=== PATIENT | male | born 1950 | race Hispanic/Latino ===

== ENCOUNTER 2018-07-28 11:14 | Emergency (ER) | payer MEDICARE ==
[~2018-07-28] VITALS: Ht 182.9 cm; Wt 116.1 kg
[2018-07-28] MEDS ORDERED: LASIX20 MG PO (11:43)
[2018-07-28] MEDS ORDERED: GLIMEPIRIDE2 MG PO (11:43)
[2018-07-28] MEDS ORDERED: SOTALOL80 MG PO (11:43)
[2018-07-28] MEDS ORDERED: ATORVASTATIN CA20 MG PO (11:43)
[2018-07-28] MEDS ORDERED: eliquis PO (11:43)
[2018-07-28] MEDS ORDERED: SYMBICORT 16010.2 GM INH (11:43)
[2018-07-28] MEDS ORDERED: POTASSIUM20 MEQ/100 PO (11:43)
[2018-07-28] MEDS ORDERED: METFORMIN HCL500 MG PO (11:43)
[2018-07-28] MEDS ORDERED: PROAIR HFA INH8.5 GM INH (11:43)
--- NOTE | 2018-07-28 13:28 | Diagnostic Imaging Report ---
EXAMINATION: Head CT HISTORY: Dizziness and weakness for the last 3 days COMPARISON: None. TECHNIQUE: Multidetector axial images were obtained without contrast from the foramen magnum to the vertex . The images were reconstructed using brain and bone algorithms. Thin section brain images were reformatted into coronal and sagittal planes. Intravenous contrast: None. Image quality: Motion/streaking artifact limits the evaluation of the skull base and posterior cranial fossa and near the mid third of the head. Dose modulation, iterative reconstruction, and/or weight based adjustment of the mA/kV was utilized to reduce the radiation dose to as low as reasonably achievable. FINDINGS: Parenchyma: 1. No abnormal densities. 2. No mass or hemorrhage. No CT evidence of acute territorial vascular insult. Extra-axial spaces:No abnormal density. No extra-axial fluid collections Brain volume: Normal for age. Ventricles: No hydrocephalus or displacement. Arteries: No density suggestive of thrombus. Dural sinuses: No abnormal density. Extra-axial spaces: No abnormal density. Foramen magnum: No mass, Chiari malformation, or basilar invagination. Sella: No obvious mass. Paranasal/mastoid sinuses: Imaged portions unremarkable. Skull/Scalp: No lytic or blastic lesions. No fractures. IMPRESSION: Mildly suboptimal evaluation due to motion artifact, grossly no acute intracranial abnormalities, particularly no hemorrhage or CT evidence of acute territorial cortical vascular insults. Signed by: Dr. Marina Pavon M.D. on 07/28/2018 1:25 PM
--- NOTE | 2018-07-28 16:04 | Diagnostic Imaging Report ---
EXAMINATION: CT of the chest with contrast, PE protocol. TECHNIQUE: Spiral CT images of the chest were performed from the lung apices through the level of the adrenal glands after the IV administration of 82 cc of Isovue 370. Thin section reconstructions were obtained with special concentration on the pulmonary arteries. Coronal and sagittal reformatted images were also obtained COMPARISON: <none> CLINICAL HISTORY:Shortness of breath, low O2 saturation DISCUSSION: Lungs: No filling defects are identified in the main, right or left pulmonary arteries to their segmental levels, to suggest pulmonary embolism. Diffusely increased attenuation of the pulmonary parenchyma. Linear opacities in the lingula and anterior left lower lobe, as well as posterior left lower lobe atelectatic changes secondary to eventration of the left hemidiaphragm. Mild compressive atelectasis of the left lower lobe. No pulmonary masses. Calcified granulomas in the lateral right upper lobe (series 4, image 33) and left upper lobe (series 4, image 27). No pulmonary nodules. Airways: Airways are clear, without endobronchial lesions. Pleura: Trace to small left pleural effusion. Heart and mediastinum: Moderate cardiomegaly. Atherosclerotic calcification of the aortic valve, coronary arteries, mitral annulus and thoracic aortic arch. Aorta is nonaneurysmal. Main pulmonary artery is enlarged, measuring 4.1 cm. Lymph nodes: Enlarged prevascular lymph node which measures 1.3 cm in short axis (series 2, image 16). Enlarged right upper paratracheal lymph node, which measures 1.4 cm in short axis (series 2, image 27). Enlarged right lower paratracheal lymph node which measures 1.3 cm in short axis (series 2, image 38). Enlarged left lower paratracheal lymph node which measures 1.5 cm in short axis (series 2, image 42). Enlarged subcarinal lymph node which measures 1.7 cm in short axis (series 2, image 53). Enlarged left hilar node which measures 1.7 cm in short axis (series 2, image 54). Abdomen: The visualized portions of the liver, spleen, pancreas and bowel are unremarkable. 1.4 x 1.5 cm low density lesion in the right adrenal gland (series 2, image 113). 2.4 x 2.6 cm low-density lesion with punctate calcification in the left adrenal gland (series 2, image 117). 1.9 x 1.9 cm low density lesion in the right adrenal gland (series 2, image 112). All these lesions measure less than 10 HU. Bones and soft tissues: No aggressive lytic lesions. Degenerative disc changes in the thoracic spine. IMPRESSION: 1. No CT evidence of pulmonary embolism. 2. Diffusely increased attenuation of the pulmonary parenchyma. This may be secondary to scan performed in partial expiration, however, mild interstitial edema may also be considered, in the appropriate clinical setting. 3. Atelectatic changes seen in the left lower lobe, lingula secondary to eventration of the left hemidiaphragm. 4. Trace to small left pleural effusion with associated mild compressive atelectasis of the left lower lobe. 5. Moderate cardiomegaly. Enlarged main pulmonary artery, consistent with pulmonary hypertension. 6. Mediastinal and left hilar adenopathy, as described, of undetermined etiology. No pulmonary mass identified 7. Bilateral adrenal lesions consistent with benign, lipid rich adenomas. No further diagnostic imaging is indicated. Signed by: Dr. Brett Sepulveda M.D. on 07/28/2018 4:01 PM
--- NOTE | 2018-07-28 16:28 | Diagnostic Imaging Report ---
EXAMINATION: PA and lateral views of the chest. COMPARISON: None CLINICAL HISTORY: Dizziness and weakness for 3 days DISCUSSION: Lines/tubes: None. Lungs: Lungs are well-inflated. Atelectatic changes in the left lower lobe and likely lingula. Right lung is grossly clear. Pleura: There is no pleural effusion or pneumothorax. Elevation of the left hemidiaphragm, which may be due to eventration. Heart and mediastinum: Cardiomediastinal silhouette is unremarkable. Pulmonary vasculature is normal. Bones and soft tissues: No acute bony abnormalities. Degenerative changes in the thoracic spine IMPRESSION: Atelectatic changes in the left lower lobe and likely lingula secondary to elevation of the left hemidiaphragm. Signed by: Dr. Brett Sepulveda M.D. on 07/28/2018 1:03 PM
[2018-07-28] MEDS ORDERED: FUROSEMIDE INJ 10 MG/ML 4 ML VIAL IV ONE (17:15)
[2018-07-28 17:49] VITALS: BP 160/92
== END 2018-07-28 17:51 | disposition home or self-care (01) ==
LOC: FSED 11:14
DX: R42 Dizziness and giddiness (principal); J44.9 Chronic obstructive pulmonary disease, unspecified; I48.0 Paroxysmal atrial fibrillation; I50.9 Heart failure, unspecified; G47.30 Sleep apnea, unspecified; F17.210 Nicotine dependence, cigarettes, uncomplicated
CPT/HCPCS: 70450; 71046; 71275; 80053; 81003; 82553; 83880; 84484; 85025; 85379; 99284; J1940; 93005

== ENCOUNTER 2019-03-30 00:47 | Inpatient (IN) | payer MEDICARE ==
[~2019-03-30] VITALS: Ht 182.9 cm; Wt 118.4 kg
[~2019-03-30 00:47] MED LIST: ATORVASTATIN CA20 MG PO; GLIMEPIRIDE2 MG PO; LASIX20 MG PO; METFORMIN HCL500 MG PO; POTASSIUM20 MEQ/100 PO; PROAIR HFA INH8.5 GM INH; SOTALOL80 MG PO; SYMBICORT 16010.2 GM INH; eliquis PO
--- OUTSIDE RECORDS SUMMARY | 2019-03-30 00:50 | XMS REPORT | Clinical Summary ---
Author Author KADI LitehouseSt. Luke'S Nampa Medical CenterShowcase-TV [facility] Organization [facility] Address Unknown Phone Unavailable Care Team Providers Care Social Service Assistant Name Role Phone Pcp, No PCP Unavailable Allergies No Known Allergies Medications End Date Status Medication Sig Dispensed Refills Start Date Active alendronate (FOSAMAX) 70 Take 70 mg by 0 MG tablet mouth every 7 days Take in the morning with a full glass of water, on an empty stomach, and do not take anything else by mouth or lie down for the next 30 min. . Active calcium carbonate-vitamin Take by mouth 0 D3 1,000 mg(2,500 mg)-800 daily. unit Tab Active albuterol HFA (VENTOLIN Inhale 1 puff 0 HFA) 90 mcg/actuation by mouth via inhaler inhaler every 6 (six) hours as needed for Wheezing. Active tiotropium (SPIRIVA) 18 Inhale 18 mcg 0 mcg inhalation capsule by mouth via inhaler daily. Active ferrous sulfate 325 (65 Take 325 mg 0 FE) MG tablet by mouth daily with breakfast. Active ranitidine (ZANTAC) 150 Take 150 mg 0 MG capsule by mouth 2 (two) times daily. Active atorvastatin (LIPITOR) 20 Take 20 mg by 0 MG tablet mouth daily. Active apixaban (ELIQUIS) 2.5 mg Take 2 0 Tab tablet tablets (5 mg 9 total) by mouth 2 (two) times daily. Active furosemide (LASIX) 20 MG Take 2 0 tablet tablets (40 9 mg total) by mouth daily. Active potassium chloride Take 2 0 (KLOR-CON) 10 MEQ CR tablets (20 9 tablet mEq total) by mouth daily. 12/24/2019 Active budesonide (PULMICORT) Take 2 mLs 120 mL 0 0.5 mg/2 mL nebulizer (0.5 mg 9 solution total) by nebulization 2 (two) times daily. 12/24/2019 Active buPROPion (WELLBUTRIN) 75 Take 1 tablet 60 tablet 0 MG tablet (75 mg total) 9 by mouth 2 (two) times daily. 12/25/2019 Active digoxin (LANOXIN) 0.125 Take 1 tablet 0 MG tablet (125 mcg 9 total) by mouth daily Do not take if heart rate < 55. 12/25/2019 Active dilTIAZem (CARDIZEM CD) Take 1 30 capsule 0 180 MG 24 hr capsule capsule (180 9 mg total) by mouth daily Do not take if systolic BP < 110 or heart rate < 50. 12/24/2019 Active insulin NPH (HUMULIN N) Inject 15 4.5 mL 0 100 unit/mL injection Units 9 subcutaneousl y daily with breakfast Do not take if accuchecks < 150 ; Use as directed. 12/24/2019 Active insulin NPH (HUMULIN N) Inject 12 3.6 mL 0 100 unit/mL injection Units 9 subcutaneousl y daily with dinner Do not take if accuchecks < 200 ; Use as directed. 12/25/2019 Active lisinopril Take 1 tablet 30 tablet 0 (PRINIVIL,ZESTRIL) 2.5 MG (2.5 mg 9 tablet total) by mouth daily Do not take if systolic BP < 140. 12/24/2019 Active magnesium oxide (MAG-OX) Take 1 tablet 30 tablet 0 400 mg (241.3 mg (400 mg 9 magnesium) tablet total) by mouth daily. Active predniSONE (DELTASONE) 10 4 tabs daily 22 tablet 0 MG tablet for 3 days, 9 then 2 tabs daily for 3 days, then 1 tab daily for 3 days , then stop.. 12/24/2019 Active senna-docusate (SENOKOT Take 1 tablet 20 tablet 0 S) 8.6-50 mg per tablet by mouth 2 9 (two) times daily as needed for Constipation. Active miscellaneous medical Nebulizer 1 each 0 supply Misc machine with 9 accessories.. 12/24/2018 Discontinued potassium chloride Take 10 mEq 0 (KLOR-CON) 10 MEQ CR by mouth tablet daily. 12/24/2018 Discontinued metFORMIN (GLUCOPHAGE) Take 1,000 mg 0 1000 MG tablet by mouth 2 (two) times daily with breakfast and dinner. 12/24/2018 Discontinued sotalol AF (BETAPACE AF) Take 120 mg 0 120 MG tablet by mouth 2 (two) times daily. 12/24/2018 Discontinued furosemide (LASIX) 20 MG Take 20 mg by 0 tablet mouth daily. 12/24/2018 Discontinued apixaban (ELIQUIS) 2.5 mg Take 2.5 mg 0 Tab tablet by mouth 2 (two) times daily. 12/24/2018 Discontinued glimepiride (AMARYL) 4 MG Take 4 mg by 0 tablet mouth every morning before breakfast. 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 12/16/2018 without angina pectoris Tobacco use 12/16/2018 FLORINDA on CPAP 12/16/2018 Resolved Problems Problem Noted Date Resolved Date Hypoxemia 12/16/2018 12/16/2018 Encounters Care Team Description Date Type Specialty Brandan Davidson MD 12/16/2018 Anesthesia Gastroenterology Event Matias Verduzco MD Quadri, Syed Fiaz, MD Quadri, Syed M., MD Acute on chronic diastolic (congestive) heart failure (HCC) 12/16/2018 Hospital Cardiology - Encounter 12/24/2018 12/16/2018 Orders Only General Internal Medicine 12/16/2018 [facility] 12/10/2018 Hospital Pre-Admission Testing Encounter after 03/29/2018 Social History Date Tobacco Use Types Packs/Day Years Used Quit: 12/07/2018 Former Smoker 1 44 Smokeless Tobacco: Former User Alcohol Use Drinks/Week oz/Week Comments Yes 8 Cans of 4.8 beer Sex Assigned at Date Recorded Not on file Industry Job Start Date Occupation Not on file Not on file Not on file Travel End Travel History Travel Start No recent travel history available. Last Filed Vital Signs Time Taken Vital Sign Reading 12/24/2018 7:00 AM [employer]ING MACHINE [employer] Blood Pressure 129/67 12/24/2018 7:27 AM [employer]ACHINE [employer] Pulse 58 12/24/2018 7:00 AM [employer]ING MACHINE OPERATOR [employer] Temperature 35.8 C (96.5 F) 12/24/2018 7:27 AM [employer]ING MACHINE OPERATOR [employer] Respiratory Rate 18 12/24/2018 7:41 AM J[employer]ING MACHINE OPERATOR [employer] Oxygen Saturation 95% 12/19/2018 3:36 AM [employer]ING MACHINE OPERATOR [employer] Inhaled Oxygen 50% Concentration 12/24/2018 5:56 AM J[employer]ING MACHINE OPERATOR [employer] Weight 111.1 kg (244 lb 14.9 oz) 12/16/2018 7:00 AM [employer]ING MACHINE O[employer]ATOR [employer] Height 182.9 cm (6') 12/24/2018 5:56 AM J[employer]ING MACHINE OPERATOR [employer] METAL Body Mass Index 33.22 Plan of Treatment Not on file Procedures Comments Procedure Name Priority Date/Time Associated Diagnosis RHYTHM STRIP - SCAN 01/13/2019 12:15 PM J[employer]ING MACHINE OPERATOR FOR METAL POCT-GLUCOSE METER Routine 12/24/2018 11:49 AM J[employer] B[employer]ING MACHINE OPERATOR FOR METAL POCT-GLUCOSE METER Routine 12/24/2018 8:14 AM J[employer] B[employer]ING MACHINE OPERATOR FOR METAL MAGNESIUM Routine 12/24/2018 6:59 AM J[employer] B[employer]ING MACHINE OPERATOR FOR METAL POTASSIUM Routine 12/24/2018 6:59 AM J[employer] B[employer]ING MACHINE OPERATOR FOR METAL POCT-GLUCOSE METER Routine 12/23/2018 8:58 PM J[employer] BORING MACHINE OPERATOR FOR METAL POCT-GLUCOSE METER Routine 12/23/2018 5:52 PM J[employer] B[employer]ING MACHINE OPERATOR FOR METAL POCT-GLUCOSE METER Routine 12/23/2018 11:09 AM J[employer] B[employer]ING MACHINE OPERATOR FOR METAL POCT-GLUCOSE METER Routine 12/23/2018 8:14 AM J[employer] B[employer]ING MACHINE OPERATOR FOR METAL LACTIC ACID, VENOUS Routine 12/23/2018 5:56 AM J[employer] BORING MACHINE OPERATOR FOR METAL MAGNESIUM Routine 12/23/2018 5:56 AM JIG BORING MACHINE OPERATOR FOR METAL BASIC METABOLIC PANEL (7) Routine 12/23/2018 5:56 AM JIG BORING MACHINE OPERATOR FOR METAL POCT-GLUCOSE METER Routine 12/22/2018 9:37 PM JIG BORING MACHINE OPERATOR FOR METAL POCT-GLUCOSE METER Routine 12/22/2018 5:52 PM J[employer] B[employer]ING MACHINE OPERATOR FOR METAL POCT-GLUCOSE METER Routine 12/22/2018 12:11 PM JIG B[employer]ING MACHINE OPERATOR FOR METAL POCT-GLUCOSE METER Routine 12/22/2018 8:06 AM J[employer] B[employer]ING MACHINE OPERATOR FOR METAL CBC W/PLT COUNT & AUTO Routine 12/22/2018 DIFFERENTIAL 5:11 AM JIG BORING MACHINE OPERATOR FOR METAL B-TYPE NATRIURETIC FACTOR Routine 12/22/2018 (BNP) 5:11 AM JIG BORING MACHINE OPERATOR FOR METAL MAGNESIUM Routine 12/22/2018 5:11 AM JIG BORING MACHINE OPERATOR FOR METAL BASIC METABOLIC PANEL (7) Routine 12/22/2018 5:11 AM JIG BORING MACHINE OPERATOR FOR METAL CBC W/PLT COUNT & AUTO Routine 12/22/2018 DIFFERENTIAL 5:11 AM JIG BORING MACHINE OPERATOR FOR METAL POCT-GLUCOSE METER Routine 12/21/2018 9:26 PM JIG BORING MACHINE OPERATOR FOR METAL POCT-GLUCOSE METER Routine 12/21/2018 5:57 PM JIG BORING MACHINE OPERATOR FOR METAL XR CHEST 1 VIEW Routine 12/21/2018 PORTABLE/BEDSIDE 2:58 PM JIG B[employer]ING MACHINE OPERATOR FOR METAL POCT-GLUCOSE METER Routine 12/21/2018 12:38 PM JIG BORING MACHINE OPERATOR FOR METAL POCT-GLUCOSE METER Routine 12/21/2018 7:25 AM JIG BORING MACHINE OPERATOR FOR METAL CBC W/PLT COUNT & AUTO Routine 12/21/2018 DIFFERENTIAL 4:48 AM JIG BORING MACHINE OPERATOR FOR METAL B-TYPE NATRIURETIC FACTOR Routine 12/21/2018 (BNP) 4:48 AM JIG BORING MACHINE OPERATOR FOR METAL MAGNESIUM Routine 12/21/2018 4:48 AM JIG BORING MACHINE OPERATOR FOR METAL BASIC METABOLIC PANEL (7) Routine 12/21/2018 4:48 AM JIG BORING MACHINE OPERATOR FOR METAL CBC W/PLT COUNT & AUTO Routine 12/21/2018 DIFFERENTIAL 4:48 AM JIG BORING MACHINE OPERATOR FOR METAL POCT-GLUCOSE METER Routine 12/20/2018 10:01 PM JIG BORING MACHINE OPERATOR FOR METAL POCT-GLUCOSE METER Routine 12/20/2018 5:15 PM JIG BORING MACHINE OPERATOR FOR METAL POCT-GLUCOSE METER Routine 12/20/2018 11:38 AM JIG BORING MACHINE OPERATOR FOR METAL XR CHEST 1 VIEW STAT 12/20/2018 PORTABLE/BEDSIDE 8:58 AM JIG BORING MACHINE OPERATOR FOR METAL POCT-GLUCOSE METER Routine 12/20/2018 8:12 AM JIG BORING MACHINE OPERATOR FOR METAL CBC W/PLT COUNT & AUTO Routine 12/20/2018 DIFFERENTIAL 4:54 AM JIG BORING MACHINE OPERATOR FOR METAL B-TYPE NATRIURETIC FACTOR Routine 12/20/2018 (BNP) 4:54 AM JIG BORING MACHINE OPERATOR FOR METAL MAGNESIUM Routine 12/20/2018 4:54 AM JIG BORING MACHINE OPERATOR FOR METAL BASIC METABOLIC PANEL (7) Routine 12/20/2018 4:54 AM JIG BORING MACHINE OPERATOR FOR METAL CBC W/PLT COUNT & AUTO Routine 12/20/2018 DIFFERENTIAL 4:54 AM JIG BORING MACHINE OPERATOR FOR METAL POCT-GLUCOSE METER Routine 12/19/2018 9:14 PM JIG BORING MACHINE OPERATOR FOR METAL ECHOCARDIOGRAM REPORT - 12/19/2018 SCAN 5:50 PM JIG BORING MACHINE OPERATOR FOR METAL POCT-GLUCOSE METER Routine 12/19/2018 4:55 PM JIG BORING MACHINE OPERATOR FOR METAL POCT-GLUCOSE METER Routine 12/19/2018 11:44 AM JIG BORING MACHINE OPERATOR FOR METAL XR CHEST 1 VIEW STAT 12/19/2018 PORTABLE/BEDSIDE 9:11 AM JIG BORING MACHINE OPERATOR FOR METAL POCT-GLUCOSE METER Routine 12/19/2018 7:51 AM JIG BORING MACHINE OPERATOR FOR METAL CBC W/PLT COUNT & AUTO Routine 12/19/2018 DIFFERENTIAL 4:55 AM JIG BORING MACHINE OPERATOR FOR METAL MAGNESIUM Routine 12/19/2018 4:55 AM JIG BORING MACHINE OPERATOR FOR METAL B-TYPE NATRIURETIC FACTOR Routine 12/19/2018 (BNP) 4:55 AM JIG BORING MACHINE OPERATOR FOR METAL BASIC METABOLIC PANEL (7) Routine 12/19/2018 4:55 AM JIG BORING MACHINE OPERATOR FOR METAL CBC W/PLT COUNT & AUTO Routine 12/19/2018 DIFFERENTIAL 4:55 AM JIG BORING MACHINE OPERATOR FOR METAL HEMOGLOBIN A1C Routine 12/19/2018 4:55 AM JIG B[employer]ING MACHINE OPERATOR FOR METAL ECG 12-LEAD Routine 12/19/2018 12:03 AM JIG BORING MACHINE OPERATOR FOR METAL ECG 12-LEAD Routine 12/19/2018 12:03 AM JIG BORING MACHINE OPERATOR FOR METAL Procedure Note - Interface, External Ris In - 12/19/2018 12:26 AM JIG BORING MACHINE OPERATOR FOR METAL Ventricula r Rate 116 BPM Atrial Rate 110 BPM QRS Duration 108 ms Q-T Interval 342 ms QTC Calculatio n(Bazett) 475 ms R [place] -20 degrees T [place] 49 degrees Atrial fibrillati on with rapid ventricula r response Abnormal ECG When compared with ECG of 9 00:00, Previous ECG has undetermin ed rhythm, needs review ECG 12-LEAD Routine 12/19/2018 12:00 AM JIG BORING MACHINE OPERATOR FOR METAL Procedure Note - Interface, External Ris In - 12/19/2018 12:26 AM JIG BORING MACHINE OPERATOR FOR METAL Ventricula r Rate 0 BPM Atrial Rate 0 BPM QRS Duration 0 ms Q-T Interval 0 ms QTC Calculatio n(Bazett) 0 ms R [place] 0 degrees T [place] 0 degrees No QRS complexes found, no ECG analysis possible When compared with ECG of 9 23:59, Current undetermin ed rhythm precludes rhythm comparison , needs review POCT-GLUCOSE METER Routine 12/18/2018 10:25 PM JIG BORING MACHINE OPERATOR FOR METAL POCT-GLUCOSE METER Routine 12/18/2018 9:21 PM JIG BORING MACHINE OPERATOR FOR METAL ECG 12-LEAD Routine 12/18/2018 7:32 PM JIG BORING MACHINE OPERATOR FOR METAL ECG 12-LEAD Routine 12/18/2018 7:32 PM JIG BORING MACHINE OPERATOR FOR METAL Procedure Note - Interface, External Ris In - 12/18/2018 8:46 PM JIG BORING MACHINE OPERATOR FOR METAL Ventricula r Rate 153 BPM Atrial Rate 147 BPM QRS Duration 98 ms Q-T Interval 302 ms QTC Calculatio n(Bazett) 482 ms R [place] -36 degrees T [place] 116 degrees Atrial fibrillati on with rapid ventricula r response Left axis deviation ST & T wave abnormalit y, consider lateral ischemia Abnormal ECG When compared with ECG of 9 18:17, Atrial fibrillati on has replaced Sinus rhythm Vent. rate has increased BY 96 BPM QRS duration has decreased T wave inversion now evident in Lateral leads ECG 12-LEAD Routine 12/18/2018 6:17 PM JIG BORING MACHINE OPERATOR FOR METAL ECG 12-LEAD Routine 12/18/2018 6:17 PM JIG BORING MACHINE OPERATOR FOR METAL Procedure Note - Interface, External Ris In - 12/18/2018 6:24 PM JIG BORING MACHINE OPERATOR FOR METAL Ventricula r Rate 57 BPM Atrial Rate 57 BPM P-R Interval 132 ms QRS Duration 116 ms Q-T Interval 436 ms QTC Calculatio n(Bazett) 424 ms P [place] 54 degrees R [place] -10 degrees T [place] 56 degrees Sinus bradycardi a Possible Left atrial enlargemen t Borderline ECG When compared with ECG of 9 20:35, Sinus rhythm has replaced Atrial fibrillati on Vent. rate has decreased BY 85 BPM POCT-GLUCOSE METER Routine 12/18/2018 5:09 PM JIG BORING MACHINE OPERATOR FOR METAL POCT-GLUCOSE METER Routine 12/18/2018 2:34 PM JIG BORING MACHINE OPERATOR FOR METAL 2D ECHO W/ DOPPLER Routine 12/18/2018 (CW/PW/COLOR) 12:41 PM JIG BORING MACHINE OPERATOR FOR METAL CBC W/PLT COUNT & AUTO STAT 12/18/2018 DIFFERENTIAL 9:11 AM JIG BORING MACHINE OPERATOR FOR METAL B-TYPE NATRIURETIC FACTOR STAT 12/18/2018 (BNP) 9:11 AM JIG BORING MACHINE OPERATOR FOR METAL MAGNESIUM STAT 12/18/2018 9:11 AM JIG BORING MACHINE OPERATOR FOR METAL CBC W/PLT COUNT & AUTO STAT 12/18/2018 DIFFERENTIAL 9:11 AM JIG BORING MACHINE OPERATOR FOR METAL BASIC METABOLIC PANEL (7) STAT 12/18/2018 9:11 AM JIG BORING MACHINE OPERATOR FOR METAL POCT-GLUCOSE METER Routine 12/18/2018 8:09 AM JIG BORING MACHINE OPERATOR FOR METAL POCT-GLUCOSE METER Routine 12/17/2018 9:32 PM JIG BORING MACHINE OPERATOR FOR METAL POCT-GLUCOSE METER Routine 12/17/2018 5:57 PM JIG BORING MACHINE OPERATOR FOR METAL POCT-GLUCOSE METER Routine 12/17/2018 11:20 AM JIG BORING MACHINE OPERATOR FOR METAL POCT-GLUCOSE METER Routine 12/17/2018 9:07 AM JIG BORING MACHINE OPERATOR FOR METAL CBC W/PLT COUNT & AUTO Routine 12/17/2018 DIFFERENTIAL 4:48 AM JIG BORING MACHINE OPERATOR FOR METAL MAGNESIUM Routine 12/17/2018 4:48 AM JIG BORING MACHINE OPERATOR FOR METAL B-TYPE NATRIURETIC FACTOR Routine 12/17/2018 (BNP) 4:48 AM JIG BORING MACHINE OPERATOR FOR METAL COMPREHENSIVE METABOLIC Routine 12/17/2018 PANEL 4:48 AM JIG BORING MACHINE OPERATOR FOR METAL CBC W/PLT COUNT & AUTO Routine 12/17/2018 DIFFERENTIAL 4:48 AM JIG BORING MACHINE OPERATOR FOR METAL POCT-GLUCOSE METER Routine 12/16/2018 9:24 PM JIG BORING MACHINE OPERATOR FOR METAL ECG 12-LEAD Routine 12/16/2018 8:35 PM JIG B[employer]ING MACHINE OPERATOR FOR METAL Procedure Note - Interface, External Ris In - 12/16/2018 10:19 PM JIG BORING MACHINE OPERATOR FOR METAL Ventricula r Rate 142 BPM Atrial Rate 153 BPM QRS Duration 98 ms Q-T Interval 308 ms QTC Calculatio n(Bazett) 473 ms R [place] -38 degrees T [place] 111 degrees Atrial fibrillati on with rapid ventricula r response with premature ventricula r or aberrantly conducted complexes Left axis deviation Nonspecifi c ST and T wave abnormalit y Abnormal ECG When compared with ECG of 9 17:28, Atrial fibrillati on has replaced Sinus rhythm Vent. rate has increased BY 87 BPM Nonspecifi c T wave abnormalit y no longer evident in Inferior leads T wave inversion no longer evident in Lateral leads ECG 12-LEAD Routine 12/16/2018 8:35 PM JIG BORING MACHINE OPERATOR FOR METAL ECG 12-LEAD Routine 12/16/2018 5:28 PM JIG BORING MACHINE OPERATOR FOR METAL Procedure Note - Interface, External Ris In - 12/16/2018 5:38 PM JIG BORING MACHINE OPERATOR FOR METAL Ventricula r Rate 55 BPM Atrial Rate 55 BPM P-R Interval 132 ms QRS Duration 98 ms Q-T Interval 476 ms QTC Calculatio n(Bazett) 455 ms P [place] 48 degrees R [place] -25 degrees T [place] [address] & T wave abnormalit y, consider lateral ischemia Abnormal ECG No previous ECGs available ECG 12-LEAD Routine 12/16/2018 5:28 PM JIG BORING MACHINE OPERATOR FOR METAL POCT-GLUCOSE METER Routine 12/16/2018 5:24 PM JIG BORING MACHINE OPERATOR FOR METAL CT CHEST PE TEST DESIGN STAT 12/16/2018 4:19 PM J[employer] BORING MACHINE OPERATOR FOR METAL XR CHEST 1 VIEW Routine 12/16/2018 PORTABLE/BEDSIDE 2:54 PM JIG BORING MACHINE OPERATOR FOR METAL RESPIRATORY PANEL SLHS Routine 12/16/2018 12:53 PM JIG BORING MACHINE OPERATOR FOR METAL SPUTUM CULTURE + GRAM Routine 12/16/2018 STAIN 12:36 PM J[employer] BORING MACHINE OPERATOR FOR METAL POCT-GLUCOSE METER Routine 12/16/2018 12:34 PM JIG BORING MACHINE OPERATOR FOR METAL BASIC METABOLIC PANEL (7) Routine 12/16/2018 12:32 PM JIG BORING MACHINE OPERATOR FOR METAL CBC W/PLT COUNT & AUTO Routine 12/16/2018 DIFFERENTIAL 7:08 AM JIG BORING MACHINE OPERATOR FOR METAL POCT-GLUCOSE METER Routine 12/16/2018 7:08 AM JIG BORING MACHINE OPERATOR FOR METAL POTASSIUM STAT 12/16/2018 7:08 AM JIG BORING MACHINE OPERATOR FOR METAL CBC W/PLT COUNT & AUTO Routine 12/16/2018 DIFFERENTIAL 7:08 AM JIG BORING MACHINE OPERATOR FOR METAL APTT Routine 12/16/2018 7:08 AM JIG BORING MACHINE OPERATOR FOR METAL PROTHROMBIN TIME/INR Routine 12/16/2018 7:08 AM JIG BORING MACHINE OPERATOR FOR METAL after 03/29/2018 Results * RHYTHM STRIP - SCAN (01/13/2019 12:15 PM JIG BORING MACHINE OPERATOR FOR METAL) Narrative Performed At * POC-Glucose meter (12/24/2018 11:49 AM JIG BORING MACHINE OPERATOR FOR METAL) Only the most recent of 35 results within the time period is included. POC-Glucose Meter 240 (H)Comment: TESTED AT 70 - 110 mg/dL [facility] [id number] [facility] [id number] Specimen Blood Performing Organization Address City/State/Zipcode Phone Number [address] [address] [facility] * Potassium (12/24/2018 6:59 AM JIG BORING MACHINE OPERATOR FOR METAL) Only the most recent of 2 results within the time period is included. Potassium 4.7 3.5 - 5.1 meq/L [facility] Specimen Blood Performing Organization Address City/[facility] [place] [address] [facility] * Magnesium (12/24/2018 6:59 AM JIG BORING MACHINE OPERATOR FOR METAL) Only the most recent of 8 results within the time period is included. Magnesium 2.1 1.6 - 2.6 mg/dL [facility] Specimen Blood Performing Organization Address [facility] [place] [address] [phone] [place] [address] * Lactic acid, venous, whole blood (12/23/2018 5:56 AM JIG BORING MACHINE OPERATOR FOR METAL) Lactate, Venous 1.1Comment: Specimen slightly 0.5 - 2.2 mmol/L [facility] hemolyzed [facility] Specimen Blood Performing Organization Address [facility] [place] [address] [facility] * Basic Metabolic Panel (12/23/2018 5:56 AM JIG BORING MACHINE OPERATOR FOR METAL) Only the most recent of 7 results within the time period is included. Sodium 137 136 - 145 meq/L [facility] Potassium 3.7 3.5 - 5.1 meq/L [facility] Chloride 92 (L) 98 - 107 meq/L [facility] CO2 35 (H) 22 - 29 meq/L [facility] BUN 33 (H) 7 - 21 mg/dL [facility] Creatinine 0.86 0.57 - 1.25 mg/dL [facility] Glucose 186 (H) 70 - 105 mg/dL [facility] Calcium 9.4 8.4 - 10.2 mg/dL [facility] EGFR 89Comment: ESTIMATED GFR IS mL/min/1.73 sq m [facility] NOT ACCURATE CREATININE [facility] CLEARANCE IN PREDICTING GLOMERULAR FILTRATION RATE. ESTIMATED GFR IS NOT APPLICABLE FOR DIALYSIS PATIENTS. Specimen Blood Performing Organization Address City/State/Zipcode Phone Number [facility] [address] [place] [address] MED[facility]ENTER * CBC with platelet count + automated diff (12/22/2018 5:11 AM JIG BORING MACHINE OPERATOR FOR METAL) Only the most recent of 7 results within the time period is included. WBC 13.7 (H) 3.5 - 10.5 K/L [facility] RBC 5.17 4.63 - 6.08 M/L [facility] Hemoglobin 15.5 13.7 - 17.5 GM/DL [facility] Hematocrit 47.5 40.1 - 51.0 % [facility] MCV 91.9 79.0 - 92.2 fL [facility] MCH 30.0 25.7 - 32.2 pg [facility] MCHC 32.6 32.3 - 36.5 GM/DL [facility] RDW 14.6 (H) 11.6 - 14.4 % [facility] Platelets 208 150 - 450 K/CU MM [facility] MPV 9.5 9.4 - 12.4 fL [facility] nRBC 0 0 - 0 /100 WBC [facility] % Neutros 77 % [facility] % Lymphs 12 % [facility] % Monos 9 % [facility] % Eos 0 % [facility] % Baso 0 % [facility] # Neutros 10.48 (H) 1.78 - 5.38 K/L [facility] # Lymphs 1.65 1.32 - 3.57 K/L [facility] # Monos 1.22 (H) 0.30 - 0.82 K/L [facility] # Eos 0.05 0.04 - 0.54 K/L [facility] # Baso 0.04 0.01 - 0.08 K/L [facility] Immature 2 (H) 0 - 1 % [facility] Specimen Blood Performing Organization Address City/[facility]/Zipcode Phone Number [place] [phone] [place] [address] * B-type Natriuretic Factor (BNP) (12/22/2018 5:11 AM JIG BORING MACHINE OPERATOR FOR METAL) Only the most recent of 6 results within the time period is included. BNP 315 (H) 0 - 100 pg/mL [facility] Specimen Blood Performing Organization Address City/[facility]/[place] [phone] [place] [address] * XR chest 1 view portable / bedside (12/21/2018 2:58 PM JIG BORING MACHINE OPERATOR FOR METAL) Only the most recent of 4 results within the time period is included. Specimen Narrative Performed At FINAL REPORT [facility] Comparison: 12/20/2018 TECHNIQUE: Single view of the chest FINDINGS: Lung volumes are low. Mild vascular congestion suspected. Small left pleural effusion with adjacent airspace disease. Otherwise lungs are clear. No acute skeletal abnormality. Signed: Theodore Diamond MD Report Verified Date/Time:12/21/2018 15:17:31 Reading Location: [facility] Radiology Reading Room Procedure Note Interface, External Ris In - 12/21/2018 3:19 PM JIG BORING MACHINE OPERATOR FOR METAL FINAL REPORT Comparison: 12/20/2018 TECHNIQUE: Single view of the chest FINDINGS: Lung volumes are low. Mild vascular congestion suspected. Small left pleural effusion with adjacent airspace disease. Otherwise lungs are clear. No acute skeletal abnormality. Signed: Theodore Diamond MD Report Verified Date/Time: 12/21/2018 15:17:31 Reading Location: [facility] Radiology Reading Room Performing Organization Address City/State/Zipcode Phone Number [facility] * ECHOCARDIOGRAM REPORT - SCAN (12/19/2018 5:50 PM JIG BORING MACHINE OPERATOR FOR METAL) Narrative Performed At * Hemoglobin A1c (12/19/2018 4:55 AM JIG BORING MACHINE OPERATOR FOR METAL) Hemoglobin A1C 6.3 (H) 4.3 - 6.1 % [facility] Specimen Blood Performing Organization Address City/[facility] Phone Number [place] [phone] [place] [phone] [place] [address] * ECG 12 lead (12/19/2018 12:03 AM JIG BORING MACHINE OPERATOR FOR METAL) Only the most recent of 5 results within the time period is included. Specimen Narrative Performed At Ventricular Rate 116 BPM GE MUSE Atrial Rate 110 BPM QRS Duration 108 ms Q-T Interval 342 ms QTC Calculation(Bazett) 475 ms R [place] -20 degrees T [place] 49 degrees Atrial fibrillation with rapid ventricular response Abnormal ECG When compared with ECG of 19-DEC-2018 00:00, Previous ECG has undetermined rhythm, needs review Confirmed by MD TIPTON D. RICHARD ([id number]) on 12/19/2018 9:34:06 AM Procedure Note Interface, External Ris In - 12/19/2018 9:34 AM JIG BORING MACHINE OPERATOR FOR METAL Ventricular Rate 116 BPM Atrial Rate 110 BPM QRS Duration 108 ms Q-T Interval 342 ms QTC Calculation(Bazett) 475 ms R [place] -20 degrees T [place] 49 degrees Atrial fibrillation with rapid ventricular response Abnormal ECG When compared with ECG of 19-DEC-2018 00:00, Previous ECG has undetermined rhythm, needs review Confirmed by MD TIPTON D. RICHARD ([id number]) on 12/19/2018 9:34:06 AM Performing Organization Address City/[employer] Phone Number GE MUSE * 2D Echo W/Doppler(CW/PW/Color) (12/18/2018 12:41 PM JIG BORING MACHINE OPERATOR FOR METAL) Ejection Fraction [facility] ECHO HEARTLAB [facility] Specimen Narrative Performed At Transthoracic Echocardiography Report (TTE) [facility] ECHO HEARTLAB Demographics [facility] Patient Name Digna RAMÍREZ of Study 12/18/2018 [id number] Male Visit Number [id number] Room Number 2439 Number Date of Birth2Referring Physician Luba Salcedo Age68 year(s)Vegetable Cook Ian Ball [facility] AnalystIzoJose Cuadra MD Procedure Type of Study TTE procedure:2DECHO W DOPPLER(CW/PW/COLOR) (Routine) Indications:Respiratory failure or hypoxemia . Clinical History DMII, PAFIB, HLD, HTN, CAD, ARF HGB 13.4 HCT 43.9 % Contrast Medium: Definity. Height: 72 inches Weight: 116.12 kg (256 lbs) BSA: 2.37 m^2 BMI: 34.72 kg/m^2 HR: 50 bpm BP: 138/62 mmHg Summary 1. All of the LV segments contract normally . Estimated LVEF by qualitative assessment is normal (55-60% 2. Grade 2 diastolic dysfunction (moderately increased LA pressure). 3. Estimated peak systolic PA pressure is 50-55 mmHg . 4. RV chamber size is moderately enlarged . Global RV systolic function is mildly reduced . Previous Study No prior exam available for comparison. Signature Findings Technical Quality: Technically good exam. Left Ventricle The left ventricle is chamber size (by PSLAX dimension) is normal (male - LVIDd 4.2-5.8cm) . Mild concentric LV hypertrophy. All of the LV segments contract normally . Global LV systolic function normal . Estimated LVEF by qualitative assessment is normal (55-60%) . LV endocardium is adequately visualized with IV ultrasound enhancing agent. Grade 2 diastolic dysfunction (moderately increased LA pressure). Normal (cardiac index 2-3 L/min/m2) cardiac output state at rest is noted. Left AtriumLA size is severely enlarged (>48 ml/m2) . Right VentricleRV chamber size is moderately enlarged . Global RV systolic function is mildly reduced . Right Atrium RA cavity size is moderately enlarged . Aortic Valve Mild AoV cusp calcification. No evidence of aortic stenosis. Mitral Valve Moderate mitral annular calcification. Mild MV leaflet thickening. Mild mitral regurgitation. Tricuspid ValveMild-to moderate eccentric tricuspid regurgitation directed towards the septum. Estimated peak systolic PA pressure is 50-55 mmHg . Pulmonic Valve Mild pulmonary regurgitation. Normal PV structure and function by limited views and Doppler. AortaAortic root size (SInus of Valsalva diameter) is borderline dilated . Proximal ascending aorta size mildly dilated . 3.9 cm PericardiumNo significant pericardial effusion is visualized. IVC/SVC/PA/PV/PleuralPulmonary vein flow is consistent with increased LAP . The estimated RA pressure by IVC dynamics 5-10mmHg . Chambers/Structures Left Atrium LA Volume: 143.1 ml LA Area: 30.93 cm^2 LA Vol. Index: 60 ml/m^2 Left Ventricle LVIDd: 4.88 cm LV Septum Diastolic: 1.36 cm LV PW Diastolic: 1.24 cm LVOT Diameter: 2.33 cm Right Atrium RA Vol. (Sngl Plane): 89.28 ml Right Ventricle TAPSE: 1.54 cm Aorta Ao Root S of Matilde.: 3.53 cmAscending Aorta: 3.92 cm Doppler/Quantitative Measurements Mitral Valve MV Peak E-Wave: 1.21 m/sMV Peak A-Wave: 0.65 m/s E/A Ratio: 1.86 Peak Gradient: 5.83 mmHg Deceleration Time: 178.7 msec MV Gonzalo. Peak: Tissue Doppler E' Lateral Velocity: 0.1 m/sE/E': 12.19 Aortic Valve Peak Velocity: 1.99 m/sMean Velocity: 1.37 m/s Peak Gradient: 15.89 mmHgMean Gradient: 8.45 mmHg AV Area (continuity): 3.09 cm^2 AV VTI: 40.79 cm AV DVI: 0.73 LVOT Peak Velocity: 1.48 m/s Peak Gradient: 8.72 mmHg Mean Velocity: 0.89 m/s Mean Gradient: 3.87 mmHg LVOT Diameter: 2.33 cmLVOT VTI: 29.6 cm LVOT Area: 4.26 cm^2LVOT SV:126.15 ml LVOT CO: 6.31 l/min LVOT CI: 2.66 l/min/m^2 Tricuspid Valve TR Velocity: 3.28 m/s TR Gradient: 42.91 mmHg Procedure Note Interface, External Ris In - 12/19/2018 5:11 PM JIG BORING MACHINE OPERATOR FOR METAL Transthoracic Echocardiography Report (TTE) Demographics Patient Name NAUN RAMÍREZ Date of Study 12/18/2018 Gender Male Visit Number [id number] Race Unknown Room Number 2439 Number Date of 1950 Referring Physician Luba Salcedo Age 68 year(s) Vegetable Cook Ian Ball RDCS Beer Merchant Bryan Torre Interpreting Jerry Smallwood Physician Procedure Type of Study TTE procedure:2DECHO W DOPPLER(CW/PW/COLOR) (Routine) Indications:Respiratory failure or hypoxemia . Clinical History DMII, PAFIB, HLD, HTN, CAD, ARF HGB 13.4 HCT 43.9 % Contrast Medium: Definity. Height: 72 inches Weight: 116.12 kg (256 lbs) BSA: 2.37 m^2 BMI: 34.72 kg/m^2 HR: 50 bpm BP: 138/62 mmHg Summary 1. All of the LV segments contract normally . Estimated LVEF by qualitative assessment is normal (55-60% 2. Grade 2 diastolic dysfunction (moderately increased LA pressure). 3. Estimated peak systolic PA pressure is 50-55 mmHg . 4. RV chamber size is moderately enlarged . Global RV systolic function is mildly reduced . Previous Study No prior exam available for comparison. Signature Findings Technical Quality: Technically good exam. Left Ventricle The left ventricle is chamber size (by PSLAX dimension) is normal (male - LVIDd 4.2-5.8cm) . Mild concentric LV hypertrophy. All of the LV segments contract normally . Global LV systolic function normal . Estimated LVEF by qualitative assessment is normal (55-60%) . LV endocardium is adequately visualized with IV ultrasound enhancing agent. Grade 2 diastolic dysfunction (moderately increased LA pressure). Normal (cardiac index 2-3 L/min/m2) cardiac output state at rest is noted. Left Atrium LA size is severely enlarged (>48 ml/m2) . Right Ventricle RV chamber size is moderately enlarged . Global RV systolic function is mildly reduced . Right Atrium RA cavity size is moderately enlarged . Aortic Valve Mild AoV cusp calcification. No evidence of aortic stenosis. Mitral Valve Moderate mitral annular calcification. Mild MV leaflet thickening. Mild mitral regurgitation. Tricuspid Valve Mild-to moderate eccentric tricuspid regurgitation directed towards the septum. Estimated peak systolic PA pressure is 50-55 mmHg . Pulmonic Valve Mild pulmonary regurgitation. Normal PV structure and function by limited views and Doppler. Aorta Aortic root size (SInus of Valsalva diameter) is borderline dilated . Proximal ascending aorta size mildly dilated . 3.9 cm Pericardium No significant pericardial effusion is visualized. IVC/SVC/PA/PV/Pleural Pulmonary vein flow is consistent with increased LAP . The estimated RA pressure by IVC dynamics 5-10mmHg . Chambers/Structures Left Atrium LA Volume: 143.1 ml LA Area: 30.93 cm^2 LA Vol. Index: 60 ml/m^2 Left Ventricle LVIDd: 4.88 cm LV Septum Diastolic: 1.36 cm LV PW Diastolic: 1.24 cm LVOT Diameter: 2.33 cm Right Atrium RA Vol. (Sngl Plane): 89.28 ml Right Ventricle TAPSE: 1.54 cm Aorta Ao Root S of Matilde.: 3.53 cm Ascending Aorta: 3.92 cm Doppler/Quantitative Measurements Mitral Valve MV Peak E-Wave: 1.21 m/s MV Peak A-Wave: 0.65 m/s E/A Ratio: 1.86 Peak Gradient: 5.83 mmHg Deceleration Time: 178.7 msec MV Gonzalo. Peak: Tissue Doppler E' Lateral Velocity: 0.1 m/s E/E': 12.19 Aortic Valve Peak Velocity: 1.99 m/s Mean Velocity: 1.37 m/s Peak Gradient: 15.89 mmHg Mean Gradient: 8.45 mmHg AV Area (continuity): 3.09 cm^2 AV VTI: 40.79 cm AV DVI: 0.73 LVOT Peak Velocity: 1.48 m/s Peak Gradient: 8.72 mmHg Mean Velocity: 0.89 m/s Mean Gradient: 3.87 mmHg LVOT Diameter: 2.33 cm LVOT VTI: 29.6 cm LVOT Area: 4.26 cm^2 LVOT SV:126.15 ml LVOT CO: 6.31 l/min LVOT CI: 2.66 l/min/m^2 Tricuspid Valve TR Velocity: 3.28 m/s TR Gradient: 42.91 mmHg Performing Organization Address City/State/[facility] Phone Number [facility] * Comprehensive metabolic panel (12/17/2018 4:48 AM JIG BORING MACHINE OPERATOR FOR METAL) Protein, Total 7.3 6.0 - 8.3 gm/dL [facility] Albumin 3.7 3.5 - 5.0 g/dL [facility] Alkaline Phosphatase 73 40 - 150 U/L [facility] Total Bilirubin 0.6 0.2 - 1.2 mg/dL [facility] Sodium 138 136 - 145 meq/L [facility] Potassium 4.7 3.5 - 5.1 meq/L [facility] Chloride 103 98 - 107 meq/L [facility] CO2 26 22 - 29 meq/L [facility] BUN 32 (H) 7 - 21 mg/dL [facility] Creatinine 1.07 0.57 - 1.25 mg/dL [facility] Glucose 223 (H) 70 - 105 mg/dL [facility] Calcium 9.3 8.4 - 10.2 mg/dL [facility] AST 12 5 - 34 U/L [facility] ALT 11 6 - 55 U/L [facility] EGFR 69Comment: ESTIMATED GFR IS mL/min/1.73 sq m [facility] NOT ACCURATE CREATININE [facility] CLEARANCE IN PREDICTING GLOMERULAR FILTRATION RATE. ESTIMATED GFR IS NOT APPLICABLE FOR DIALYSIS PATIENTS. Specimen Blood Performing Organization Address City/State/Zipcode Phone Number [facility] [address] [place] [address] [facility] * CT chest for pulmonary embolus (12/16/2018 4:19 PM JIG BORING MACHINE OPERATOR FOR METAL) Specimen Narrative Performed At FINAL REPORT [facility] CT scan of the chest with pulmonary embolism protocol. Clinical History: Shortness of breath. Comparison Study: Chest x-ray dated December 16, 2018. Technique: Pre-intravenous contrast localization images were acquired followed by contiguous helical slices through the thorax post administration of intravenous contrast using a timed bolus fashion. This exam was performed according to our department dose optimization program which includes automated exposure control, adjustment of the mA and/or kV according to the patient's size and/or use of iterative reconstruction technique. Findings: There is no evidence of pulmonary embolism. The mediastinum demonstrates significant adenopathy including a 4.3 x 3.3 cm right paratracheal lymph node mass, 2.4 x 1.4 cm prevascular lymph node, 2.2 x 3.8 cm enlarged lymph node, 1.8 x 2.6 cm right hilar lymph node, 3.2 x 2.3 cm left hilar lymph node as well as other areas of adenopathy. The main pulmonary artery is dilated measuring 4.5 cm suggestive of pulmonary arterial hypertension. Trace pleural effusions are seen. The visualized portions of the upper abdomen demonstrate a 2.9 x 2.4 cm nodule emanating from the left adrenal gland inferiorly. There is a 1.4 cm right adrenal gland nodule. Both are indeterminant. The tracheobronchial tree is clear with no endobronchial lesions. The pulmonary parenchyma demonstrates extensive atelectasis or consolidation in the lung bases. Other groundglass and interstitial pulmonary markings are seen. A 3 mm nodule is seen in the posterior aspect of the right upper lobe on image 28. Bone windows demonstrate no evidence of fracture or malalignment. Degenerative changes are seen. Impression: 1. No evidence of pulmonary embolism. 2. Extensive mediastinal adenopathy. Neoplasm cannot be excluded. 3. Dilatation of the main pulmonary artery suggestive of pulmonary arterial hypertension. 4. Findings most suggestive of CHF. In the right clinical setting, a superimposed infection would be difficult to exclude. Clinical correlation and short term imaging follow-up could be made to exclude other etiologies. 5. Bilateral indeterminate adrenal nodules for which metastatic disease cannot be excluded. Signed: Anthony Rosado MD Report Verified Date/Time:12/16/2018 16:50:11 Reading Location: [facility] Diagnostic Imaging Reading Room - [place] [address] Procedure Note Interface, External Ris In - 12/16/2018 4:52 PM JIG BORING MACHINE OPERATOR FOR METAL FINAL REPORT CT scan of the chest with pulmonary embolism protocol. Clinical History: Shortness of breath. Comparison Study: Chest x-ray dated December 16, 2018. Technique: Pre-intravenous contrast localization images were acquired followed by contiguous helical slices through the thorax post administration of intravenous contrast using a timed bolus fashion. This exam was performed according to our department dose optimization program which includes automated exposure control, adjustment of the mA and/or kV according to the patient's size and/or use of iterative reconstruction technique. Findings: There is no evidence of pulmonary embolism. The mediastinum demonstrates significant adenopathy including a 4.3 x 3.3 cm right paratracheal lymph node mass, 2.4 x 1.4 cm prevascular lymph node, 2.2 x 3.8 cm enlarged lymph node, 1.8 x 2.6 cm right hilar lymph node, 3.2 x 2.3 cm left hilar lymph node as well as other areas of adenopathy. The main pulmonary artery is dilated measuring 4.5 cm suggestive of pulmonary arterial hypertension. Trace pleural effusions are seen. The visualized portions of the upper abdomen demonstrate a 2.9 x 2.4 cm nodule emanating from the left adrenal gland inferiorly. There is a 1.4 cm right adrenal gland nodule. Both are indeterminant. The tracheobronchial tree is clear with no endobronchial lesions. The pulmonary parenchyma demonstrates extensive atelectasis or consolidation in the lung bases. Other groundglass and interstitial pulmonary markings are seen. A 3 mm nodule is seen in the posterior aspect of the right upper lobe on image 28. Bone windows demonstrate no evidence of fracture or malalignment. Degenerative changes are seen. Impression: 1. No evidence of pulmonary embolism. 2. Extensive mediastinal adenopathy. Neoplasm cannot be excluded. 3. Dilatation of the main pulmonary artery suggestive of pulmonary arterial hypertension. 4. Findings most suggestive of CHF. In the right clinical setting, a superimposed infection would be difficult to exclude. Clinical correlation and short term imaging follow-up could be made to exclude other etiologies. 5. Bilateral indeterminate adrenal nodules for which metastatic disease cannot be excluded. Signed: Anthony Rosado MD Report Verified Date/Time: 12/16/2018 16:50:11 Reading Location: [facility] Diagnostic Imaging Reading Room - [place] [address] Performing Organization Address City/State/Zipcode Phone Number GE RIS * [facility] (12/16/2018 12:53 PM JIG BORING MACHINE OPERATOR FOR METAL) Human Metapneumovirus Not detected Not detected, [facility]ocal [facility] Rhinovirus Not detected Not detected, [facility] Influenza A Not detected Not detected, [facility] INFLUENZA A (NO SUBTYPE) Not detected, Equivocal [facility] Influenza A subtype H1 Not detected, Equivocal [facility] Influenza A Subtype H3 Not detected, Equivocal [facility] Influenza A Subtype Not detected, Equivocal [facility] H1-2009 [facility] Influenza B Not detected Not detected, Equivocal [facility] Respiratory Syncytial Not detected Not detected, Equivocal [facility] Virus [facility] Parainfluenza Virus 1 Not detected Not detected, Equivocal [facility] Parainfluenza Virus 2 Not detected Not detected, Equivocal [facility] Parainfluenza virus 3 Not detected Not detected, Equivocal [facility] Parainfluenza Virus 4 Not detected Not detected, Equivocal [facility] Adenovirus Not detected Not detected, Equivocal [facility] Coronavirus 229E Not detected Not detected, Equivocal [facility] Coronavirus HKU1 Not detected Not detected, Equivocal [facility] Coronavirus NL63 Not detected Not detected, Equivocal [facility] Coronavirus OC43 Not detected Not detected, Equivocal [facility] Bordetella Pertussis Not detected Not detected, Equivocal [facility] Chlamydophila Pneumoniae Not detected Not detected, Equivocal [facility] Mycoplasma Pneumoniae Not detected Not detected, Equivocal [facility] Specimen Nasopharyngeal Narrative Performed At Other viruses and bacteria not targeted by this PCR panel cannot be excluded; [facility] therefore clinical correlation and follow up of serology, culture results, and [facility] other molecular studies is required. The results are not intended to be used as the sole means for clinical diagnosis or patient management decisions. This sample was tested at the [facility] using the Clear Image TechnologyArray Respiratory Panel. It is FDA cleared and has been verified and approved by the [facility] for clinical use on nasal swab specimens. It is not FDA-cleared for use on bronchial wash/lavage samples. However, for this sample type, validation was performed and test characteristics were determined and approved, by [facility] for clinical use under the Clinical Laboratory Improvement Amendments (CLIA) of 1988 requirements. Therefore, FDA clearance is not required.This laboratory is CLIA-certified and [employer] (CAP)-accredited to perform high complexity testing. Performing Organization Address City/State/Zipcode Phone Number [facility] [address] [place] [address] [facility] * Sputum Culture + Gram Stain (12/16/2018 12:36 PM JIG BORING MACHINE OPERATOR FOR METAL) Result 4+ Normal respiratory lorena [facility] Gram Stain Result <1+ gram positive rods [facility] Gram Stain Result <1+ gram positive cocci in [facility] pairs [facility] Gram Stain Result 15-20 epithelial cells [facility] Gram Stain Result 3+ WBCs [facility] Specimen Sputum - Expectorated Performing Organization Address City/[facility]/Zipcode Phone Number [address] [address] [facility] * aPTT (12/16/2018 7:08 AM JIG BORING MACHINE OPERATOR FOR METAL) PTT 34.9 22.5 - 36.0 seconds [facility] Specimen Blood Performing Organization Address City/[facility]/Zipcode Phone Number [address] [address] [facility] * Prothrombin time/INR (12/16/2018 7:08 AM JIG BORING MACHINE OPERATOR FOR METAL) Protime 13.1 11.7 - 14.7 seconds [facility] INR 1.0 <=5.9 [facility] Specimen Blood Narrative Performed At RECOMMENDED COUMADIN/WARFARIN INR THERAPY RANGES [facility] STANDARD DOSE: 2.0 - 3.0 Includes: PROPHYLAXIS for venous thrombosis, [facility] systemic embolization; TREATMENT for venous thrombosis and/or pulmonary embolus. HIGH RISK: Target INR is 2.5-3.5 for patients with mechanical heart valves. Performing Organization Address City/[facility]/Zipcode Phone Number [address] [address] [facility] after 03/29/2018 Insurance Payer Benefit Subscriber ID Type Phone Address Plan / Group [facility] xxxxxxxxxxx MEDICARE ADV Advance Directives For more information, please contact: [facility] [address] [place] [address] Date Inactivated Comments Code Status Date Activated Full Code 12/16/2018 2:32 PM This code status was determined by: Patient
--- OUTSIDE RECORDS SUMMARY | 2019-03-30 00:51 | XMS REPORT ---
Author Author Jo Weaver [facility] eClinicalWorks Address Unknown Phone Unavailable Care Team Providers Care Structural Steel Equipment Erector Name Role Phone Jo Weaver Unavailable Encounters Encounter Location Date NV-repeat CXR (please have someone look at xray before pt leaves) [facility] April 04, 2015 MED REFILL [facility] March 31, 2015 refill [facility] May 18, 2014 possible boil [facility] Jul 06, 2014 Unknown [facility] Aug 28, 2014 Problems Problem Type Condition ICD-9 Code Onset Dates Condition Status Assessment Interstitial edema 782.3 Active Problem 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 Active Problem 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 Problem HTN (hypertension) 401.9 Active Problem COPD (Chronic airway obstruction, not elsewhere classified) 496 Active Problem Smoker 305.1 Active Problem Neuropathy 355.9 Active Problem Hyperlipemia 272.4 Active Problem GERD (Esophageal reflux) 530.81 Active Problem Hypogonadism male 257.2 Active Medications Medication Code System Code Instructions Start Date End Date Status Dosage Lisinopril [facility] 33015173646 5MG orally once a day Active 1 tablet Ketoconazole [facility] [address]-41 2 % Externally Once a day to soles of feet March 31, 2015 May 12, 2015 Active 1 application to affected area Nitroglycerin [facility] [address]-49 0.4 MG Sublingual as needed Active 1 tablet under the tongue and allow to dissolve as needed Levitra [facility] [address]-26 20 mg Orally Once a day March 31, 2015 April 30, 2015 Active 1 tablet as needed MetFORMIN HCl ER [facility] [address]-45 500 mg Orally Once a day Dec 12, 2014 Active 2 tablet Metoprolol Tartrate [facility] 53288824880 TAR 50MG Orally once a day Active take 2 tablets once daily Lasix [facility] [address]-38 20 mg Orally twice daily March 31, 2015 Active 1 tablet Klor-Con 10 [facility] [address]-42 10 MEQ Orally twice daily March 31, 2015 Active 1 tablet Testosterone Cypionate [facility] [address]-82 200 MG/ML Intramuscular every 2 weeks Dec 28, 2013 Active 1 ml Plavix [facility] 57176978200 75MG Orally once a day LAST REFILL, MUST SEE DOCTOR Active 1 tablet Social History Social History Element Qualifiers Date Reported Ethnicity . Status , Is persian your primary language? Yes March 31, 2015 children . 1 March 31, 2015 Tobacco Use: . Are you a: current smoker 1 / PPD March 31, 2015 Use of recreational / street drugs? . Answer: No March 31, 2015 Marital Status: . Lesvia Ramírez March 31, 2015 Do you drink alcohol? . Status: Yes, Type: Beer, How often? Daily, How much? 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
--- OUTSIDE RECORDS SUMMARY | 2019-03-30 00:51 | XMS REPORT ---
Author Author Johanna Weaver Organization [employer] Address Unknown Phone Unavailable Care Team Providers Care Assistant Corporate Secretary Name Role Phone Johanna Weaver CP Unavailable Allergies, Adverse Reactions, Alerts Substance Reaction Event Type N.K.D.A. Info Not Available Non Drug Allergy Encounters Encounter Location Date NV-repeat CXR (please have someone look at xray before pt leaves) [facility] April 04, 2015 MED REFILL [facility] March 31, 2015 results [facility] April 11, 2015 ECHO-JOHANNA [facility] April 11, 2015 refill [facility] May 18, 2014 possible boil [facility] Jul 06, 2014 Unknown [facility] Aug 28, 2014 Problems Problem Type Condition ICD-9 Code Onset Dates Condition Status Assessment Other follow-up examination V67.59 Active Problem 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 Active Problem 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 Problem HTN (hypertension) 401.9 Active Problem COPD (Chronic airway obstruction, not elsewhere classified) 496 Active Problem Smoker 305.1 Active Problem Neuropathy 355.9 Active Problem Hyperlipemia 272.4 Active Problem GERD (Esophageal reflux) 530.81 Active Problem Hypogonadism male 257.2 Active Assessment Obesity 278.00 Active Assessment BMI 33.0-33.9,adult V85.33 Active Assessment Smoker 305.1 Active Assessment COPD (Chronic airway obstruction, not elsewhere classified) 496 Active Assessment HTN (hypertension) 401.9 Active Assessment Hypogonadism male 257.2 Active Assessment 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 Assessment Hyperlipemia 272.4 Active Medications Medication Code System Code Instructions Start Date End Date Status Dosage [facility] [address]-68 2 % Externally Once a day to soles of feet March 31, 2015 May 12, 2015 Active 1 application to affected area Lasix [facility] [address]-24 20 mg Orally Once a day March 31, 2015 Active 1 tablet Metoprolol Tartrate [facility] 18837013174 TAR 50MG Orally once a day Active take 2 tablets once daily Lisinopril [facility] 47583543424 5MG orally once a day Active 1 tablet Syringe/Needle (Disp) [facility] 8881-086700 18G X 1" 3 ML once every 2 weeks to draw up testosterone depo April 11, 2015 Active as directed Levitra [facility] [address]-53 20 mg Orally Once a day March 31, 2015 April 30, 2015 Active 1 tablet as needed Depo-Testosterone [facility] [address]-26 200 MG/ML Intramuscular April 11, 2015 Active 1 ml Testosterone Cypionate [facility] [address]-28 200 MG/ML Intramuscular every 2 weeks Dec 28, 2013 Active 1 ml MetFORMIN HCl ER [facility] [address]-83 500 mg Orally Once a day Dec 12, 2014 Active 2 tablet Klor-Con 10 [facility] [address]-44 10 MEQ Orally once daily March 31, 2015 Active 1 tablet Crestor [facility] [address]-81 5 MG Orally Once a day April 11, 2015 Active 1 tablet Symbicort [facility] [address]-20 160-4.5 MCG/ACT Inhalation Twice a day April 11, 2015 Aug 09, 2015 Active 2 puffs Nitroglycerin [facility] [address]-23 0.4 MG Sublingual as needed Active 1 tablet under the tongue and allow to dissolve as needed Plavix [facility] 01403774037 75MG Orally once a day LAST REFILL, MUST SEE DOCTOR Active 1 tablet Syringe/Needle (Disp) [facility] 8080-590114 22G X 1-1/2" 3 ML intramuscularly to inject testosterone once every 2 weeks April 11, 2015 Active as directed Social History Social History Element Qualifiers Date Reported Flu Vaccine: . no April 11, 2015 Last Colonoscopy: . 20 years ago April 11, 2015 Ethnicity . Status , Is czech your primary language? Yes April 11, 2015 Last Bone Density: . never April 11, 2015 children . 1 April 11, 2015 Tobacco Use: . Are you a: current smoker 12 01/2 PPD April 11, 2015 Use of recreational / street drugs? . Answer: No April 11, 2015 Marital Status: . Lesvia Ramírez April 11, 2015 Do you drink alcohol? . Status: Yes, Type: Beer, How often? Daily, How much? 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 Family history Qualifier Description Comment Date Reported Maternal Grandmother Comment not available April 11, 2015 Paternal Grandmother Comment not available April 11, 2015 Siblings alive arthritis (brother) April 11, 2015 Maternal Grandfather Comment not available April 11, 2015 Children alive healthy April 11, 2015 Father Comment not available April 11, 2015 Paternal Grandfather Comment not available April 11, 2015 Mother diabetes April 11, 2015 Other: Comment not available April 11, 2015 Vital Signs Date/Time: April 11, 2015 Weight 248 lbs Height 72 in Cardiac Monitoring Heart Rate 68 /min Blood Pressure Diastolic 58 mm Hg Blood Pressure Systolic 110 mm Hg Summary Purpose eClinicalWorks Submission
--- OUTSIDE RECORDS SUMMARY | 2019-03-30 00:51 | XMS REPORT | Continuity of Care Document ---
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 Problem 11/11/2015 [facility] COPD Active Problem 11/11/2015 [facility] GERD Active Problem 01/17/2017 [facility] HTN Active Problem 11/11/2015 [facility] Hyperlipemia Active Problem 11/11/2015 [facility] Polyneuropathy in diabetes Active Problem 11/11/2015 [facility] Hypogonadism male Active Problem 11/11/2015 [facility] Neuropathy Active Problem 11/11/2015 [facility] Smoker Active Problem 01/17/2017 [facility] Mitral annular calcification Active Problem 06/20/2017 [facility] Tricuspid regurgitation Active Problem 06/20/2017 [facility] Left atrial enlargement Active Problem 06/20/2017 [facility] Low HDL Active Problem 06/20/2017 [facility] Type 2 diabetes mellitus with hyperglycemia Active Problem 06/20/2017 [facility] 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 Active Problem 06/20/2017 [facility] Type 2 diabetes mellitus with diabetic polyneuropathy Active Problem 06/20/2017 [facility] COPD Active Problem 06/20/2017 [facility] Pure hypercholesterolemia Active Problem 06/20/2017 [facility] Essential hypertension Active Problem 06/20/2017 [facility] 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 Diagnosis 06/20/2017 [facility] Tobacco use disorder Active Diagnosis 06/20/2017 [facility] Gastroesophageal reflux disease Active Problem 06/20/2017 [facility] Hypogonadism in male Active Problem 06/20/2017 [facility] Abscess of leg Active Diagnosis 07/19/2014 [facility] Interstitial edema Active Diagnosis 04/05/2015 [facility] Abnormal EKG Active Diagnosis 04/20/2015 [facility] HTN , benign Active Problem 11/11/2015 [facility] Tricuspid regurgitation Active Problem 11/11/2015 [facility] Mitral annular calcification Active Problem 11/11/2015 [facility] Left atrial enlargement Active Problem 11/11/2015 [facility] Other follow-up examination Active Diagnosis 04/13/2015 [facility] Obesity Active Diagnosis 04/13/2015 [facility] BMI 33.0-33.9,adult Active Diagnosis 04/13/2015 [facility] Dizziness Active Diagnosis 11/08/2016 [facility] Fluid level behind tympanic membrane, bilateral Active Diagnosis 11/08/2016 [facility] Headache Active Diagnosis 03/20/2016 [facility] Nocturia Active Diagnosis 03/20/2016 [facility] COPD with acute lower respiratory infection Active Diagnosis 11/28/2015 [facility] Localized swelling of lower leg Active Diagnosis 11/22/2015 [facility] Weight gain Active Diagnosis 11/22/2015 [facility] Medications Medication Details Route Status Patient Instructions Ordering Provider Order Date Source Albuterol Sulfate HFA 2 puffs as needed Inhalation Active 108 (90 Base) MCG/ACT Inhalation every 4-6 hrs PRN Toribio 06/18/2017 [facility] Stiolto Respimat 2 puffs Inhalation Active 2.5-2.5 MCG/ACT Inhalation Once a day [place] 06/18/2017 [facility] Chantix Starting Month Yobany as directed Orally Active 0.5 MG X 11 & 1 MG X 42 Orally as directed Toribio 06/18/2017 [facility] Chantix Continuing Month Yobany 1 tablet Orally Active 1 MG Orally Twice a day [place] 06/18/2017 [facility] Lantus 13 units Subcutaneous Active 100 UNIT/ML Subcutaneous once every night [place] 01/16/2017 [facility] BD Insulin Syringe Ultrafine as directed subcutaneously Active 31G X 16 subcutaneously use qd for Lantus Toribio 01/15/2017 [facility] Levemir as directed Subcutaneous No Longer Active 100 UNIT/ML Subcutaneous inject 10 units every morning [facility] 10/29/2016 [facility] Farxiga 1 tablet Orally Active 5 MG Orally Once a day (MUST SEE DOCTOR BEFORE NEXT REFILL) Kamron 10/22/2016 [facility] Farxiga 1 tablet Orally Active 5 MG Orally Once a day [place] 03/12/2016 [facility] Flomax 1 capsule 30 minutes after the same meal each day Orally Active 0.4 MG Orally Once a day [place] 03/12/2016 [facility] Levemir 13 units Subcutaneous Active 100 UNIT/ML Subcutaneous q am [facility] 01/23/2016 [facility] OneTouch Lancets as directed in vitro Active 0 in vitro use BID dx: E11.65 [place] 12/19/2015 [facility] OneTouch Verio as directed In Vitro Active 0 In Vitro use BID DX: E11.65 [place] 12/19/2015 [facility] MetFORMIN HCl ER 1 tablet Orally Active 1000 mg Orally two times a day [place] 11/21/2015 [facility] Lasix 1 tablet Orally Active 40 MG Orally Once a day [place] 11/20/2015 [facility] Symbicort 2 puffs Inhalation Active 160-4.5 MCG/ACT Inhalation Twice a day [place] 11/20/2015 [facility] Lasix 1 tablet Orally Active 20 mg Orally Once a day [place] 11/20/2015 [facility] Syringe/Needle (Disp) as directed intramuscularly Active 22G X 1-1/2 intramuscularly to inject testosterone once every 2 weeks [place] 04/11/2015 [facility] Syringe/Needle (Disp) as directed NA Active 18G X 1 once every 2 weeks to draw up testosterone depo Toribio 04/11/2015 [facility] Depo-Testosterone 1 ml Intramuscular Active 200 MG/ML Intramuscular once a month [place] 04/11/2015 [facility] Symbicort 2 puffs Inhalation Active 160-4.5 MCG/ACT Inhalation Twice a day [facility] 04/11/2015 [facility] Crestor 1 tablet Orally Active 5 MG Orally Once a day ebranious 04/11/2015 [facility] Crestor 1 tablet Orally Active 10 mg Orally Once a day Kee 04/11/2015 [facility] Ketoconazole 1 application to affected area Externally Active 2 % Externally Once a day to soles of feet ebranious 03/31/2015 [facility] Levitra 1 tablet as needed Orally Active 20 mg Orally Once a day ebranious 03/31/2015 [facility] Lasix 1 tablet Orally Active 20 mg Orally Once a day ebranious 03/31/2015 [facility] Klor-Con 10 1 tablet Orally Active 10 [facility]Q [facility] MetFORMIN HCl ER 2 tablet Orally No Longer Active 500 mg Orally Once a day [place] 12/12/2014 [facility] Mupirocin 1 application to affected area Externally Active 2 % Externally Three times a day Tete 07/06/2014 [facility] Bactrim DS 1 tablet Orally Active 800-160 MG Orally Twice a [facility] Testosterone Cypionate 1 ml Intramuscular Active 200 MG/ML Intramuscular every 2 weeks Toribio 12/28/2013 [facility] MetFORMIN HCl ER 2 tablets with meal Orally Active 500 mg Orally Once a day Tete [facility] Lisinopril 1 tablet orally Active 5 MG orally once a day LAST REFILL, MUST SEE DOCTOR Ramon [facility] Plavix 1 tablet Orally Active 75 MG Orally once a day LAST REFILL, MUST SEE DOCTOR Ramon [facility] Plavix TAKE 1 TABLET ONCE DAILY . LAST REFILL. MUST SEE DOCTOR. NA Active 75MG Toribio [facility] Diltiazem HCl CD 1 capsule Orally Active 360 MG Orally twice a day (bid) Toribio [facility] MetFORMIN HCl ER TAKE 2 TABLETS ONCE DAILY NA Active 500MG GP Toribio [facility] Lisinopril TAKE 1 TABLET ONCE DAILY NA Active 5MG Toribio [facility] Farxiga 1 tablet Orally Active 10 MG Orally Once a day (MUST SEE DOCTOR BEFORE NEXT REFILL) Toribio [facility] Eliquis 1 tablet Orally Active 2.5 MG Orally daily Toribio [facility] Metoprolol Tartrate TAKE 2 TABLETS ONCE DAILY NA Active TAR 50MG Toribio [facility] Klor-Con M10 1 tablet Orally Active 10 MEQ Orally daily Toribio [facility] Amiodarone HCl 1/2 half tablet Orally Active 200 MG Orally Once a day Toribio [facility] Sotalol HCl 1 tablet Orally Active 80 MG Orally twice a day (bid) Toribio [facility] Glimepiride 1 capsule Orally Active 4 MG Orally Once a day Toribio [facility] Atorvastatin Calcium 1 tablet Orally Active 20 MG Orally daily Toribio [facility] Janumet XR 2 tablet Orally Active 50-1000 MG Orally once a day Toribio [facility] Metoprolol Tartrate TAKE 2 TABLETS ONCE DAILY NA Active TAR 50MG Milligram Tete [facility] Nitroglycerin 1 tablet under the tongue and allow to dissolve as needed Sublingual Active 0.4 MG Sublingual as needed Kee [facility] Plavix TAKE 1 TABLET ONCE DAILY NA Active 75MG [place] [facility] Lisinopril TAKE 1 TABLET DAILY NA Active 5MG Milligram Kokotycharles [facility] Allergies, Adverse Reactions, Alerts Substance Category Reaction Severity Reaction type Status Date Reported Comments Source N.K.D.A. Adverse Reaction Info Not Available Adverse Reaction Active 06/18/2017 [facility] Immunizations Immunization Date Given Site Status Last Updated Comments Source Results Order Name Results Value Reference Range Date Interpretation Comments Source Vital Signs Vital Sign Value Date Comments Source Weight 251 06/18/2017 [facility] Height 72 06/18/2017 [facility] Heart Rate 70 06/18/2017 [facility] Diastolic (mm Hg) 60 06/18/2017 [facility] Systolic (mm Hg) 90 06/18/2017 [facility] Weight 254 11/06/2016 [facility] Height 72 11/06/2016 [facility] Heart Rate 88 11/06/2016 [facility] Diastolic (mm Hg) 68 11/06/2016 [facility] Systolic (mm Hg) 120 11/06/2016 [facility] Weight 258 03/12/2016 [facility] Height 72 03/12/2016 [facility] Heart Rate 84 03/12/2016 [facility] Diastolic (mm Hg) 68 03/12/2016 [facility] Systolic (mm Hg) 120 03/12/2016 [facility] Weight 245 12/07/2015 [facility] Height 72 12/07/2015 [facility] Heart Rate 83 12/07/2015 [facility] Diastolic (mm Hg) 60 12/07/2015 [facility] Systolic (mm Hg) 110 12/07/2015 [facility] Weight 271 11/21/2015 [facility] Height 72 11/21/2015 [facility] Heart Rate 106 11/21/2015 [facility] Diastolic (mm Hg) 76 11/21/2015 [facility] Systolic (mm Hg) 122 11/21/2015 [facility] Weight 271 11/20/2015 [facility] Height 72 11/20/2015 [facility] Heart Rate 67 11/20/2015 [facility] Diastolic (mm Hg) 84 11/20/2015 [facility] Systolic (mm Hg) 120 11/20/2015 [facility] Weight 248 04/11/2015 [facility] Height 72 04/11/2015 [facility] Heart Rate 68 04/11/2015 [facility] Diastolic (mm Hg) 58 04/11/2015 [facility] Systolic (mm Hg) 110 04/11/2015 [facility] Weight 244 07/06/2014 [facility] Height 72 07/06/2014 [facility] Heart Rate 66 07/06/2014 [facility] Diastolic (mm Hg) 74 07/06/2014 [facility] Systolic (mm Hg) 120 07/06/2014 [facility] Encounters Location Location Details Encounter Type Encounter Number Reason For Visit Attending Provider ADM Date DC Date Status Source [facility] refill [id number] 05/18/2014 05/18/2014 [facility] refill [id number] 05/18/2014 05/18/2014 [facility] refill [id number] 05/18/2014 05/18/2014 [facility] refill [id number] 05/18/2014 05/18/2014 [facility] refill [id number] 05/18/2014 05/18/2014 [facility] refill [id number] 05/18/2014 05/18/2014 [facility] refill [id number] 05/18/2014 05/18/2014 [facility] refill [id number] 05/18/2014 05/18/2014 [facility] refill [id number] 05/18/2014 05/18/2014 [facility] refill [id number] 05/18/2014 05/18/2014 [facility] refill [id number] 05/18/2014 05/18/2014 [facility] refill [id number] 05/18/2014 05/18/2014 [facility] refill [id number] 05/18/2014 05/18/2014 [facility] refill [id number] 05/18/2014 05/18/2014 [facility] refill [id number] 05/18/2014 05/18/2014 [facility] refill [id number] 05/18/2014 05/18/2014 [facility] refill [id number] 05/18/2014 05/18/2014 [facility] refill [id number] 05/18/2014 05/18/2014 [facility] possible boil [id number] 07/06/2014 07/06/2014 [facility] possible boil [id number] 07/06/2014 07/06/2014 [facility] possible boil [id number] 07/06/2014 07/06/2014 [facility] possible boil [id number] 07/06/2014 07/06/2014 [facility] possible boil [id number] 07/06/2014 07/06/2014 [facility] possible boil [id number] 07/06/2014 07/06/2014 [facility] possible boil [id number] 07/06/2014 07/06/2014 [facility] possible boil [id number] 07/06/2014 07/06/2014 [facility] possible boil [id number] 07/06/2014 07/06/2014 [facility] possible boil [id number] 07/06/2014 07/06/2014 [facility] possible boil [id number] 07/06/2014 07/06/2014 [facility] possible boil [id number] 07/06/2014 07/06/2014 [facility] possible boil [id number] 07/06/2014 07/06/2014 [facility] possible boil [id number] 07/06/2014 07/06/2014 [facility] possible boil [id number] 07/06/2014 07/06/2014 [facility] possible boil [id number] 07/06/2014 07/06/2014 [facility] possible boil [id number] 07/06/2014 07/06/2014 [facility] Unknown [id number] 08/28/2014 08/28/2014 [facility] Unknown [id number] 08/28/2014 08/28/2014 [facility] Unknown [id number] 08/28/2014 08/28/2014 [facility] Unknown [id number] 08/28/2014 08/28/2014 [facility] Unknown [id number] 08/28/2014 08/28/2014 [facility] Unknown [id number] 08/28/2014 08/28/2014 [facility] Unknown [id number] 08/28/2014 08/28/2014 [facility] Unknown [id number] 08/28/2014 08/28/2014 [facility] Unknown [id number] 08/28/2014 08/28/2014 [facility] Unknown [id number] 08/28/2014 08/28/2014 [facility] Unknown [id number] 08/28/2014 08/28/2014 [facility] Unknown [id number] 08/28/2014 08/28/2014 [facility] Unknown [id number] 08/28/2014 08/28/2014 [facility] Unknown [id number] 08/28/2014 08/28/2014 [facility] Unknown [id number] 08/28/2014 08/28/2014 [facility] Unknown [id number] 08/28/2014 08/28/2014 [facility] MED REFILL [id number] 03/31/2015 03/31/2015 [facility] MED REFILL [id number] 03/31/2015 03/31/2015 [facility] MED REFILL [id number] 03/31/2015 03/31/2015 [facility] MED REFILL [id number] 03/31/2015 03/31/2015 [facility] MED REFILL [id number] 03/31/2015 03/31/2015 [facility] MED REFILL [id number] 03/31/2015 03/31/2015 [facility] [facility] MED REFILL [id number] 03/31/2015 03/31/2015 [facility] MED REFILL [id number] 03/31/2015 03/31/2015 [facility] MED REFILL [id number] 03/31/2015 03/31/2015 [facility] MED REFILL [id number] 03/31/2015 03/31/2015 [facility] MED REFILL [id number] 03/31/2015 03/31/2015 [facility] MED REFILL [id number] 03/31/2015 03/31/2015 [facility] MED REFILL [id number] 03/31/2015 03/31/2015 [facility] MED REFILL [id number] 03/31/2015 03/31/2015 [facility] MED REFILL [id number] 03/31/2015 03/31/2015 [facility] [place]-repeat CXR (please have someone look at xray before pt leaves) [id number] 04/04/2015 04/04/2015 [facility] [place]-repeat CXR (please have someone look at xray before pt leaves) [id number] 04/04/2015 04/04/2015 [facility] [place]-repeat CXR (please have someone look at xray before pt leaves) [id number] 04/04/2015 04/04/2015 [facility] [place]-repeat CXR (please have someone look at xray before pt leaves) [id number] 04/04/2015 04/04/2015 [facility] [place]-repeat CXR (please have someone look at xray before pt leaves) [id number] 04/04/2015 04/04/2015 [facility] [place]-repeat CXR (please have someone look at xray before pt leaves) [id number] 04/04/2015 04/04/2015 [facility] [place]-repeat CXR (please have someone look at xray before pt leaves) [id number] 04/04/2015 04/04/2015 [facility] [place]-repeat CXR (please have someone look at xray before pt leaves) [id number] 04/04/2015 04/04/2015 [facility] [place]-repeat CXR (please have someone look at xray before pt leaves) [id number] 04/04/2015 04/04/2015 [facility] [place]-repeat CXR (please have someone look at xray before pt leaves) [id number] 04/04/2015 04/04/2015 [facility] [place]-repeat CXR (please have someone look at xray before pt leaves) [id number] 04/04/2015 04/04/2015 [facility] [place]-repeat CXR (please have someone look at xray before pt leaves) [id number] 04/04/2015 04/04/2015 [facility] [place]-repeat CXR (please have someone look at xray before pt leaves) [id number] 04/04/2015 04/04/2015 [facility] [place]-repeat CXR (please have someone look at xray before pt leaves) [id number] 04/04/2015 04/04/2015 [facility] [place]-repeat CXR (please have someone look at xray before pt leaves) [id number] 04/04/2015 04/04/2015 [facility] ANANT [id number] 04/11/2015 04/11/2015 [facility] ANANT [id number] 04/11/2015 04/11/2015 [facility] ANANT [id number] 04/11/2015 04/11/2015 [facility] ANANT [id number] 04/11/2015 04/11/2015 [facility] ANANT [id number] 04/11/2015 04/11/2015 [facility] results [id number] 04/11/2015 04/11/2015 [facility] results [id number] 04/11/2015 04/11/2015 [facility] results [id number] 04/11/2015 04/11/2015 [facility] results [id number] 04/11/2015 04/11/2015 [facility] results [id number] 04/11/2015 04/11/2015 [facility] PEREZ-JOHANNA [id number] 04/11/2015 04/11/2015 [facility] PEREZ-JOHANNA [id number] 04/11/2015 04/11/2015 [facility] PEREZ-JOHANNA [id number] 04/11/2015 04/11/2015 [facility] PEREZ-JOHANNA [id number] 04/11/2015 04/11/2015 [facility] ECHO-JOHANNA [id number] 04/11/2015 04/11/2015 [facility] PEREZ-JOHANNA [id number] 04/11/2015 04/11/2015 [facility] PEREZ-JOHANNA [id number] 04/11/2015 04/11/2015 [facility] ECHO-JOHANNA [id number] 04/11/2015 04/11/2015 [facility] ANANT [id number] 04/11/2015 04/11/2015 [facility] results [id number] 04/11/2015 04/11/2015 [facility] results [id number] 04/11/2015 04/11/2015 [facility] results [id number] 04/11/2015 04/11/2015 [facility] results [id number] 04/11/2015 04/11/2015 [facility] results [id number] 04/11/2015 04/11/2015 [facility] results [id number] 04/11/2015 04/11/2015 [facility] results [id number] 04/11/2015 04/11/2015 [facility] results [id number] 04/11/2015 04/11/2015 [facility] results [id number] 04/11/2015 04/11/2015 [facility] Cardiolyte Stress Test [id number] 04/19/2015 04/19/2015 [facility] Cardiolyte Stress Test [id number] 04/19/2015 04/19/2015 [facility] Cardiolyte Stress Test [id number] 04/19/2015 04/19/2015 [facility] Cardiolyte Stress Test [id number] 04/19/2015 04/19/2015 [facility] Cardiolyte Stress Test [id number] 04/19/2015 04/19/2015 [facility] Cardiolyte Stress Test [id number] 04/19/2015 04/19/2015 [facility] Cardiolyte Stress Test [id number] 04/19/2015 04/19/2015 [facility] Cardiolyte Stress Test [id number] 04/19/2015 04/19/2015 [facility] Cardiolyte Stress Test [id number] 04/19/2015 04/19/2015 [facility] Cardiolyte Stress Test [id number] 04/19/2015 04/19/2015 [facility] Cardiolyte Stress Test [id number] 04/19/2015 04/19/2015 [facility] Cardiolyte Stress Test [id number] 04/19/2015 04/19/2015 [facility] RESULTS [id number] 05/29/2015 05/29/2015 [facility] RESULTS [id number] 05/29/2015 05/29/2015 [facility] RESULTS [id number] 05/29/2015 05/29/2015 [facility] RESULTS [id number] 05/29/2015 05/29/2015 [facility] RESULTS [id number] 05/29/2015 05/29/2015 [facility] RESULTS [id number] 05/29/2015 05/29/2015 [facility] RESULTS [id number] 05/29/2015 05/29/2015 [facility] RESULTS [id number] 05/29/2015 05/29/2015 [facility] RESULTS [id number] 05/29/2015 05/29/2015 [facility] RESULTS [id number] 05/29/2015 05/29/2015 [facility] RESULTS [id number] 05/29/2015 05/29/2015 [facility] Unknown [id number] 11/10/2015 11/10/2015 [facility] Unknown [id number] 11/10/2015 11/10/2015 [facility] Unknown [id number] 11/10/2015 11/10/2015 [facility] Unknown [id number] 11/10/2015 11/10/2015 [facility] Unknown [id number] 11/10/2015 11/10/2015 [facility] Unknown [id number] 11/10/2015 11/10/2015 [facility] Unknown [id number] 11/10/2015 11/10/2015 [facility] Unknown [id number] 11/10/2015 11/10/2015 [facility] Unknown [id number] 11/10/2015 11/10/2015 [facility] Unknown [id number] 11/10/2015 11/10/2015 [facility] Unknown [id number] 11/10/2015 11/10/2015 [facility] BP check [id number] 11/20/2015 11/20/2015 [facility] BP check [id number] 11/20/2015 11/20/2015 [facility] BP check [id number] 11/20/2015 11/20/2015 [facility] BP check [id number] 11/20/2015 11/20/2015 [facility] BP check [id number] 11/20/2015 11/20/2015 [facility] BP check [id number] 11/20/2015 11/20/2015 [facility] BP check [id number] 11/20/2015 11/20/2015 [facility] BP check [id number] 11/20/2015 11/20/2015 [facility] BP check [id number] 11/20/2015 11/20/2015 [facility] BP check [id number] 11/20/2015 11/20/2015 [facility] lab results [id number] 11/21/2015 11/21/2015 [facility] lab results [id number] 11/21/2015 11/21/2015 [facility] lab results [id number] 11/21/2015 11/21/2015 [facility] lab results [id number] 11/21/2015 11/21/2015 [facility] lab results [id number] 11/21/2015 11/21/2015 [facility] lab results [id number] 11/21/2015 11/21/2015 [facility] lab results [id number] 11/21/2015 11/21/2015 [facility] lab results [id number] 11/21/2015 11/21/2015 [facility] lab results [id number] 11/21/2015 11/21/2015 [facility] blood sugar high [id number] 12/07/2015 12/07/2015 [facility] blood sugar high [id number] 12/07/2015 12/07/2015 [facility] blood sugar high [id number] 12/07/2015 12/07/2015 [facility] blood sugar high [id number] 12/07/2015 12/07/2015 [facility] blood sugar high [id number] 12/07/2015 12/07/2015 [facility] blood sugar high [id number] 12/07/2015 12/07/2015 [facility] blood sugar high [id number] 12/07/2015 12/07/2015 [facility] blood sugar high [id number] 12/07/2015 12/07/2015 [facility] Unknown [id number] 12/19/2015 12/19/2015 [facility] Unknown [id number] 12/19/2015 12/19/2015 [facility] Unknown [id number] 12/19/2015 12/19/2015 [facility] Unknown [id number] 12/19/2015 12/19/2015 [facility] Unknown [id number] 12/19/2015 12/19/2015 [facility] Unknown [id number] 12/19/2015 12/19/2015 [facility] Unknown [id number] 12/19/2015 12/19/2015 [facility] Unknown [id number] 01/23/2016 01/23/2016 [facility] Unknown [id number] 01/23/2016 01/23/2016 [facility] Unknown [id number] 01/23/2016 01/23/2016 [facility] Unknown [id number] 01/23/2016 01/23/2016 [facility] Unknown [id number] 01/23/2016 01/23/2016 [facility] Unknown [id number] 01/23/2016 01/23/2016 [facility] Meds [id number] 03/12/2016 03/12/2016 [facility] Meds [id number] 03/12/2016 03/12/2016 [facility] Meds [id number] 03/12/2016 03/12/2016 [facility] Meds [id number] 03/12/2016 03/12/2016 [facility] [facility] [id number] 03/12/2016 03/12/2016 [facility] Unknown [id number] 09/27/2016 09/27/2016 [facility] Unknown [id number] 09/27/2016 09/27/2016 [facility] Unknown [id number] 09/27/2016 09/27/2016 [facility] Unknown [id number] 09/27/2016 09/27/2016 [facility] DIZZINESS [id number] 11/06/2016 11/06/2016 [facility] DIZZINESS [id number] 11/06/2016 11/06/2016 [facility] DIZZINESS [id number] 11/06/2016 11/06/2016 [facility] Unknown [id number] 01/13/2017 01/13/2017 [facility] Unknown [id number] 01/13/2017 01/13/2017 [facility] Unknown [id number] 01/16/2017 01/16/2017 [facility] Procedures Procedure Code Date Perfomer Comments Source
--- OUTSIDE RECORDS SUMMARY | 2019-03-30 00:51 | XMS REPORT ---
Author Author Padilla Becerra Organization e[employer] Address Unknown Phone Unavailable Care Team Providers Care Waxing Machine Operator Name Role Phone Padilla Becerra CP Unavailable Allergies, Adverse Reactions, Alerts Substance Reaction Event Type N.K.D.A. Info Not Available Non Drug Allergy Encounters Encounter Location Date NV-repeat CXR (please have someone look at xray before pt leaves) [facility] April 04, 2015 MED REFILL [facility] March 31, 2015 results [facility] April 11, 2015 ECHO-JOHANNA [facility] April 11, 2015 refill [facility] May 18, 2014 possible boil [facility] Jul 06, 2014 Unknown [facility] Aug 28, 2014 Cardiolyte Stress Test [facility] April 19, 2015 Problems Problem Type Condition ICD-9 Code Onset Dates Condition Status Problem 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 Problem Hyperlipemia 272.4 Active Problem 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 Active Assessment HTN (hypertension), benign 401.1 Active Assessment Abnormal EKG 794.31 Active Problem Smoker 305.1 Active Problem HTN (hypertension) 401.9 Active Problem HTN (hypertension), benign 401.1 Active Problem Hypogonadism male 257.2 Active Problem Neuropathy 355.9 Active Problem COPD (Chronic airway obstruction, not elsewhere classified) 496 Active Problem GERD (Esophageal reflux) 530.81 Active Medications Medication Code System Code Instructions Start Date End Date Status Dosage [facility]3947[facility] 18G X 1 once every 2 weeks to draw up testosterone depo April 11, 2015 Active as directed [facility] [address]-58 160-4.5 MCG/ACT Inhalation Twice a day April 11, 2015 Aug 09, 2015 Active 2 puffs Klor-Con 10 [facility] [address]-73 10 MEQ Orally once daily March 31, 2015 Active 1 tablet Lisinopril [facility] 94449836766 5MG orally once a day Active 1 tablet Lasix [facility] [address]-92 20 mg Orally Once a day March 31, 2015 Active 1 tablet Depo-Testosterone [facility] [address]-17 200 MG/ML Intramuscular April 11, 2015 Active 1 ml Nitroglycerin [facility] [address]-93 0.4 MG Sublingual as needed Active 1 tablet under the tongue and allow to dissolve as needed Plavix [facility] 92242897850 75MG Orally once a day LAST REFILL, MUST SEE DOCTOR Active 1 tablet Metoprolol Tartrate [facility] 99384819016 TAR 50MG Orally once a day Active take 2 tablets once daily Ketoconazole [facility] [address]-97 2 % Externally Once a day to soles of feet March 31, 2015 May 12, 2015 Active 1 application to affected area MetFORMIN HCl ER [facility] [address]-37 500 mg Orally Once a day Dec 12, 2014 Active 2 tablet Levitra [facility] [address]-67 20 mg Orally Once a day March 31, 2015 April 30, 2015 Active 1 tablet as needed Syringe/Needle (Disp) [facility] 8080-344483 22G X 1-1/2 intramuscularly to inject testosterone once every 2 weeks April 11, 2015 Active as directed Testosterone Cypionate [facility] [address]-67 200 MG/ML Intramuscular every 2 weeks Dec 28, 2013 Active 1 ml Crestor [facility] [address]-56 5 MG Orally Once a day April 11, 2015 Active 1 tablet Social History Social History Element Qualifiers Date Reported Flu Vaccine: . no April 19, 2015 Last Colonoscopy: . 20 years ago April 19, 2015 Ethnicity . Status , Is sudanese your primary language? Yes April 19, 2015 Last Bone Density: . never April 19, 2015 children . 1 April 19, 2015 Tobacco Use: . Are you a: current smoker 1 1/2 PPD April 19, 2015 Use of recreational / street drugs? . Answer: No April 19, 2015 Marital Status: . Lesvia Ramírez April 19, 2015 Do you drink alcohol? . Status: Yes, Type: Beer, How often? Daily, How much? 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
--- OUTSIDE RECORDS SUMMARY | 2019-03-30 00:51 | XMS REPORT ---
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 Status , Is malian your primary language? Yes February 09, 2014 children . 1 February 09, 2014 Tobacco Use: . Are you a: current smoker 1 1/2 PPD February 09, 2014 Use of recreational / street drugs? . Answer: No February 09, 2014 Marital Status: . Lesvia Ramírez February 09, 2014 Do you drink alcohol? . 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
--- OUTSIDE RECORDS SUMMARY | 2019-03-30 00:51 | XMS REPORT ---
Author Author Padilla Becerra Organization [employer] Address Unknown Phone Unavailable Care Team Providers Care Wound/Ostomy Clinical Nurse Specialist Name Role Phone Padilla Becerra CP Unavailable Encounters Encounter Location Date NV-repeat CXR (please have someone look at xray before pt leaves) [facility] April 04, 2015 MED REFILL [facility] March 31, 2015 results [facility] April 11, 2015 ECHO-JOHANNA [facility] April 11, 2015 refill [facility] May 18, 2014 possible boil [facility] Jul 06, 2014 Unknown [facility] Aug 28, 2014 Unknown [facility] Nov 10, 2015 Cardiolyte Stress Test [facility] April 19, 2015 RESULTS [facility] May 29, 2015 blood sugar high [facility] Dec 07, 2015 Unknown [facility] Dec 19, 2015 BP check [facility] Nov 20, 2015 lab results [facility] Nov 21, 2015 Problems Problem Type Condition ICD-9 Code Onset Dates Condition Status Problem Hypogonadism in male E29.1 Active Problem Left atrial enlargement I51.7 Active Problem Mitral annular calcification I05.9 Active Problem GERD (Esophageal reflux) 530.81 Active Problem Smoker 305.1 Active Problem Type 2 diabetes mellitus with hyperglycemia E11.65 Active Problem Pure hypercholesterolemia E78.0 Active Problem Low HDL (under 40) E78.6 Active Problem COPD (chronic obstructive pulmonary disease) J44.9 Active Problem Tricuspid regurgitation I07.1 Active Problem Essential hypertension I10 Active Problem Type 2 diabetes mellitus with diabetic polyneuropathy E11.42 Active Medications Medication Code System Code Instructions Start Date End Date Status Dosage [facility] [address]-35 0 In Vitro use BID DX: E11.65 Dec 19, 2015 Active as directed OneTouch LancR [facility] [address]-34 0 in vitro use BID dx: E11.65 Dec 19, 2015 Active as directed Social History Social History Element Qualifiers Date 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 1 Dec 07, 2015 Last Colonoscopy: . 20 years ago Dec 07, 2015 Tobacco Use: . Are you a: current smoker trying to quit Dec 07, 2015 Flu Vaccine: . 2014Dec 07, 2015 Use of recreational / street drugs? . Answer: No Dec 07, 2015 Do you have pets? . Status: Yes, Type: dog(s) Dec 07, 2015 Ethnicity . Status , Is georgian your primary language? Yes Dec 07, 2015 Marital Status: . Lesvia Ramírez Dec 07, 2015 Caffeine intake? . Status: Yes, What type: Coffee Dec 07, 2015 Do you exercise? . Answer: Yes, Type: walking Dec 07, 2015 Depression Screening: . negative Dec 07, 2015 Last Bone Density: . never Dec 07, 2015 Do you drink alcohol? . Status: Yes, Type: Beer, How often? Daily, How much? more than 2 a day usually a 6 pack Dec 07, 2015 Summary Purpose eClinicalWorks Submission
--- OUTSIDE RECORDS SUMMARY | 2019-03-30 00:51 | XMS REPORT ---
Author Author Evgeny Epstein Organization eClinicalWorks Address Unknown Phone Unavailable Care Team Providers Care Hydroelectric Plant Mechanical Engineer Name Role Phone Evgeny Epstein CP Unavailable Allergies, Adverse Reactions, Alerts Substance Reaction Event Type N.K.D.A. Info Not Available Non Drug Allergy Encounters Encounter Location Date refill [facility] May 18, 2014 possible boil [facility] Jul 06, 2014 Problems Problem Type Condition ICD-9 Code Onset Dates Condition Status Assessment Abscess of leg 682.6 Active Problem 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 Active [...] Instructions Start Date End Date Status Dosage Mupirocin [facility] [address]-70 2 % Externally Three times a day Jul 06, 2014 Jul 13, 2014 Active 1 application to affected area Metoprolol Tartrate [facility] [address]-63 TAR 50MG Milligram Active TAKE 2 TABLETS ONCE DAILY Testosterone Cypionate [facility] [address]-77 200 MG/ML Intramuscular every 2 weeks Dec 28, 2013 Active 1 ml Nitroglycerin [facility] [address]-35 0.4 MG Sublingual as needed Active 1 tablet under the tongue and allow to dissolve as needed Bactrim DS [facility] [address]-92 800-160 MG Orally Twice a day Jul 06, 2014 Jul 16, 2014 Active 1 tablet MetFORMIN HCl ER [facility] [address]-39 500 mg Orally Once a day Active 2 tablets with meal Plavix [facility] [address]-27 75MG Milligram Active TAKE 1 TABLET DAILY Lisinopril [facility] [address]-67 5MG Milligram Active TAKE 1 TABLET DAILY Social History Social History Element Qualifiers Date Reported Ethnicity . Status , Is latvian your primary language? Yes Jul 06, 2014 children . 1 Jul 06, 2014 Tobacco Use: . Are you a: current smoker 1 1/2 PPD Jul 06, 2014 Use of recreational / street drugs? . Answer: No Jul 06, 2014 Marital Status: . Lesvia Ramírez Jul 06, 2014 Do you drink alcohol? . 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
--- OUTSIDE RECORDS SUMMARY | 2019-03-30 00:51 | XMS REPORT ---
Author Author Geri Rooney [facility] eClinicalWorks Address Unknown Phone Unavailable Care Team Providers Care Cash Specialist Name Role Phone Geri Rooney Unavailable Allergies, Adverse Reactions, Alerts Substance Reaction Event Type N.K.D.A. 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 LAST REFILL. MUST SEE DOCTOR. Lantus [facility] [address]-89 100 UNIT/ML Subcutaneous once every night Jan 16, 2017 Active 13 units Lasix [facility] [address]-10 40 MG Orally Once a day Nov 20, 2015 Active 1 tablet MetFORMIN HCl ER [facility] [address]-79 1000 mg Orally two times a day Nov 21, 2015 Active 1 tablet Albuterol Sulfate HFA [facility] [address]-09 108 (90 Base) MCG/ACT Inhalation every 4-6 hrs PRN June 18, 2017 Active 2 puffs as needed OneTouch Lancets [facility] [address]-85 0 in vitro use BID dx: E11.65 Dec 19, 2015 Active as directed Diltiazem HCl CD [facility] [address]-59 360 MG Orally twice a day (bid) Active 1 capsule MetFORMIN HCl ER [facility] [address]-66 500MG GP Active TAKE 2 TABLETS ONCE DAILY Lisinopril [facility] 22819767350 5MG Active TAKE 1 TABLET ONCE DAILY Testosterone Cypionate [facility] [address]-23 200 MG/ML Intramuscular every 2 weeks Dec 28, 2013 Active 1 ml Symbicort [facility] [address]-08 160-4.5 MCG/ACT Inhalation Twice a day Nov 20, 2015 June 18, 2017 Inactive 2 puffs Stiolto Respimat [facility] [address]-65 2.5-2.5 MCG/ACT Inhalation Once a day June 18, 2017 Dec 15, 2017 Active 2 puffs OneTouch Verio [facility] [address]-48 0 In Vitro use BID DX: E11.65 Dec 19, 2015 Active as directed Syringe/Needle (Disp) [facility] 8080-649558 22G X 1-1/2 intramuscularly to inject testosterone once every 2 weeks April 11, 2015 Active as directed Farxiga [facility] [address]-14 10 MG Orally Once a day (MUST SEE DOCTOR BEFORE NEXT REFILL) Active 1 tablet BD Insulin Syringe Ultrafine [facility] 8290-634221 31G X 5/16 subcutaneously use qd for Lantus Jan 15, 2017 Active as directed Eliquis [facility] [address]-53 2.5 MG Orally daily Active 1 tablet Chantix Starting Month Yobany [facility] [address]-14 0.5 MG X 11 & 1 MG X 42 Orally as directed June 18, 2017 Jul 18, 2017 Active as directed Metoprolol Tartrate [facility] 02872630441 TAR 50MG Active TAKE 2 TABLETS ONCE DAILY Klor-Con M10 [facility] [address]-87 10 MEQ Orally daily Active 1 tablet Amiodarone HCl [facility] [address]-03 200 MG Orally Once a day Active 1/2 half tablet Sotalol HCl [facility] [address]-05 80 MG Orally twice a day (bid) Active 1 tablet Glimepiride [facility] [address]-95 4 MG Orally Once a day Active 1 capsule Chantix Continuing Month Yobany [facility] [address]-59 1 MG Orally Twice a day June 18, 2017 Aug 17, 2017 Active 1 tablet Syringe/Needle (Disp) [facility] 8881-855322 18G X 1 once every 2 weeks to draw up testosterone depo April 11, 2015 Active as directed Atorvastatin Calcium [facility] [address]-70 20 MG Orally daily Active 1 tablet Janumet XR [facility] [address]-67 50-1000 MG Orally once a day Active 2 tablet Depo-Testosterone [facility] [address]-25 200 MG/ML Intramuscular once a month April 11, 2015 Active 1 ml Vital Signs Date/Time: June 18, 2017 BMI 34.04 Index Weight 251 lbs Height 72 in Cardiac Monitoring Heart Rate 70 /min Blood Pressure Diastolic 60 mm Hg Blood Pressure Systolic 90 mm Hg Results No Known Results Summary Purpose eClinicalWorks Submission
--- OUTSIDE RECORDS SUMMARY | 2019-03-30 00:51 | XMS REPORT ---
Author Author Johanna Weaver [facility] eClinicalWorks Address Unknown Phone Unavailable Care Team Providers Care Driller Portable Name Role Phone Johanna Weaver Unavailable Encounters Encounter Location Date NV-repeat CXR (please have someone look at xray before pt leaves) [facility] April 04, 2015 MED REFILL [facility] March 31, 2015 results [facility] April 11, 2015 ECHO-JOHANNA [facility] April 11, 2015 refill [facility] May 18, 2014 possible boil [facility] Jul 06, 2014 Unknown [facility] Aug 28, 2014 Problems Problem Type Condition ICD-9 Code Onset Dates Condition Status Assessment Abnormal EKG 794.31 Active Problem 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 Active [...] Instructions Start Date End Date Status Dosage Metoprolol Tartrate [facility] 15190953286 TAR 50MG Orally once a day Active take 2 tablets once daily Ketoconazole [facility] [address]-02 2 % Externally Once a day to soles of feet March 31, 2015 May 12, 2015 Active 1 application to affected area Nitroglycerin [facility] [address]-49 0.4 MG Sublingual as needed Active 1 tablet under the tongue and allow to dissolve as needed Lasix [facility] [address]-73 20 mg Orally twice daily March 31, 2015 Active 1 tablet Lisinopril [facility] 47019567848 5MG orally once a day Active 1 tablet Testosterone Cypionate [facility] [address]-95 200 MG/ML Intramuscular every 2 weeks Dec 28, 2013 Active 1 ml Levitra [facility] [address]-85 20 mg Orally Once a day March 31, 2015 April 30, 2015 Active 1 tablet as needed Plavix [facility] 76029303700 75MG Orally once a day LAST REFILL, MUST SEE DOCTOR Active 1 tablet Klor-Con 10 [facility] [address]-41 10 MEQ Orally twice daily March 31, 2015 Active 1 tablet MetFORMIN HCl ER [facility] [address]-63 500 mg Orally Once a day Dec 12, 2014 Active 2 tablet Social History Social History Element Qualifiers Date Reported Flu Vaccine: . no April 11, 2015 Last Colonoscopy: . 20 years ago April 11, 2015 Ethnicity . Status , Is indonesian your primary language? Yes April 11, 2015 Last Bone Density: . never April 11, 2015 children . 1 April 11, 2015 Tobacco Use: . Are you a: current smoker 1 1/2 PPD April 11, 2015 Use of recreational [...] Other: Comment not available April 11, 2015 Summary Purpose eClinicalWorks Submission
--- OUTSIDE RECORDS SUMMARY | 2019-03-30 00:51 | XMS REPORT ---
Author Author Flori Navarro [facility] eClinicalWorks Address Unknown Phone Unavailable Care Team Providers Care Tobacco Sprayer Name Role Phone Flori Navarro CP Unavailable Encounters Encounter Location Date refill [facility] May 18, 2014 possible boil [facility] Jul 06, 2014 Unknown [facility] Aug 28, 2014 Problems Problem Type Condition ICD-9 Code Onset Dates Condition Status Problem 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 Active Problem [...] Start Date End Date Status Dosage Lisinopril MEDISPAN [address]-11 5 MG orally once a day LAST REFILL, MUST SEE DOCTOR Active 1 tablet Plavix MEDISPAN [address]-89 75 MG Orally once a day LAST REFILL, MUST SEE DOCTOR Active 1 tablet Social History Social History Element Qualifiers Date Reported Ethnicity . Status , Is kinyarwanda your primary language? 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
--- OUTSIDE RECORDS SUMMARY | 2019-03-30 00:52 | XMS REPORT ---
Author Author Rebecca Lundy [facility] eClinicalWorks Address Unknown Phone Unavailable Care Team Providers Care Inserter Name Role Phone Rebecca Lundy Unavailable Allergies, Adverse Reactions, Alerts Substance Reaction Event Type N.K.D.A. Info Not Available Non Drug Allergy Encounters Encounter Location Date NV-repeat CXR (please have someone look at xray before pt leaves) [facility] April 04, 2015 MED REFILL [facility] March 31, 2015 results [facility] April 11, 2015 ECHO-JOHANNA [facility] April 11, 2015 refill [facility] May 18, 2014 possible boil [facility] Jul 06, 2014 Unknown [facility] Aug 28, 2014 Unknown [facility] Nov 10, 2015 Cardiolyte Stress Test [facility] April 19, 2015 RESULTS [facility] May 29, 2015 blood sugar high [facility] Dec 07, 2015 BP check [facility] Nov 20, 2015 lab results [facility] Nov 21, 2015 Problems Problem Type Condition ICD-9 Code Onset Dates Condition Status Problem Hypogonadism in male E29.1 Active Problem Left atrial enlargement I51.7 Active Problem Mitral annular calcification I05.9 Active Problem Type 2 diabetes mellitus with hyperglycemia E11.65 Active Problem Pure hypercholesterolemia E78.0 Active Problem Low HDL (under 40) E78.6 Active Problem COPD (chronic obstructive pulmonary disease) J44.9 Active Problem Tricuspid regurgitation I07.1 Active Problem Essential hypertension I10 Active Problem Type 2 diabetes mellitus with diabetic polyneuropathy E11.42 Active Assessment Type 2 diabetes mellitus with hyperglycemia E11.65 Active Problem GERD (Esophageal reflux) 530.81 Active Problem Smoker 305.1 Active Medications Medication Code System Code Instructions Start Date End Date Status Dosage [facility] 24[facility] 50MG Active TAKE 2 TABLETS ONCE DAILY Lisinopril MEDISPAN 15939177970 5MG Active TAKE 1 TABLET ONCE DAILY Lasix [facility] [address]-46 20 mg Orally Once a day Nov 20, 2015 Active 1 tablet Syringe/Needle (Disp) [facility] 8881-126825 18G X 1 once every 2 weeks to draw up testosterone depo April 11, 2015 Active as directed [facility] [address]-29 200 MG/ML Intramuscular once a month April 11, 2015 Active 1 ml Symbicort [facility] [address]-49 160-4.5 MCG/ACT Inhalation Twice a day Nov 20, 2015 Active 2 puffs MetFORMIN HCl ER [facility] [address]-38 1000 mg Orally two times a day Nov 21, 2015 Active 1 tablet Plavix [facility] [address]-39 75MG Active TAKE 1 TABLET ONCE DAILY Syringe/Needle (Disp) [facility] 8080-313561 22G X 1-1/2 intramuscularly to inject testosterone once every 2 weeks April 11, 2015 Active as directed Testosterone Cypionate [facility] [address]-33 200 MG/ML Intramuscular every 2 weeks Dec 28, 2013 Active 1 ml Social History Social History Element Qualifiers Date [...] 07, 2015 Ethnicity . Status , Is irish your primary language? Yes Dec 07, 2015 [...] usually a 6 pack Dec 07, 2015 Family history Qualifier Description Comment Date Reported Maternal Grandmother Comment not available Dec 07, 2015 Paternal Grandmother Comment not available Dec 07, 2015 Siblings alive arthritis (brother) Dec 07, 2015 Maternal Grandfather Comment not available Dec 07, 2015 Children alive healthy Dec 07, 2015 Father Comment not available Dec 07, 2015 Paternal Grandfather Comment not available Dec 07, 2015 Mother diabetes Dec 07, 2015 Other: Comment not available Dec 07, 2015 Vital Signs Date/Time: Dec 07, 2015 Weight 245 lbs Height 72 in Cardiac Monitoring Heart Rate 83 /min Blood Pressure Diastolic 60 mm Hg Blood Pressure Systolic 110 mm Hg Summary Purpose eClinicalWorks Submission
--- OUTSIDE RECORDS SUMMARY | 2019-03-30 00:52 | XMS REPORT ---
Author Author Padilla Becerra Organization eClinicalWorks Address Unknown Phone Unavailable Care Team Providers Care Corporate Relations Director Name Role Phone Padilla Becerra CP Unavailable Encounters Encounter Location Date NV-repeat CXR (please have someone look at xray before pt leaves) [facility] April 04, 2015 MED REFILL [facility] March 31, 2015 results [facility] April 11, 2015 ECHO-JOHANNA [facility] April 11, 2015 refill [facility] May 18, 2014 possible boil [facility] Jul 06, 2014 Unknown [facility] Aug 28, 2014 Unknown [facility] Nov 10, 2015 Cardiolyte Stress Test [facility] April 19, 2015 RESULTS [facility] May 29, 2015 Unknown [facility] Sep 27, 2016 Unknown [facility] Jan 23, 2016 Meds [facility] March 12, 2016 blood sugar high [facility] Dec 07, 2015 Unknown [facility] Dec 19, 2015 BP check [facility] Nov 20, 2015 lab results [facility] Nov 21, [...] Instructions Start Date End Date Status Dosage [facility] [address]-06 100 UNIT/ML Subcutaneous q am Jan 23, 2016 Active 13 units Social History Social History Element Qualifiers Date 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 20 years ago March 12, 2016 Tobacco Use: . Are you a: current smoker trying to quit March 12, 2016 Flu Vaccine: . 2014March 12, 2016 Use of recreational / street drugs? . Answer: No March 12, 2016 Do you have pets? . Status: Yes, Type: dog(s) March 12, 2016 Ethnicity . Status , Is ecuadorean your primary language? Yes March 12, 2016 Marital Status: . Lesvia Darrell March 12, 2016 Caffeine intake? . Status: Yes, What type: Coffee March 12, 2016 Do you exercise? . Answer: Yes, Type: walking March 12, 2016 Depression Screening: . negative March 12, 2016 Last Bone Density: . never March 12, 2016 Do you drink alcohol? . Status: Yes, Type: Beer, How often? Daily, How much? more than 2 a day usually a 6 pack March 12, 2016 Summary Purpose eClinicalWorks Submission
--- OUTSIDE RECORDS SUMMARY | 2019-03-30 00:52 | XMS REPORT | Summary of Care ---
Author Author ARVIN NEVAREZ M.D. Organization Unknown Address Unknown Phone Unavailable Care Team Providers Care Ota Name Role Phone ARVIN NEVAREZ M.D. Unavailable Unavailable MARTITA MAYEN M.D. Unavailable Unavailable DAYDAY SAAVEDRA MD Unavailable Unavailable Gabbi Ramos Unavailable Unavailable Unavailable Unavailable Functional Status Name Dates Details Functional status health issues are not documented Status: Name Dates Details Cognitive status health issues are not documented Status: Problems Name Dates Details Left atrial enlargement (429.3, I51.7) Status: Active Tricuspid regurgitation (397.0, I07.1) Status: Active Diabetes mellitus (250.00, E11.9) Status: Active Hypertension (401.9, I10) Status: Active Hyperlipidemia (272.4, E78.5) Status: Active Paroxysmal atrial fibrillation (427.31, I48.0) Status: Active Medications Name Dates Details Furosemide 40 MG Oral Tablet TAKE 1 TABLET DAILY Quantity: 90 ARVIN NEVAREZ M.D. * Start : 13-Jun-2017 Active Klor-Con 10 10 MEQ Oral Tablet Extended Release TAKE 1 TABLET DAILY * Quantity: 90 Refills: 1 ARVIN NEVAREZ M.D. * Start : 09-May-2017 Active Clopidogrel Bisulfate 75 MG Oral Tablet TAKE 1 TABLET ONCE DAILY * Quantity: 90 Refills: 0 ARVIN NEVAREZ M.D. * Start : 03-Sep-2017 Active Eliquis 2.5 MG Oral Tablet TAKE 1 TABLET Daily * Quantity: 180 Refills: 0 ARVIN NEVAREZ M.D. * Start : 26-Dec-2015 Active Lisinopril 5 MG Oral Tablet TAKE 1 TABLET DAILY * Quantity: 90 Refills: 1 ARVIN NEVAREZ M.D. * Start : 11-Jul-2017 Active Farxiga 10 MG Oral Tablet TAKE 1 TABLET BY MOUTH EVERY MORNING * Refills: 0 MARTITA MAYEN M.D. * Start : 10-Feb-2017 Active Sotalol HCl - 80 MG Oral Tablet TAKE 1 TABLET TWICE DAILY. * Quantity: 180 Refills: 0 ARVIN NEVAREZ M.D. * Start : 10-Feb-2017 Active Janumet XR 50-1000 MG Oral Tablet Extended Release 24 Hour BID * Refills: 0 * Start : 28-Aug-2017 Active Atorvastatin Calcium 20 MG Oral Tablet TAKE 1 TABLET AT BEDTIME. * Refills: 0 * Start : 28-Aug-2017 Active Glimepiride 4 MG Oral Tablet TAKE 1 TABLET DAILY. * Refills: 0 * Start : 28-Aug-2017 Active Allergies and Adverse Reactions Name Dates Details No Known Drug Allergies (Allergy) Status: Active Past Medical History Name Dates Details History of atrial fibrillation (V12.59, Z86.79) Status: Resolved History of COPD (V12.69, Z87.09) Status: Resolved Procedures Procedure Dates Details History of Catheter Ablation Completed History of Atrial Cardioversion Completed Immunization Name Dates Details Immunizations not documented Family History Name Dates Details Family history of cerebrovascular accident (CVA) (V17.1, Z82.3) Status: Active Social History Name Dates Details Unknown if ever smoked Vital Signs Date Test Result Details No Known Vitals to report Results Date Description Value Details Results not documented Plan of Care Name Dates Details Planned Observations Planned Goals not documented Planned Encounters Appointment; ARVIN NEVAREZ M.D. On: 23-Feb-2018 14:00 Interventions Provided Plan* 1. Hypertension * - Lisinopril 5 mg daily * 2. Paroxysmal-- > in nsr Atrial Fibrillation- Continue Eliquis 2.5 mg BID * - on amiodarone to 100 mg daily --> transition to Sotalol 80 mg BDI w/ QTc 448 msec * - MIBI negative as : non specific T waves * - no recurrence on Sotalol 80 mg BID * 3. Continue Lasix 20 mg qday, Plavix 75 mg daily and stop ASA 81 mg daily * 4. CAD * - no active complains * - negative MIBI as 2017 * 5. DLP * - start Statin (Lipitor 20 mg last LDL 115 mg/dl as 12/2015 w/ multiple RF) * 6. Smoking cessation * - declined chantix * 7. Follow up with 6 mos * - regular, Labs w/ next visit * - Lisinopril at night due to episodes of Low BP Discussion/Summary* Reviewed and discussed clinical cardiac findings and medications. * EKG reviewed and discussed. Instructions Name Dates Details Instructions not documented Encounters Appointment; ARVIN NEVAREZ M.D. Encounter Diagnosis: Problem not documented On: 15-Mar-2016 13:30 Appointment; ARVIN NEVAREZ M.D. Encounter Diagnosis: Problem not documented On: 15-Jul-2016 13:30 Appointment; ARVIN NEVAREZ M.D. Encounter Diagnosis: Problem not documented On: 30-Dec-2016 15:30 Appointment; SE, NUCLEAR Encounter Diagnosis: Problem not documented On: 21-Jan-2017 9:15 Appointment; ARVIN NEVAREZ M.D. Encounter Diagnosis: Problem not documented On: 10-Feb-2017 14:45 Appointment; ARVIN NEVAREZ M.D. Encounter Diagnosis: Problem not documented On: 27-Feb-2017 14:00 Appointment; ARVIN NEVAREZ M.D. Encounter Diagnosis: Problem not documented On: 28-Aug-2017 13:40 Appointment; ARVIN NEVAREZ M.D. Encounter Diagnosis: Problem not documented On: 28-Aug-2017 13:45 Appointment; ARVIN NEVAREZ M.D. Encounter Diagnosis: Problem not documented On: 23-Feb-2018 14:00
--- OUTSIDE RECORDS SUMMARY | 2019-03-30 00:52 | XMS REPORT ---
Author Author Armida Sweet [facility] eClinicalWorks Address Unknown Phone Unavailable Care Team Providers Care Repairer Typewriter Name Role Phone Armiad Sweet Unavailable Allergies, Adverse Reactions, Alerts Substance Reaction Event Type N.K.D.A. Info Not Available Non Drug Allergy Encounters Encounter Location Date NV-repeat CXR (please have someone look at xray before pt leaves) [facility] April 04, 2015 MED REFILL [facility] March 31, 2015 results [facility] April 11, 2015 ECHO-JOHANNA [facility] April 11, 2015 refill [facility] May 18, 2014 BP check [facility] Nov 20, 2015 possible boil [facility] Jul 06, 2014 Unknown [facility] Aug 28, 2014 Unknown [facility] Nov 10, 2015 Cardiolyte Stress Test [facility] April 19, 2015 RESULTS [facility] May 29, 2015 Problems Problem Type Condition ICD-9 Code Onset Dates Condition Status Problem Smoker 305.1 Active Problem Mitral annular calcification I05.9 Active Problem Hypogonadism in male E29.1 Active Problem Pure hypercholesterolemia E78.0 Active Assessment Localized swelling of lower leg R22.40 Active Problem Essential hypertension I10 Active Assessment Weight gain R63.5 Active Problem Type 2 diabetes mellitus with hyperglycemia E11.65 Active Problem Tricuspid regurgitation I07.1 Active Problem Left atrial enlargement I51.7 Active Problem Type 2 diabetes mellitus with diabetic polyneuropathy E11.42 Active Problem COPD (chronic obstructive pulmonary disease) J44.9 Active Assessment Left atrial enlargement I51.7 Active Assessment Tricuspid regurgitation I07.1 Active Assessment Hypogonadism in male E29.1 Active Assessment Mitral annular calcification I05.9 Active Assessment Essential hypertension I10 Active Assessment Pure hypercholesterolemia E78.0 Active Assessment COPD (chronic obstructive pulmonary disease) J44.9 Active Assessment Type 2 diabetes mellitus with hyperglycemia E11.65 Active Assessment Type 2 diabetes mellitus with diabetic polyneuropathy E11.42 Active Problem GERD (Esophageal reflux) 530.81 Active Medications Medication Code System Code Instructions Start Date End Date Status Dosage Nitroglycerin [facility] [address]-16 0.4 MG Sublingual as needed Active 1 tablet under the tongue and allow to dissolve as needed Testosterone Cypionate [facility] [address]-05 200 MG/ML Intramuscular every 2 weeks Dec 28, 2013 Active 1 ml Plavix [facility] 89803593180 75MG Active take 1 tablet once daily Depo-Testosterone [facility] [address]-07 200 MG/ML Intramuscular every 2 weeks April 11, 2015 Active 1 ml Metoprolol Tartrate [facility] 82857082709 TAR 50MG Active TAKE 2 TABLETS ONCE DAILY Lisinopril [facility] 18166298234 5MG Active TAKE 1 TABLET ONCE DAILY Syringe/Needle (Disp) [facility] 8881-814901 18G X 1 once every 2 weeks to draw up testosterone depo April 11, 2015 Active as directed MetFORMIN HCl ER [facility] [address]-82 500 mg Orally Once a day Dec 12, 2014 Active 2 tablet Crestor [facility] [address]-81 10 mg Orally Once a day April 11, 2015 Active 1 tablet Symbicort [facility] [address]-25 160-4.5 MCG/ACT Inhalation Twice a day Nov 20, 2015 May 19, 2016 Active 2 puffs Syringe/Needle (Disp) [facility] 8080-558077 22G X 1-1/2 intramuscularly to inject testosterone once every 2 weeks April 11, 2015 Active as directed Lasix [facility] [address]-55 20 mg Orally Once a day Nov 20, 2015 Active 1 tablet Social History Social History Element Qualifiers Date 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 20 years ago Nov 21, 2015 Tobacco Use: . Are you a: current smoker 1 1/2 PPD Nov 21, 2015 Flu Vaccine: . no Nov 21, 2015 Use of recreational / street drugs? . Answer: No Nov 21, 2015 Do you have pets? . Status: Yes, Type: dog(s) Nov 21, 2015 Ethnicity . Status , Is haitian your primary language? Yes Nov 21, 2015 Marital Status: . Lesvia Ramírez Nov 21, 2015 Caffeine intake? . Status: Yes, What type: Coffee Nov 21, 2015 Do you exercise? . Answer: Yes, Type: walking Nov 21, 2015 Last Bone Density: . never Nov 21, 2015 Do you drink alcohol? . Status: Yes, Type: Beer, How often? Daily, How much? more than 2 a day usually a 6 pack Nov 21, 2015 Family history Qualifier Description Comment Date Reported Maternal Grandmother Comment not available Nov 21, 2015 Paternal Grandmother Comment not available Nov 21, 2015 Siblings alive arthritis (brother) Nov 21, 2015 Maternal Grandfather Comment not available Nov 21, 2015 Children alive healthy Nov 21, 2015 Father Comment not available Nov 21, 2015 Paternal Grandfather Comment not available Nov 21, 2015 Mother diabetes Nov 21, 2015 Other: Comment not available Nov 21, 2015 Vital Signs Date/Time: Nov 20, 2015 Weight 271 lbs Height 72 in Cardiac Monitoring Heart Rate 67 /min Blood Pressure Diastolic 84 mm Hg Blood Pressure Systolic 120 mm Hg Summary Purpose eClinicalWorks Submission
--- OUTSIDE RECORDS SUMMARY | 2019-03-30 00:52 | XMS REPORT ---
Author Author Rebecca Lundy [facility] eClinicalWorks Address Unknown Phone Unavailable Care Team Providers Care Utility Engineer Name Role Phone Rebecca Lundy Unavailable Allergies, Adverse Reactions, Alerts Substance Reaction Event Type N.K.D.A. Info Not Available Non Drug Allergy Encounters Encounter Location Date NV-repeat CXR (please have someone look at xray before pt leaves) [facility] April 04, 2015 MED REFILL [facility] March 31, 2015 results [facility] April 11, 2015 ECHO-JOHANNA [facility] April 11, 2015 refill [facility] May 18, 2014 possible boil [facility] Jul 06, 2014 Unknown [facility] Aug 28, 2014 Unknown [facility] Nov 10, 2015 Cardiolyte Stress Test [facility] April 19, 2015 RESULTS [facility] May 29, 2015 Unknown [facility] Jan 23, 2016 Meds [facility] March 12, 2016 blood sugar high [facility] Dec 07, 2015 Unknown [facility] Dec 19, 2015 BP check [facility] Nov 20, 2015 lab results [facility] Nov 21, [...] mellitus with diabetic polyneuropathy E11.42 Active Assessment Headache R51 Active Assessment Nocturia R35.1 Active Assessment Type 2 diabetes mellitus with hyperglycemia E11.65 Active Assessment Essential hypertension I10 Active Problem GERD (Esophageal reflux) 530.81 Active Assessment Pure hypercholesterolemia E78.0 Active Problem Smoker 305.1 Active Medications Medication Code System Code Instructions Start Date End Date Status Dosage Syringe/Needle (Disp) [facility] 8881-497358 18G X 1 once every 2 weeks to draw up testosterone depo April 11, 2015 Active as directed Farxiga [facility] [address]-91 5 MG Orally Once a day March 12, 2016 Sep 08, 2016 Active 1 tablet OneTouch Verio [facility] [address]-35 0 In Vitro use BID DX: E11.65 Dec 19, 2015 Active as directed Testosterone Cypionate [facility] [address]-97 200 MG/ML Intramuscular every 2 weeks Dec 28, 2013 Active 1 ml Lisinopril [facility] 02618538977 5MG Active TAKE 1 TABLET ONCE DAILY Symbicort [facility] [address]-00 160-4.5 MCG/ACT Inhalation as needed (prn) Nov 20, 2015 Active 2 puffs Klor-Con M10 [facility] [address]-78 10 MEQ Orally daily Active 1 tablet Syringe/Needle (Disp) [facility] 8080-837169 22G X 1-1/2 intramuscularly to inject testosterone once every 2 weeks April 11, 2015 Active as directed Amiodarone HCl [facility] [address]-71 200 MG Orally Once a day Active 1/2 half tablet Flomax [facility] [address]-15 0.4 MG Orally Once a day March 12, 2016 Sep 08, 2016 Active 1 capsule 30 minutes after the same meal each day Eliquis [facility] [address]-29 2.5 MG Orally Active Unknown Diltiazem HCl CD [facility] [address]-13 360 MG Orally twice a day (bid) Active 1 capsule Depo-Testosterone [facility] [address]-57 200 MG/ML Intramuscular once a month April 11, 2015 Active 1 ml Plavix [facility] [address]-86 75MG Active TAKE 1 TABLET ONCE DAILY Levemir [facility] [address]-53 100 UNIT/ML Subcutaneous q am Jan 23, 2016 Active 13 units Metoprolol Tartrate [facility] 66030288440 TAR 50MG Active TAKE 2 TABLETS ONCE DAILY MetFORMIN HCl ER [facility] [address]-84 1000 mg Orally two times a day Nov 21, 2015 Active 1 tablet OneTouch Lancets [facility] [address]-24 0 in vitro use BID dx: E11.65 Dec 19, 2015 Active as directed Keysha [facility] [address]-50 20 mg Orally Once a day Nov [...] 12, 2016 Ethnicity . Status , Is pashto your primary language? Yes March 12, 2016 Marital Status: . Lesvia Ramírez March 12, 2016 Caffeine intake? . Status: [...] usually a 6 pack March 12, 2016 Family history Qualifier Description Comment Date Reported Maternal Grandmother Comment not available March 12, 2016 Paternal Grandmother Comment not available March 12, 2016 Siblings alive arthritis (brother) March 12, 2016 Maternal Grandfather Comment not available March 12, 2016 Children alive healthy March 12, 2016 Father Comment not available March 12, 2016 Paternal Grandfather Comment not available March 12, 2016 Mother diabetes March 12, 2016 Other: Comment not available March 12, 2016 Vital Signs Date/Time: March 12, 2016 Weight 258 lbs Height 72 in Cardiac Monitoring Heart Rate 84 /min Blood Pressure Diastolic 68 mm Hg Blood Pressure Systolic 120 mm Hg Summary Purpose eClinicalWorks Submission
--- OUTSIDE RECORDS SUMMARY | 2019-03-30 00:52 | XMS REPORT ---
Author Author Flori Robles Organization eClinicalWorks Address Unknown Phone Unavailable Care Team Providers Care Electroplating Laborer Name Role Phone Flori Robles Unavailable Encounters Encounter Location Date NV-repeat CXR (please have someone look at xray before pt leaves) [facility] April 04, 2015 MED REFILL [facility] March 31, 2015 results [facility] April 11, 2015 ECHO-JOHANNA [facility] April 11, 2015 refill [facility] May 18, 2014 possible boil [facility] Jul 06, 2014 Unknown [facility] Aug 28, 2014 Unknown [facility] Nov 10, 2015 Cardiolyte Stress Test [facility] April 19, 2015 RESULTS [facility] May 29, 2015 Unknown [facility] Sep 27, 2016 DIZZINESS [facility] Nov 06, 2016 Unknown [facility] Jan 23, 2016 Meds [facility] March 12, 2016 blood sugar high [facility] Dec 07, 2015 Unknown [facility] Dec 19, 2015 BP check [facility] Nov 20, 2015 lab results [facility] Nov 21, 2015 Unknown [facility] Jan 13, 2017 Problems Problem Type Condition ICD-9 Code Onset [...] Instructions Start Date End Date Status Dosage [facility]ice [facility] [address]-96 100 UNIT/ML Subcutaneous inject 10 units every morning Oct 29, 2016 Active as directed Social History Social History Element Qualifiers Date 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 20 years ago Nov 06, 2016 Tobacco Use: . Are you a: current smoker, How many packs per day? 1 pack a day Nov 06, 2016 Flu Vaccine: . 2014Nov 06, 2016 Use of recreational / street drugs? . Answer: No Nov 06, 2016 Do you have pets? . Status: Yes, Type: dog(s) Nov 06, 2016 Ethnicity . Status , Is kinyarwanda your primary language? Yes Nov 06, 2016 Marital Status: . Lesvia Ramírez Nov 06, 2016 Caffeine intake? . Status: Yes, What type: Coffee Nov 06, 2016 Do you exercise? . Answer: Yes, Type: walking Nov 06, 2016 Depression Screening: . negative Nov 06, 2016 Last Bone Density: . never Nov 06, 2016 Do you drink alcohol? . Status: Yes, Type: Beer, How often? Daily, How much? more than 2 a day usually a 6 pack Nov 06, 2016 Summary Purpose eClinicalWorks Submission
--- OUTSIDE RECORDS SUMMARY | 2019-03-30 00:52 | XMS REPORT ---
Author Author Rebecca Lundy [facility] eClinicalWorks Address Unknown Phone Unavailable Care Team Providers Care Fiberglass Model Maker Name Role Phone Rebecca Lundy CP Unavailable Allergies, Adverse Reactions, Alerts Substance Reaction Event Type N.K.D.A. Info Not Available Non Drug Allergy Encounters Encounter Location Date NV-repeat CXR (please have someone look at xray before pt leaves) [facility] April 04, 2015 MED REFILL [facility] March 31, 2015 results [facility] April 11, 2015 ECHO-JOHANNA [facility] April 11, 2015 refill [facility] May 18, 2014 possible boil [facility] Jul 06, 2014 Unknown [facility] Aug 28, 2014 Unknown [facility] Nov 10, 2015 Cardiolyte Stress Test [facility] April 19, 2015 RESULTS [facility] May 29, 2015 Unknown [facility] Sep 27, 2016 DIZZINESS [facility] Nov 06, 2016 Unknown [facility] Jan 23, 2016 Meds [facility] March 12, 2016 blood sugar high [facility] Dec 07, 2015 Unknown [facility] Dec 19, 2015 BP check [facility] Nov 20, 2015 lab results [facility] Nov 21, [...] diabetes mellitus with hyperglycemia E11.65 Active Assessment Dizziness R42 Active Problem GERD (Esophageal reflux) 530.81 Active Assessment Fluid level behind tympanic membrane, bilateral H65.93 Active Problem Smoker 305.1 Active Medications Medication Code System Code Instructions Start Date End Date Status Dosage Syringe/Needle (Disp) [facility] 8881-557696 18G X 1 once every 2 weeks to draw up testosterone depo April 11, 2015 Active as directed Syringe/Needle (Disp) [facility] 8080-955358 22G X 1-1/2 intramuscularly to inject testosterone once every 2 weeks April 11, 2015 Active as directed Levemir [facility] [address]-95 100 UNIT/ML Subcutaneous inject 10 units every morning Oct 29, 2016 Active as directed Lisinopril [facility] 76616484962 5MG Active TAKE 1 TABLET ONCE DAILY Eliquis [facility] [address]-34 2.5 MG Orally Active Unknown Depo-Testosterone [facility] [address]-24 200 MG/ML Intramuscular once a month April 11, 2015 Active 1 ml Lasix [facility] [address]-44 20 mg Orally Once a day Nov 20, 2015 Active 1 tablet Farxiga [facility] [address]-14 5 MG Orally Once a day (MUST SEE DOCTOR BEFORE NEXT REFILL) Oct 22, 2016 Active 1 tablet Plavix [facility] 00507184354 75MG Active TAKE 1 TABLET ONCE DAILY . LAST REFILL. MUST SEE DOCTOR. Metoprolol Tartrate [facility] 47037098624 TAR 50MG Active TAKE 2 TABLETS ONCE DAILY Amiodarone HCl [facility] [address]-18 200 MG Orally Once a day Active 1/2 half tablet Diltiazem HCl CD [facility] [address]-61 360 MG Orally twice a day (bid) Active 1 capsule Symbicort [facility] [address]-90 160-4.5 MCG/ACT Inhalation as needed (prn) Nov 20, 2015 Active 2 puffs MetFORMIN HCl ER [facility] [address]-83 500MG GP Active TAKE 2 TABLETS ONCE DAILY MetFORMIN HCl ER [facility] [address]-56 1000 mg Orally two times a day Nov 21, 2015 Active 1 tablet Testosterone Cypionate [facility] [address]-41 200 MG/ML Intramuscular every 2 weeks Dec 28, 2013 Active 1 ml OneTouch Lancterrell [facility] [address]-92 0 in vitro use BID dx: E11.65 Dec 19, 2015 Active as directed OneTouch Carol [facility] [address]-35 0 In Vitro use BID DX: E11.65 Dec 19, 2015 Active as directed Kljavier-Baljit M10 [facility] [address]-39 10 MEQ Orally daily Active 1 tablet Social History Social History [...] 06, 2016 Ethnicity . Status , Is moroccan your primary language? Yes Nov 06, 2016 [...] usually a 6 pack Nov 06, 2016 Vital Signs Date/Time: Nov 06, 2016 Weight 254 lbs Height 72 in Cardiac Monitoring Heart Rate 88 /min Blood Pressure Diastolic 68 mm Hg Blood Pressure Systolic 120 mm Hg Summary Purpose eClinicalWorks Submission
--- OUTSIDE RECORDS SUMMARY | 2019-03-30 00:52 | XMS REPORT ---
Author Author Padilla Becerra Organization eClinicalWorks Address Unknown Phone Unavailable Care Team Providers Care Associate Java Developer Name Role Phone Padilla Becerra CP Unavailable Encounters Encounter Location Date NV-repeat CXR (please have someone look at xray before pt leaves) [facility] April 04, [...] Problem 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 Active Problem Smoker 305.1 Active Problem HTN (hypertension) 401.9 Active Problem HTN (hypertension), benign 401.1 Active Problem Hypogonadism male 257.2 Active Problem Neuropathy 355.9 Active Problem COPD (Chronic airway obstruction, not elsewhere classified) 496 Active Problem GERD (Esophageal reflux) 530.81 Active Problem Tricuspid regurgitation 397.0 Active Problem Mitral annular calcification 424.0 Active Problem Left atrial enlargement 429.3 Active Medications Medication Code System Code Instructions Start Date End Date Status Dosage Depo-Testosterone [facility] [address]-05 200 MG/ML Intramuscular every 2 weeks April 11, 2015 Active 1 ml Social History Social History Element Qualifiers Date Reported Flu Vaccine: . no April 19, 2015 Last Colonoscopy: . 20 years ago April 19, 2015 Ethnicity . Status , Is hong konger your primary language? 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
--- OUTSIDE RECORDS SUMMARY | 2019-03-30 00:52 | XMS REPORT ---
Author Author Padilla Becerra Organization eClinicalWorks Address Unknown Phone Unavailable Care Team Providers Care Engine Hostler Name Role Phone Padilla Becerra CP Unavailable Encounters Encounter Location Date NV-repeat CXR (please have someone look at xray before pt leaves) [facility] April 04, 2015 MED REFILL [facility] March 31, 2015 results [facility] April 11, 2015 ECHO-JOHANNA [facility] April 11, 2015 refill [facility] May 18, 2014 possible boil [facility] Jul 06, 2014 Unknown [facility] Aug 28, 2014 Unknown [facility] Nov 10, 2015 Unknown [facility] Jan 15, 2017 Cardiolyte Stress Test [facility] April 19, 2015 RESULTS [facility] May 29, 2015 Unknown [facility] Sep 27, 2016 DIZZINESS [facility] Nov 06, 2016 Unknown [facility] Jan 23, 2016 Meds [facility] March 12, 2016 blood sugar high [facility] Dec 07, 2015 Unknown [facility] Dec 19, 2015 BP check [facility] Nov 20, 2015 lab results [facility] Nov 21, 2015 Unknown [facility] Jan 13, [...] Instructions Start Date End Date Status Dosage BD Insulin Syringe Ultrafine [facility] 8290-982136 31G X 5/16" 0.3 ML subcutaneously use qd for Lantus Jan 15, 2017 Active as directed Lantus [facility] [address]-42 100 UNIT/ML Subcutaneous once every night Jan 16, 2017 Active 13 units Levemir [facility] [address]-49 100 UNIT/ML Subcutaneous inject 10 units every morning Oct 29, 2016 Inactive as directed Social History Social History Element [...] 06, 2016 Ethnicity . Status , Is congolese your primary language? Yes Nov 06, 2016 [...]
--- OUTSIDE RECORDS SUMMARY | 2019-03-30 00:52 | XMS REPORT ---
Author Author Armida Sweet [facility] eClinicalWorks Address Unknown Phone Unavailable Care Team Providers Care Insurance Defense Attorney Name Role Phone Armida Sweet Unavailable Allergies, Adverse Reactions, Alerts Substance Reaction Event Type N.K.D.A. Info Not Available Non Drug Allergy Encounters Encounter Location Date NV-repeat CXR (please have someone look at xray before pt leaves) [facility] April 04, 2015 MED REFILL [facility] March 31, 2015 results [facility] April 11, 2015 ECHO-JOHANNA [facility] April 11, 2015 refill [facility] May 18, 2014 BP check [facility] Nov 20, 2015 possible boil [facility] Jul 06, 2014 lab results [facility] Nov 21, 2015 Unknown [facility] Aug 28, 2014 Unknown [facility] Nov 10, 2015 Cardiolyte Stress Test [facility] April 19, 2015 RESULTS [facility] May 29, 2015 Problems Problem Type Condition ICD-9 Code Onset Dates Condition Status Problem Hypogonadism in male E29.1 Active Problem Left atrial enlargement I51.7 Active Problem Mitral annular calcification I05.9 Active Problem Type 2 diabetes mellitus with hyperglycemia E11.65 Active Assessment Essential hypertension I10 Active Problem Pure hypercholesterolemia E78.0 Active Assessment Low HDL (under 40) E78.6 Active Problem Low HDL (under 40) E78.6 Active Problem COPD (chronic obstructive pulmonary disease) J44.9 Active Problem Tricuspid regurgitation I07.1 Active Problem Essential hypertension I10 Active Problem Type 2 diabetes mellitus with diabetic polyneuropathy E11.42 Active Assessment Type 2 diabetes mellitus with hyperglycemia E11.65 Active Assessment Pure hypercholesterolemia E78.0 Active Assessment COPD with acute lower respiratory infection J44.0 Active Assessment Hypogonadism in male E29.1 Active Assessment Mitral annular calcification I05.9 Active Assessment COPD (chronic obstructive pulmonary disease) J44.9 Active Assessment Tricuspid regurgitation I07.1 Active Problem GERD (Esophageal reflux) 530.81 Active Assessment Left atrial enlargement I51.7 Active Problem Smoker 305.1 Active Medications Medication Code System Code Instructions Start Date End Date Status Dosage Symbicort [facility] [address]-84 160-4.5 MCG/ACT Inhalation Twice a day Nov 20, 2015 Active 2 puffs Syringe/Needle (Disp) [facility] 8881-884550 18G X 1 once every 2 weeks to draw up testosterone depo April 11, 2015 Active as directed Plavix [facility] [address]-65 75MG Active TAKE 1 TABLET ONCE DAILY Lasix [facility] [address]-33 20 mg Orally Once a day Nov 20, 2015 Active 1 tablet Depo-Testosterone [facility] [address]-62 200 MG/ML Intramuscular once a month April 11, 2015 Active 1 ml Syringe/Needle (Disp) [facility] 8080-799686 22G X 1-1/2 intramuscularly to inject testosterone once every 2 weeks April 11, 2015 Active as directed Metoprolol Tartrate [facility] 55874506719 TAR 50MG Active TAKE 2 TABLETS ONCE DAILY MetFORMIN HCl ER [facility] [address]-61 1000 mg Orally two times a day Nov 21, 2015 Active 1 tablet MetFORMIN HCl ER [facility] [address]-69 500 mg Orally Once a day Dec 12, 2014 Inactive 2 tablet Lisinopril [facility] 36270066455 5MG Active TAKE 1 TABLET ONCE DAILY Testosterone Cypionate [facility] [address]-67 200 MG/ML Intramuscular every 2 weeks Dec [...] 21, 2015 Ethnicity . Status , Is macedonian your primary language? Yes Nov 21, 2015 [...] Nov 21, 2015 Vital Signs Date/Time: Nov 21, 2015 Weight 271 lbs Height 72 in Cardiac Monitoring Heart Rate 106 /min Blood Pressure Diastolic 76 mm Hg Blood Pressure Systolic 122 mm Hg Results Chest 2 views- Xray Summary Purpose eClinicalWorks Submission
--- OUTSIDE RECORDS SUMMARY | 2019-03-30 00:52 | XMS REPORT ---
Author Author Rebecca Lundy [facility] [employer] Address Unknown Phone Unavailable Care Team Providers Care Correctional Sergeant Name Role Phone Rebecca Lundy CP Unavailable Encounters Encounter Location Date NV-repeat CXR (please have someone look at xray before pt leaves) [facility] April 04, 2015 MED REFILL [facility] March 31, 2015 results [facility] April 11, 2015 ECHO-JOHANNA [facility] April 11, 2015 refill [facility] May 18, 2014 possible boil [facility] Jul 06, 2014 Unknown [facility] Aug 28, 2014 Unknown [facility] Nov 10, 2015 Cardiolyte Stress Test [facility] April 19, 2015 RESULTS [facility] May 29, 2015 Unknown [facility] Jan 23, 2016 blood sugar high [facility] Dec 07, 2015 Unknown [facility] Dec 19, 2015 BP check [facility] Nov 20, 2015 lab results [facility] Nov 21, 2015 [...] Start Date End Date Status Dosage Levemir MEDISPAN [id number] UNIT/ML Subcutaneous q am Jan 23, [...] 07, 2015 Ethnicity . Status , Is hungarian your primary language? Yes Dec 07, 2015 [...]
--- OUTSIDE RECORDS SUMMARY | 2019-03-30 00:53 | XMS REPORT ---
Author Author [facility] Address Unknown Phone Unavailable Care Team Providers Care Environmental Project Manager Name Role Phone HARLEY MONTEZ Unavailable Unavailable Araceli VILLANUEVA Unavailable Unavailable Problems This patient has no known problems. Allergies, Adverse Reactions, Alerts This patient has no known allergies or adverse reactions. Medications This patient has no known medications. Results Test Description Test Time Test Comments Text Results Atomic Results Result Comments POCT-GLUCOSE METER 2018-12-24 11:57:00 POC-GLUCOSE METER (BEAKER) (test hrpk=5981) 240 mg/dL 70-110 TESTED AT [address] [address] POCT-GLUCOSE [id number] 08:40:00* Test Item Value Reference Range Comments POC-GLUCOSE METER (BEAKER) (test fcak=4831) 162 mg/dL 70-110 TESTED AT [address] [address] [id number] 07:56:00* Test Item Value Reference Range Comments MAGNESIUM (BEAKER) (test yyes=673) 2.1 mg/dL 1.6-2.6 [id number] 07:56:00* Test Item Value Reference Range Comments POTASSIUM (BEAKER) (test oftr=139) 4.7 meq/L 3.5-5.1 POCT-GLUCOSE [id number] 21:06:00* Test Item Value Reference Range Comments POC-GLUCOSE METER (BEAKER) (test irrw=7641) 364 mg/dL 70-110 Notified WILEY COLE/TESTED AT [address] [address] POCT-GLUCOSE [id number] 17:54:00* Test Item Value Reference Range Comments POC-GLUCOSE METER (BEAKER) (test nljm=2122) 446 mg/dL 70-110 Will Repeat Test/TESTED AT [address] [address] POCT-GLUCOSE [id number] 11:14:00* Test Item Value Reference Range Comments POC-GLUCOSE METER (BEAKER) (test meog=6036) 309 mg/dL 70-110 Notified WILEY COLE/TESTED AT [address] [address] POCT-GLUCOSE [id number] 08:27:00* Test Item Value Reference Range Comments POC-GLUCOSE METER (BEAKER) (test ezpr=1875) 207 mg/dL 70-110 TESTED AT [address] [address] [id number] 06:47:00* Test Item Value Reference Range Comments MAGNESIUM (BEAKER) (test ozhr=706) 1.7 mg/dL 1.6-2.6 BASIC METABOLIC [id number] 06:47:00* Test Item Value Reference Range Comments SODIUM (BEAKER) (test wonx=299) 137 meq/L 136-145 POTASSIUM (BEAKER) (test lprd=543) 3.7 meq/L 3.5-5.1 CHLORIDE (BEAKER) (test pwil=409) 92 meq/L 98-107 CO2 (BEAKER) (test oniq=237) 35 meq/L 22-29 BLOOD UREA NITROGEN (BEAKER) (test pqeh=401) 33 mg/dL 7-21 CREATININE (BEAKER) (test uduf=514) 0.86 mg/dL 0.57-1.25 GLUCOSE RANDOM (BEAKER) (test bsqn=126) 186 mg/dL 70-105 CALCIUM (BEAKER) (test aeks=676) 9.4 mg/dL 8.4-10.2 EGFR (BEAKER) (test hpsw=1930) 89 mL/min/1.73 sq m ESTIMATED GFR IS NOT ACCURATE CREATININE CLEARANCE IN PREDICTING GLOMERULAR FILTRATION RATE. ESTIMATED GFR IS NOT APPLICABLE FOR DIALYSIS PATIENTS. LACTIC ACID, VENOUS, WHOLE [id number] 06:35:00* Test Item Value Reference Range Comments LACTATE BLOOD VENOUS (2) (BEAKER) (test oecv=5346) 1.1 mmol/L 0.5-2.2 Specimen slightly hemolyzed POCT-GLUCOSE [id number] 21:44:00* Test Item Value Reference Range Comments POC-GLUCOSE METER (BEAKER) (test zeos=2021) 361 mg/dL 70-110 Notified WILEY COLE/TESTED AT [address] [address] POCT-GLUCOSE [id number] 17:55:00* Test Item Value Reference Range Comments POC-GLUCOSE METER (BEAKER) (test uhjk=6481) 292 mg/dL 70-110 TESTED AT [address] [address] POCT-GLUCOSE [id number] 12:28:00* Test Item Value Reference Range Comments POC-GLUCOSE METER (BEAKER) (test sftz=7264) 276 mg/dL 70-110 TESTED AT [address] [address] POCT-GLUCOSE [id number] 08:32:00* Test Item Value Reference Range Comments POC-GLUCOSE METER (BEAKER) (test bzrp=2865) 178 mg/dL 70-110 TESTED AT [address] [address] B-TYPE NATRIURETIC FACTOR (BNP)2018-12-22 05:59:00* Test Item Value Reference Range Comments B-TYPE NATRIURETIC PEPTIDE (BEAKER) (test jtch=008) 315 pg/mL 0-100 [id number] 05:57:00* Test Item Value Reference Range Comments MAGNESIUM (BEAKER) (test fcak=631) 1.7 mg/dL 1.6-2.6 BASIC METABOLIC [id number] 05:57:00* Test Item Value Reference Range Comments SODIUM (BEAKER) (test drks=283) 138 meq/L 136-145 POTASSIUM (BEAKER) (test hkfh=569) 4.1 meq/L 3.5-5.1 CHLORIDE (BEAKER) (test flpl=662) 94 meq/L 98-107 CO2 (BEAKER) (test rgcy=325) 37 meq/L 22-29 BLOOD UREA NITROGEN (BEAKER) (test rvdx=262) 34 mg/dL 7-21 CREATININE (BEAKER) (test aumo=119) 0.88 mg/dL 0.57-1.25 GLUCOSE RANDOM (BEAKER) (test mteu=763) 186 mg/dL 70-105 CALCIUM (BEAKER) (test pftc=556) 9.7 mg/dL 8.4-10.2 EGFR (BEAKER) (test rmoy=4389) 87 mL/min/1.73 sq m ESTIMATED GFR IS NOT ACCURATE CREATININE CLEARANCE IN PREDICTING GLOMERULAR FILTRATION RATE. ESTIMATED GFR IS NOT APPLICABLE FOR DIALYSIS PATIENTS. CBC W/PLT COUNT & AUTO [id number] 05:29:00* Test Item Value Reference Range Comments WHITE BLOOD CELL COUNT (BEAKER) (test mgmq=065) 13.7 K/ L 3.5-10.5 RED BLOOD CELL COUNT (BEAKER) (test pjvq=270) 5.17 M/ L 4.63-6.08 HEMOGLOBIN (BEAKER) (test bfsn=928) 15.5 GM/DL 13.7-17.5 HEMATOCRIT (BEAKER) (test dsjn=448) 47.5 % 40.1-51.0 MEAN CORPUSCULAR VOLUME (BEAKER) (test gtfx=888) 91.9 fL 79.0-92.2 MEAN CORPUSCULAR HEMOGLOBIN (BEAKER) (test lnes=653) 30.0 pg 25.7-32.2 MEAN CORPUSCULAR HEMOGLOBIN CONC (BEAKER) (test sinz=458) 32.6 GM/DL 32.3-36.5 RED CELL DISTRIBUTION WIDTH (BEAKER) (test jime=905) 14.6 % 11.6-14.4 PLATELET COUNT (BEAKER) (test qhqi=396) 208 K/CU MM 150-450 MEAN PLATELET VOLUME (BEAKER) (test drps=396) 9.5 fL 9.4-12.4 NUCLEATED RED BLOOD CELLS (BEAKER) (test oazd=945) 0 /100 WBC 0-0 NEUTROPHILS RELATIVE PERCENT (BEAKER) (test chax=282) 77 % LYMPHOCYTES RELATIVE PERCENT (BEAKER) (test muak=297) 12 % MONOCYTES RELATIVE PERCENT (BEAKER) (test ikep=497) 9 % EOSINOPHILS RELATIVE PERCENT (BEAKER) (test nihn=142) 0 % BASOPHILS RELATIVE PERCENT (BEAKER) (test uvnl=827) 0 % NEUTROPHILS ABSOLUTE COUNT (BEAKER) (test eaoi=518) 10.48 K/ L 1.78-5.38 LYMPHOCYTES ABSOLUTE COUNT (BEAKER) (test mfsw=665) 1.65 K/ L 1.32-3.57 MONOCYTES ABSOLUTE COUNT (BEAKER) (test onjc=148) 1.22 K/ L 0.30-0.82 EOSINOPHILS ABSOLUTE COUNT (BEAKER) (test jcxi=232) 0.05 K/ L 0.04-0.54 BASOPHILS ABSOLUTE COUNT (BEAKER) (test vupt=521) 0.04 K/ L 0.01-0.08 IMMATURE GRANULOCYTES-RELATIVE PERCENT (BEAKER) (test hdlj=9852) 2 % 0-1 POCT-GLUCOSE [id number] 21:29:00* Test Item Value Reference Range Comments POC-GLUCOSE METER (BEAKER) (test qbas=1837) 369 mg/dL 70-110 Notified WILEY COLE/TESTED AT [address] [address] POCT-GLUCOSE [id number] 17:58:00* Test Item Value Reference Range Comments POC-GLUCOSE METER (BEAKER) (test ufip=0556) 342 mg/dL 70-110 TESTED AT [address] [address] RAD, CHEST, 1 VIEW, NON [id number] 15:17:00Reason for exam:->evlauate volume statusShould this be performed at the bedside?->YesFINAL REPORT Comparison: 12/20/2018 TECHNIQUE: Single view of the chest FINDINGS: Lung volumes are low. Mild vascular congestion suspected. Small left pleural effusion with adjacent airspace disease. Otherwise lungs are clear. No acute skeletal abnormality. Signed: Theodore Diamond MDReport Verified Date/Time: 12/21/2018 15:17:31 Reading Location: [facility] Radiology Reading Room -GLUCOSE [id number] 12:44:00* Test Item Value Reference Range Comments POC-GLUCOSE METER (BEAKER) (test dney=8644) 245 mg/dL 70-110 TESTED AT [place] [id number] [facility] [address] [id number] 09:00:00* Test Item Value Reference Range Comments MAGNESIUM (BEAKER) (test oqlq=291) 1.7 mg/dL 1.6-2.6 BASIC METABOLIC [id number] 09:00:00* Test Item Value Reference Range Comments SODIUM (BEAKER) (test qwva=475) 134 meq/L 136-145 POTASSIUM (BEAKER) (test mgcg=313) 4.8 meq/L 3.5-5.1 CHLORIDE (BEAKER) (test lraq=131) 95 meq/L 98-107 CO2 (BEAKER) (test aqor=875) 33 meq/L 22-29 BLOOD UREA NITROGEN (BEAKER) (test gkxm=129) 34 mg/dL 7-21 CREATININE (BEAKER) (test aoth=363) 1.02 mg/dL 0.57-1.25 GLUCOSE RANDOM (BEAKER) (test tqaz=870) 357 mg/dL 70-105 CALCIUM (BEAKER) (test cusn=013) 9.4 mg/dL 8.4-10.2 EGFR (BEAKER) (test xrwk=3390) 73 mL/min/1.73 sq m ESTIMATED GFR IS NOT ACCURATE CREATININE CLEARANCE IN PREDICTING GLOMERULAR FILTRATION RATE. ESTIMATED GFR IS NOT APPLICABLE FOR DIALYSIS PATIENTS. POCT-GLUCOSE [id number] 07:50:00* Test Item Value Reference Range Comments POC-GLUCOSE METER (BEAKER) (test agjj=4904) 354 mg/dL 70-110 Notified RN or MD Patient refused repeat test/TESTED AT [facility] [address] [facility] [address] B-TYPE NATRIURETIC FACTOR (BNP)2018-12-21 05:43:00* Test Item Value Reference Range Comments B-TYPE NATRIURETIC PEPTIDE (BEAKER) (test suwa=688) 874 pg/mL 0-100 CBC W/PLT COUNT & AUTO [id number] 05:28:00* Test Item Value Reference Range Comments WHITE BLOOD CELL COUNT (BEAKER) (test uqhx=403) 12.2 K/ L 3.5-10.5 RED BLOOD CELL COUNT (BEAKER) (test hgua=295) 5.00 M/ L 4.63-6.08 HEMOGLOBIN (BEAKER) (test ezws=576) 15.0 GM/DL 13.7-17.5 HEMATOCRIT (BEAKER) (test nmjh=563) 46.8 % 40.1-51.0 MEAN CORPUSCULAR VOLUME (BEAKER) (test oznf=689) 93.6 fL 79.0-92.2 MEAN CORPUSCULAR HEMOGLOBIN (BEAKER) (test hsbu=044) 30.0 pg 25.7-32.2 MEAN CORPUSCULAR HEMOGLOBIN CONC (BEAKER) (test qhxn=286) 32.1 GM/DL 32.3-36.5 RED CELL DISTRIBUTION WIDTH (BEAKER) (test thce=901) 14.6 % 11.6-14.4 PLATELET COUNT (BEAKER) (test xhgd=755) 234 K/CU MM 150-450 MEAN PLATELET VOLUME (BEAKER) (test avuu=887) 10.4 fL 9.4-12.4 NUCLEATED RED BLOOD CELLS (BEAKER) (test rcvg=473) 0 /100 WBC 0-0 NEUTROPHILS RELATIVE PERCENT (BEAKER) (test vbzk=034) 91 % LYMPHOCYTES RELATIVE PERCENT (BEAKER) (test uycu=650) 4 % MONOCYTES RELATIVE PERCENT (BEAKER) (test ovzf=957) 4 % EOSINOPHILS RELATIVE PERCENT (BEAKER) (test rssk=600) 0 % BASOPHILS RELATIVE PERCENT (BEAKER) (test cwdo=816) 0 % NEUTROPHILS ABSOLUTE COUNT (BEAKER) (test zlio=024) 11.03 K/ L 1.78-5.38 LYMPHOCYTES ABSOLUTE COUNT (BEAKER) (test sgua=977) 0.51 K/ L 1.32-3.57 MONOCYTES ABSOLUTE COUNT (BEAKER) (test rwvo=761) 0.48 K/ L 0.30-0.82 EOSINOPHILS ABSOLUTE COUNT (BEAKER) (test mnxt=807) 0.00 K/ L 0.04-0.54 BASOPHILS ABSOLUTE COUNT (BEAKER) (test itof=118) 0.02 K/ L 0.01-0.08 IMMATURE GRANULOCYTES-RELATIVE PERCENT (BEAKER) (test mtpk=9563) 1 % 0-1 POCT-GLUCOSE [id number] 22:16:00* Test Item Value Reference Range Comments POC-GLUCOSE METER (BEAKER) (test dcac=5624) 452 mg/dL 70-110 Notified WILEY COLE/TESTED AT [address] [address] POCT-GLUCOSE [id number] 17:17:00* Test Item Value Reference Range Comments POC-GLUCOSE METER (BEAKER) (test floh=2140) 478 mg/dL 70-110 Notified WILEY COLE/TESTED AT [address] [address] POCT-GLUCOSE [id number] 11:56:00* Test Item Value Reference Range Comments POC-GLUCOSE METER (BEAKER) (test bvaa=1767) 235 mg/dL 70-110 TESTED AT [address] [address] RAD, CHEST, 1 VIEW, NON [id number] 09:46:00Reason for exam:->evaluate volume statusShould this be performed at the bedside?->YesFINAL REPORT History: Volume status, pulmonary edema Comparison: 12/19/2018 Findings: The diffuse bilateral pulmonary opacities suggestive of pulmonary edema are unchanged in appearance. Airspace consolidation at the left lung base and small left pleural effusion are without appreciable change. No pneumothorax. Mild stable enlargement of the cardiac shadow. Signed: Emy Englisheport Verified Date/Time: 12/20/2018 09:46:11 Reading Location: [address] Transitional Reading Room -GLUCOSE [id number] 08:14:00* Test Item Value Reference Range Comments POC-GLUCOSE METER (BEAKER) (test psza=3043) 339 mg/dL 70-110 Notified WI[facility]LE/TESTED AT [facility] [address] [facility] [address] CBC W/PLT COUNT & AUTO [id number] 06:36:00* Test Item Value Reference Range Comments WHITE BLOOD CELL COUNT (BEAKER) (test sdaa=848) 11.2 K/ L 3.5-10.5 RED BLOOD CELL COUNT (BEAKER) (test whrp=106) 4.61 M/ L 4.63-6.08 HEMOGLOBIN (BEAKER) (test kabh=548) 13.9 GM/DL 13.7-17.5 HEMATOCRIT (BEAKER) (test eulc=366) 43.8 % 40.1-51.0 MEAN CORPUSCULAR VOLUME (BEAKER) (test zrbe=958) 95.0 fL 79.0-92.2 MEAN CORPUSCULAR HEMOGLOBIN (BEAKER) (test xfys=572) 30.2 pg 25.7-32.2 MEAN CORPUSCULAR HEMOGLOBIN CONC (BEAKER) (test bwpl=021) 31.7 GM/DL 32.3-36.5 RED CELL DISTRIBUTION WIDTH (BEAKER) (test kwux=013) 14.9 % 11.6-14.4 PLATELET COUNT (BEAKER) (test kejm=227) 195 K/CU MM 150-450 MEAN PLATELET VOLUME (BEAKER) (test dhwc=012) 10.3 fL 9.4-12.4 NUCLEATED RED BLOOD CELLS (BEAKER) (test wwof=862) 0 /100 WBC 0-0 NEUTROPHILS RELATIVE PERCENT (BEAKER) (test qlze=321) 90 % LYMPHOCYTES RELATIVE PERCENT (BEAKER) (test dahf=033) 5 % MONOCYTES RELATIVE PERCENT (BEAKER) (test sccb=022) 4 % EOSINOPHILS RELATIVE PERCENT (BEAKER) (test iytg=386) 0 % BASOPHILS RELATIVE PERCENT (BEAKER) (test kkpf=584) 0 % NEUTROPHILS ABSOLUTE COUNT (BEAKER) (test sinr=750) 10.02 K/ L 1.78-5.38 LYMPHOCYTES ABSOLUTE COUNT (BEAKER) (test lfzs=279) 0.53 K/ L 1.32-3.57 MONOCYTES ABSOLUTE COUNT (BEAKER) (test amvf=265) 0.48 K/ L 0.30-0.82 EOSINOPHILS ABSOLUTE COUNT (BEAKER) (test qnse=689) 0.00 K/ L 0.04-0.54 BASOPHILS ABSOLUTE COUNT (BEAKER) (test nhhd=620) 0.02 K/ L 0.01-0.08 IMMATURE GRANULOCYTES-RELATIVE PERCENT (BEAKER) (test zdtx=1602) 1 % 0-1 [id number] 05:35:00* Test Item Value Reference Range Comments MAGNESIUM (BEAKER) (test nidg=992) 1.8 mg/dL 1.6-2.6 BASIC METABOLIC [id number] 05:35:00* Test Item Value Reference Range Comments SODIUM (BEAKER) (test oxit=411) 137 meq/L 136-145 POTASSIUM (BEAKER) (test wzpx=594) 4.8 meq/L 3.5-5.1 CHLORIDE (BEAKER) (test kzth=440) 98 meq/L 98-107 CO2 (BEAKER) (test tvck=202) 32 meq/L 22-29 BLOOD UREA NITROGEN (BEAKER) (test fpoz=041) 33 mg/dL 7-21 CREATININE (BEAKER) (test acvn=716) 0.93 mg/dL 0.57-1.25 GLUCOSE RANDOM (BEAKER) (test tkjz=131) 239 mg/dL 70-105 CALCIUM (BEAKER) (test qlcv=778) 9.2 mg/dL 8.4-10.2 EGFR (BEAKER) (test gsje=7521) 81 mL/min/1.73 sq m ESTIMATED GFR IS NOT ACCURATE CREATININE CLEARANCE IN PREDICTING GLOMERULAR FILTRATION RATE. ESTIMATED GFR IS NOT APPLICABLE FOR DIALYSIS PATIENTS. B-TYPE NATRIURETIC FACTOR (BNP)2018-12-20 05:32:00* Test Item Value Reference Range Comments B-TYPE NATRIURETIC PEPTIDE (BEAKER) (test gthk=796) 312 pg/mL 0-100 POCT-GLUCOSE [id number] 21:21:00* Test Item Value Reference Range Comments POC-GLUCOSE METER (BEAKER) (test dcid=2838) 295 mg/dL 70-110 TESTED AT [address] [address] SPUTUM CULTURE + GRAM [id number] 17:54:00* Test Item Value Reference Range Comments CULTURE (BEAKER) (test gtdo=8995) 4+ Normal respiratory lorena present GRAM STAIN RESULT (BEAKER) (test clmv=1615) <1+ gram positive rods GRAM STAIN RESULT (BEAKER) (test kqwo=30113) <1+ gram positive cocci in pairs GRAM STAIN RESULT (BEAKER) (test qnwi=91233) 15-20 epithelial cells GRAM STAIN RESULT (BEAKER) (test xakw=599538) 3+ WBCs POCT-GLUCOSE [id number] 17:06:00* Test Item Value Reference Range Comments POC-GLUCOSE METER (BEAKER) (test ijtw=4039) 364 mg/dL 70-110 Notified WILEY COLE/TESTED AT [address] [address] POCT-GLUCOSE [id number] 12:02:00* Test Item Value Reference Range Comments POC-GLUCOSE METER (BEAKER) (test hpnp=9569) 380 mg/dL 70-110 Notified WILEY COLE/TESTED AT [address] [address] RAD, CHEST, 1 VIEW, NON [id number] 09:26:00Reason for exam:->elevated bnp. need to evaluate volume statusShould this be performed at the bedside?->YesFINAL REPORT Chest dated 12/19/2018 COMPARISON: December 16, 2018 Clinical Information: elevated bnp. need to evaluate volume status Comm ent: Heart is enlarged. Pulmonary vasculature is indistinct. Interstitial diseas e is seen bilaterally suggestive of the lesser congestion or pulmonary edema. Th ere is trace left pleural effusion. Impression: Congestive failure. Signed: Andrew Randle MDReport Verified Date/Time: 12/19/2018 09:26:56 Reading Location: [facility] C013X Ortho Consult Reading Room GLOBIN [id number] 08:07:00* Test Item Value Reference Range Comments HEMOGLOBIN A1C (BEAKER) (test nmcs=579) 6.3 % 4.3-6.1 POCT-GLUCOSE [id number] 07:56:00* Test Item Value Reference Range Comments POC-GLUCOSE METER (BEAKER) (test joim=6548) 392 mg/dL 70-110 Notified WILEY COLE/TESTED AT [address] [address] [id number] 06:31:00* Test Item Value Reference Range Comments MAGNESIUM (BEAKER) (test xief=566) 1.9 mg/dL 1.6-2.6 BASIC METABOLIC [id number] 06:31:00* Test Item Value Reference Range Comments SODIUM (BEAKER) (test foii=915) 135 meq/L 136-145 POTASSIUM (BEAKER) (test eozs=040) 5.1 meq/L 3.5-5.1 CHLORIDE (BEAKER) (test lndn=717) 101 meq/L 98-107 CO2 (BEAKER) (test jkro=798) 27 meq/L 22-29 BLOOD UREA NITROGEN (BEAKER) (test kmbv=313) 36 mg/dL 7-21 CREATININE (BEAKER) (test etzq=648) 0.97 mg/dL 0.57-1.25 GLUCOSE RANDOM (BEAKER) (test lnec=051) 282 mg/dL 70-105 CALCIUM (BEAKER) (test quzb=947) 8.9 mg/dL 8.4-10.2 EGFR (BEAKER) (test ukid=4553) 77 mL/min/1.73 sq m ESTIMATED GFR IS NOT ACCURATE CREATININE CLEARANCE IN PREDICTING GLOMERULAR FILTRATION RATE. ESTIMATED GFR IS NOT APPLICABLE FOR DIALYSIS PATIENTS. B-TYPE NATRIURETIC FACTOR (BNP)2018-12-19 05:43:00* Test Item Value Reference Range Comments B-TYPE NATRIURETIC PEPTIDE (BEAKER) (test udcy=218) 1016 pg/mL 0-100 CBC W/PLT COUNT & AUTO [id number] 05:22:00* Test Item Value Reference Range Comments WHITE BLOOD CELL COUNT (BEAKER) (test dwms=252) 13.3 K/ L 3.5-10.5 RED BLOOD CELL COUNT (BEAKER) (test ncuk=338) 4.49 M/ L 4.63-6.08 HEMOGLOBIN (BEAKER) (test cyps=814) 13.5 GM/DL 13.7-17.5 HEMATOCRIT (BEAKER) (test pdri=104) 42.1 % 40.1-51.0 MEAN CORPUSCULAR VOLUME (BEAKER) (test dcss=059) 93.8 fL 79.0-92.2 MEAN CORPUSCULAR HEMOGLOBIN (BEAKER) (test senp=882) 30.1 pg 25.7-32.2 MEAN CORPUSCULAR HEMOGLOBIN CONC (BEAKER) (test fgbj=812) 32.1 GM/DL 32.3-36.5 RED CELL DISTRIBUTION WIDTH (BEAKER) (test wpio=035) 15.1 % 11.6-14.4 PLATELET COUNT (BEAKER) (test ddwc=840) 198 K/CU MM 150-450 MEAN PLATELET VOLUME (BEAKER) (test zzsa=829) 10.1 fL 9.4-12.4 NUCLEATED RED BLOOD CELLS (BEAKER) (test xvfx=468) 0 /100 WBC 0-0 NEUTROPHILS RELATIVE PERCENT (BEAKER) (test sjzp=713) 91 % LYMPHOCYTES RELATIVE PERCENT (BEAKER) (test wlib=544) 4 % MONOCYTES RELATIVE PERCENT (BEAKER) (test xusp=085) 4 % EOSINOPHILS RELATIVE PERCENT (BEAKER) (test hakr=023) 0 % BASOPHILS RELATIVE PERCENT (BEAKER) (test xwbo=126) 0 % NEUTROPHILS ABSOLUTE COUNT (BEAKER) (test qwxo=810) 12.09 K/ L 1.78-5.38 LYMPHOCYTES ABSOLUTE COUNT (BEAKER) (test iewq=342) 0.49 K/ L 1.32-3.57 MONOCYTES ABSOLUTE COUNT (BEAKER) (test zqsh=594) 0.54 K/ L 0.30-0.82 EOSINOPHILS ABSOLUTE COUNT (BEAKER) (test ooof=385) 0.01 K/ L 0.04-0.54 BASOPHILS ABSOLUTE COUNT (BEAKER) (test rmip=427) 0.02 K/ L 0.01-0.08 IMMATURE GRANULOCYTES-RELATIVE PERCENT (BEAKER) (test tskn=7013) 1 % 0-1 POCT-GLUCOSE [id number] 22:27:00* Test Item Value Reference Range Comments POC-GLUCOSE METER (BEAKER) (test cfei=1900) 345 mg/dL 70-110 TESTED AT [address] [address] POCT-GLUCOSE [id number] 21:38:00* Test Item Value Reference Range Comments POC-GLUCOSE METER (BEAKER) (test dgea=0534) 416 mg/dL 70-110 TESTED AT [address] [address] POCT-GLUCOSE [id number] 17:21:00* Test Item Value Reference Range Comments POC-GLUCOSE METER (BEAKER) (test jlxp=8830) 385 mg/dL 70-110 Notified WILEY COLE/TESTED AT [address] [address] POCT-GLUCOSE [id number] 14:48:00* Test Item Value Reference Range Comments POC-GLUCOSE METER (BEAKER) (test yfbj=9463) 231 mg/dL 70-110 TESTED AT [address] [address] [id number] 10:21:00* Test Item Value Reference Range Comments MAGNESIUM (BEAKER) (test avwz=566) 1.9 mg/dL 1.6-2.6 BASIC METABOLIC [id number] 10:21:00* Test Item Value Reference Range Comments SODIUM (BEAKER) (test gzfb=763) 137 meq/L 136-145 POTASSIUM (BEAKER) (test iqgg=376) 4.8 meq/L 3.5-5.1 CHLORIDE (BEAKER) (test nxsi=658) 101 meq/L 98-107 CO2 (BEAKER) (test kioh=837) 29 meq/L 22-29 BLOOD UREA NITROGEN (BEAKER) (test sqyn=339) 37 mg/dL 7-21 CREATININE (BEAKER) (test dyti=889) 1.08 mg/dL 0.57-1.25 GLUCOSE RANDOM (BEAKER) (test epej=108) 287 mg/dL 70-105 CALCIUM (BEAKER) (test wjif=831) 9.3 mg/dL 8.4-10.2 EGFR (BEAKER) (test wcdj=6903) 68 mL/min/1.73 sq m ESTIMATED GFR IS NOT ACCURATE CREATININE CLEARANCE IN PREDICTING GLOMERULAR FILTRATION RATE. ESTIMATED GFR IS NOT APPLICABLE FOR DIALYSIS PATIENTS. B-TYPE NATRIURETIC FACTOR (BNP)2018-12-18 09:57:00* Test Item Value Reference Range Comments B-TYPE NATRIURETIC PEPTIDE (BEAKER) (test lukj=902) 396 pg/mL 0-100 CBC W/PLT COUNT & AUTO [id number] 09:32:00* Test Item Value Reference Range Comments WHITE BLOOD CELL COUNT (BEAKER) (test uekl=263) 15.4 K/ L 3.5-10.5 RED BLOOD CELL COUNT (BEAKER) (test edyf=357) 4.47 M/ L 4.63-6.08 HEMOGLOBIN (BEAKER) (test spde=242) 13.4 GM/DL 13.7-17.5 HEMATOCRIT (BEAKER) (test gify=462) 42.9 % 40.1-51.0 MEAN CORPUSCULAR VOLUME (BEAKER) (test mzni=906) 96.0 fL 79.0-92.2 MEAN CORPUSCULAR HEMOGLOBIN (BEAKER) (test wwvy=382) 30.0 pg 25.7-32.2 MEAN CORPUSCULAR HEMOGLOBIN CONC (BEAKER) (test vpob=360) 31.2 GM/DL 32.3-36.5 RED CELL DISTRIBUTION WIDTH (BEAKER) (test hems=684) 15.0 % 11.6-14.4 PLATELET COUNT (BEAKER) (test mvqr=298) 216 K/CU MM 150-450 MEAN PLATELET VOLUME (BEAKER) (test ubot=383) 10.3 fL 9.4-12.4 NUCLEATED RED BLOOD CELLS (BEAKER) (test ukrp=712) 0 /100 WBC 0-0 NEUTROPHILS RELATIVE PERCENT (BEAKER) (test shrz=370) 88 % LYMPHOCYTES RELATIVE PERCENT (BEAKER) (test xzjz=897) 5 % MONOCYTES RELATIVE PERCENT (BEAKER) (test ppaw=751) 6 % EOSINOPHILS RELATIVE PERCENT (BEAKER) (test tbtc=583) 0 % BASOPHILS RELATIVE PERCENT (BEAKER) (test qwzu=996) 0 % NEUTROPHILS ABSOLUTE COUNT (BEAKER) (test betb=140) 13.54 K/ L 1.78-5.38 LYMPHOCYTES ABSOLUTE COUNT (BEAKER) (test pkhy=257) 0.74 K/ L 1.32-3.57 MONOCYTES ABSOLUTE COUNT (BEAKER) (test qpcc=185) 0.92 K/ L 0.30-0.82 EOSINOPHILS ABSOLUTE COUNT (BEAKER) (test vabk=561) 0.00 K/ L 0.04-0.54 BASOPHILS ABSOLUTE COUNT (BEAKER) (test lvkx=212) 0.02 K/ L 0.01-0.08 IMMATURE GRANULOCYTES-RELATIVE PERCENT (BEAKER) (test yqnb=2192) 1 % 0-1 POCT-GLUCOSE [id number] 08:15:00* Test Item Value Reference Range Comments POC-GLUCOSE METER (BEAKER) (test hcbk=6345) 322 mg/dL 70-110 Notified [facility] AT [address] [address] POCT-GLUCOSE [id number] 21:44:00* Test Item Value Reference Range Comments POC-GLUCOSE METER (BEAKER) (test qrks=0008) 387 mg/dL 70-110 Notified [facility] AT [address] [address] POCT-GLUCOSE [id number] 17:58:00* Test Item Value Reference Range Comments POC-GLUCOSE METER (BEAKER) (test ujkk=5506) 380 mg/dL 70-110 Notified [facility] AT [address] [address] POCT-GLUCOSE [id number] 11:22:00* Test Item Value Reference Range Comments POC-GLUCOSE METER (BEAKER) (test dxcd=9311) 318 mg/dL 70-110 Notified [facility] AT [address] [address] POCT-GLUCOSE [id number] 09:09:00* Test Item Value Reference Range Comments POC-GLUCOSE METER (BEAKER) (test tnkc=1536) 322 mg/dL 70-110 Notified [facility] AT [address] [address] B-TYPE NATRIURETIC FACTOR (BNP)2018-12-17 05:49:00* Test Item Value Reference Range Comments B-TYPE NATRIURETIC PEPTIDE (BEAKER) (test czoh=129) 570 pg/mL 0-100 [id number] 05:45:00* Test Item Value Reference Range Comments MAGNESIUM (BEAKER) (test asqb=351) 1.8 mg/dL 1.6-2.6 COMPREHENSIVE METABOLIC [id number] 05:45:00* Test Item Value Reference Range Comments TOTAL PROTEIN (BEAKER) (test roye=005) 7.3 gm/dL 6.0-8.3 ALBUMIN (BEAKER) (test rdwu=7547) 3.7 g/dL 3.5-5.0 ALKALINE PHOSPHATASE (BEAKER) (test bbzx=603) 73 U/L 40-150 BILIRUBIN TOTAL (BEAKER) (test ylrx=745) 0.6 mg/dL 0.2-1.2 SODIUM (BEAKER) (test uvxd=433) 138 meq/L 136-145 POTASSIUM (BEAKER) (test tdrd=003) 4.7 meq/L 3.5-5.1 CHLORIDE (BEAKER) (test atyu=197) 103 meq/L 98-107 CO2 (BEAKER) (test ngso=575) 26 meq/L 22-29 BLOOD UREA NITROGEN (BEAKER) (test ofxb=456) 32 mg/dL 7-21 CREATININE (BEAKER) (test cdcg=125) 1.07 mg/dL 0.57-1.25 GLUCOSE RANDOM (BEAKER) (test xyvu=672) 223 mg/dL 70-105 CALCIUM (BEAKER) (test wezx=072) 9.3 mg/dL 8.4-10.2 AST (SGOT) (BEAKER) (test xlaq=352) 12 U/L 5-34 ALT (SGPT) (BEAKER) (test ohgm=832) 11 U/L 6-55 EGFR (BEAKER) (test arhk=6165) 69 mL/min/1.73 sq m ESTIMATED GFR IS NOT ACCURATE CREATININE CLEARANCE IN PREDICTING GLOMERULAR FILTRATION RATE. ESTIMATED GFR IS NOT APPLICABLE FOR DIALYSIS PATIENTS. CBC W/PLT COUNT & AUTO [id number] 05:43:00* Test Item Value Reference Range Comments WHITE BLOOD CELL COUNT (BEAKER) (test bzss=616) 9.1 K/ L 3.5-10.5 RED BLOOD CELL COUNT (BEAKER) (test emkm=923) 4.67 M/ L 4.63-6.08 HEMOGLOBIN (BEAKER) (test bmhc=047) 14.1 GM/DL 13.7-17.5 HEMATOCRIT (BEAKER) (test hqvi=714) 44.0 % 40.1-51.0 MEAN CORPUSCULAR VOLUME (BEAKER) (test geys=991) 94.2 fL 79.0-92.2 MEAN CORPUSCULAR HEMOGLOBIN (BEAKER) (test yxtv=646) 30.2 pg 25.7-32.2 MEAN CORPUSCULAR HEMOGLOBIN CONC (BEAKER) (test souf=243) 32.0 GM/DL 32.3-36.5 RED CELL DISTRIBUTION WIDTH (BEAKER) (test yvsn=734) 15.0 % 11.6-14.4 PLATELET COUNT (BEAKER) (test sikc=684) 204 K/CU MM 150-450 MEAN PLATELET VOLUME (BEAKER) (test gdsu=604) 10.1 fL 9.4-12.4 NUCLEATED RED BLOOD CELLS (BEAKER) (test ajdy=894) 0 /100 WBC 0-0 NEUTROPHILS RELATIVE PERCENT (BEAKER) (test lolx=109) 92 % LYMPHOCYTES RELATIVE PERCENT (BEAKER) (test imve=183) 5 % MONOCYTES RELATIVE PERCENT (BEAKER) (test vyyn=543) 2 % EOSINOPHILS RELATIVE PERCENT (BEAKER) (test kpho=834) 0 % BASOPHILS RELATIVE PERCENT (BEAKER) (test qadl=445) 0 % NEUTROPHILS ABSOLUTE COUNT (BEAKER) (test dour=613) 8.43 K/ L 1.78-5.38 LYMPHOCYTES ABSOLUTE COUNT (BEAKER) (test llcr=252) 0.42 K/ L 1.32-3.57 MONOCYTES ABSOLUTE COUNT (BEAKER) (test xtas=462) 0.21 K/ L 0.30-0.82 EOSINOPHILS ABSOLUTE COUNT (BEAKER) (test pbcx=485) 0.00 K/ L 0.04-0.54 BASOPHILS ABSOLUTE COUNT (BEAKER) (test japi=948) 0.02 K/ L 0.01-0.08 IMMATURE GRANULOCYTES-RELATIVE PERCENT (BEAKER) (test phsx=6921) 1 % 0-1 POCT-GLUCOSE [id number] 21:38:00* Test Item Value Reference Range Comments POC-GLUCOSE METER (BEAKER) (test zucc=2351) 417 mg/dL 70-110 Notified WILEY COLE/TESTED AT [facility] [address] [place] [address] POCT-GLUCOSE [id number] 17:26:00* Test Item Value Reference Range Comments POC-GLUCOSE METER (JYOTHI) (test ppsw=9695) 304 mg/dL 70-110 Notified WILEY COLE/TESTED AT [facility] [address] [facility] [address] CT, CHEST WITH IV CONTRAST- PE TEST [id number] 16:50:00FINAL REPORT CT scan of the chest with pulmonary embolism protocol. Clinical History: Shortness of breath. Comparison Study: Chest x-ray dated December 16, 2018. Technique: Pre-intravenous contrast localization images were acquired followed by contiguous helical slices through the thorax post admi nistration of intravenous contrast using a timed bolus fashion. This exam was pe rformed according to our department dose optimization program which includes aut omated exposure control, adjustment of the mA and/or kV according to the patient 's size and/or use of iterative reconstruction technique. Findings: There is no evidence of pulmonary embolism. The mediastinum demonstrates significant adeno amalia including a 4.3 x 3.3 cm right paratracheal lymph node mass, 2.4 x 1.4 cm prevascular lymph node, 2.2 x 3.8 cm enlarged lymph node, 1.8 x 2.6 cm right hil ar lymph node, 3.2 x 2.3 cm left hilar lymph node as well as other areas of lana opathy. The main pulmonary artery is dilated measuring 4.5 cm suggestive of pulm onary arterial hypertension. Trace pleural effusions are seen. The visualized po rtions of the upper abdomen demonstrate a 2.9 x 2.4 cm nodule emanating from the left adrenal gland inferiorly. There is a 1.4 cm right adrenal gland nodule. Maurice th are indeterminant. The tracheobronchial tree is clear with no endobronchial l esions. The pulmonary parenchyma demonstrates extensive atelectasis or consolida tion in the lung bases. Other groundglass and interstitial pulmonary markings ar e seen. A 3 mm nodule is seen in the posterior aspect of the right upper lobe on image 28. Bone windows demonstrate no evidence of fracture or malalignment. Deg enerative changes are seen. Impression: 1. No evidence of pulmonary embolism.2. Extensive mediastinal adenopathy. Neoplasm cannot be excluded.3. Dilatation of the main pulmonary artery suggestive of pulmonary arterial hypertension.4. Findi ngs most suggestive of CHF. In the right clinical setting, a superimposed infect ion would be difficult to exclude. Clinical correlation and short term imaging f ollow-up could be made to exclude other etiologies.5. Bilateral indeterminate ad renal nodules for which metastatic disease cannot be excluded. Signed: Anthony Ness Verified Date/Time: 12/16/2018 16:50:11 Reading Location: [facility] Diagnostic Imaging Reading Room - [place] [address] , CHEST, 1 VIEW, NON DEPT 2018-12-16 15:12:00Reason for exam:->cough sputumFINAL REPORT Chest x-ray Clinical History: cough sputum Comparison: No comparison Views: One AP lordotic Chest x-ray:The cardiac and mediastinal silhouettes are enlarged. There is no evidence of a pneumothorax. There is no evidence of a pleural effusion. There is no evidence of overt cardiac failure. The visible regional skeleton is intact. Interstitial markings with patchy airspace disease is visualized throughout. Impression:These findings are presumed secondary to cardiogenic pulmonary edema. A superimposed pneumonia cannot be excluded. Signed: Flori Calzada Verified Date/Time: 12/16/2018 15:12:28 Reading Location: [facility] [id number] Consult Reading Room IRATORY PANEL [id number] 15:10:00* Test Item Value Reference Range Comments HUMAN METAPNEUMOVIRUS (BEAKER) (test wzdd=6557) Not detected Not detected, Equivocal RHINOVIRUS (BEAKER) (test gpdw=7577) Not detected Not detected, Equivocal INFLUENZA A (BEAKER) (test bbvs=6169) Not detected Not detected, Equivocal INFLUENZA A (NO SUBTYPE) (test uflo=7896) Not detected, Equivocal INFLUENZA A SUBTYPE H1 (BEAKER) (test gtcx=1097) Not detected, Equivocal INFLUENZA A SUBTYPE H3 (BEAKER) (test vnml=7061) Not detected, Equivocal INFLUENZA A SUBTYPE H1-2009 (BEAKER) (test nnyg=2267) Not detected, Equivocal INFLUENZA B (BEAKER) (test ofer=2899) Not detected Not detected, Equivocal RESPIRATORY SYNCYTIAL VIRUS (BEAKER) (test mfjb=4058) Not detected Not detected, Equivocal PARAINFLUENZA VIRUS 1 (BEAKER) (test tmmg=1639) Not detected Not detected, Equivocal PARAINFLUENZA VIRUS 2 (BEAKER) (test yikc=1839) Not detected Not detected, Equivocal PARAINFLUENZA VIRUS 3 (BEAKER) (test vjxw=2950) Not detected Not detected, Equivocal PARAINFLUENZA VIRUS 4 (BEAKER) (test myak=3649) Not detected Not detected, Equivocal ADENOVIRUS (BEAKER) (test fqhr=8009) Not detected Not detected, Equivocal CORONAVIRUS 229E (BEAKER) (test ducf=8028) Not detected Not detected, Equivocal CORONAVIRUS HKU1 (BEAKER) (test jxep=8925) Not detected Not detected, Equivocal CORONAVIRUS NL63 (BEAKER) (test nevc=1260) Not detected Not detected, Equivocal CORONAVIRUS OC43 (BEAKER) (test osed=6908) Not detected Not detected, Equivocal BORDETELLA PERTUSSIS (BEAKER) (test zuoo=8406) Not detected Not detected, Equivocal CHLAMYDOPHILA PNEUMONIAE (BEAKER) (test utti=1504) Not detected Not detected, Equivocal MYCOPLASMA PNEUMONIAE (BEAKER) (test buyh=8402) Not detected Not detected, Equivocal Other viruses and bacteria not targeted by this PCR panel cannot be excluded; th erefore clinical correlation and follow up of serology, culture results, and oth er molecular studies is required. The results are not intended to be used as the sole means for clinical diagnosis or patient management decisions. This sample was tested at the [facility] using the [employer] FilmA rray Respiratory Panel. It is FDA cleared and has been verified and approved by the [facility] for clinical use on nasal swab specim ens. It is not FDA-cleared for use on bronchial wash/lavage samples. However, fo r this sample type, validation was performed and test characteristics were deter mined and approved, by [facility] [facility] for clinical use u nder the Clinical Laboratory Improvement Amendments (CLIA) of 1988 requirements. Therefore, FDA clearance is not required. This laboratory is CLIA-certified and [employer] (CAP)-accredited to perform high complexity t esting.BASIC METABOLIC [id number] 12:59:00* Test Item Value Reference Range Comments SODIUM (BEAKER) (test kopv=027) 139 meq/L 136-145 POTASSIUM (BEAKER) (test jvtl=777) 4.9 meq/L 3.5-5.1 Specimen slightly hemolyzed CHLORIDE (BEAKER) (test vnkf=350) 102 meq/L 98-107 CO2 (BEAKER) (test eupd=144) 33 meq/L 22-29 BLOOD UREA NITROGEN (BEAKER) (test trsb=351) 25 mg/dL 7-21 CREATININE (BEAKER) (test ootu=098) 1.07 mg/dL 0.57-1.25 Specimen slightly hemolyzed GLUCOSE RANDOM (BEAKER) (test qcdz=042) 120 mg/dL 70-105 CALCIUM (BEAKER) (test klmd=675) 9.4 mg/dL 8.4-10.2 EGFR (BEAKER) (test mswg=0220) 69 mL/min/1.73 sq m ESTIMATED GFR IS NOT ACCURATE CREATININE CLEARANCE IN PREDICTING GLOMERULAR FILTRATION RATE. ESTIMATED GFR IS NOT APPLICABLE FOR DIALYSIS PATIENTS. POCT-GLUCOSE [id number] 12:54:00* Test Item Value Reference Range Comments POC-GLUCOSE METER (BEAKER) (test tmja=3421) 123 mg/dL 70-110 TESTED AT [facility] [address] [facility] [address] [id number] 07:38:00* Test Item Value Reference Range Comments POTASSIUM (BEAKER) (test vozz=481) 5.1 meq/L 3.5-5.1 Specimen slightly hemolyzed [id number] 07:34:00* Test Item Value Reference Range Comments PARTIAL THROMBOPLASTIN TIME (BEAKER) (test xxju=385) 34.9 seconds 22.5-36.0 PROTHROMBIN TIME/[id number] 07:33:00* Test Item Value Reference Range Comments PROTIME (BEAKER) (test xyrm=302) 13.1 seconds 11.7-14.7 INR (BEAKER) (test yuhc=010) 1.0 <=5.9 RECOMMENDED COUMADIN/WARFARIN INR THERAPY RANGESSTANDARD DOSE: 2.0 - 3.0 Inclu paulette: PROPHYLAXIS for venous thrombosis, systemic embolization; TREATMENT for tawanda ous thrombosis and/or pulmonary embolus.HIGH RISK: Target INR is 2.5-3.5 for pat ients with mechanical heart valves.CBC W/PLT COUNT & AUTO [id number] 07:23:00* Test Item Value Reference Range Comments WHITE BLOOD CELL COUNT (BEAKER) (test pncd=013) 8.3 K/ L 3.5-10.5 RED BLOOD CELL COUNT (BEAKER) (test bpba=946) 4.76 M/ L 4.63-6.08 HEMOGLOBIN (BEAKER) (test rown=894) 14.2 GM/DL 13.7-17.5 HEMATOCRIT (BEAKER) (test rtbx=592) 45.0 % 40.1-51.0 MEAN CORPUSCULAR VOLUME (BEAKER) (test nryg=191) 94.5 fL 79.0-92.2 MEAN CORPUSCULAR HEMOGLOBIN (BEAKER) (test vtnw=104) 29.8 pg 25.7-32.2 MEAN CORPUSCULAR HEMOGLOBIN CONC (BEAKER) (test czdv=253) 31.6 GM/DL 32.3-36.5 RED CELL DISTRIBUTION WIDTH (BEAKER) (test zava=098) 15.4 % 11.6-14.4 PLATELET COUNT (BEAKER) (test tqhv=720) 221 K/CU MM 150-450 MEAN PLATELET VOLUME (BEAKER) (test kgiw=148) 10.2 fL 9.4-12.4 NUCLEATED RED BLOOD CELLS (BEAKER) (test nbrk=220) 0 /100 WBC 0-0 NEUTROPHILS RELATIVE PERCENT (BEAKER) (test pevm=383) 79 % LYMPHOCYTES RELATIVE PERCENT (BEAKER) (test unnj=857) 10 % MONOCYTES RELATIVE PERCENT (BEAKER) (test ywgv=277) 8 % EOSINOPHILS RELATIVE PERCENT (BEAKER) (test ockh=459) 3 % BASOPHILS RELATIVE PERCENT (BEAKER) (test myjg=665) 0 % NEUTROPHILS ABSOLUTE COUNT (BEAKER) (test lfim=723) 6.56 K/ L 1.78-5.38 LYMPHOCYTES ABSOLUTE COUNT (BEAKER) (test pmde=012) 0.85 K/ L 1.32-3.57 MONOCYTES ABSOLUTE COUNT (BEAKER) (test quuk=069) 0.63 K/ L 0.30-0.82 EOSINOPHILS ABSOLUTE COUNT (BEAKER) (test zifl=515) 0.22 K/ L 0.04-0.54 BASOPHILS ABSOLUTE COUNT (BEAKER) (test lzzi=753) 0.03 K/ L 0.01-0.08 IMMATURE GRANULOCYTES-RELATIVE PERCENT (BEAKER) (test bdfd=2511) 1 % 0-1 POCT-GLUCOSE [id number] 07:10:00* Test Item Value Reference Range Comments POC-GLUCOSE METER (BEAKER) (test cjyh=7717) 138 mg/dL 70-110 TESTED AT [facility] [address] [facility] [address] [address] ANGIO [id number] 15:42:00 [facility] [address] [place] [address] Patient Name: SLOAN CROFT MR #: [id number] : 1950 Age/Sex: 68/M Req #: [id number] Adm Physician: Ordered by: ARIAN VILLANUEVA MD Report #: [id number] Location: [facility] Room/Bed: Procedure: [id number] HOPD/CT ANGIO CHEST-[facility] Exa m Date: 07/28/18 Exam Time: 1525 REPORT STATUS: Signed EXAMINATION: CT of the chest with contrast, PE protocol. TECHNIQ UE: Spiral CT images of the chest were performed from the lung apices through the level of the adrenal glands after the IV administration of 82 cc of Isovue 370. Thin section reconstructions were obtained with special concentration on the pulmonary arteries. Coronal and sagittal reformatted images were also o btained COMPARISON: <none> CLINICAL HISTORY:Shortness of breath, low O2 saturation DISCUSSION: Lungs: No filling defects are identified in the main, right or left pulmonary arteries to their segmental levels, to suggest pulmonary embolism. Diffusely increased attenuation of the pulmonary parenchyma. Linear opacities in the lingula and anterior left lower lobe, as well as posterior left lower lobe atelectatic changes secondary to eventration of the left hemidiaphragm. Mild compressive atelectasis of the left lower lobe. No pulmonary masses. Calcified granulomas in the lateral right upper lobe (series 4, image 33) and left upper lobe (series 4, image 27). No pulmonary nodules. Airways: Airways are clear, without endobronchial lesions. Pleura: Trace to small left pleural effusion. Heart and mediastinum: Moderate cardiomegaly. Atherosclerotic calcification of the aortic valve, coronary arteries, mitral annulus and thoracic aortic arch. Aorta is nonaneurysmal. Main pulmonary artery is enlarged, measuring 4.1 cm. Lymph nodes: Enlarged prevascular lymph node which measures 1.3 cm in short axis (series 2, image 16). Enlarged right upper paratracheal lymph node, which measures 1.4 cm in short axis (series 2, image 27). Enlarged right lower paratracheal lymph node which measures 1.3 cm in short axis (series 2, image 38). Enlarged left lower paratracheal lymph node which measures 1.5 cm in short axis (series 2, image 42). Enlarged subcarinal lymph node which measures 1.7 cm in short axis (series 2, image 53). Enlarged left hilar node which measures 1.7 cm in short axis (series 2, image 54). Abdomen: The visualized portions of the liver, spleen, pancreas and bowel are unremarkable. 1.4 x 1.5 cm low density lesion in the right adrenal gland (series 2, image 113). 2.4 x 2.6 cm low-density lesion with punctate calcification in the left adrenal gland (series 2, image 117). 1.9 x 1.9 cm low density lesion in the right adrenal gland (series 2, image 112). All these lesions measure less than 10 HU. Bones and soft tissues: No aggressive lytic lesions. Degenerative disc changes in the thoracic spine. IMPRESSION: 1. No CT evidence of pulmonary embolism. 2. Diffusely increased attenuation of the p ulmonary parenchyma. This may be secondary to scan performed in partial expira tion, however, mild interstitial edema may also be considered, in the appropri ate clinical setting. 3. Atelectatic changes seen in the left lower lobe, ling jose luis secondary to eventration of the left hemidiaphragm. 4. Trace to small le ft pleural effusion with associated mild compressive atelectasis of the left l ower lobe. 5. Moderate cardiomegaly. Enlarged main pulmonary artery, consiste nt with pulmonary hypertension. 6. Mediastinal and left hilar adenopathy, as described, of undetermined etiology. No pulmonary mass identified 7. Bilate ral adrenal lesions consistent with benign, lipid rich adenomas. No further di agnostic imaging is indicated. Signed by: Donald Hernández on 07/28/2018 4:01 PM Dictated By: BRETT RIBERA MD Electronically S igned By: BRETT RIBERA MD on 07/28/18 160 Transcribed By: EDUAR on 8 1601 COPY TO: ARIAN VILLANUEVA MD CT BRAIN [id number] 13:22:00 [place] [address] Patient Name: SLOAN CROFT MR #: [id number] : 1950 Age/Sex: 68/M Req #: [id number] Adm Physician: Ordered by: ARIAN VILLANUEVA MD Report #: [id number] Location: [facility] Room/Bed: Procedure: [id number] HOPD/CT BRAIN WO-HOPD Exam D ate: 07/28/18 Exam Time: 1220 REPORT STATUS: Si gned EXAMINATION: Head CT HISTORY: Dizziness and weakness for the last 3 days COMPARISON: None. TECHNIQUE: Multidetector axial images were obtained without contrast from the foramen magnum to the vertex . The images were aidan nstructed using brain and bone algorithms. Thin section brain images were ref ormatted into coronal and sagittal planes. Intravenous contrast: None. Im age quality: Motion/streaking artifact limits the evaluation of the skull base and posterior cranial fossa and near the mid third of the head. Dose modul ation, iterative reconstruction, and/or weight based adjustment of the mA/kV w as utilized to reduce the radiation dose to as low as reasonably achievable. FINDINGS: Parenchyma: 1. No abnormal densities. 2. No ma ss or hemorrhage. No CT evidence of acute territorial vascular insult. Extra-axial spaces:No abnormal density. No extra-axial fluid collections Brain volume: Normal for age. Ventricles: No hydrocephalus or d isplacement. Arteries: No density suggestive of thrombus. Dural sinuses: No abnormal density. Extra-axial spaces: No abnormal density. Foramen magnum: No mass, Chiari malformation, or basilar invagination. Sella: No obvious mass. Paranasal/mastoid sinuses: Imaged portions unremarkable. Skull/Scalp: No lytic or blastic lesions. No fractures. IMPRESSION: Mildly suboptimal evaluation due to motion artifact, gr ossly no acute intracranial abnormalities, particularly no hemorrhage or CT ev idence of acute territorial cortical vascular insults. Signed by: Dr. Matthew Pavon M.D. on 07/28/2018 1:25 PM Dictated By: TRAVIS PAVON MD Electron ically Signed By: TRAVIS PAVON MD on 07/28/18 1325 Transcribed By: EDUAR on 1325 COPY TO: ARIAN VILLANUEVA MD CXR 2 VIEW - [facility] 2018-07-28 13:01:00 [place] [address] Patient Name: SLOAN CROFT MR #: [id number] : 1950 Age/Sex: 68/M Req #: [id number] Adm Physician: Ordered by: ARIAN VILLANUEVA MD Report #: [id number] Location: [facility] Room/Bed: Procedure: [id number] HOPD/CXR 2 VIEW - HOPD Exam Date: Exam Time: REPORT STATUS: Signed EXAMINATION: PA and lateral views of the chest. COMPARISON: None CLINI JASON HISTORY: Dizziness and weakness for 3 days DISCUSSION: Lines /tubes: None. Lungs: Lungs are well-inflated. Atelectatic changes in the left lower lobe and likely lingula. Right lung is grossly clear. Pleura: There is no pleural effusion or pneumothorax. Elevation of the left hemidiaph ragm, which may be due to eventration. Heart and mediastinum: Cardiomedias tinal silhouette is unremarkable. Pulmonary vasculature is normal. Bon es and soft tissues: No acute bony abnormalities. Degenerative changes in th e thoracic spine IMPRESSION: Atelectatic changes in the left lower lobe and likely lingula secondary to elevation of the left hemidiaphragm. Signed by: Dr. Brett Ribera M.D. on 07/28/2018 1:03 PM Dicta manjula By: BRETT RIBERA MD 1303 COPY TO: ARIAN VILLANUEVA MD
[2019-03-30] MEDS ORDERED: IBUPROFEN 200 MG TAB PO STA (01:00)
[2019-03-30] MEDS ORDERED: ONDANSETRON HCL 4 MG ORAL DISINTEGRATING TAB PO ONE (01:00)
[2019-03-30] MEDS ORDERED: HYDROCODONE/APAP 5MG-325MG TAB PO ONE (01:00)
[2019-03-30] MEDS ORDERED: ONDANSETRON HCL INJ 2MG/ML 2ML 2 MG/ML VIAL IV STA (01:42)
[2019-03-30] MEDS ORDERED: SODIUM CHLORIDE 0.9% 1000ML 1,000 ML IV SCH (01:44)
[2019-03-30] MEDS ORDERED: ENALAPRILAT IV INJ 1.25 MG/ML VIAL IV PRN (01:45)
[2019-03-30] MEDS ORDERED: ZOLPIDEM TARTRATE 5 MG TAB PO PRN (01:45)
[2019-03-30] MEDS ORDERED: DEXTROSE 50% SYRINGE 50 ML IV PRN ×2 (01:45→15:45)
[2019-03-30] MEDS ORDERED: HYDROMORPHONE 2MG/ML 2 MG/ML ML IV PRN (01:45)
[2019-03-30] MEDS ORDERED: MORPHINE SULFATE INJ 4 MG/ML INJ 1ML IV PRN (01:45)
[2019-03-30] MEDS ORDERED: DIPHENHYDRAMINE HCL INJ 50 MG/ML VIAL IV PRN (01:45)
[2019-03-30] MEDS ORDERED: SODIUM CHLORIDE 0.9% 500ML 500 ML IV STA (02:04)
--- NOTE | 2019-03-30 02:10 | Diagnostic Imaging Report ---
KNEE 3VW LT - HOPD - 3 views HISTORY: Pain COMPARISON: None available. FINDINGS: See impression. IMPRESSION: Intra-articular minimally displaced fracture of the proximal left tibia. Signed by: Dr. Panfilo Miranda MD on 03/30/2019 2:06 AM
--- NOTE | 2019-03-30 02:12 | Diagnostic Imaging Report ---
KNEE 3VW RT - HOPD - 3 views HISTORY: Pain COMPARISON: None available. FINDINGS: Bones: No acute displaced fracture. Osseous alignment is within normal limits. Joints: Mild tricompartmental joint space narrowing. Soft tissues: Suprapatellar calcific tendinosis. Vascular classifications. IMPRESSION: No acute fracture or dislocation of the right knee. Mild to moderate tricompartmental degenerative changes. Signed by: Dr. Panfilo Miranda MD on 03/30/2019 2:08 AM
--- OUTSIDE RECORDS SUMMARY | 2019-03-30 02:30 | XMS REPORT | Clinical Summary ---
Author Author KADI NeedFeedSt. 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 Tobacco use [...] Only General Internal Medicine 12/16/2018 [facility] Phone 12/10/2018 Hospital Pre-Admission Testing Encounter [...] Taken Vital Sign Reading 12/24/2018 7:00 AM STAFF CYTOTECHNOLOGIST Blood Pressure 129/67 12/24/2018 7:27 AM STAFF CYTOTECHNOLOGIST Pulse 58 12/24/2018 7:00 AM STAFF CYTOTECHNOLOGIST Temperature 35.8 C (96.5 F) 12/24/2018 7:27 AM STAFF CYTOTECHNOLOGIST Respiratory Rate 18 12/24/2018 7:41 AM STAFF CYTOTECHNOLOGIST Oxygen Saturation 95% 12/19/2018 3:36 AM STAFF CYTOTECHNOLOGIST Inhaled Oxygen 50% Concentration 12/24/2018 5:56 AM STAFF CYTOTECHNOLOGIST Weight 111.1 kg (244 lb 14.9 oz) 12/16/2018 7:00 AM STAFF CYTOTECHNOLOGIST Height 182.9 cm (6') 12/24/2018 5:56 AM STAFF CYTOTECHNOLOGIST Body Mass Index 33.22 Plan of Treatment Not on file Procedures Comments Procedure Name Priority Date/Time Associated Diagnosis RHYTHM STRIP - SCAN 01/13/2019 12:15 PM STAFF CYTOTECHNOLOGIST POCT-GLUCOSE METER Routine 12/24/2018 11:49 AM STAFF CYTOTECHNOLOGIST POCT-GLUCOSE METER Routine 12/24/2018 8:14 AM STAFF CYTOTECHNOLOGIST MAGNESIUM Routine 12/24/2018 6:59 AM STAFF CYTOTECHNOLOGIST POTASSIUM Routine 12/24/2018 6:59 AM STAFF CYTOTECHNOLOGIST POCT-GLUCOSE METER Routine 12/23/2018 8:58 PM STAFF CYTOTECHNOLOGIST POCT-GLUCOSE METER Routine 12/23/2018 5:52 PM STAFF CYTOTECHNOLOGIST POCT-GLUCOSE METER Routine 12/23/2018 11:09 AM STAFF CYTOTECHNOLOGIST POCT-GLUCOSE METER Routine 12/23/2018 8:14 AM STAFF CYTOTECHNOLOGIST LACTIC ACID, VENOUS Routine 12/23/2018 5:56 AM STAFF CYTOTECHNOLOGIST MAGNESIUM Routine 12/23/2018 5:56 AM STAFF CYTOTECHNOLOGIST BASIC METABOLIC PANEL (7) Routine 12/23/2018 5:56 AM STAFF CYTOTECHNOLOGIST POCT-GLUCOSE METER Routine 12/22/2018 9:37 PM STAFF CYTOTECHNOLOGIST POCT-GLUCOSE METER Routine 12/22/2018 5:52 PM STAFF CYTOTECHNOLOGIST POCT-GLUCOSE METER Routine 12/22/2018 12:11 PM STAFF CYTOTECHNOLOGIST POCT-GLUCOSE METER Routine 12/22/2018 8:06 AM STAFF CYTOTECHNOLOGIST CBC W/PLT COUNT & AUTO Routine 12/22/2018 DIFFERENTIAL 5:11 AM STAFF CYTOTECHNOLOGIST B-TYPE NATRIURETIC FACTOR Routine 12/22/2018 (BNP) 5:11 AM STAFF CYTOTECHNOLOGIST MAGNESIUM Routine 12/22/2018 5:11 AM STAFF CYTOTECHNOLOGIST BASIC METABOLIC PANEL (7) Routine 12/22/2018 5:11 AM STAFF CYTOTECHNOLOGIST CBC W/PLT COUNT & AUTO Routine 12/22/2018 DIFFERENTIAL 5:11 AM STAFF CYTOTECHNOLOGIST POCT-GLUCOSE METER Routine 12/21/2018 9:26 PM STAFF CYTOTECHNOLOGIST POCT-GLUCOSE METER Routine 12/21/2018 5:57 PM STAFF CYTOTECHNOLOGIST XR CHEST 1 VIEW Routine 12/21/2018 PORTABLE/BEDSIDE 2:58 PM STAFF CYTOTECHNOLOGIST POCT-GLUCOSE METER Routine 12/21/2018 12:38 PM STAFF CYTOTECHNOLOGIST POCT-GLUCOSE METER Routine 12/21/2018 7:25 AM STAFF CYTOTECHNOLOGIST CBC W/PLT COUNT & AUTO Routine 12/21/2018 DIFFERENTIAL 4:48 AM STAFF CYTOTECHNOLOGIST B-TYPE NATRIURETIC FACTOR Routine 12/21/2018 (BNP) 4:48 AM STAFF CYTOTECHNOLOGIST MAGNESIUM Routine 12/21/2018 4:48 AM STAFF CYTOTECHNOLOGIST BASIC METABOLIC PANEL (7) Routine 12/21/2018 4:48 AM STAFF CYTOTECHNOLOGIST CBC W/PLT COUNT & AUTO Routine 12/21/2018 DIFFERENTIAL 4:48 AM STAFF CYTOTECHNOLOGIST POCT-GLUCOSE METER Routine 12/20/2018 10:01 PM STAFF CYTOTECHNOLOGIST POCT-GLUCOSE METER Routine 12/20/2018 5:15 PM STAFF CYTOTECHNOLOGIST POCT-GLUCOSE METER Routine 12/20/2018 11:38 AM STAFF CYTOTECHNOLOGIST XR CHEST 1 VIEW STAT 12/20/2018 PORTABLE/BEDSIDE 8:58 AM STAFF CYTOTECHNOLOGIST POCT-GLUCOSE METER Routine 12/20/2018 8:12 AM STAFF CYTOTECHNOLOGIST CBC W/PLT COUNT & AUTO Routine 12/20/2018 DIFFERENTIAL 4:54 AM STAFF CYTOTECHNOLOGIST B-TYPE NATRIURETIC FACTOR Routine 12/20/2018 (BNP) 4:54 AM STAFF CYTOTECHNOLOGIST MAGNESIUM Routine 12/20/2018 4:54 AM STAFF CYTOTECHNOLOGIST BASIC METABOLIC PANEL (7) Routine 12/20/2018 4:54 AM STAFF CYTOTECHNOLOGIST CBC W/PLT COUNT & AUTO Routine 12/20/2018 DIFFERENTIAL 4:54 AM STAFF CYTOTECHNOLOGIST POCT-GLUCOSE METER Routine 12/19/2018 9:14 PM STAFF CYTOTECHNOLOGIST ECHOCARDIOGRAM REPORT - 12/19/2018 SCAN 5:50 PM STAFF CYTOTECHNOLOGIST POCT-GLUCOSE METER Routine 12/19/2018 4:55 PM STAFF CYTOTECHNOLOGIST POCT-GLUCOSE METER Routine 12/19/2018 11:44 AM STAFF CYTOTECHNOLOGIST XR CHEST 1 VIEW STAT 12/19/2018 PORTABLE/BEDSIDE 9:11 AM STAFF CYTOTECHNOLOGIST POCT-GLUCOSE METER Routine 12/19/2018 7:51 AM STAFF CYTOTECHNOLOGIST CBC W/PLT COUNT & AUTO Routine 12/19/2018 DIFFERENTIAL 4:55 AM STAFF CYTOTECHNOLOGIST MAGNESIUM Routine 12/19/2018 4:55 AM STAFF CYTOTECHNOLOGIST B-TYPE NATRIURETIC FACTOR Routine 12/19/2018 (BNP) 4:55 AM STAFF CYTOTECHNOLOGIST BASIC METABOLIC PANEL (7) Routine 12/19/2018 4:55 AM STAFF CYTOTECHNOLOGIST CBC W/PLT COUNT & AUTO Routine 12/19/2018 DIFFERENTIAL 4:55 AM STAFF CYTOTECHNOLOGIST HEMOGLOBIN A1C Routine 12/19/2018 4:55 AM STAFF CYTOTECHNOLOGIST ECG 12-LEAD Routine 12/19/2018 12:03 AM STAFF CYTOTECHNOLOGIST ECG 12-LEAD Routine 12/19/2018 12:03 AM STAFF CYTOTECHNOLOGIST Procedure Note - Interface, External Ris In - 12/19/2018 12:26 AM STAFF CYTOTECHNOLOGIST Ventricula r Rate 116 BPM Atrial Rate 110 BPM QRS Duration 108 ms Q-T Interval 342 ms QTC Calculatio n(Bazett) 475 ms R Emblem -20 degrees T Emblem 49 degrees Atrial fibrillati on with rapid ventricula r response Abnormal ECG When compared with ECG of 9 00:00, Previous ECG has undetermin ed rhythm, needs review ECG 12-LEAD Routine 12/19/2018 12:00 AM STAFF CYTOTECHNOLOGIST Procedure Note - Interface, External Ris In - 12/19/2018 12:26 AM STAFF CYTOTECHNOLOGIST Ventricula r Rate 0 BPM Atrial Rate 0 BPM QRS Duration 0 ms Q-T Interval 0 ms QTC Calculatio n(Bazett) 0 ms R Emblem 0 degrees T Emblem 0 degrees No QRS complexes found, no ECG analysis possible When compared with ECG of 9 23:59, Current undetermin ed rhythm precludes rhythm comparison , needs review POCT-GLUCOSE METER Routine 12/18/2018 10:25 PM STAFF CYTOTECHNOLOGIST POCT-GLUCOSE METER Routine 12/18/2018 9:21 PM STAFF CYTOTECHNOLOGIST ECG 12-LEAD Routine 12/18/2018 7:32 PM STAFF CYTOTECHNOLOGIST ECG 12-LEAD Routine 12/18/2018 7:32 PM STAFF CYTOTECHNOLOGIST Procedure Note - Interface, External Ris In - 12/18/2018 8:46 PM STAFF CYTOTECHNOLOGIST Ventricula r Rate 153 BPM Atrial Rate 147 BPM QRS Duration 98 ms Q-T Interval 302 ms QTC Calculatio n(Bazett) 482 ms R Emblem -36 degrees T Emblem 116 degrees Atrial fibrillati on with rapid ventricula r response Left axis deviation ST & T wave abnormalit y, consider lateral ischemia Abnormal ECG When compared with ECG of 9 18:17, Atrial fibrillati on has replaced Sinus rhythm Vent. rate has increased BY 96 BPM QRS duration has decreased T wave inversion now evident in Lateral leads ECG 12-LEAD Routine 12/18/2018 6:17 PM STAFF CYTOTECHNOLOGIST ECG 12-LEAD Routine 12/18/2018 6:17 PM STAFF CYTOTECHNOLOGIST Procedure Note - Interface, External Ris In - 12/18/2018 6:24 PM STAFF CYTOTECHNOLOGIST Ventricula r Rate 57 BPM Atrial Rate 57 BPM P-R Interval 132 ms QRS Duration 116 ms Q-T Interval 436 ms QTC Calculatio n(Bazett) 424 ms P Emblem 54 degrees R Emblem -10 degrees T Emblem 56 degrees Sinus bradycardi a Possible Left atrial enlargemen t Borderline ECG When compared with ECG of 9 20:35, Sinus rhythm has replaced Atrial fibrillati on Vent. rate has decreased BY 85 BPM POCT-GLUCOSE METER Routine 12/18/2018 5:09 PM STAFF CYTOTECHNOLOGIST POCT-GLUCOSE METER Routine 12/18/2018 2:34 PM STAFF CYTOTECHNOLOGIST 2D ECHO W/ DOPPLER Routine 12/18/2018 (CW/PW/COLOR) 12:41 PM STAFF CYTOTECHNOLOGIST CBC W/PLT COUNT & AUTO STAT 12/18/2018 DIFFERENTIAL 9:11 AM STAFF CYTOTECHNOLOGIST B-TYPE NATRIURETIC FACTOR STAT 12/18/2018 (BNP) 9:11 AM STAFF CYTOTECHNOLOGIST MAGNESIUM STAT 12/18/2018 9:11 AM STAFF CYTOTECHNOLOGIST CBC W/PLT COUNT & AUTO STAT 12/18/2018 DIFFERENTIAL 9:11 AM STAFF CYTOTECHNOLOGIST BASIC METABOLIC PANEL (7) STAT 12/18/2018 9:11 AM STAFF CYTOTECHNOLOGIST POCT-GLUCOSE METER Routine 12/18/2018 8:09 AM STAFF CYTOTECHNOLOGIST POCT-GLUCOSE METER Routine 12/17/2018 9:32 PM STAFF CYTOTECHNOLOGIST POCT-GLUCOSE METER Routine 12/17/2018 5:57 PM STAFF CYTOTECHNOLOGIST POCT-GLUCOSE METER Routine 12/17/2018 11:20 AM STAFF CYTOTECHNOLOGIST POCT-GLUCOSE METER Routine 12/17/2018 9:07 AM STAFF CYTOTECHNOLOGIST CBC W/PLT COUNT & AUTO Routine 12/17/2018 DIFFERENTIAL 4:48 AM STAFF CYTOTECHNOLOGIST MAGNESIUM Routine 12/17/2018 4:48 AM STAFF CYTOTECHNOLOGIST B-TYPE NATRIURETIC FACTOR Routine 12/17/2018 (BNP) 4:48 AM STAFF CYTOTECHNOLOGIST COMPREHENSIVE METABOLIC Routine 12/17/2018 PANEL 4:48 AM STAFF CYTOTECHNOLOGIST CBC W/PLT COUNT & AUTO Routine 12/17/2018 DIFFERENTIAL 4:48 AM STAFF CYTOTECHNOLOGIST POCT-GLUCOSE METER Routine 12/16/2018 9:24 PM STAFF CYTOTECHNOLOGIST ECG 12-LEAD Routine 12/16/2018 8:35 PM STAFF CYTOTECHNOLOGIST Procedure Note - Interface, External Ris In - 12/16/2018 10:19 PM STAFF CYTOTECHNOLOGIST Ventricula r Rate 142 BPM Atrial Rate 153 BPM QRS Duration 98 ms Q-T Interval 308 ms QTC Calculatio n(Bazett) 473 ms R Emblem -38 degrees T Emblem 111 degrees Atrial fibrillati on with rapid [...] leads ECG 12-LEAD Routine 12/16/2018 8:35 PM STAFF CYTOTECHNOLOGIST ECG 12-LEAD Routine 12/16/2018 5:28 PM STAFF CYTOTECHNOLOGIST Procedure Note - Interface, External Ris In - 12/16/2018 5:38 PM STAFF CYTOTECHNOLOGIST Ventricula r Rate 55 BPM Atrial Rate 55 BPM P-R Interval 132 ms QRS Duration 98 ms Q-T Interval 476 ms QTC Calculatio n(Bazett) 455 ms P Emblem 48 degrees R Emblem -25 degrees T Emblem 25 [address] a ST & T wave abnormalit y, consider lateral ischemia Abnormal ECG No previous ECGs available ECG 12-LEAD Routine 12/16/2018 5:28 PM STAFF CYTOTECHNOLOGIST POCT-GLUCOSE METER Routine 12/16/2018 5:[address] CHEST PE TEST DESIGN STAT 12/16/2018 4:19 PM STAFF CYTOTECHNOLOGIST XR CHEST 1 VIEW Routine 12/16/2018 PORTABLE/BEDSIDE 2:54 PM STAFF CYTOTECHNOLOGIST RESPIRATORY PANEL [facility] Routine 12/16/2018 12:53 PM STAFF CYTOTECHNOLOGIST SPUTUM CULTURE + GRAM Routine 12/16/2018 STAIN 12:36 PM STAFF CYTOTECHNOLOGIST POCT-GLUCOSE METER Routine 12/16/2018 12:34 PM STAFF CYTOTECHNOLOGIST BASIC METABOLIC PANEL (7) Routine 12/16/2018 12:32 PM STAFF CYTOTECHNOLOGIST CBC W/PLT COUNT & AUTO Routine 12/16/2018 DIFFERENTIAL 7:08 AM STAFF CYTOTECHNOLOGIST POCT-GLUCOSE METER Routine 12/16/2018 7:08 AM STAFF CYTOTECHNOLOGIST POTASSIUM STAT 12/16/2018 7:08 AM STAFF CYTOTECHNOLOGIST CBC W/PLT COUNT & AUTO Routine 12/16/2018 DIFFERENTIAL 7:08 AM STAFF CYTOTECHNOLOGIST APTT Routine 12/16/2018 7:08 AM STAFF CYTOTECHNOLOGIST PROTHROMBIN TIME/INR Routine 12/16/2018 7:08 AM STAFF CYTOTECHNOLOGIST after 03/29/2018 Results * RHYTHM STRIP - SCAN (01/13/2019 12:15 PM STAFF CYTOTECHNOLOGIST) Narrative Performed At * POC-Glucose meter (12/24/2018 11:49 AM STAFF CYTOTECHNOLOGIST) Only the most recent of 35 results within the time period is included. POC-Glucose Meter 240 (H)Comment: TESTED AT 70 - 110 mg/dL [facility] [address] [facility] [address] Specimen Blood Performing Organization Address City/State/Zipcode Phone Number [address] [address] [facility] * Potassium (12/24/2018 6:59 AM STAFF CYTOTECHNOLOGIST) Only the most recent of 2 results within the time period is included. Potassium 4.7 3.5 - 5.1 meq/L [facility] Specimen Blood Performing Organization Address City/[facility] [place] [address] [facility] * Magnesium (12/24/2018 6:59 AM STAFF CYTOTECHNOLOGIST) Only the most recent of 8 results within the time period is included. Magnesium 2.1 1.6 - 2.6 mg/dL [facility] Specimen Blood Performing Organization Address [facility] [place] [address] [phone] [place] [address] * Lactic acid, venous, whole blood (12/23/2018 5:56 AM STAFF CYTOTECHNOLOGIST) Lactate, Venous 1.1Comment: Specimen slightly 0.5 - 2.2 mmol/L hemolyzed [facility] Specimen Blood Performing Organization Address [facility] [place] [address] [facility] * Basic Metabolic Panel (12/23/2018 5:56 AM STAFF CYTOTECHNOLOGIST) Only the most recent of 7 results within the time period is included. Sodium 137 136 - 145 meq/L [facility] Potassium 3.7 3.5 - 5.1 meq/L [facility] Chloride 92 (L) 98 - 107 meq/L [facility] CO2 35 (H) 22 - 29 meq/L [facility] BUN 33 (H) 7 - 21 mg/dL [facility] Creatinine 0.86 0.57 - 1.25 mg/dL [facility] Glucose 186 (H) 70 - 105 mg/dL [facility] Calcium 9.4 8.4 - 10.2 mg/dL [facility] EGFR 89Comment: ESTIMATED GFR IS mL/min/1.73 sq m NOT ACCURATE CREATININE [facility] CLEARANCE IN PREDICTING GLOMERULAR FILTRATION RATE. ESTIMATED GFR IS NOT APPLICABLE FOR DIALYSIS PATIENTS. Specimen Blood Performing Organization Address City/State/Zipcode Phone Number [facility] [address] [place] [address] [facility] * CBC with platelet count + automated diff (12/22/2018 5:11 AM STAFF CYTOTECHNOLOGIST) Only the most recent of 7 results within the time period is included. WBC 13.7 (H) 3.5 - 10.5 K/L [facility] RBC 5.17 4.63 - 6.08 M/L [facility] Hemoglobin 15.5 13.7 - 17.5 GM/DL [facility] Hematocrit 47.5 40.1 - 51.0 % [facility] MCV 91.9 79.0 - 92.[address] [facility] MCH 30.0 25.7 - 32.[address] [facility] MCHC 32.6 32.3 - 36.5 GM/DL [facility] RDW 14.6 (H) 11.6 - 14.4 % [facility] Platelets 208 150 - 450 K/CU MM [facility] MPV 9.5 9.4 - 12.[address] [facility] nRBC 0 0 - 0 /[address] [facility] % Neutros 77 % [facility] % Lymphs 12 % [facility] % Monos 9 % [facility] % Eos 0 % [facility] % Baso 0 % [facility] # Neutros 10.48 (H) 1.78 - 5.38 K/L [facility] # Lymphs 1.65 1.32 - 3.57 K/L [facility] # Monos 1.22 (H) 0.30 - 0.82 K/L [facility] # Eos 0.05 0.04 - 0.54 K/L [facility] # Baso 0.04 0.01 - 0.08 K/L [facility] Immature 2 (H) 0 - 1 % [facility] Specimen Blood Performing Organization Address City/[facility]/Zipcode Phone Number [place] [phone] [place] [address] * B-type Natriuretic Factor (BNP) (12/22/2018 5:11 AM STAFF CYTOTECHNOLOGIST) Only the most recent of 6 results within the time period is included. BNP 315 (H) 0 - 100 pg/mL [facility] Specimen Blood Performing Organization Address City/[facility]/[place] [address] [phone] [place] [address] * XR chest 1 view portable / bedside (12/21/2018 2:58 PM STAFF CYTOTECHNOLOGIST) Only the most recent of 4 results within the time period is included. Specimen Narrative Performed At FINAL REPORT [facility] Comparison: 12/20/2018 TECHNIQUE: Single view of the chest FINDINGS: Lung volumes are low. Mild vascular congestion suspected. Small left pleural effusion with adjacent airspace disease. Otherwise lungs are clear. No acute skeletal abnormality. Signed: Theodore Diamond MD Report Verified Date/Time:12/21/2018 15:17:31 Reading Location: [facility] Radiology Reading Room Procedure Note Interface, External Ris In - 12/21/2018 3:19 PM STAFF CYTOTECHNOLOGIST FINAL REPORT Comparison: 12/20/2018 TECHNIQUE: Single view of the chest FINDINGS: Lung volumes are low. Mild vascular congestion suspected. Small left pleural effusion with adjacent airspace disease. Otherwise lungs are clear. No acute skeletal abnormality. Signed: Theodore Diamond MD Report Verified Date/Time: 12/21/2018 15:17:31 Reading Location: [facility] Radiology Reading Room Performing Organization Address City/State/Zipcode Phone Number GE RIS * ECHOCARDIOGRAM REPORT - SCAN (12/19/2018 5:50 PM STAFF CYTOTECHNOLOGIST) Narrative Performed At * Hemoglobin A1c (12/19/2018 4:55 AM STAFF CYTOTECHNOLOGIST) Hemoglobin A1C 6.3 (H) 4.3 - 6.1 % [facility] Specimen Blood Performing Organization Address City/[facility] [place] Phone Number [place] [phone] [place] [phone] [place] [address] * ECG 12 lead (12/19/2018 12:03 AM STAFF CYTOTECHNOLOGIST) Only the most recent of 5 results within the time period is included. Specimen Narrative Performed At Ventricular Rate 116 BPM [facility] MUSE Atrial Rate 110 BPM QRS Duration 108 ms Q-T Interval 342 ms QTC Calculation(Bazett) 475 ms R Emblem -20 degrees T Emblem 49 degrees Atrial fibrillation with rapid ventricular response Abnormal ECG When compared with ECG of 19-DEC-2018 00:00, Previous ECG has undetermined rhythm, needs review Confirmed by MD TIPTON D. RICHARD ([id number]) on 12/19/2018 9:34:06 AM Procedure Note Interface, External Ris In - 12/19/2018 9:34 AM STAFF CYTOTECHNOLOGIST Ventricular Rate 116 BPM Atrial Rate 110 BPM QRS Duration 108 ms Q-T Interval 342 ms QTC Calculation(Bazett) 475 ms R Emblem -20 degrees T Emblem 49 degrees Atrial fibrillation with rapid ventricular response Abnormal ECG When compared with ECG of 19-DEC-2018 00:00, Previous ECG has undetermined rhythm, needs review Confirmed by MD TIPTON D. RICHARD ([id number]) on 12/19/2018 9:34:06 AM Performing Organization Address City/[employer] Phone Number GE MUSE * 2D Echo W/Doppler(CW/PW/Color) (12/18/2018 12:41 PM STAFF CYTOTECHNOLOGIST) Ejection Fraction [facility] Specimen Narrative Performed At Transthoracic Echocardiography Report (TTE) [facility] Demographics [facility] Patient Name Digna RAMÍREZ of Study 12/18/2018 [id number] Male Visit Number [id number] Room Number 2439 Number Date of Birth2Referring Physician Luba Salcedo Age68 year(s)Physical Therapy Resident Ian Ball [facility] AnalystIzoJose Cuadra MD Procedure Type of Study [...] External Ris In - 12/19/2018 5:11 PM STAFF CYTOTECHNOLOGIST Transthoracic Echocardiography Report (TTE) Demographics Patient Name NAUN RAMÍREZ Date of Study 12/18/2018 Gender Male Visit Number [id number] Race Unknown Room Number 2439 Number Date of 1950 Referring Physician Luba Salcedo Age 68 year(s) Physical Therapy Resident Ian Ball RDCS Staff Training And Development Manager [place] Interpreting Jerry Smallwood Physician Procedure [...] TR Gradient: 42.91 mmHg Performing Organization Address City/State/[facility] Phone Number [facility] * Comprehensive metabolic panel (12/17/2018 4:48 AM STAFF CYTOTECHNOLOGIST) Protein, Total 7.3 6.0 - 8.3 gm/dL [facility] Albumin 3.7 3.5 - 5.0 g/dL [facility] Alkaline Phosphatase 73 40 - 150 U/L [facility] Total Bilirubin 0.6 0.2 - 1.2 mg/dL [facility] Sodium 138 136 - 145 meq/L [facility] Potassium 4.7 3.5 - 5.1 meq/L [facility] Chloride 103 98 - 107 meq/L [facility] CO2 26 22 - 29 meq/L [facility] BUN 32 (H) 7 - 21 mg/dL [facility] Creatinine 1.07 0.57 - 1.25 mg/dL [facility] Glucose 223 (H) 70 - 105 mg/dL [facility] Calcium 9.3 8.4 - 10.2 mg/dL [facility] AST 12 5 - 34 U/L [facility] ALT 11 6 - 55 U/L [facility] EGFR 69Comment: ESTIMATED GFR IS mL/min/1.73 sq m NOT ACCURATE CREATININE [facility] CLEARANCE IN PREDICTING GLOMERULAR FILTRATION RATE. ESTIMATED GFR IS NOT APPLICABLE FOR DIALYSIS PATIENTS. Specimen Blood Performing Organization Address City/State/Zipcode Phone Number [facility] [address] [place] [address] [facility] * CT chest for pulmonary embolus (12/16/2018 4:19 PM STAFF CYTOTECHNOLOGIST) Specimen Narrative Performed At FINAL REPORT [facility] CT scan of the chest with pulmonary [...] MD Report Verified Date/Time:12/16/2018 16:50:11 Reading Location: [facility] Diagnostic Imaging Reading Room - [place] [address] Procedure Note Interface, External Ris In - 12/16/2018 4:52 PM STAFF CYTOTECHNOLOGIST FINAL REPORT CT scan of the chest [...] Report Verified Date/Time: 12/16/2018 16:50:11 Reading Location: [facility] Diagnostic Imaging Reading Room - [place] [address] Performing Organization Address City/State/Zipcode Phone Number GE RIS * RESPIRATORY PANEL [facility] (12/16/2018 12:53 PM STAFF CYTOTECHNOLOGIST) Human Metapneumovirus Not detected Not detected, Equivocal [facility] Rhinovirus Not detected Not detected, [facility]iv[facility] Influenza A Not detected Not detected, [facility] INFLUENZA A (NO SUBTYPE) Not detected, [facility]ivocal [facility] Influenza A subtype H1 Not detected, [facility] Influenza A Subtype H3 Not detected, Equivocal [facility] Influenza A Subtype Not detected, [employer] H1-2009 [facility] Influenza B Not detected Not detected, [facility]iv[facility] Respiratory Syncytial Not detected Not detected, [employer] Virus [facility] Parainfluenza Virus 1 Not detected Not detected, Equivocal [facility] Parainfluenza Virus 2 Not detected Not detected, [facility] Parainfluenza virus 3 Not detected Not detected[facility]ocal [facility] Parainfluenza Virus 4 Not detected Not detected, [facility]iv[facility] Adenovirus Not detected Not detected, [facility] Coronavirus 229E Not detected Not detected, Equivocal [facility]. [facility] Coronavirus HKU1 Not detected Not detected, [facility] Coronavirus NL63 Not detected Not detected, [facility] Coronavirus OC43 Not detected Not detected, [facility] Bordetella Pertussis Not detected Not detected, [facility] Chlamydophila Pneumoniae Not detected Not detected, [facility] Mycoplasma Pneumoniae Not detected Not detected, [facility] Specimen Nasopharyngeal Narrative Performed At Other viruses and bacteria not targeted by this PCR panel cannot be excluded; therefore clinical correlation and follow up of serology, culture results, and [facility] other molecular studies is required. The results are not intended to be used as the sole means for clinical diagnosis or patient management decisions. This sample was tested at the [facility] Molecular Diagnostics Laboratory using the [employer] Respiratory Panel. It is FDA cleared and has been verified and approved by the [facility]ostics [facility] for clinical use on nasal swab specimens. It is not FDA-cleared for use on bronchial wash/lavage samples. However, for this sample type, validation was performed and test characteristics were determined and approved, by [facility] Molecular Diagnostics laboratory for clinical use under the Clinical Laboratory Improvement Amendments (CLIA) of 1988 requirements. Therefore, FDA clearance is not required.This laboratory is CLIA-certified and [employer] (CAP)-accredited to perform high complexity testing. Performing Organization Address City/State/Zipcode Phone Number [facility] [address] [place] [address] [facility] * Sputum Culture + Gram Stain (12/16/2018 12:36 PM STAFF CYTOTECHNOLOGIST) Result 4+ Normal respiratory lorena [facility] Gram Stain Result <1+ gram positive rods [facility] Gram Stain Result <1+ gram positive cocci in pairs [facility] Gram Stain Result 15-[address] [facility] Gram Stain Result 3+ WBCs [facility] Specimen Sputum - Expectorated Performing Organization Address City/[facility]/Zipcode Phone Number [address] [address] [facility] * aPTT (12/16/2018 7:08 AM STAFF CYTOTECHNOLOGIST) PTT 34.9 22.5 - 36.[address] [facility] Specimen Blood Performing Organization Address City/[facility]/Zipcode Phone Number [address] [address] [facility] * Prothrombin time/INR (12/16/2018 7:08 AM STAFF CYTOTECHNOLOGIST) Protime 13.1 11.7 - 14.[address] [facility] INR 1.[address] [facility] Specimen Blood Narrative Performed At RECOMMENDED COUMADIN/WARFARIN INR THERAPY RANGES STANDARD DOSE: 2.0 - 3.0 Includes: PROPHYLAXIS for venous thrombosis, [facility] systemic embolization; TREATMENT for venous thrombosis and/or pulmonary embolus. HIGH RISK: Target INR is 2.5-3.5 for patients with mechanical heart valves. Performing Organization Address City/[facility]/Zipcode Phone Number [address] [address] [facility] after 03/29/2018 Insurance Payer Benefit Subscriber ID Type Phone Address Plan / Group [facility] xxxxxxxxxxx MEDICARE ADV Advance Directives For more information, please contact: [facility] [address] [place] [address] Date Inactivated Comments Code Status Date Activated Full Code 12/16/2018 2:32 PM This code status was determined by: Patient
--- NOTE | 2019-03-30 03:00 | NUR ---
Pt arrived to the unit from free standing er in a stretcher with h/o fall and fracture left knee.admission assessment done.aaox4.no resp.distress.nasal cannula 4l o2 started.normal saline 75 ml running to iv left ac #20g .left knee immobilized with brace .pain voiced 06/09.oriented to the unit.bed locked and in lowest position.phone and call light within reach.pt does no know the med rec list. told that she will bring it in the morning.keep monitor the pt.
[2019-03-30 03:33] VITALS: BP 110/53
--- NOTE | 2019-03-30 06:50 | NUR ---
Report given to the oncoming rn.walking rounds done.stable condition.
[2019-03-30] MEDS ORDERED: INSULIN REGULAR, HUMAN 100 UNIT/1 ML 3ML VIAL SQ SCH (07:30)
[2019-03-30 08:11] VITALS: BP 106/55
[2019-03-30] MEDS ORDERED: ONDANSETRON HCL INJ 2MG/ML 2ML 2 MG/ML VIAL IV PRN (09:30)
[2019-03-30 09:33] VITALS: BP 106/55
[2019-03-30] MEDS: FAMOTIDINE 20 MG TAB PO SCH ×2 (09:33→17:10)
[2019-03-30] MEDS: TIOTROPIUM 18 MCG INH POWDER INH SCH (11:00)
[2019-03-30 12:45] VITALS: BP 83/48
[2019-03-30] MEDS: INSULIN REGULAR, HUMAN 100 UNIT/1 ML 3ML VIAL SQ SCH ×2 (16:30→21:00)
[2019-03-30 16:31] VITALS: BP 92/54
[2019-03-30] MEDS: ACETAMINOPHEN/CODEINE 300MG - 30MG TAB PO PRN (18:41)
[2019-03-30 20:00] VITALS: BP 97/53
--- NOTE | 2019-03-30 20:35 | NUR ---
ASSISTED PATIENT OUT OF THE BED TO STAND AND URINATE IN THE URINAL. IMMOBILIZED TO THE LEFT LEG, HE'S NON WT BEARING TO THE LEFT LEG. HE WAS ASSISTED BACK TO THE BED WITH CALL LIGHT AND URINAL WITHIN EASY REACH.
[2019-03-31] VITALS (9 sets, daily range): BP systolic 105–151; BP diastolic 54–72
[2019-03-31] MEDS: ACETAMINOPHEN/CODEINE 300MG - 30MG TAB PO PRN ×2 (00:50→07:41)
--- NOTE | 2019-03-31 00:52 | NUR ---
PATIENT ASSISTED WITH ADLS, HE'S MEDICATED WITH TYLENOL #3 FOR PAIN TO THE LEFT LEG. CALL LIGHT AND URINAL WITHIN EASY REACH.
--- NOTE | 2019-03-31 03:45 | NUR ---
ROUNDS MADE, PATIENT OBSERVED SOUNDLY ASLEEP WITHOUT RESPIRATORY DISTRESS AND CALL LIGHT WITHIN EASY REACH.
[2019-03-31] MEDS: TIOTROPIUM 18 MCG INH POWDER INH SCH (07:20)
[2019-03-31] MEDS: FAMOTIDINE 20 MG TAB PO SCH ×2 (07:41→16:56)
[2019-03-31] MEDS ORDERED: ATENOLOL50 MG PO (08:21)
[2019-03-31] MEDS ORDERED: MAGNESIUM OXID400 MG PO (08:21)
[2019-03-31] MEDS ORDERED: SPIRIVA18 MCG INH (08:21)
[2019-03-31] MEDS ORDERED: NOVOLOG MI100 UNIT/1 SQ ×2 (08:21)
[2019-03-31] MEDS ORDERED: VITAMIN D1000 UNI1 PO (08:21)
[2019-03-31] MEDS ORDERED: AMIODARONE HCL200 MG PO (08:21)
[2019-03-31] MEDS ORDERED: SENOKOT-S TABL1 EACH PO (08:21)
[2019-03-31] MEDS ORDERED: FOSAMAX70 MG PO (08:21)
[2019-03-31] MEDS ORDERED: FERROUS SULFAT325 MG PO (08:21)
[2019-03-31] MEDS ORDERED: LISINOPRIL2.5 MG PO (08:21)
[2019-03-31] MEDS ORDERED: RANITIDINE HCL150 M1 PO (08:21)
[2019-03-31] MEDS ORDERED: BUPROPION HCL75 MG PO (08:21)
[2019-03-31] MEDS ORDERED: LACTULOSE SYRUP 20 GM/30 ML UDC PO PRN (10:00)
[2019-03-31] MEDS: HYDROCODONE/APAP 10MG-325MG TAB PO PRN (12:24)
[2019-03-31] MEDS: BUPROPION HCL 75 MG TAB PO SCH ×2 (12:24→20:15)
[2019-03-31] MEDS: INSULIN LISPRO 100 UNIT/1 ML 3ML VIAL SQ SCH ×3 (12:24→21:07)
--- NOTE | 2019-03-31 16:30 | NUR ---
CASE MANAGEMENT ASSESSMENT Subject Scientific Research to bedside to discuss plan of care with patient/family. CM/SW role and care transitions discussed. Anticipated discharge plan discussed along with duration of care. CM/SW discussed patients right to make decisions in care. CM/SW work hours given. Patient lives: with , mother in law, and 2 dogs Admit/Transfer: thru ED Hospital/ER visits since last admit: 0; last admitted to [facility] 2-3 months ago POA/Emergency contact: Lesvia Ramírez [phone] Current/Previous Home Health: none PCP/Follow-up Care: will follow up with Dr. Killian as instructed on discharge Current/Previous DME: CPAP Medications (referring to index hospitalization or the first time you were in the hospital) a. Were changes made in your medications when you were in the hospital on 2-3 months ago? no b. Did you understand the changes? n/a c. Were you able to obtain your new medications right away? n/a d. Were you able to take your medications like the doctor wanted you to? n/a e. Did the hospital give you an accurate, easy to understand list of medications when you left? 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 He verbalized understanding. Signed copy in chart. Copy to pt. Goal for discharge: home CM/SW left business card at the bedside with contact information. Name and number was also written on the patients whiteboard. Patient verbalized understanding of discussion. CM will follow-up with ongoing discharge and transition of care needs.
[2019-03-31] MEDS: DOCUSATE SODIUM LIQD 100 MG/10 ML UDC NG SCH (16:56)
[2019-03-31] MEDS ORDERED: NON-FORMULARY MEDICATION (Bupropion Hcl 75 MG) PO SCH (17:00)
--- NOTE | 2019-03-31 18:40 | Consultation ---
DATE OF CONSULTATION: 03/31/2019 Cardiac Consultation REASON FOR CONSULTATION: Preop cardiovascular evaluation. CONSULTING PHYSICIAN: Dr. Lisa. CHIEF COMPLAINT: Left leg pain status post mechanical fall. HISTORY OF PRESENT ILLNESS: Mr. Ramírez is a 68-year-old gentleman with past medical history of hypertension, type 2 diabetes, hypercholesteremia, COPD on 4 L nasal cannula, paroxysmal atrial fibrillation on rhythm and anticoagulation therapy, obesity, who reports that he was in his usual state of health up until yesterday, and was working in his garage and he tripped over his gas blower. When he fell, he landed on both of his knees and developed severe onset left greater than right knee pain. He ended up having a knee x-ray, which showed an intra-articularly minimally displaced fracture of the proximal left tibia, but luckily no right leg issues. Orthopedic Surgery was consulted, who recommended surgical intervention and we are here for preoperative cardiovascular evaluation. The patient reports that he has had a surgical cyst removal in his right groin region, he thinks under general anesthesia a couple years ago without any difficulty. He has had no issues with previous anesthesia in the past. The patient tries to do activities in his yard at his own pace and has dyspnea that is largely accounted for by his COPD according to him. He is followed up with a parts counter associate as an outpatient and reports his last ischemic risk stratification was about six months ago and was normal. He has never had known coronary artery disease and does not endorse any chest pain and denies any orthopnea, PND, or decompensated heart failure symptoms. He does have a history of paroxysmal atrial fibrillation. However, he states that his medications keep it under good control. PAST MEDICAL HISTORY: 1. Atrial fibrillation with remote history of DC cardioversion, paroxysmal rhythm and rate control therapy. 2. COPD on 4 L nasal cannula at home. 3. Hypertension, essential. 4. Type 2 diabetes. 5. Hypercholesteremia. 6. Obstructive sleep apnea on CPAP therapy. PAST SURGICAL HISTORY: History of right abdominal cyst with surgery removal. FAMILY HISTORY: Mother and father in their 80s. Denies any family history of coronary artery disease. SOCIAL HISTORY: He is a one pack per day smoker, started at age of 23. Denies any alcohol or illicit drug use. ALLERGIES: HIGH-DOSE METFORMIN CAUSES SOME HEADACHE. CURRENT MEDICATIONS: Includes albuterol MDI p.r.n., Spiriva daily, amiodarone 200 mg daily, atorvastatin 20 mg daily, Lasix 20 mg daily, magnesium oxide daily, Zantac 150 mg b.i.d., Eliquis 5 mg b.i.d., Fosamax 70 mg daily, iron sulfate 325 mg daily, lisinopril 2.5 mg daily, atenolol 25 mg daily, NovoLog 70/30, 20 units subcu q.a.m. and 15 units subcu at bedtime, metformin 1000 mg b.i.d., vitamin B, D tablet daily. REVIEW OF SYSTEMS: GENERAL: Denies any fevers, chills, or any weight changes. HEENT: No headaches, visual complaints, sore throat. RESPIRATORY: Denies any pleuritic chest pain. Has chronic exertional dyspnea, nonproductive cough from his COPD. CARDIOVASCULAR: As per HPI. GI: Denies any abdominal pain, bright red blood per rectum, melena, hematemesis. : Denies any dysuria, urinary frequency or pyuria symptoms. MUSCULOSKELETAL: Positive for severe lower back pain and left greater than right knee pain as noted above. ENDOCRINE: Denies any heat or cold intolerance. NEUROLOGIC: Denies any focal weakness, numbness, tingling, seizures, headache, TIA or stroke. Remainder of review of systems negative or otherwise as mentioned. PHYSICAL EXAMINATION: VITAL SIGNS: Height of 72 inches, weight of 256 pounds, BMI is 34.7, temperature of 98.3, pulse 52, respiratory rate 20, blood pressure 111/55, O2 saturation is 95% on 4 L nasal cannula. GENERAL: This is a well-nourished, well-developed gentleman, who is currently in no apparent distress. HEENT: Normocephalic, atraumatic. Pupils are equal, round, and reactive to light. Extraocular motions are intact. Oropharynx is clear. NECK: No elevation of jugular venous pulsation. No carotid bruits. CARDIOVASCULAR: Distant heart sounds. Diminished S1, S2, 2/6 systolic murmur at left lower sternal border. LUNGS: Show very poor air flow throughout all lung edwards and diminished air entry compatible with advanced COPD type changes. ABDOMEN: Soft, nontender, obese with normoactive bowel sounds. No hepatosplenomegaly. BACK: No costovertebral angle tenderness. EXTREMITIES: Warm with 1+ bilateral radial pulses. Absent pedal pulses. 1+ bilateral femoral pulses and the left leg is in a knee immobilizer. NEUROLOGIC: Cranial nerves 2 through 12 are intact. Moves all four extremities. Difficult to participate secondary to pain in the left leg. LABORATORY DATA: White count 11.5, hemoglobin 10.8, hematocrit 32.3, platelets of 260. Sodium 136, potassium 4.2, chloride 99, bicarb 28, BUN 29, creatinine 1.5, glucose of 109. Knee x-ray reveals a left proximal tibial fracture. The right knee shows DJD changes. DIAGNOSES: 1. Left tibial fracture secondary to mechanical fall. 2. Preoperative cardiovascular evaluation. 3. Hypertension, essential. 4. Hypercholesteremia. 5. Type 2 diabetes. 6. Chronic obstructive pulmonary disease. 7. 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 8. Anemia. 9. Obstructive sleep apnea on CPAP therapy. 10. Advanced chronic obstructive pulmonary disease on home oxygen. PLAN/RECOMMENDATIONS: 1. Overall, the patient is definitely high pretest probability of coronary artery disease. However, clinically is without angina and has had ischemic risk stratification most recently six months ago by primary parts counter associate that was largely negative. We had an extensive discussion in terms of moderate risk procedure being his orthopedic surgery as well as cardiac risks and after discussion of various alternatives, it would seem that the patient is more in favor of an aggressive course and we will go ahead and clear him from a cardiovascular standpoint as he accepts these risks. 2. We will go ahead and check EKG to place on the chart as well as echocardiogram. 3. For the time being, we will need to hold his systemic anticoagulation with Eliquis in light of upcoming operation. 4. We will continue his rhythm control strategy. 5. Telemetry monitoring. 6. Aggressive risk factor modification medical therapy. 7. We will continue to follow this patient. Thank you for this referral. MD JOAN Perez/VIKTOR /[id number]
[2019-03-31] MEDS ORDERED: METOPROLOL TARTRATE INJ 1 MG/ML VIAL IV ONE (20:00)
[2019-03-31] MEDS: ATORVASTATIN 20 MG TAB PO SCH (20:15)
[2019-03-31] MEDS: MORPHINE SULFATE INJ 4 MG/ML INJ 1ML IV PRN (23:37)
[2019-03-31] MEDS ORDERED: SODIUM CHLORIDE 0.9% 1000ML 1,000 ML IV SCH (23:59)
[2019-04-01] VITALS (8 sets, daily range): BP systolic 124–176; BP diastolic 55–84
--- NOTE | 2019-04-01 02:45 | NUR ---
The patient prefers to stand up using with the walker to use the urinal. Each time the patient does the exertion, the patieht's heart rate goes up. The recent heart rate recorded at 174 per Telemetry. Continue to monitor the patient's heart rate while patient puts on exertion to stand up to use the urinal.
[2019-04-01] MEDS: MORPHINE SULFATE INJ 4 MG/ML INJ 1ML IV PRN (05:10)
[2019-04-01 05:36] LABS: BASOPHILS % 0.4 % (0.0-1.0); EOSINOPHILS # (AUTO) 0.1 (0.0-0.4); HEMATOCRIT 31.6 % (38.2-49.6); HEMOGLOBIN 10.4 g/dL (14.0-18.0); LYMPHOCYTES # (AUTO) 0.6 (1.0-3.2); LYMPHOCYTES % 5.9 % (18.0-39.1); MEAN CORPUSCULAR HEMOGLOBIN 29.9 pg (28-32); MEAN CORPUSCULAR HGB CONC 32.9 g/dL (31-35); MEAN CORPUSCULAR VOLUME 90.8 fL (81-99); MONOCYTES % 9.4 % (4.4-11.3); NEUTROPHILS # (AUTO) 8.6 (2.1-6.9); NEUTROPHILS % 82.1 % (38.7-80.0); PLATELET COUNT 210 x10e3/uL (140-360); RED BLOOD COUNT 3.48 x10e6/uL (4.3-5.7); RED CELL DISTRIBUTION WIDTH 15.3 % (11.7-14.4)
[2019-04-01 05:52] LABS: INR 0.97; PROTHROMBIN TIME 13.4 seconds (11.9-14.5)
[2019-04-01 05:53] LABS: PARTIAL THROMBOPLASTIN TIME 39.4 seconds (23.8-35.5)
[2019-04-01 06:06] LABS: ANION GAP 13.1 mmol/L (8-16); CALCIUM 9.2 mg/dL (8.4-10.2); CREATININE, SERUM 1.38 mg/dL (0.72-1.25); MAGNESIUM 1.8 MG/DL (1.3-2.1); POTASSIUM 5.1 mmol/L (3.5-5.1)
[2019-04-01] MEDS ORDERED: CEFAZOLIN SOD 1 GM/NS 50ML 100 ML IV ONE (06:30)
[2019-04-01] MEDS ORDERED: METOPROLOL TARTRATE 25 MG TAB PO ONE (07:15)
--- NOTE | 2019-04-01 07:18 | NUR ---
Each time the patient use exertion, the heart rate goes up between 160-170. RN called Dr. Rosario Romeo to get new order for metoprolol 25 mg PO now and q6h. Continue to monitor the patient's HR. The patient c/o of no chest pain, difficulty breathing.
[2019-04-01] MEDS: FAMOTIDINE 20 MG TAB PO SCH ×2 (07:30→16:30)
[2019-04-01] MEDS: INSULIN LISPRO 100 UNIT/1 ML 3ML VIAL SQ SCH ×4 (07:30→20:05)
[2019-04-01] MEDS ORDERED: BACITRACIN 50,000 UNIT VIAL ONE (07:40)
[2019-04-01] MEDS ORDERED: BUPIVACAINE HCL 0.5% INJ 30 ML VIAL INJ ONE (07:40)
--- NOTE | 2019-04-01 07:45 | NUR ---
PT OFF UNIT FOR PROCEDURE.
[2019-04-01] MEDS: DOCUSATE SODIUM LIQD 100 MG/10 ML UDC NG SCH ×2 (09:00→17:00)
[2019-04-01] MEDS: AMIODARONE HCL 200 MG TAB PO SCH (09:00)
[2019-04-01] MEDS: BUPROPION HCL 75 MG TAB PO SCH ×2 (09:00→20:03)
[2019-04-01] MEDS: FUROSEMIDE 20 MG TAB PO SCH (09:00)
[2019-04-01] MEDS ORDERED: NALOXONE HCL INJ 0.4 MG/ML AMP IV PRN (09:30)
[2019-04-01] MEDS ORDERED: HYDROMORPHONE 0.2MG/ML-SOD CHL 30ML PCA SYRINGE IV PRN (09:30)
[2019-04-01] MEDS ORDERED: ONDANSETRON HCL INJ 2MG/ML 2ML 2 MG/ML VIAL IV PRN (09:30)
[2019-04-01] MEDS ORDERED: HYDROMORPHONE 0.2MG/ML-SOD CHL 30ML PCA SYRINGE IV ONE (10:43)
--- NOTE | 2019-04-01 10:46 | Diagnostic Imaging Report ---
Exam: Left knee radiographs-2 views History: Postoperative. Comparison: Left knee radiographs 03/30/2019. Findings: There has been interval open reduction and internal fixation with 3 partially threaded screws of a minimally displaced intra-articular fracture of the proximal left tibia. Alignment is improved. There is overlying subcutaneous edema and erasmo, consistent with recent surgery. Hardware appears intact. There is a suprapatellar joint effusion. Mild degenerative changes of the knee. Impression: Postsurgical changes status post interval ORIF of the proximal left tibial fracture as above. Signed by: Dr. Marilee Mendez MD on 04/01/2019 10:43 AM
[2019-04-01] MEDS: METOPROLOL TARTRATE 25 MG TAB PO SCH ×2 (12:00→18:00)
[2019-04-01] MEDS: SODIUM CHLORIDE 0.9% 1000ML 1,000 ML IV SCH ×2 (13:15→20:03)
[2019-04-01] MEDS: ACETAMINOPHEN 1000 MG/100 ML IV SCH ×2 (13:35→18:21)
--- NOTE | 2019-04-01 13:48 | NUR ---
WOUND CARE PUP SCREEN Brent Score: 13 PUP: Moderate LOS: 2 days Age: 68 Alternating Pressure Air Mattress to Current Weight HOB < 30 Degrees Patient Position: Back. Able to Turn Self- Attempts to get out of bed. Confusion from after sedation for procedure of left tibial fracture. On SIZING MACHINE AND DRIER OPERATOR pump. PATIENT VISIT / SKIN CHECK: No Pressure Ulcers Identified. RECOMMENDATION: - Continue Moderate PUP - Bilateral Heel Protectors / Offload Heels with Pillows While in Bed - Turn and Reposition Every 2 Hours Addendum: 04/01/19 at 1350 by Nate Hillman RN Amended: Links added.
--- NOTE | 2019-04-01 13:55 | NUR ---
REPORT GIVEN TO WILEY BORREGO, FOR PT CONTINUED CARE.
[2019-04-01] MEDS: CEFAZOLIN SOD 1 GM/NS 50ML 50 ML IV SCH (17:15)
--- NOTE | 2019-04-01 18:36 | Operative Report ---
DATE OF PROCEDURE: 04/01/2019 SURGEON: Jeramie Killian MD PREOPERATIVE DIAGNOSIS: Left tibial plateau fracture. POSTOPERATIVE DIAGNOSIS: Left tibial plateau fracture. OPERATIONS AND PROCEDURE PERFORMED: The patient underwent a closed reduction and percutaneous screw fixation of the left tibial plateau fracture. REPAIR ARMATURE WINDER HELPER: Shayna Farrell. ANESTHESIA: General endotracheal intubation anesthesia. IV FLUIDS: Per anesthesia record. BRIEF DESCRIPTION OF THE PATIENT'S OPERATIVE PROCEDURE: Mr. Ramírez was taken to the operating room, placed in supine position on the operating table. Following induction of general anesthesia, as well as endotracheal intubation, the patient's left lower extremity was examined under anesthesia. He was found to have a 3+ effusion within his knee. He also had swelling in the lower extremity. Fluoroscopic evaluation of knee joint demonstrated a minimally displaced fracture of the medial tibial plateau. The patient's lower extremities were prepped and draped in standard surgical fashion. The case was begun by placing a fracture reduction clamp across the tibia and providing pressure across the patient's fracture site, reducing the articular surface to an anatomic position. Three pins from the 7.3 cannulated screw system were then inserted from lateral to medial across the patient's fracture site capturing the fracture fragment. Three 7.3 cannulated screws with washers were then inserted across the fracture and provide compression across the fracture site. This resulted in anatomic realignment of the articular surface. There was minimal fracture diastasis distally. The incision sites for the patient's screws were then irrigated thoroughly and closed in a multilayer fashion. Sterile dressings were applied to the patient's lower extremity, as well as the knee immobilizer. The patient was then awakened and taken to postanesthesia care unit in stable condition. Shayna Farrell acted as medical research assistant for this case and was necessary for the prepping and draping the patient as well as the positioning of the leg and retraction of soft tissues during the procedure that allowed this case to be successful. MD JOHN CoxR/MODL /[id number]
[2019-04-01] MEDS ORDERED: FENTANYL CITRATE/PF 100MCG/2 ML INJ ONE (19:25)
[2019-04-01] MEDS ORDERED: MIDAZOLAM HCL 2 MG/2 ML VIAL ONE (19:25)
[2019-04-01] MEDS ORDERED: SEVOFLURANE INHAL SOLN 250 ML PEN BTL ONE (19:44)
[2019-04-01] MEDS ORDERED: PHENYLEPHRINE HCL 1% 10 MG/ML VIAL ONE (19:44)
[2019-04-01] MEDS ORDERED: ACETAMINOPHEN 1000 MG/100 ML IV ONE (19:44)
[2019-04-01] MEDS ORDERED: DEXAMETHASONE SOD PHOS INJ 4 MG/ML VIAL ONE (19:44)
[2019-04-01] MEDS ORDERED: ETOMIDATE 2 MG/ML 10 ML INJ IV ONE (19:44)
[2019-04-01] MEDS ORDERED: ONDANSETRON HCL INJ 2MG/ML 2ML 2 MG/ML VIAL ONE (19:44)
--- NOTE | 2019-04-01 19:59 | NUR ---
RN called Dr. Killian to verify to use CPM since patient is on non-weight bearing with immobilizer brace. Per Dr. Killian order, stated to use the CPM to patient's tolerance. The patient is placed on CPM for 2 hours at 30 degrees.
[2019-04-01] MEDS: ATORVASTATIN 20 MG TAB PO SCH (20:03)
[2019-04-02] VITALS (8 sets, daily range): BP systolic 125–150; BP diastolic 59–72
[2019-04-02] MEDS: CEFAZOLIN SOD 1 GM/NS 50ML 50 ML IV SCH ×2 (00:30→08:26)
[2019-04-02] MEDS: ACETAMINOPHEN 1000 MG/100 ML IV SCH ×2 (00:30→05:13)
[2019-04-02] MEDS: SODIUM CHLORIDE 0.9% 1000ML 1,000 ML IV SCH (05:13)
[2019-04-02] MEDS: METOPROLOL TARTRATE 25 MG TAB PO SCH ×3 (05:14→17:29)
--- NOTE | 2019-04-02 07:19 | NUR ---
RECEIVED PATIENT AWAKE IN BED NO SIGNS OF DISTRESS AT THIS TIME. BED LOW, WHEELS LOCKED, SIDE RAILS UP X2, CALL LIGHT IN REACH. WILL CONTINUE TO MONITOR.
[2019-04-02] MEDS: TIOTROPIUM 18 MCG INH POWDER INH SCH (08:05)
[2019-04-02] MEDS: AMIODARONE HCL 200 MG TAB PO SCH (08:26)
[2019-04-02] MEDS: FAMOTIDINE 20 MG TAB PO SCH ×2 (08:26→17:29)
[2019-04-02] MEDS: FUROSEMIDE 20 MG TAB PO SCH (08:26)
[2019-04-02] MEDS: BUPROPION HCL 75 MG TAB PO SCH ×2 (08:26→20:31)
[2019-04-02] MEDS: DOCUSATE SODIUM LIQD 100 MG/10 ML UDC NG SCH ×2 (08:26→17:29)
--- NOTE | 2019-04-02 09:00 | NUR ---
PATIENT A/O X3, EVEN RESPIRATIONS ON 3LNC. BOWEL SOUNDS ACTIVE, NO BM SINCE SURGERY. PATIENT IS NON-WEIGHT BEARING, WORKING WITH PT. PATIENT IS CONTINENT TO BOWEL AND BLADDER VOIDS IN URINAL. IMMOBILIZER IN PLACE ON LEFT LEG. VITAL SIGNS STABLE. CALL LIGHT IN REACH. BED LOW, WHEELS LOCKED, SIDE RAILS X2, AT BEDSIDE. WILL CONTINUE TO MONITOR PATIENT.
[2019-04-02] MEDS: INSULIN LISPRO 100 UNIT/1 ML 3ML VIAL SQ SCH ×4 (09:47→20:31)
[2019-04-02] MEDS: LISINOPRIL 2.5 MG TAB PO SCH (13:10)
--- NOTE | 2019-04-02 13:10 | NUR ---
PER DIEM PHYSICAL THERAPIST ASSISTANT PUMP REMOVED PER DR. ADLER VOCATIONAL EXAMINER ORDER.
--- NOTE | 2019-04-02 13:39 | NUR ---
Moss Bleacher, Nabila Walker met with pt and earlier today to discuss SNF and dc plan. Pt does not want SNF, but wants to go home. CM went to speak with pt and , and they continue to state they want to go home and have home health. CM received order and gave choice letter with options for home health in network with insurance. Choice made and letter signed. CM notified Cordelia Rand with [facility] and faxed order and clinical. Cordelia confirmed they did receive clinical [facility] office [phone] fax: [phone] Cordelia Rand, liaison: [phone]
--- NOTE | 2019-04-02 13:41 | NUR ---
EDUCATED ABOUT IMM, SIGNED, FILED IN CHART, WITH COPY LEFT WITH FAMILY AT BEDSIDE. SPOKE WIHT FAMILY ABOUT SNF PT ADAMANTLY REFUSED LET CM KNOW TO FOLLOW UP WITH HOME HEALTH
[2019-04-02] MEDS ORDERED: TYLENOL WITH C1 EACH PO (13:45)
[2019-04-02] MEDS ORDERED: METOPROLOL SUCC25 MG PO (13:48)
--- NOTE | 2019-04-02 14:13 | NUR ---
SPOKE WITH DR. HORTON REGARDING PATIENTS STATUS WITH PT. DR. HORTON WANTS PATIENT TO STAY AND CONTINUE WORKING WITH PT AT THIS TIME.
[2019-04-02] MEDS ORDERED: ONDANSETRON HCL 4 MG ORAL DISINTEGRATING TAB PO PRN (15:00)
[2019-04-02] MEDS ORDERED: APIXABAN 5 MG TABLET PO SCH (17:00)
[2019-04-02] MEDS ORDERED: ENOXAPARIN SOD INJ 40 MG/0.4 ML SYR SC SCH (17:00)
[2019-04-02] MEDS: METFORMIN HCL 500 MG TAB PO SCH (17:29)
[2019-04-02] MEDS: APIXABAN 5 MG TABLET PO SCH (17:29)
[2019-04-02] MEDS: HYDROCODONE/APAP 10MG-325MG TAB PO PRN ×2 (17:34→21:35)
--- NOTE | 2019-04-02 19:10 | NUR ---
Report taken from morning rn.walking rounds done.
--- NOTE | 2019-04-02 19:50 | NUR ---
Iv site is not patent.removed and applied pressure dressing.patient refused to start new iv.informed to charge nurse.assessment done.no resp.distress.getting nasal cannula 4 litre o2.voided.phone and call light within reach.explained to call for assistance as needed.
[2019-04-02] MEDS: ATORVASTATIN 20 MG TAB PO SCH (20:31)
[2019-04-03] VITALS (8 sets, daily range): BP systolic 113–172; BP diastolic 67–85
--- NOTE | 2019-04-03 00:10 | NUR ---
Immobilizer brace is in place.stable condition.
[2019-04-03] MEDS: HYDROCODONE/APAP 10MG-325MG TAB PO PRN ×2 (01:37→05:47)
--- NOTE | 2019-04-03 06:00 | NUR ---
Dressing changed .cpm applied to l.leg @30 degree flexion.pt tolerating well.
--- NOTE | 2019-04-03 06:50 | NUR ---
Report given to the oncoming rn.walking rounds done.stable condition.
--- NOTE | 2019-04-03 07:11 | NUR ---
RECEIVED PATIENT ASLEEP IN BED AT THIS TIME. CPM IN PLACE. NO SIGNS OF DISTRESS. CALL LIGHT IN REACH, BED LOW, WHEELS LOCKED, SIDE RAILS X2. WILL CONTINUE TO MONITOR PATIENT.
--- NOTE | 2019-04-03 08:05 | NUR ---
REMOVED PATIENT FROM CPM AT THIS TIME. IMMOBILIZER PLACED BACK ON LEFT LEG.
[2019-04-03] MEDS: METOPROLOL TARTRATE 25 MG TAB PO SCH ×3 (08:39→16:47)
[2019-04-03] MEDS: BUPROPION HCL 75 MG TAB PO SCH ×2 (08:39→21:13)
[2019-04-03] MEDS: AMIODARONE HCL 200 MG TAB PO SCH (08:39)
[2019-04-03] MEDS: DOCUSATE SODIUM LIQD 100 MG/10 ML UDC NG SCH ×2 (08:39→16:47)
[2019-04-03] MEDS: INSULIN LISPRO 100 UNIT/1 ML 3ML VIAL SQ SCH ×4 (08:39→21:10)
[2019-04-03] MEDS: LISINOPRIL 2.5 MG TAB PO SCH (08:39)
[2019-04-03] MEDS: METFORMIN HCL 500 MG TAB PO SCH ×2 (08:39→16:47)
[2019-04-03] MEDS: FUROSEMIDE 20 MG TAB PO SCH (08:39)
[2019-04-03] MEDS: FAMOTIDINE 20 MG TAB PO SCH ×2 (08:39→16:47)
[2019-04-03] MEDS: APIXABAN 5 MG TABLET PO SCH ×2 (08:39→16:47)
[2019-04-03] MEDS: TIOTROPIUM 18 MCG INH POWDER INH SCH (08:48)
--- NOTE | 2019-04-03 08:48 | NUR ---
SPOKE WITH DR. GOMEZ REGARDING PATIENT BACK IN AFIB AND HR 180'S-190'S. ORDER TO INCREASE METOPROLOL TO 50 MG BID.
[2019-04-03] MEDS ORDERED: ACETAMINOPHEN/CODEINE 300MG - 30MG TAB PO PRN ×2 (11:00)
[2019-04-03] MEDS ORDERED: NALOXONE HCL INJ 0.4 MG/ML AMP INJ PRN (11:00)
--- NOTE | 2019-04-03 11:10 | NUR ---
DR. HORTON AT BEDSIDE, PATIENT DIFFICULT TO AROUSE AND INCREASED CONFUSION. ORDER FOR NARCAN 0.4 MG GIVEN IM DUE TO NO IV ACCESS.
[2019-04-03 12:00] LABS: BASOPHILS % 0.4 % (0.0-1.0); EOSINOPHILS # (AUTO) 0.2 (0.0-0.4); EOSINOPHILS % 1.7 % (0.0-6.0); HEMATOCRIT 30.8 % (38.2-49.6); LYMPHOCYTES # (AUTO) 0.7 (1.0-3.2); MEAN CORPUSCULAR HEMOGLOBIN 29.8 pg (28-32); MEAN CORPUSCULAR HGB CONC 32.5 g/dL (31-35); MEAN CORPUSCULAR VOLUME 91.7 fL (81-99); MONOCYTES % 9.5 % (4.4-11.3); NEUTROPHILS # (AUTO) 8.1 (2.1-6.9); NEUTROPHILS % 80.5 % (38.7-80.0); PLATELET COUNT 226 x10e3/uL (140-360); RED BLOOD COUNT 3.36 x10e6/uL (4.3-5.7); RED CELL DISTRIBUTION WIDTH 16.1 % (11.7-14.4)
[2019-04-03 12:28] LABS: BLOOD UREA NITROGEN 32 mg/dL (7-26); BUN/CREATININE RATIO 29 (6-25); CALCIUM 9.6 mg/dL (8.4-10.2); CARBON DIOXIDE 25 mmol/L (22-29); CHLORIDE 119 mmol/L (98-107); CREATININE, SERUM 1.11 mg/dL (0.72-1.25); EST GLOMERULAR FILTRATION RATE > 60 ML/MIN (60-); GLUCOSE 149 mg/dL (74-118); POTASSIUM 5.3 mmol/L (3.5-5.1); SODIUM 144 mmol/L (136-145)
[2019-04-03 12:44] LABS: ANION GAP 5.3 mmol/L (8-16)
--- NOTE | 2019-04-03 12:50 | NUR ---
SPOKE WITH DR. HORTON REGARDING POTASSIUM 5.3. ORDER FOR 15G PO KAYEXALATE ONCE.
[2019-04-03] MEDS ORDERED: SOD POLYSTYRENE SULFONATE SUSP 15 GM/60 ML BTL PO NR (13:00)
--- NOTE | 2019-04-03 13:58 | NUR ---
TELEPHONE ORDER FROM DR. HORTON TO STOP LISINOPRIL.
--- NOTE | 2019-04-03 14:06 | NUR ---
PATIENT WALKED 2-4 FEET WITH PT. PATIENT SITTING UP AT SIDE OF BED AT THIS TIME. WILL CONTINUE TO MONITOR PATIENT.
[2019-04-03] MEDS ORDERED: DIGOXIN 0.125 MG TAB PO NR (17:00)
--- NOTE | 2019-04-03 17:03 | NUR ---
SPOKE WITH DR. GOMEZ REGARDING HIGH PULSE IN 120'S-160'S. ORDER FOR ONE TIME DIGOXIN 0.5 MG PO.
--- NOTE | 2019-04-03 17:31 | NUR ---
Met with pt and Mrs Ramírez regarding SNF order. Pt is somewhat confused. given list of SNF in network with Kenia Whitaker. She stated she will visit them tomorrow, and then let CM know tomorrow which facility they want. She has CM name and Ascom number.
--- NOTE | 2019-04-03 17:50 | NUR ---
ASSISTED PATIENT INTO CPM AT THIS TIME.
--- NOTE | 2019-04-03 19:20 | NUR ---
D/c cpm as per patient request.
--- NOTE | 2019-04-03 20:40 | NUR ---
New iv started to left for arm #20g patent.no pain voiced.no resp.distress.voided.bed alarm on.pt refused to put manjula hose.bed locked and in lowest position.phone and call light within reach.educate to call for assistance as needed.
[2019-04-03] MEDS: ATORVASTATIN 20 MG TAB PO SCH (21:13)
[2019-04-04] VITALS (9 sets, daily range): BP systolic 119–164; BP diastolic 70–92
--- NOTE | 2019-04-04 06:00 | NUR ---
Patient pulled out the iv cannula from left forarm..intact.applied pressure dressing.cpm applied @ 40 degree flexion .
--- NOTE | 2019-04-04 06:50 | NUR ---
Dressing changed.Repot taken to the oncoming rn.walking rounds done.stable condition.
--- NOTE | 2019-04-04 07:05 | NUR ---
RECEIVED PATIENT AWAKE IN CPM AT THIS TIME. NO SIGNS OF DISTRESS. BED LOW, WHEELS LOCKED, SIDE RAILS X2, CALL LIGHT IN REACH. WILL CONTINUE TO MONITOR.
[2019-04-04] MEDS: TIOTROPIUM 18 MCG INH POWDER INH SCH (08:00)
--- NOTE | 2019-04-04 08:01 | NUR ---
REMOVED CPM AT THIS TIME. PATIENT TOLERATED WELL. NO SIGNS OF DISTRESS, WILL CONTINUE TO MONITOR PATIENT.
[2019-04-04] MEDS: FUROSEMIDE 20 MG TAB PO SCH (08:23)
[2019-04-04] MEDS: DOCUSATE SODIUM LIQD 100 MG/10 ML UDC NG SCH ×2 (08:23→16:55)
[2019-04-04] MEDS: AMIODARONE HCL 200 MG TAB PO SCH (08:23)
[2019-04-04] MEDS: METFORMIN HCL 500 MG TAB PO SCH ×2 (08:23→16:54)
[2019-04-04] MEDS: FAMOTIDINE 20 MG TAB PO SCH ×2 (08:23→16:54)
[2019-04-04] MEDS: APIXABAN 5 MG TABLET PO SCH ×2 (08:23→16:54)
[2019-04-04] MEDS: BUPROPION HCL 75 MG TAB PO SCH ×2 (08:24→21:09)
[2019-04-04] MEDS: METOPROLOL TARTRATE 25 MG TAB PO SCH ×2 (08:24→16:54)
[2019-04-04] MEDS: INSULIN LISPRO 100 UNIT/1 ML 3ML VIAL SQ SCH ×4 (08:26→20:30)
--- NOTE | 2019-04-04 09:45 | NUR ---
PATIENT A/O X3, BREATHING UNLABORED ON 4LNC. PATIENT NON-WEIGHT BEARING ON LEFT LEG, IMMOBILIZER IN PLACE. TELE #23 A FIB. NO IV ACCESS. PATIENT VOIDS IN URINAL. BOWEL SOUNDS ACTIVE. LEFT LEG DRESSING CLEAN, DRY/INTACT. BED LOW, WHEELS LOCKED, SIDE RAILS X2, CALL LIGHT IN REACH WILL CONTINUE TO MONITOR.
--- NOTE | 2019-04-04 15:19 | NUR ---
PATIENT HAD BM AT THIS TIME.
--- NOTE | 2019-04-04 19:30 | NUR ---
Assessment done.no iv access.md Lisa is aware of that.aaox3.no rep.distress.no pain voiced.nasal cannula 4litre o2 is getting.left knee dressing is dry .bed alarm on.bed locked and in lowest position.phone and call light within reach.instructed to call for assistance as needed.
[2019-04-04] MEDS: ATORVASTATIN 20 MG TAB PO SCH (21:09)
[2019-04-05] VITALS (7 sets, daily range): BP systolic 121–153; BP diastolic 70–89
--- NOTE | 2019-04-05 02:00 | NUR ---
Assisted the pt to use bed side commode.had bowel movement.cleansed and back to bed safely.
--- NOTE | 2019-04-05 05:40 | NUR ---
Dressing changed.patient refused to put immobilizer.
[2019-04-05 06:02] LABS: BASOPHILS # (AUTO) 0.1 (0.0-0.1); BASOPHILS % 0.5 % (0.0-1.0); EOSINOPHILS # (AUTO) 0.2 (0.0-0.4); EOSINOPHILS % 1.4 % (0.0-6.0); HEMATOCRIT 31.5 % (38.2-49.6); LYMPHOCYTES % 9.4 % (18.0-39.1); MEAN CORPUSCULAR HEMOGLOBIN 28.9 pg (28-32); MEAN CORPUSCULAR HGB CONC 31.7 g/dL (31-35); MONOCYTES # (AUTO) 0.8 (0.2-0.8); MONOCYTES % 7.1 % (4.4-11.3); NEUTROPHILS # (AUTO) 8.9 (2.1-6.9); NEUTROPHILS % 80.4 % (38.7-80.0); PLATELET COUNT 244 x10e3/uL (140-360); RED BLOOD COUNT 3.46 x10e6/uL (4.3-5.7); RED CELL DISTRIBUTION WIDTH 15.9 % (11.7-14.4)
[2019-04-05 06:34] LABS: ANION GAP 12.4 mmol/L (8-16); BLOOD UREA NITROGEN 22 mg/dL (7-26); BUN/CREATININE RATIO 23 (6-25); CALCIUM 9.4 mg/dL (8.4-10.2); CARBON DIOXIDE 28 mmol/L (22-29); CHLORIDE 104 mmol/L (98-107); CREATININE, SERUM 0.96 mg/dL (0.72-1.25); EST GLOMERULAR FILTRATION RATE > 60 ML/MIN (60-); GLUCOSE 150 mg/dL (74-118); POTASSIUM 4.4 mmol/L (3.5-5.1); SODIUM 140 mmol/L (136-145)
--- NOTE | 2019-04-05 06:50 | NUR ---
Report given to the on coming rn.walking rounds done.stable condition.
[2019-04-05] MEDS: TIOTROPIUM 18 MCG INH POWDER INH SCH (07:17)
[2019-04-05] MEDS: DOCUSATE SODIUM LIQD 100 MG/10 ML UDC NG SCH ×3 (09:00→17:00)
[2019-04-05] MEDS: INSULIN LISPRO 100 UNIT/1 ML 3ML VIAL SQ SCH ×4 (09:13→21:00)
[2019-04-05] MEDS: FAMOTIDINE 20 MG TAB PO SCH ×2 (09:15→17:54)
[2019-04-05] MEDS: METFORMIN HCL 500 MG TAB PO SCH ×2 (09:15→17:54)
[2019-04-05] MEDS: AMIODARONE HCL 200 MG TAB PO SCH (09:16)
[2019-04-05] MEDS: METOPROLOL TARTRATE 25 MG TAB PO SCH ×2 (09:17→17:54)
[2019-04-05] MEDS: BUPROPION HCL 75 MG TAB PO SCH ×2 (09:17→20:55)
[2019-04-05] MEDS: APIXABAN 5 MG TABLET PO SCH ×2 (09:17→17:54)
[2019-04-05] MEDS: FUROSEMIDE 20 MG TAB PO SCH (09:17)
--- NOTE | 2019-04-05 11:05 | NUR ---
SPOKE WITH PT AND IN ROOM ABOUT CHOICE FOR SNF, THEY SIGNED CHOICE FOR [facility], FILED IN CHART. CALLED REP TO [employer] SHE WILL COME EVAL PT BEDSIDE AND STATES SHOULD HAVE AUTH TOMORROW. SIGNED IMM FILED IN CHART AND LEFT COPY BEDSIDE WITH CARD FOR ANY FURTHER QUESTIONS.
[2019-04-05] MEDS ORDERED: IPRATROPIUM BROMIDE 0.02% 2.5 ML NEB NEB PRN (16:30)
[2019-04-05] MEDS: ALBUTEROL/IPRATROPIUM 3 ML NEB NEB PRN (16:47)
[2019-04-05] MEDS: ATORVASTATIN 20 MG TAB PO SCH (20:55)
--- NOTE | 2019-04-05 21:00 | NUR ---
INITIAL ASSESSMENT COMPLETE, VS STABLE, PT IN BED, URINAL IN REACH, NO C/O PAIN, TELE ON PT, DRESSING INTACT INTACT TO LEFT LOWER LEG, TOLD TO CALL FOR HELP
[2019-04-06] VITALS: BP 127/79
[2019-04-06 04:00] VITALS: BP 130/77
[2019-04-06] MEDS: ALBUTEROL/IPRATROPIUM 3 ML NEB NEB PRN (05:19)
[2019-04-06] MEDS: TIOTROPIUM 18 MCG INH POWDER INH SCH (06:00)
--- NOTE | 2019-04-06 06:06 | NUR ---
PT AWAKE, VS STABLE, NO DISTRESS NOTED, CALL LIGHT IN REACH
[2019-04-06] MEDS: INSULIN LISPRO 100 UNIT/1 ML 3ML VIAL SQ SCH ×3 (07:30→16:30)
[2019-04-06 08:03] VITALS: BP 141/80
[2019-04-06] MEDS: FAMOTIDINE 20 MG TAB PO SCH ×2 (08:30→17:26)
[2019-04-06] MEDS ORDERED: FUROSEMIDE 20 MG TAB PO SCH (09:00)
[2019-04-06] MEDS: DOCUSATE SODIUM LIQD 100 MG/10 ML UDC NG SCH ×2 (09:00→17:27)
[2019-04-06] MEDS: METOPROLOL TARTRATE 25 MG TAB PO SCH ×2 (09:22→17:26)
[2019-04-06] MEDS: AMIODARONE HCL 200 MG TAB PO SCH (09:22)
[2019-04-06] MEDS: BUPROPION HCL 75 MG TAB PO SCH (09:22)
[2019-04-06] MEDS: METFORMIN HCL 500 MG TAB PO SCH ×2 (09:22→17:26)
[2019-04-06] MEDS: APIXABAN 5 MG TABLET PO SCH ×2 (09:22→17:26)
[2019-04-06 09:29] VITALS: BP 141/80
--- NOTE | 2019-04-06 09:40 | NUR ---
PT LLE 01/10 AT THIS TIME, IMMOBILIZER PLACED, PHYSICAL THERAPIST IN ROOM TO WORK WITH PT
[2019-04-06 12:00] VITALS: BP 110/59
--- NOTE | 2019-04-06 13:49 | NUR ---
GOT AUTH FOR PT TO GO TO [facility] [phone] GHOSH C[facility] CALLED AND GAVE INFORMATION TO NURSE TO COMPLETE RTF AND CALL REPORT. PASRR COMPLETED AND PUT WITH PACKET AND FILED IN CHART
--- NOTE | 2019-04-06 15:36 | NUR ---
SPOKE WITH MD GOMEZ, MADE AWARE THAT PT IS DISCHARGED TO [facility], TELEPHONED REPORT TO KAEL AT [phone] AT [facility], PT MADE AWARE THAT HE WILL BE TRANSFERRING, STATES HE WILL NOTIFY , CALL LIGHT WITHIN REACH
[2019-04-06 16:28] VITALS: BP 123/78
--- NOTE | 2019-04-06 17:58 | NUR ---
PT TRANSFERRED VIA EMS TO [facility], NO CHANGE IN CONDITION, NOTIFIED VIA PT
--- NOTE | 2019-04-07 06:19 | Discharge Summary ---
PRIMARY CARE DOCTOR: Pramod Santamaria MD FINAL DIAGNOSIS: Left proximal tibia fracture. SECONDARY DIAGNOSES: 1. Atrial fibrillation with rapid ventricular response, now rate controlled. 2. Chronic respiratory failure on home oxygen due to chronic obstructive pulmonary disease. 3. Acute kidney injury, resolved. 4. Diabetes. 5. Mild chronic obstructive pulmonary disease exacerbation on admission, resolved. CONSULTANTS: 1. Dr. Killian, Orthopedics. 2. Dr. Romeo, Cardiology. PROCEDURE/STUDIES PERFORMED: Left tibia ORIF. HISTORY: Per [facility] HOSPITAL COURSE: The patient has was evaluated by orthopedic doctor. His Eliquis was held for a couple of days. The patient underwent uneventful left tibia ORIF. After the surgery the patient has some rapid ventricular response. His home atenolol was switched to metoprolol and the dosage was increased. Currently, his rate is better. His Eliquis was restarted as well for stroke prophylaxis. The patient's creatinine normalized. Today is postop day #5. The patient is nonweightbearing on the left. He will be discharged to [facility] for skilled PT. I have updated both the assisted doctor and the primary care doctor about this hospitalization. The patient was seen and examined today. It took 33 minutes total to discharge this patient. CONDITION ON DISCHARGE: Improved. DISCHARGE MEDICATIONS: Please see medication reconciliation form. MD GLORIA Perea/VIKTOR /[id number] cc: [facility]
== END 2019-04-06 17:58 | DRG 492 ==
LOC: FSED 00:47 → ERHOLD 01:44 → MED/SURG 03:02 → OBSVTOIN 04-01 09:22
PROVIDERS: ADMIT Internal Medicine; ATTEND Internal Medicine
PROC: 0QSH34Z Reposition Left Tibia with Internal Fixation Device, Percutaneous Approach (ICD-10-PCS; principal; 2019-04-01 09:30)
DX: S82.232A Displaced oblique fracture of shaft of left tibia, initial encounter for closed fracture (principal); G92 Toxic encephalopathy; J44.1 Chronic obstructive pulmonary disease with (acute) exacerbation; E87.1 Hypo-osmolality and hyponatremia; J96.10 Chronic respiratory failure, unspecified whether with hypoxia or hypercapnia; N17.9 Acute kidney failure, unspecified; N18.3 Chronic kidney disease, stage 3 (moderate); E78.00 Pure hypercholesterolemia, unspecified; I25.10 Atherosclerotic heart disease of native coronary artery without angina pectoris; E78.5 Hyperlipidemia, unspecified; Z82.49 Family history of ischemic heart disease and other diseases of the circulatory system; Z72.0 Tobacco use; Z79.01 Long term (current) use of anticoagulants; E11.22 Type 2 diabetes mellitus with diabetic chronic kidney disease; I12.9 Hypertensive chronic kidney disease with stage 1 through stage 4 chronic kidney disease, or unspecified chronic kidney disease; I48.0 Paroxysmal atrial fibrillation; E66.9 Obesity, unspecified; D64.9 Anemia, unspecified; G47.33 Obstructive sleep apnea (adult) (pediatric); W01.0XXA Fall on same level from slipping, tripping and stumbling without subsequent striking against object, initial encounter; Y93.89 Activity, other specified; Y92.015 Private garage of single-family (private) house as the place of occurrence of the external cause; Z99.81 Dependence on supplemental oxygen; R41.0 Disorientation, unspecified; R53.81 Other malaise; E87.6 Hypokalemia; Z68.35 Body mass index [BMI] 35.0-35.9, adult; Z79.4 Long term (current) use of insulin; T40.2X5A Adverse effect of other opioids, initial encounter; Y92.230 Patient room in hospital as the place of occurrence of the external cause
CPT/HCPCS: 36415; 76000; 80048; 80053; 82948; 83735; 84443; 85025; 85610; 85730; 86850; 86900; 93005; 93306; 94664; 96372; 97139; 99284; C1713; G0378; J0690; J1100; J1200; J2250; J2270; J2310; J2370; J2405; J7030; J7040

== ENCOUNTER 2019-07-09 09:46 | Inpatient (IN) | payer MEDICARE ==
[2019-07-09] VITALS (8 sets, daily range): BP systolic 138–167; BP diastolic 43–111
[~2019-07-09] VITALS: Ht 182.9 cm; Wt 99.9 kg
[~2019-07-09 09:46] MED LIST changes: +AMIODARONE HCL200 MG PO; +ATENOLOL50 MG PO; +BUPROPION HCL75 MG PO; +FERROUS SULFAT325 MG PO; +FOSAMAX70 MG PO; +LISINOPRIL2.5 MG PO; +MAGNESIUM OXID400 MG PO; +METOPROLOL SUCC25 MG PO; +NOVOLOG MI100 UNIT/1 SQ; +RANITIDINE HCL150 M1 PO; +SENOKOT-S TABL1 EACH PO; +SPIRIVA18 MCG INH; +TYLENOL WITH C1 EACH PO; +VITAMIN D1000 UNI1 PO
--- OUTSIDE RECORDS SUMMARY | 2019-07-09 09:50 | XMS REPORT | Clinical Summary ---
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 angina pectoris Tobacco use [...] Only General Internal Medicine 12/16/2018 Travel Resource, [facility] Preadmit Phone 12/10/2018 Hospital Pre-Admission Testing Encounter after 07/08/2018 Social History Date Tobacco Use Types Packs/Day [...] Taken Vital Sign Reading 12/24/2018 7:00 AM DEVELOPMENT MGR Blood Pressure 129/67 12/24/2018 7:27 AM DEVELOPMENT MGR Pulse 58 12/24/2018 7:00 AM DEVELOPMENT MGR Temperature 35.8 C (96.5 F) 12/24/2018 7:27 AM DEVELOPMENT MGR Respiratory Rate 18 12/24/2018 7:41 AM DEVELOPMENT MGR Oxygen Saturation 95% 12/19/2018 3:36 AM DEVELOPMENT MGR Inhaled Oxygen 50% Concentration 12/24/2018 5:56 AM DEVELOPMENT MGR Weight 111.1 kg (244 lb 14.9 oz) 12/16/2018 7:00 AM DEVELOPMENT MGR Height 182.9 cm (6') 12/24/2018 5:56 AM DEVELOPMENT MGR Body Mass Index 33.22 Plan of Treatment Not on file Procedures Comments Procedure Name Priority Date/Time Associated Diagnosis RHYTHM STRIP - SCAN 01/13/2019 12:15 PM DEVELOPMENT MGR POCT-GLUCOSE METER Routine 12/24/2018 11:49 AM DEVELOPMENT MGR POCT-GLUCOSE METER Routine 12/24/2018 8:14 AM DEVELOPMENT MGR MAGNESIUM Routine 12/24/2018 6:59 AM DEVELOPMENT MGR POTASSIUM Routine 12/24/2018 6:59 AM DEVELOPMENT MGR POCT-GLUCOSE METER Routine 12/23/2018 8:58 PM DEVELOPMENT MGR POCT-GLUCOSE METER Routine 12/23/2018 5:52 PM DEVELOPMENT MGR POCT-GLUCOSE METER Routine 12/23/2018 11:09 AM DEVELOPMENT MGR POCT-GLUCOSE METER Routine 12/23/2018 8:14 AM DEVELOPMENT MGR LACTIC ACID, VENOUS Routine 12/23/2018 5:56 AM DEVELOPMENT MGR MAGNESIUM Routine 12/23/2018 5:56 AM DEVELOPMENT MGR BASIC METABOLIC PANEL (7) Routine 12/23/2018 5:56 AM DEVELOPMENT MGR POCT-GLUCOSE METER Routine 12/22/2018 9:37 PM DEVELOPMENT MGR POCT-GLUCOSE METER Routine 12/22/2018 5:52 PM DEVELOPMENT MGR POCT-GLUCOSE METER Routine 12/22/2018 12:11 PM DEVELOPMENT MGR POCT-GLUCOSE METER Routine 12/22/2018 8:06 AM DEVELOPMENT MGR CBC W/PLT COUNT & AUTO Routine 12/22/2018 DIFFERENTIAL 5:11 AM DEVELOPMENT MGR B-TYPE NATRIURETIC FACTOR Routine 12/22/2018 (BNP) 5:11 AM DEVELOPMENT MGR MAGNESIUM Routine 12/22/2018 5:11 AM DEVELOPMENT MGR BASIC METABOLIC PANEL (7) Routine 12/22/2018 5:11 AM DEVELOPMENT MGR CBC W/PLT COUNT & AUTO Routine 12/22/2018 DIFFERENTIAL 5:11 AM DEVELOPMENT MGR POCT-GLUCOSE METER Routine 12/21/2018 9:26 PM DEVELOPMENT MGR POCT-GLUCOSE METER Routine 12/21/2018 5:57 PM DEVELOPMENT MGR XR CHEST 1 VIEW Routine 12/21/2018 PORTABLE/BEDSIDE 2:58 PM DEVELOPMENT MGR POCT-GLUCOSE METER Routine 12/21/2018 12:38 PM DEVELOPMENT MGR POCT-GLUCOSE METER Routine 12/21/2018 7:25 AM DEVELOPMENT MGR CBC W/PLT COUNT & AUTO Routine 12/21/2018 DIFFERENTIAL 4:48 AM DEVELOPMENT MGR B-TYPE NATRIURETIC FACTOR Routine 12/21/2018 (BNP) 4:48 AM DEVELOPMENT MGR MAGNESIUM Routine 12/21/2018 4:48 AM DEVELOPMENT MGR BASIC METABOLIC PANEL (7) Routine 12/21/2018 4:48 AM DEVELOPMENT MGR CBC W/PLT COUNT & AUTO Routine 12/21/2018 DIFFERENTIAL 4:48 AM DEVELOPMENT MGR POCT-GLUCOSE METER Routine 12/20/2018 10:01 PM DEVELOPMENT MGR POCT-GLUCOSE METER Routine 12/20/2018 5:15 PM DEVELOPMENT MGR POCT-GLUCOSE METER Routine 12/20/2018 11:38 AM DEVELOPMENT MGR XR CHEST 1 VIEW STAT 12/20/2018 PORTABLE/BEDSIDE 8:58 AM DEVELOPMENT MGR POCT-GLUCOSE METER Routine 12/20/2018 8:12 AM DEVELOPMENT MGR CBC W/PLT COUNT & AUTO Routine 12/20/2018 DIFFERENTIAL 4:54 AM DEVELOPMENT MGR B-TYPE NATRIURETIC FACTOR Routine 12/20/2018 (BNP) 4:54 AM DEVELOPMENT MGR MAGNESIUM Routine 12/20/2018 4:54 AM DEVELOPMENT MGR BASIC METABOLIC PANEL (7) Routine 12/20/2018 4:54 AM DEVELOPMENT MGR CBC W/PLT COUNT & AUTO Routine 12/20/2018 DIFFERENTIAL 4:54 AM DEVELOPMENT MGR POCT-GLUCOSE METER Routine 12/19/2018 9:14 PM DEVELOPMENT MGR ECHOCARDIOGRAM REPORT - 12/19/2018 SCAN 5:50 PM DEVELOPMENT MGR POCT-GLUCOSE METER Routine 12/19/2018 4:55 PM DEVELOPMENT MGR POCT-GLUCOSE METER Routine 12/19/2018 11:44 AM DEVELOPMENT MGR XR CHEST 1 VIEW STAT 12/19/2018 PORTABLE/BEDSIDE 9:11 AM DEVELOPMENT MGR POCT-GLUCOSE METER Routine 12/19/2018 7:51 AM DEVELOPMENT MGR CBC W/PLT COUNT & AUTO Routine 12/19/2018 DIFFERENTIAL 4:55 AM DEVELOPMENT MGR MAGNESIUM Routine 12/19/2018 4:55 AM DEVELOPMENT MGR B-TYPE NATRIURETIC FACTOR Routine 12/19/2018 (BNP) 4:55 AM DEVELOPMENT MGR BASIC METABOLIC PANEL (7) Routine 12/19/2018 4:55 AM DEVELOPMENT MGR CBC W/PLT COUNT & AUTO Routine 12/19/2018 DIFFERENTIAL 4:55 AM DEVELOPMENT MGR HEMOGLOBIN A1C Routine 12/19/2018 4:55 AM DEVELOPMENT MGR ECG 12-LEAD Routine 12/19/2018 12:03 AM DEVELOPMENT MGR ECG 12-LEAD Routine 12/19/2018 12:03 AM DEVELOPMENT MGR Procedure Note - Interface, External Ris In - 12/19/2018 12:26 AM DEVELOPMENT MGR Ventricula r Rate 116 BPM Atrial Rate 110 BPM QRS Duration 108 ms Q-T Interval 342 ms QTC Calculatio n(Bazett) 475 ms R Ewell -20 degrees T [place]well 49 degrees Atrial fibrillati on with rapid ventricula r response Abnormal ECG When compared with ECG of 9 00:00, Previous ECG has undetermin ed rhythm, needs review ECG 12-LEAD Routine 12/19/2018 12:00 AM DEVELOPMENT MGR Procedure Note - Interface, External Ris In - 12/19/2018 12:26 AM DEVELOPMENT MGR Ventricula r Rate 0 BPM Atrial Rate 0 BPM QRS Duration 0 ms Q-T Interval 0 ms QTC Calculatio n(Bazett) 0 ms R Ewell 0 degrees T [place]well 0 degrees No QRS complexes found, no ECG analysis possible When compared with ECG of 9 23:59, Current undetermin ed rhythm precludes rhythm comparison , needs review POCT-GLUCOSE METER Routine 12/18/2018 10:25 PM DEVELOPMENT MGR POCT-GLUCOSE METER Routine 12/18/2018 9:21 PM DEVELOPMENT MGR ECG 12-LEAD Routine 12/18/2018 7:32 PM DEVELOPMENT MGR ECG 12-LEAD Routine 12/18/2018 7:32 PM DEVELOPMENT MGR Procedure Note - Interface, External Ris In - 12/18/2018 8:46 PM DEVELOPMENT MGR Ventricula r Rate 153 BPM Atrial Rate 147 BPM QRS Duration 98 ms Q-T Interval 302 ms QTC Calculatio n(Bazett) 482 ms R Ewell -36 degrees T Ewell 116 degrees Atrial fibrillati on with rapid ventricula r response Left axis deviation ST & T wave abnormalit y, consider lateral ischemia Abnormal ECG When compared with ECG of 9 18:17, Atrial fibrillati on has replaced Sinus rhythm Vent. rate has increased BY 96 BPM QRS duration has decreased T wave inversion now evident in Lateral leads ECG 12-LEAD Routine 12/18/2018 6:17 PM DEVELOPMENT MGR ECG 12-LEAD Routine 12/18/2018 6:17 PM DEVELOPMENT MGR Procedure Note - Interface, External Ris In - 12/18/2018 6:24 PM DEVELOPMENT MGR Ventricula r Rate 57 BPM Atrial Rate 57 BPM P-R Interval 132 ms QRS Duration 116 ms Q-T Interval 436 ms QTC Calculatio n(Bazett) 424 ms P Ewell 54 degrees R Ewell -10 degrees T Ewell 56 degrees Sinus bradycardi a Possible Left atrial enlargemen t Borderline ECG When compared with ECG of 9 20:35, Sinus rhythm has replaced Atrial fibrillati on Vent. rate has decreased BY 85 BPM POCT-GLUCOSE METER Routine 12/18/2018 5:09 PM DEVELOPMENT MGR POCT-GLUCOSE METER Routine 12/18/2018 2:34 PM DEVELOPMENT MGR 2D ECHO W/ DOPPLER Routine 12/18/2018 (CW/PW/COLOR) 12:41 PM DEVELOPMENT MGR CBC W/PLT COUNT & AUTO STAT 12/18/2018 DIFFERENTIAL 9:11 AM DEVELOPMENT MGR B-TYPE NATRIURETIC FACTOR STAT 12/18/2018 (BNP) 9:11 AM DEVELOPMENT MGR MAGNESIUM STAT 12/18/2018 9:11 AM DEVELOPMENT MGR CBC W/PLT COUNT & AUTO STAT 12/18/2018 DIFFERENTIAL 9:11 AM DEVELOPMENT MGR BASIC METABOLIC PANEL (7) STAT 12/18/2018 9:11 AM DEVELOPMENT MGR POCT-GLUCOSE METER Routine 12/18/2018 8:09 AM DEVELOPMENT MGR POCT-GLUCOSE METER Routine 12/17/2018 9:32 PM DEVELOPMENT MGR POCT-GLUCOSE METER Routine 12/17/2018 5:57 PM DEVELOPMENT MGR POCT-GLUCOSE METER Routine 12/17/2018 11:20 AM DEVELOPMENT MGR POCT-GLUCOSE METER Routine 12/17/2018 9:07 AM DEVELOPMENT MGR CBC W/PLT COUNT & AUTO Routine 12/17/2018 DIFFERENTIAL 4:48 AM DEVELOPMENT MGR MAGNESIUM Routine 12/17/2018 4:48 AM DEVELOPMENT MGR B-TYPE NATRIURETIC FACTOR Routine 12/17/2018 (BNP) 4:48 AM DEVELOPMENT MGR COMPREHENSIVE METABOLIC Routine 12/17/2018 PANEL 4:48 AM DEVELOPMENT MGR CBC W/PLT COUNT & AUTO Routine 12/17/2018 DIFFERENTIAL 4:48 AM DEVELOPMENT MGR POCT-GLUCOSE METER Routine 12/16/2018 9:24 PM DEVELOPMENT MGR ECG 12-LEAD Routine 12/16/2018 8:35 PM DEVELOPMENT MGR Procedure Note - Interface, External Ris In - 12/16/2018 10:19 PM DEVELOPMENT MGR Ventricula r Rate 142 BPM Atrial Rate 153 BPM QRS Duration 98 ms Q-T Interval 308 ms QTC Calculatio n(Bazett) 473 ms R Ewell -38 degrees T Ewell 111 degrees Atrial fibrillati on with rapid [...] leads ECG 12-LEAD Routine 12/16/2018 8:35 PM DEVELOPMENT MGR ECG 12-LEAD Routine 12/16/2018 5:28 PM DEVELOPMENT MGR Procedure Note - Interface, External Ris In - 12/16/2018 5:38 PM DEVELOPMENT MGR Ventricula r Rate 55 BPM Atrial Rate 55 BPM P-R Interval 132 ms QRS Duration 98 ms Q-T Interval 476 ms QTC Calculatio n(Bazett) 455 ms P Ewell 48 degrees R Ewell -25 degrees T [place] [address] a [address] & T wave abnormalit y, consider lateral ischemia Abnormal ECG No previous ECGs available ECG 12-LEAD Routine 12/16/2018 5:28 PM DEVELOPMENT MGR POCT-GLUCOSE METER Routine 12/16/2018 5:[address] CHEST PE TEST DESIGN STAT 12/16/2018 4:19 PM DEVELOPMENT MGR XR CHEST 1 VIEW Routine 12/16/2018 PORTABLE/BEDSIDE 2:54 PM DEVELOPMENT MGR RESPIRATORY PANEL SLHS Routine 12/16/2018 12:53 PM DEVELOPMENT MGR SPUTUM CULTURE + GRAM Routine 12/16/2018 STAIN 12:36 PM DEVELOPMENT MGR POCT-GLUCOSE METER Routine 12/16/2018 12:34 PM DEVELOPMENT MGR BASIC METABOLIC PANEL (7) Routine 12/16/2018 12:32 PM DEVELOPMENT MGR CBC W/PLT COUNT & AUTO Routine 12/16/2018 DIFFERENTIAL 7:08 AM DEVELOPMENT MGR POCT-GLUCOSE METER Routine 12/16/2018 7:08 AM DEVELOPMENT MGR POTASSIUM STAT 12/16/2018 7:08 AM DEVELOPMENT MGR CBC W/PLT COUNT & AUTO Routine 12/16/2018 DIFFERENTIAL 7:08 AM DEVELOPMENT MGR APTT Routine 12/16/2018 7:08 AM DEVELOPMENT MGR PROTHROMBIN TIME/INR Routine 12/16/2018 7:08 AM DEVELOPMENT MGR after 07/08/2018 Results * RHYTHM STRIP - SCAN (01/13/2019 12:15 PM DEVELOPMENT MGR) Narrative Performed At * POC-Glucose meter (12/24/2018 11:49 AM DEVELOPMENT MGR) Only the most recent of 35 results within the time period is included. POC-Glucose Meter 240 (H)Comment: TESTED AT 70 - 110 mg/dL [facility] [address] [facility] [address] Specimen Blood Performing Organization Address City/State/Zipcode Phone Number [address] [address] [facility] * Potassium (12/24/2018 6:59 AM DEVELOPMENT MGR) Only the most recent of 2 results within the time period is included. Potassium 4.7 3.5 - 5.1 meq/L [facility] Specimen Blood Performing Organization Address City/[facility] [place] [address] [facility] * Magnesium (12/24/2018 6:59 AM DEVELOPMENT MGR) Only the most recent of 8 results within the time period is included. Magnesium 2.1 1.6 - 2.6 mg/dL [facility] Specimen Blood Performing Organization Address [facility] [place] [address] [phone] [place] [address] * Lactic acid, venous, whole blood (12/23/2018 5:56 AM DEVELOPMENT MGR) Lactate, Venous 1.1Comment: Specimen slightly 0.5 - 2.2 mmol/L [facility] hemolyzed [facility] Specimen Blood Performing Organization Address [facility] [place] [address] [facility] * Basic Metabolic Panel (12/23/2018 5:56 AM DEVELOPMENT MGR) Only the most recent of 7 results within the time period is included. Sodium 137 136 - 145 meq/L [facility] Potassium 3.7 3.5 - 5.1 meq/L [facility] Chloride 92 (L) 98 - 107 meq/L [facility] CO2 35 (H) 22 - 29 meq/L [facility] BUN 33 (H) 7 - 21 mg/dL [facility] Creatinine 0.86 0.57 - 1.25 mg/dL [facility] Glucose 186 (H) 70 - 105 mg/dL [facility] Calcium 9.4 8.4 - 10.2 mg/dL [facility] EGFR 89Comment: ESTIMATED GFR IS mL/min/1.73 sq m [facility] NOT ACCURATE CREATININE [facility] CLEARANCE IN PREDICTING GLOMERULAR FILTRATION RATE. ESTIMATED GFR IS NOT APPLICABLE FOR DIALYSIS PATIENTS. Specimen Blood Performing Organization Address City/State/Zipcode Phone Number [facility] [address] [place] [address] [facility] * CBC with platelet count + automated diff (12/22/2018 5:11 AM DEVELOPMENT MGR) Only the most recent of 7 results within the time period is included. WBC 13.7 (H) 3.5 - 10.5 K/L [facility] RBC 5.17 4.63 - 6.08 M/L [facility] Hemoglobin 15.5 13.7 - 17.5 GM/DL [facility] Hematocrit 47.5 40.1 - 51.0 % [facility] MCV 91.9 79.0 - 92.2 fL [facility] MCH 30.0 25.7 - 32.2 pg [facility] MCHC 32.6 32.3 - 36.5 GM/DL [facility] RDW 14.6 (H) 11.6 - 14.4 % [facility] Platelets 208 150 - 450 K/CU MM [facility] MPV 9.5 9.4 - 12.4 fL [facility] nRBC 0 0 - 0 /100 WBC [facility] % Neutros 77 % [facility] % Lymphs 12 % [facility] % Monos 9 % [facility] % Eos 0 % [facility] % Baso 0 % [facility] # Neutros 10.48 (H) 1.78 - 5.38 K/L [facility] # Lymphs 1.65 1.32 - 3.57 K/L [facility] # Monos 1.22 (H) 0.30 - 0.82 K/L [facility] # Eos 0.05 0.04 - 0.54 K/L [facility] # Baso 0.04 0.01 - 0.08 K/L [facility] Immature 2 (H) 0 - 1 % [facility] Specimen Blood Performing Organization Address City/[facility]/Zipcode Phone Number [place] [phone] [place] [address] * B-type Natriuretic Factor (BNP) (12/22/2018 5:11 AM DEVELOPMENT MGR) Only the most recent of 6 results within the time period is included. BNP 315 (H) 0 - 100 pg/mL [facility] Specimen Blood Performing Organization Address City/[facility]/[place] [address] [phone] [place] [address] * XR chest 1 view portable / bedside (12/21/2018 2:58 PM DEVELOPMENT MGR) Only the most recent of 4 results within the time period is included. Specimen Narrative Performed At FINAL REPORT [facility] [[email or web address]] Comparison: 12/20/2018 TECHNIQUE: Single view of the chest FINDINGS: Lung volumes are low. Mild vascular congestion suspected. Small left pleural effusion with adjacent airspace disease. Otherwise lungs are clear. No acute skeletal abnormality. Signed: Theodore Diamond MD Report Verified Date/Time:12/21/2018 15:17:31 Reading Location: [facility] Radiology Reading Room Procedure Note Interface, External Ris In - 12/21/2018 3:19 PM DEVELOPMENT MGR FINAL REPORT Comparison: 12/20/2018 TECHNIQUE: Single view of the chest FINDINGS: Lung volumes are low. Mild vascular congestion suspected. Small left pleural effusion with adjacent airspace disease. Otherwise lungs are clear. No acute skeletal abnormality. Signed: Theodore Diamond MD Report Verified Date/Time: 12/21/2018 15:17:31 Reading Location: [facility] Radiology Reading Room Performing Organization Address City/State/Zipcode Phone Number GE RIS * ECHOCARDIOGRAM REPORT - SCAN (12/19/2018 5:50 PM DEVELOPMENT MGR) Narrative Performed At * Hemoglobin A1c (12/19/2018 4:55 AM DEVELOPMENT MGR) Hemoglobin A1C 6.3 (H) 4.3 - 6.1 % [facility] Specimen Blood Performing Organization Address City/[facility] Phone Number [place] [phone] [place] [phone] [place] [address] * ECG 12 lead (12/19/2018 12:03 AM DEVELOPMENT MGR) Only the most recent of 5 results within the time period is included. Specimen Narrative Performed At Ventricular Rate 116 BPM [facility] Atrial Rate 110 BPM QRS Duration 108 ms Q-T Interval 342 ms QTC Calculation(Bazett) 475 ms R Ewell -20 degrees T Ewell 49 degrees Atrial fibrillation with rapid ventricular response Abnormal ECG When compared with ECG of 19-DEC-2018 00:00, Previous ECG has undetermined rhythm, needs review Confirmed by MD TIPTON D. RICHARD ([id number]) on 12/19/2018 9:34:06 AM Procedure Note Interface, External Ris In - 12/19/2018 9:34 AM DEVELOPMENT MGR Ventricular Rate 116 BPM Atrial Rate 110 BPM QRS Duration 108 ms Q-T Interval 342 ms QTC Calculation(Bazett) 475 ms R Ewell -20 degrees T Ewell 49 degrees Atrial fibrillation with rapid ventricular response Abnormal ECG When compared with ECG of 19-DEC-2018 00:00, Previous ECG has undetermined rhythm, needs review Confirmed by MD TIPTON D. RICHARD ([id number]) on 12/19/2018 9:34:06 AM Performing Organization Address City/[place]/[employer] Phone Number GE MUSE * 2D Echo W/Doppler(CW/PW/Color) (12/18/2018 12:41 PM DEVELOPMENT MGR) Ejection Fraction [facility] Specimen Narrative Performed At Transthoracic Echocardiography Report (TTE) [facility] Demographics [facility] Patient Name Digna RAMÍREZ of Study 12/18/2018 [id number] Male Visit Number [id number] Room Number 2439 Number Date of Birth2Referring Physician Luba Salcedo Age68 year(s)Business Continuity Planner Ian Ball [facility] AnalystIzoJose Cuadra MD Procedure Type of [...] External Ris In - 12/19/2018 5:11 PM DEVELOPMENT MGR Transthoracic Echocardiography Report (TTE) Demographics Patient Name NAUN RAMÍREZ Date of Study 12/18/2018 Gender Male Visit Number [id number] Race Unknown Room Number 2439 Number Date of 1950 Referring Physician Luba Salcedo Age 68 year(s) Business Continuity Planner Ian Ball RDCS Physician Office Specialist Bryan Torre Interpreting Jerry Smallwood Physician Procedure [...] TR Gradient: 42.91 mmHg Performing Organization Address City/State/[facility] Cent[facility]ode Phone Number [facility] * Comprehensive metabolic panel (12/17/2018 4:48 AM DEVELOPMENT MGR) Protein, Total 7.3 6.0 - 8.3 gm/dL [facility] Albumin 3.7 3.5 - 5.0 g/dL [facility] Alkaline Phosphatase 73 40 - 150 U/L [facility] Total Bilirubin 0.6 0.2 - 1.2 mg/dL [facility] Sodium 138 136 - 145 meq/L [facility] Potassium 4.7 3.5 - 5.1 meq/L [facility] Chloride 103 98 - 107 meq/L [facility] CO2 26 22 - 29 meq/L [facility] BUN 32 (H) 7 - 21 mg/dL [facility] Creatinine 1.07 0.57 - 1.25 mg/dL [facility] Glucose 223 (H) 70 - 105 mg/dL [facility] Calcium 9.3 8.4 - 10.2 mg/dL [facility] AST 12 5 - 34 U/L [facility] ALT 11 6 - 55 U/L [facility] EGFR 69Comment: ESTIMATED GFR IS mL/min/1.73 sq m [facility] NOT ACCURATE CREATININE [facility] CLEARANCE IN PREDICTING GLOMERULAR FILTRATION RATE. ESTIMATED GFR IS NOT APPLICABLE FOR DIALYSIS PATIENTS. Specimen Blood Performing Organization Address City/State/Zipcode Phone Number [facility] [address] [place] [address] [facility] * CT chest for pulmonary embolus (12/16/2018 4:19 PM DEVELOPMENT MGR) Specimen Narrative Performed At FINAL REPORT [facility] CT scan of the chest with pulmonary [...] MD Report Verified Date/Time:12/16/2018 16:50:11 Reading Location: [facility] Diagnostic Imaging Reading Room - [place] [address] Procedure Note Interface, External Ris In - 12/16/2018 4:52 PM DEVELOPMENT MGR FINAL REPORT CT scan of the chest [...] Report Verified Date/Time: 12/16/2018 16:50:11 Reading Location: [facility] Diagnostic Imaging Reading Room - [place] [address] Performing Organization Address City/State/Zipcode Phone Number GE RIS * Respiratory Panel [facility] (12/16/2018 12:53 PM DEVELOPMENT MGR) Human Metapneumovirus Not detected Not detected, Equivocal [facility] Rhinovirus Not detected Not detected, Equivocal [facility] Influenza A Not detected Not detected, Equivocal [facility] INFLUENZA A (NO SUBTYPE) Not detected, Equivocal [facility] Influenza A subtype H1 Not detected, Equivocal [facility] Influenza A Subtype H3 Not detected, Equivocal [facility] Influenza A Subtype Not detected, Equivocal [facility] H1-2009 [facility] Influenza B Not detected Not detected, Equivocal [facility] Respiratory Syncytial Not detected Not detected, Equivocal [facility] Virus [facility] Parainfluenza Virus 1 Not detected Not detected, Equivocal [facility] Parainfluenza Virus 2 Not detected Not detected, Equivocal [facility] Parainfluenza virus 3 Not detected Not detected, Equivocal [facility] Parainfluenza Virus 4 Not detected Not detected, Equivocal [facility] Adenovirus Not detected Not detected, Equivocal [facility] Coronavirus 229E Not detected Not detected, Equivocal [facility] Coronavirus HKU1 Not detected Not detected, Equivocal [facility] Coronavirus NL63 Not detected Not detected, Equivocal [facility] Coronavirus OC43 Not detected Not detected, Equivocal [facility] Bordetella Pertussis Not detected Not detected, Equivocal [facility] Chlamydophila Pneumoniae Not detected Not detected, Equivocal [facility] Mycoplasma Pneumoniae Not detected Not detected, Equivocal [facility] Specimen Nasopharyngeal Narrative Performed At Other viruses and bacteria not targeted by this PCR panel cannot be excluded; [facility] therefore clinical correlation and follow up of serology, culture results, and [facility] other molecular studies is required. The results are not intended to be used as the sole means for clinical diagnosis or patient management decisions. This sample was tested at the [facility] Molecular Diagnostics Laboratory using the [employer] Respiratory Panel. It is FDA cleared and has been verified and approved by the [facility] Molecular Diagnostics Laboratory for clinical use on nasal swab specimens. It is not FDA-cleared for use on bronchial wash/lavage samples. However, for this sample type, validation was performed and test characteristics were determined and approved, by [facility] Molecular Diagnostics laboratory for clinical use under the Clinical Laboratory Improvement Amendments (CLIA) of 1988 requirements. Therefore, FDA clearance is not required.This laboratory is CLIA-certified and [employer] (CAP)-accredited to perform high complexity testing. Performing Organization Address City/State/Zipcode Phone Number [facility] [address] [place] [address] [facility] * Sputum Culture + Gram Stain (12/16/2018 12:36 PM DEVELOPMENT MGR) Result 4+ Normal respiratory l[facility]na [facility] Gram Stain Result <1+ gram positive rods [facility] Gram Stain Result <1+ gram positive cocci in [facility] pairs [facility] Gram Stain Result 15-20 epithelial cells [facility] Gram Stain Result 3+ WBCs [facility] Specimen Sputum - Expectorated Performing Organization Address City/[facility]/Zipcode Phone Number [address] [address] [facility] * aPTT (12/16/2018 7:08 AM DEVELOPMENT MGR) PTT 34.9 22.5 - 36.0 seconds [facility] Specimen Blood Performing Organization Address City/[facility]/Zipcode Phone Number [address] [address] [facility] * Prothrombin time/INR (12/16/2018 7:08 AM DEVELOPMENT MGR) Protime 13.1 11.7 - 14.7 seconds [facility] INR 1.0 <=5.9 [facility] Specimen Blood Narrative Performed At RECOMMENDED COUMADIN/WARFARIN INR THERAPY RANGES [facility] STANDARD DOSE: 2.0 - 3.0 Includes: PROPHYLAXIS for venous thrombosis, [facility] systemic embolization; TREATMENT for venous thrombosis and/or pulmonary embolus. HIGH RISK: Target INR is 2.5-3.5 for patients with mechanical heart valves. Performing Organization Address City/[facility]/Zipcode Phone Number [address] [address] [facility] after 07/08/2018 Insurance Payer Benefit Subscriber ID Type Phone Address Plan / Group [facility] xxxxxxxxxxx MEDICARE ADV Advance Directives For more information, please contact: [facility] [address] [place] [address] Date Inactivated Comments Code Status Date Activated Full Code 12/16/2018 2:32 PM This code status was determined by: Patient
--- OUTSIDE RECORDS SUMMARY | 2019-07-09 09:51 | XMS REPORT | Continuity of Care Document ---
Author Author Future Domain Organization [employer] Address Unknown Phone Unavailable Care Team Providers Care Trouble Locator Test Desk Name Role Phone [employer] Unavailable Unavailable Problems Problem Status Onset Date Classification Date Reported Comments Source Polyneuropathy in diabetes Active Problem 11/11/2015 [facility] Type II diabetes mellitus with neurological manifestations Active Problem 11/11/2015 [facility] HTN Active Problem 11/11/2015 [facility] COPD Active Problem 11/11/2015 [facility] Smoker Active Problem 01/17/2017 [facility] Neuropathy Active Problem 11/11/2015 [facility] Hyperlipemia Active Problem 11/11/2015 [facility] GERD Active Problem 01/17/2017 [facility] Hypogonadism male Active Problem 11/11/2015 [facility] Abscess of leg Active Diagnosis 07/19/2014 [facility] Mitral annular calcification Active Problem 06/20/2017 [facility] Tricuspid regurgitation Active Problem 06/20/2017 [facility] Left atrial enlargement Active Problem 06/20/2017 [facility] Low HDL Active Problem 06/20/2017 [facility] Type 2 diabetes mellitus with hyperglycemia Active Problem 06/20/2017 [facility] Coronary artery disease of [place] artery of [place] heart with stable angina pectoris Active Problem 06/20/2017 [facility] Type 2 diabetes mellitus with diabetic polyneuropathy Active Problem 06/20/2017 [facility] COPD Active Problem 06/20/2017 [facility] Pure hypercholesterolemia Active Problem 06/20/2017 [facility] Essential hypertension Active Problem 06/20/2017 [facility] 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 Diagnosis 06/20/2017 [facility] Tobacco use disorder Active Diagnosis 06/20/2017 [facility] Gastroesophageal reflux disease Active Problem 06/20/2017 [facility] Hypogonadism in male Active Problem 06/20/2017 [facility] Abnormal EKG Active Diagnosis 04/20/2015 [facility] HTN , benign Active Problem 11/11/2015 [facility] Tricuspid regurgitation Active Problem 11/11/2015 [facility] Mitral annular calcification Active Problem 11/11/2015 [facility] Left atrial enlargement Active Problem 11/11/2015 [facility] Interstitial edema Active Diagnosis 04/05/2015 [facility] Other follow-up examination Active Diagnosis 04/13/2015 [facility] Obesity Active Diagnosis 04/13/2015 [facility] BMI 33.0-33.9,adult Active Diagnosis 04/13/2015 [facility] COPD with acute lower respiratory infection Active Diagnosis 11/28/2015 [facility] Localized swelling of lower leg Active Diagnosis 11/22/2015 [facility] Weight gain Active Diagnosis 11/22/2015 [facility] Dizziness Active Diagnosis 11/08/2016 [facility] Fluid level behind tympanic membrane, bilateral Active Diagnosis 11/08/2016 [facility] Headache Active Diagnosis 03/20/2016 [facility] Nocturia Active Diagnosis 03/20/2016 [facility] Medications Medication Details Route Status Patient Instructions Ordering Provider Order Date Source Albuterol Sulfate HFA 2 puffs as needed Inhalation Active 108 (90 Base) MCG/ACT Inhalation every 4-6 hrs PRN Toribio 06/18/2017 [facility] Stiolto Respimat 2 puffs Inhalation Active 2.5-2.5 MCG/ACT Inhalation Once a day Toribio 06/18/2017 [facility] Chantix Starting Month Yobany as directed Orally Active 0.5 MG X 11 & 1 MG X 42 Orally as directed Toribio 06/18/2017 [facility] Chantix Continuing Month Yobany 1 tablet Orally Active 1 MG Orally Twice a day Toribio 06/18/2017 [facility] Lantus 13 units Subcutaneous Active 100 UNIT/ML Subcutaneous once every night Toribio 01/16/2017 [facility] BD Insulin Syringe Ultrafine as directed subcutaneously Active 31G X 5/16 subcutaneously use qd for Lantus [place] 01/15/2017 [facility] Levemir as directed Subcutaneous No Longer Active 100 UNIT/ML Subcutaneous inject [address] [facility] 10/29/2016 [facility] Farxiga 1 tablet Orally Active 5 MG Orally Once a day (MUST SEE DOCTOR BEFORE NEXT REFILL) Kamron 10/22/2016 [facility] Farxiga 1 tablet Orally Active 5 MG Orally Once a day [place] 03/12/2016 [facility] Flomax 1 capsule 30 minutes after the same meal each day Orally Active 0.4 MG Orally Once a day [place] 03/12/2016 [facility] Levemir 13 units Subcutaneous Active 100 UNIT/ML Subcutaneous q am [facility] 01/23/2016 [facility] OneTouch Lancets as directed in vitro Active 0 in vitro use BID dx: E11.65 [place] 12/19/2015 [facility] OneTouch Verio as directed In Vitro Active 0 In Vitro use BID DX: E11.65 [place] 12/19/2015 [facility] MetFORMIN HCl ER 1 tablet Orally Active 1000 mg Orally two times a day [place] 11/21/2015 [facility] Lasix 1 tablet Orally Active 40 MG Orally Once a day [place] 11/20/2015 [facility] Symbicort 2 puffs Inhalation Active 160-4.5 MCG/ACT Inhalation Twice a day [place] 11/20/2015 [facility] Lasix 1 tablet Orally Active 20 mg Orally Once a day [place] 11/20/2015 [facility] Syringe/Needle (Disp) as directed intramuscularly Active 22G X 1-1/2 intramuscularly to inject testosterone once every 2 weeks Preston 04/11/2015 [facility] Syringe/Needle (Disp) as directed NA Active 18G X 1 once every 2 weeks to draw up testosterone depo [place] 04/11/2015 [facility] Depo-Testosterone 1 ml Intramuscular Active 200 MG/ML Intramuscular once a month [place] 04/11/2015 [facility] Crestor 1 tablet Orally Active 5 MG Orally Once a day [facility] 04/11/2015 [facility] Symbicort 2 puffs Inhalation Active 160-4.5 MCG/ACT [facility] Crestor 1 tablet Orally Active 10 mg Orally Once a day [place] 04/11/2015 [facility] Ketoconazole 1 application to affected area Externally Active 2 % Externally Once a day [facility]es [facility] Lasix 1 tablet Orally Active 20 mg Orally [facility]/31[facility] Levitra 1 tablet as needed Orally Active 20 mg [facility] Klor-Con 10 1 tablet Orally Active 10 MEQ Orally once daily [facility]/31[facility]2015 [facility] MetFORMIN HCl ER 2 tablet Orally No Longer Active 500 mg Orally Once a day [place] 12/12/2014 [facility] Mupirocin 1 application to affected area Externally Active 2 % [facility] Bactrim DS 1 tablet Orally Active 800-160 MG Orally Twice a [facility]/06[facility] Testosterone Cypionate 1 ml Intramuscular Active 200 MG/ML Intramuscular every 2 weeks Toribio 12/28/2013 [facility] Lisinopril 1 tablet orally Active 5 MG orally once a day LAST REFILL, MUST SEE DOCTOR Ramon [facility] Plavix 1 tablet Orally Active 75 MG Orally once a day LAST REFILL, MUST SEE DOCTOR Ramon [facility] MetFORMIN HCl ER 2 tablets with meal Orally Active 500 mg Orally Once a day Tete [facility] Metoprolol Tartrate TAKE 2 TABLETS ONCE DAILY NA Active TAR 50MG Milligram Tete [facility] Nitroglycerin 1 tablet under the tongue and allow to dissolve as needed Sublingual Active 0.4 MG [facility]ual [facility] Plavix TAKE 1 TABLET ONCE DAILY NA Active 75MG Kamron [facility] Lisinopril TAKE 1 TABLET DAILY NA Active 5MG Milligram Tete [facility] Plavix TAKE 1 TABLET ONCE DAILY . LAST REFILL. MUST SEE DOCTOR. NA Active 75MG Toribio [facility] Diltiazem HCl CD 1 capsule Orally Active 360 MG Orally twice a day (bid) Toribio [facility] MetFORMIN HCl ER TAKE 2 TABLETS ONCE DAILY NA Active 500MG GP Toribio [facility] Lisinopril TAKE 1 TABLET ONCE DAILY NA Active 5MG Toribio [facility] Farxiga 1 tablet Orally Active 10 MG Orally Once a day (MUST SEE DOCTOR BEFORE NEXT REFILL) Toribio [facility] Eliquis 1 tablet Orally Active 2.5 MG Orally daily Toribio [facility] Metoprolol Tartrate TAKE 2 TABLETS ONCE DAILY NA Active TAR 50MG Toribio [facility] Klor-Con M10 1 tablet Orally Active 10 MEQ Orally daily Toribio [facility] Amiodarone HCl 1/2 half tablet Orally Active 200 MG Orally Once a day Toribio [facility] Sotalol HCl 1 tablet Orally Active 80 MG Orally twice a day (bid) Toribio [facility] Glimepiride 1 capsule Orally Active 4 MG Orally Once a day Toribio [facility] Atorvastatin Calcium 1 tablet Orally Active 20 MG Orally daily Toribio [facility] Janumet XR 2 tablet Orally Active 50-1000 MG Orally once a day Toribio [facility] Allergies, Adverse Reactions, Alerts Substance Category Reaction Severity Reaction type Status Date Reported Comments Source N.K.D.A. Adverse Reaction Info Not Available Adverse Reaction Active 06/18/2017 [facility] Immunizations No Data Provided for This Section Results No Data Provided for This Section Pathology Reports No Data Provided for This Section Diagnostic Reports No Data Provided for This Section Consultation Notes No Data Provided for This Section Discharge Summaries No Data Provided for This Section History and Physicals No Data Provided for This Section Vital Signs Vital Sign Value Date Comments Source Weight 251 06/18/2017 [facility] Height 72 06/18/2017 [facility] Heart Rate 70 06/18/2017 [facility] Diastolic (mm Hg) 60 06/18/2017 [facility] Systolic (mm Hg) 90 06/18/2017 [facility] Weight 254 11/06/2016 [facility] Height 72 11/06/2016 [facility] Heart Rate 88 11/06/2016 [facility] Diastolic [...] [facility] Weight 271 11/21/2015 [facility] Height 72 11/21/2015 [facility] Heart Rate 106 11/21/2015 [facility] Diastolic (mm Hg) 76 11/21/2015 [facility] Systolic (mm Hg) 122 11/21/2015 [facility] Weight 271 11/20/2015 [facility] Height 72 11/20/2015 [facility] Heart Rate 67 11/20/2015 [facility] Diastolic (mm Hg) 84 11/20/2015 [facility] Systolic (mm Hg) 120 11/20/2015 [facility] Weight 248 04/11/2015 [facility] Height 72 04/11/2015 [facility] Heart Rate 68 04/11/2015 [facility] Diastolic (mm Hg) 58 04/11/2015 [facility] Systolic (mm Hg) 110 04/11/2015 [facility] Weight 244 07/06/2014 [facility] Height 72 07/06/2014 [facility] Heart Rate 66 07/06/2014 [facility] Diastolic (mm Hg) 74 07/06/2014 [facility] Systolic (mm Hg) 120 07/06/2014 [facility] Encounters Location Location Details Encounter Type Encounter Number Reason For Visit Attending Provider ADM Date DC Date Status Source [facility] refill [id number] 05/18/2014 05/18/2014 [facility] refill [id number] 05/18/2014 05/18/2014 [facility] refill [id number] 05/18/2014 05/18/2014 [facility] refill [id number] 05/18/2014 05/18/2014 [facility] refill [id number] 05/18/2014 05/18/2014 [facility] refill [id number] 05/18/2014 05/18/2014 [facility] refill [id number] 05/18/2014 05/18/2014 [facility] refill [id number] 05/18/2014 05/18/2014 [facility] refill [id number] 05/18/2014 05/18/2014 [facility] refill [id number] 05/18/2014 05/18/2014 [facility] refill [id number] 05/18/2014 05/18/2014 [facility] refill [id number] 05/18/2014 05/18/2014 [facility] refill [id number] 05/18/2014 05/18/2014 [facility] refill [id number] 05/18/2014 05/18/2014 [facility] refill [id number] 05/18/2014 05/18/2014 [facility] refill [id number] 05/18/2014 05/18/2014 [facility] refill [id number] 05/18/2014 05/18/2014 [facility] refill [id number] 05/18/2014 05/18/2014 [facility] possible boil [id number] 07/06/2014 07/06/2014 [facility] possible boil [id number] 07/06/2014 07/06/2014 [facility] possible boil [id number] 07/06/2014 07/06/2014 [facility] possible boil [id number] 07/06/2014 07/06/2014 [facility] possible boil [id number] 07/06/2014 07/06/2014 [facility] possible boil [id number] 07/06/2014 07/06/2014 [facility] possible boil [id number] 07/06/2014 07/06/2014 [facility] possible boil [id number] 07/06/2014 07/06/2014 [facility] possible boil [id number] 07/06/2014 07/06/2014 [facility] possible boil [id number] 07/06/2014 07/06/2014 [facility] possible boil [id number] 07/06/2014 07/06/2014 [facility] possible boil [id number] 07/06/2014 07/06/2014 [facility] possible boil [id number] 07/06/2014 07/06/2014 [facility] possible boil [id number] 07/06/2014 07/06/2014 [facility] possible boil [id number] 07/06/2014 07/06/2014 [facility] possible boil [id number] 07/06/2014 07/06/2014 [facility] possible boil [id number] 07/06/2014 07/06/2014 [facility] Unknown [id number] 08/28/2014 08/28/2014 [facility] Unknown [id number] 08/28/2014 08/28/2014 [facility] Unknown [id number] 08/28/2014 08/28/2014 [facility] Unknown [id number] 08/28/2014 08/28/2014 [facility] Unknown [id number] 08/28/2014 08/28/2014 [facility] Unknown [id number] 08/28/2014 08/28/2014 [facility] Unknown [id number] 08/28/2014 08/28/2014 [facility] Unknown [id number] 08/28/2014 08/28/2014 [facility] Unknown [id number] 08/28/2014 08/28/2014 [facility] Unknown [id number] 08/28/2014 08/28/2014 [facility] Unknown [id number] 08/28/2014 08/28/2014 [facility] Unknown [id number] 08/28/2014 08/28/2014 [facility] Unknown [id number] 08/28/2014 08/28/2014 [facility] Unknown [id number] 08/28/2014 08/28/2014 [facility] Unknown [id number] 08/28/2014 08/28/2014 [facility] [id number] 08/28/2014 08/28/2014 [facility] MED REFILL [id number] 03/31/2015 03/31/2015 [facility] MED REFILL [id number] 03/31/2015 03/31/2015 [facility] MED REFILL [id number] 03/31/2015 03/31/2015 [facility] MED REFILL [id number] 03/31/2015 03/31/2015 [facility] MED REFILL [id number] 03/31/2015 03/31/2015 [facility] MED REFILL [id number] 03/31/2015 03/31/2015 [facility] MED REFILL [id number] 03/31/2015 03/31/2015 [facility] MED REFILL [id number] 03/31/2015 03/31/2015 [facility] MED REFILL [id number] 03/31/2015 03/31/2015 [facility] MED REFILL [id number] 03/31/2015 03/31/2015 [facility] MED REFILL [id number] 03/31/2015 03/31/2015 [facility] MED REFILL [id number] 03/31/2015 03/31/2015 [facility] [facility] MED REFILL [id number] 03/31/2015 03/31/2015 [facility] MED REFILL [id number] 03/31/2015 03/31/2015 [facility] MED REFILL [id number] 03/31/2015 03/31/2015 [facility] [place] (please have someone look at xray before pt leaves) [id number] 04/04/2015 04/04/2015 [facility] [place] CXR (please have someone look at xray before pt leaves) [id number] 04/04/2015 04/04/2015 [facility] [place] CXR (please have someone look at xray before pt leaves) [id number] 04/04/2015 04/04/2015 [facility] [place] (please have someone look at xray before pt leaves) [id number] 04/04/2015 04/04/2015 [facility] [place] CXR (please have someone look at xray before pt leaves) [id number] 04/04/2015 04/04/2015 [facility] [place] CXR (please have someone look at xray before pt leaves) [id number] 04/04/2015 04/04/2015 [facility] [place] (please have someone look at xray before pt leaves) [id number] 04/04/2015 04/04/2015 [facility] [place] CXR (please have someone look at xray before pt leaves) [id number] 04/04/2015 04/04/2015 [facility] [place] CXR (please have someone look at xray before pt leaves) [id number] 04/04/2015 04/04/2015 [facility] [place] CXR (please have someone look at xray before pt leaves) [id number] 04/04/2015 04/04/2015 [facility] [place] CXR (please have someone look at xray before pt leaves) [id number] 04/04/2015 04/04/2015 [facility] [place] CXR (please have someone look at xray before pt leaves) [id number] 04/04/2015 04/04/2015 [facility] [place] (please have someone look at xray before pt leaves) [id number] 04/04/2015 04/04/2015 [facility] [place] (please have someone look at xray before pt leaves) [id number] 04/04/2015 04/04/2015 [facility] [place]R (please have someone look at xray before pt leaves) [id number] 04/04/2015 04/04/2015 [facility] ANANT [id number] 04/11/2015 04/11/2015 [facility] ANANT [id number] 04/11/2015 04/11/2015 [facility] ANANT [id number] 04/11/2015 04/11/2015 [facility] ANANT [id number] 04/11/2015 04/11/2015 [facility] ANANT [id number] 04/11/2015 04/11/2015 [facility] results [id number] 04/11/2015 04/11/2015 [facility] results [id number] 04/11/2015 04/11/2015 [facility] results [id number] 04/11/2015 04/11/2015 [facility] results [id number] 04/11/2015 04/11/2015 [facility] results [id number] 04/11/2015 04/11/2015 [facility] PEREZ-JOHANNA [id number] 04/11/2015 04/11/2015 [facility] PEREZ-JOHANNA [id number] 04/11/2015 04/11/2015 [facility] PEREZ-JOHANNA [id number] 04/11/2015 04/11/2015 [facility] PEREZ-JOHANNA [id number] 04/11/2015 04/11/2015 [facility] PEREZ-JOHANNA [id number] 04/11/2015 04/11/2015 [facility] PEREZ-JOHANNA [id number] 04/11/2015 04/11/2015 [facility] ANANT [id number] 04/11/2015 04/11/2015 [facility] ANANT [id number] 04/11/2015 04/11/2015 [facility] ANANT [id number] 04/11/2015 04/11/2015 [facility] results [id number] 04/11/2015 04/11/2015 [facility] results [id number] 04/11/2015 04/11/2015 [facility] results [id number] 04/11/2015 04/11/2015 [facility] results [id number] 04/11/2015 04/11/2015 [facility] results [id number] 04/11/2015 04/11/2015 [facility] results [id number] 04/11/2015 04/11/2015 [facility] results [id number] 04/11/2015 04/11/2015 [facility] results [id number] 04/11/2015 04/11/2015 [facility] results [id number] 04/11/2015 04/11/2015 [facility] Cardiolyte Stress Test [id number] 04/19/2015 04/19/2015 [facility] Cardiolyte Stress Test [id number] 04/19/2015 04/19/2015 [facility] Cardiolyte Stress Test [id number] 04/19/2015 04/19/2015 [facility] Cardiolyte Stress Test [id number] 04/19/2015 04/19/2015 [facility] Cardiolyte Stress Test [id number] 04/19/2015 04/19/2015 [facility] Cardiolyte Stress Test [id number] 04/19/2015 04/19/2015 [facility] Cardiolyte Stress Test [id number] 04/19/2015 04/19/2015 [facility] Cardiolyte Stress Test [id number] 04/19/2015 04/19/2015 [facility] Cardiolyte Stress Test [id number] 04/19/2015 04/19/2015 [facility] Cardiolyte Stress Test [id number] 04/19/2015 04/19/2015 [facility] Cardiolyte Stress Test [id number] 04/19/2015 04/19/2015 [facility] Cardiolyte Stress Test [id number] 04/19/2015 04/19/2015 [facility] RESULTS [id number] 05/29/2015 05/29/2015 [facility] RESULTS [id number] 05/29/2015 05/29/2015 [facility] RESULTS [id number] 05/29/2015 05/29/2015 [facility] RESULTS [id number] 05/29/2015 05/29/2015 [facility] RESULTS [id number] 05/29/2015 05/29/2015 [facility] RESULTS [id number] 05/29/2015 05/29/2015 [facility] RESULTS [id number] 05/29/2015 05/29/2015 [facility] RESULTS [id number] 05/29/2015 05/29/2015 [facility] RESULTS [id number] 05/29/2015 05/29/2015 [facility] RESULTS [id number] 05/29/2015 05/29/2015 [facility] RESULTS [id number] 05/29/2015 05/29/2015 [facility] Unknown [id number] 11/10/2015 11/10/2015 [facility] Unknown [id number] 11/10/2015 11/10/2015 [facility] Unknown [id number] 11/10/2015 11/10/2015 [facility] Unknown [id number] 11/10/2015 11/10/2015 [facility] Unknown [id number] 11/10/2015 11/10/2015 [facility] Unknown [id number] 11/10/2015 11/10/2015 [facility] Unknown [id number] 11/10/2015 11/10/2015 [facility] Unknown [id number] 11/10/2015 11/10/2015 [facility] Unknown [id number] 11/10/2015 11/10/2015 [facility] Unknown [id number] 11/10/2015 11/10/2015 [facility] Unknown [id number] 11/10/2015 11/10/2015 [facility] BP check [id number] 11/20/2015 11/20/2015 [facility] BP check [id number] 11/20/2015 11/20/2015 [facility] BP check [id number] 11/20/2015 11/20/2015 [facility] BP check [id number] 11/20/2015 11/20/2015 [facility] BP check [id number] 11/20/2015 11/20/2015 [facility] BP check [id number] 11/20/2015 11/20/2015 [facility] BP check [id number] 11/20/2015 11/20/2015 [facility] BP check [id number] 11/20/2015 11/20/2015 [facility] BP check [id number] 11/20/2015 11/20/2015 [facility] BP check [id number] 11/20/2015 11/20/2015 [facility] lab results [id number] 11/21/2015 11/21/2015 [facility] lab results [id number] 11/21/2015 11/21/2015 [facility] lab results [id number] 11/21/2015 11/21/2015 [facility] lab results [id number] 11/21/2015 11/21/2015 [facility] lab results [id number] 11/21/2015 11/21/2015 [facility] lab results [id number] 11/21/2015 11/21/2015 [facility] lab results [id number] 11/21/2015 11/21/2015 [facility] lab results [id number] 11/21/2015 11/21/2015 [facility] lab results [id number] 11/21/2015 11/21/2015 [facility] blood sugar high [id number] 12/07/2015 12/07/2015 [facility] blood sugar high [id number] 12/07/2015 12/07/2015 [facility] blood sugar high [id number] 12/07/2015 12/07/2015 [facility] blood sugar high [id number] 12/07/2015 12/07/2015 [facility] blood sugar high [id number] 12/07/2015 12/07/2015 [facility] blood sugar high [id number] 12/07/2015 12/07/2015 [facility] blood sugar high [id number] 12/07/2015 12/07/2015 [facility] blood sugar high [id number] 12/07/2015 12/07/2015 [facility] Unknown [id number] 12/19/2015 12/19/2015 [facility] Unknown [id number] 12/19/2015 12/19/2015 [facility] Unknown [id number] 12/19/2015 12/19/2015 [facility] Unknown [id number] 12/19/2015 12/19/2015 [facility] Unknown [id number] 12/19/2015 12/19/2015 [facility] Unknown [id number] 12/19/2015 12/19/2015 [facility] Unknown [id number] 12/19/2015 12/19/2015 [facility] Unknown [id number] 01/23/2016 01/23/2016 [facility] Unknown [id number] 01/23/2016 01/23/2016 [facility] Unknown [id number] 01/23/2016 01/23/2016 [facility] Unknown [id number] 01/23/2016 01/23/2016 [facility] Unknown [id number] 01/23/2016 01/23/2016 [facility] Unknown [id number] 01/23/2016 01/23/2016 [facility] Meds [id number] 03/12/2016 03/12/2016 [facility] Meds [id number] 03/12/2016 03/12/2016 [facility] Meds [id number] 03/12/2016 03/12/2016 [facility] Meds [id number] 03/12/2016 03/12/2016 [facility] Meds [id number] 03/12/2016 03/12/2016 [facility] Unknown [id number] 09/27/2016 09/27/2016 [facility] Unknown [id number] 09/27/2016 09/27/2016 [facility] Unknown [id number] 09/27/2016 09/27/2016 [facility] Unknown [id number] 09/27/2016 09/27/2016 [facility] DIZZINESS [id number] 11/06/2016 11/06/2016 [facility] DIZZINESS [id number] 11/06/2016 11/06/2016 [facility] DIZZINESS [id number] 11/06/2016 11/06/2016 [facility] Unknown [id number] 01/13/2017 01/13/2017 [facility] Unknown [id number] 01/13/2017 01/13/2017 [facility] Unknown [id number] 01/16/2017 01/16/2017 [facility] No Data Provided for This Section Assessment and Plan No Data Provided for This Section Plan of Care No Data Provided for This Section Social History Social History Date Source Social History ElementQualifiersDate 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 Status , Is lao your primary language? Yes Nov 06, 2016 Marital Status: . Lesvia Darrell Nov 06, 2016 Caffeine intake? . Status: [...] usually a 6 pack Nov 06, 2016 11/06/2016 [facility] Family History Value Date Source QualifierDescriptionCommentDate Reported Maternal Grandmother Comment not available March [...] Other: Comment not available March 12, 2016 03/20/2016 [facility] QualifierDescriptionCommentDate Reported Maternal Grandmother Comment not available Dec [...] Other: Comment not available Dec 07, 2015 12/09/2015 [facility] QualifierDescriptionCommentDate Reported Maternal Grandmother Comment not available Nov [...] Other: Comment not available Nov 21, 2015 11/28/2015 [facility] QualifierDescriptionCommentDate Reported Maternal Grandmother Comment not available Nov [...] Other: Comment not available Nov 21, 2015 11/22/2015 [facility] QualifierDescriptionCommentDate Reported Maternal Grandmother Comment not available April [...] Other: Comment not available April 19, 2015 04/20/2015 [facility] QualifierDescriptionCommentDate Reported Maternal Grandmother Comment not available April [...] Other: Comment not available April 11, 2015 04/13/2015 [facility] QualifierDescriptionCommentDate Reported Maternal Grandmother Comment not available April [...] Other: Comment not available April 11, 2015 04/13/2015 [facility] QualifierDescriptionCommentDate Reported Mother diabetes Jul 06, 2014 Children alive healthy Jul 06, 2014 Father Comment not available Jul 06, 2014 Siblings alive arthritis (brother) Jul 06, 2014 07/19/2014 [facility] Advance Directives No Data Provided for This Section Functional Status No Data Provided for This Section
[2019-07-09] MEDS ORDERED: METHYLPREDNISOLONE SOD SUCC 125 MG/2ML VIAL IV ONE (11:00)
[2019-07-09] MEDS ORDERED: ALBUTEROL/IPRATROPIUM 3 ML NEB NEB ONE (11:00)
[2019-07-09] MEDS ORDERED: METHYLPREDNISOLONE SOD SUCC 125 MG/2ML VIAL ONE (11:01)
[2019-07-09] MEDS ORDERED: IPRATROPIUM BROMIDE 0.02% 2.5 ML NEB ONE ×3 (11:02→15:33)
[2019-07-09] MEDS ORDERED: ALBUTEROL SULF 0.083% NEB SOLN 3 ML NEB ONE ×3 (11:02→15:33)
--- NOTE | 2019-07-09 11:11 | Diagnostic Imaging Report ---
EXAMINATION: CXR 2 VIEW - HOPD INDICATION: Shortness of breath COMPARISON: Chest radiograph of 07/28/2018 FINDINGS: LINES/TUBES:None LUNGS:The lungs are moderately inflated. There is perihilar fullness and indistinctness of the pulmonary vasculature. There are bilateral lower lobe airspace opacities left greater than right. Compared to 07/28/2018, there has been interval increase of diffuse miliary nodular appearance of lung parenchyma. PLEURA:Small left pleural effusion. No pneumothorax. MEDIASTINUM:Cardiomediastinal silhouette is stably enlarged. BONES/SOFT TISSUES:No acute osseous injury. ABDOMEN:No free air under the diaphragm. IMPRESSION: Pulmonary vascular indistinctness and hilar congestion compatible with pulmonary edema. Left greater than right basilar airspace opacification may reflect component of airspace edema however aspiration and/or pneumonia could also have this appearance in the proper clinical setting. Interval increase in diffuse miliary nodular appearance of lung parenchyma for which the differential includes infectious, inflammatory, and less likely metastatic etiologies. Signed by: Jamison Rendon MD on 07/09/2019 11:07 AM
[2019-07-09] MEDS ORDERED: SODIUM CHLORIDE FLUSH 10 ML SYR INJ PRN (11:45)
[2019-07-09] MEDS ORDERED: ASPIRIN 81 MG CHEW TAB PO ONE (11:45)
[2019-07-09] MEDS ORDERED: DEXTROSE 50% SYRINGE 50 ML IV PRN (11:45)
[2019-07-09] MEDS ORDERED: CEFTRIAXONE SOD 1 GM/NS 50 ML 50 ML IV SCH (11:45)
[2019-07-09] MEDS ORDERED: ALBUTEROL/IPRATROPIUM 3 ML NEB NEB STA (11:52)
[2019-07-09] MEDS ORDERED: FUROSEMIDE INJ 10 MG/ML 4 ML VIAL ONE (11:57)
[2019-07-09] MEDS ORDERED: FUROSEMIDE INJ 10 MG/ML 2 ML VIAL IV ONE (12:00)
--- OUTSIDE RECORDS SUMMARY | 2019-07-09 12:05 | XMS REPORT | Continuity of Care Document ---
Author Author Yipit Organization [employer] Information [employer] Address Unknown Phone Unavailable Care Team Providers Care Coffee Attendant Name Role Phone [employer] Unavailable Unavailable Problems Problem Status [facility] Coronary artery disease of [place] artery of [place] heart with stable angina pectoris Active Problem [...] UNIT/ML Subcutaneous once every night [facility]ibio 01/16/2017 [facility] BD Insulin Syringe Ultrafine as directed subcutaneously Active 31G X 5/16 subcutaneously use qd for Lantus [place] 01/15/2017 [facility] Levemir as directed Subcutaneous No Longer Active 100 UNIT/ML Subcutaneous inject 10 units every morning [facility] 10/29/2016 [facility] Farxiga 1 tablet Orally Active 5 MG Orally Once a day (MUST SEE DOCTOR BEFORE NEXT REFILL) Kamron 10/22/2016 [facility] Farxiga 1 tablet Orally Active 5 MG Orally Once a day [place] 03/12/2016 [facility] Flomax 1 capsule 30 minutes after the same meal each day Orally Active 0.4 MG Orally Once a day Kamron 03/12/2016 [facility] Levemir 13 units Subcutaneous Active 100 UNIT/ML Subcutaneous q am [facility] 01/23/2016 [facility] OneTouch Lancets as directed in vitro Active 0 in vitro use BID dx: E11.65 [place] 12/19/2015 [facility] OneTouch Verio as directed In Vitro Active 0 In Vitro use BID DX: E11.65 [place] 12/19/2015 [facility] MetFORMIN HCl ER 1 tablet Orally Active 1000 mg Orally two times a day [place] 11/21/2015 [facility] Lasix 1 tablet Orally Active 40 MG Orally Once a day [place] 11/20/2015 [facility] Symbicort 2 puffs Inhalation Active 160-4.5 MCG/ACT Inhalation Twice a day [place] 11/20/2015 [facility] Lasix 1 tablet Orally Active 20 mg Orally Once a day [place] 11/20/2015 [facility] Syringe/Needle (Disp) as directed intramuscularly Active 22G X 1-1/2 intramuscularly to inject testosterone once every 2 weeks [place] 04/11/2015 [facility] Syringe/Needle (Disp) as directed NA Active 18G X 1 once every 2 weeks to draw up testosterone depo [place] 04/11/2015 [facility] Depo-Testosterone 1 ml Intramuscular Active 200 MG/ML Intramuscular once a month [place] 04/11/2015 [facility] Crestor 1 tablet Orally Active 5 MG Orally Once a day [facility] 04/11/2015 [facility] Symbicort 2 puffs Inhalation Active 160-4.5 MCG/ACT [facility] Crestor 1 tablet Orally Active 10 mg Orally Once a day [place] 04/11/2015 [facility] Ketoconazole 1 application to affected area Externally Active 2 % Externally Once a day to soles of feet [facility] Lasix 1 tablet Orally Active 20 mg Orally Once a day [facility] Levitra 1 tablet as needed Orally Active 20 mg [facility]ally [facility] Klor-Con 10 1 tablet Orally Active 10 MEQ Orally once daily [facility]/31[facility] MetFORMIN HCl ER 2 tablet Orally No Longer Active 500 mg Orally Once a day [place] 12/12/2014 [facility] Mupirocin 1 application to affected area Externally Active 2 % Externally [facility] Bactrim DS 1 tablet Orally Active 800-160 MG Orally Twice a day [facility] Testosterone Cypionate 1 ml Intramuscular Active 200 MG/ML Intramuscular every 2 weeks [facility]ibio 12/28/2013 [facility] Lisinopril 1 tablet orally Active 5 MG orally once a day LAST REFILL, MUST SEE DOCTOR Ramon [facility] Plavix 1 tablet Orally Active 75 MG Orally once a day LAST REFILL, MUST SEE DOCTOR Ramon [facility] MetFORMIN HCl ER 2 tablets with meal Orally Active 500 mg Orally Once a day Tete [facility] Metoprolol Tartrate TAKE 2 TABLETS ONCE DAILY NA Active TAR 50MG Milligram Tete [facility] Nitroglycerin 1 tablet under the tongue and allow to dissolve as needed Sublingual Active 0.4 MG Sublingual as [facility] Plavix TAKE 1 TABLET ONCE DAILY NA Active 75MG Kamron [facility] Lisinopril TAKE 1 TABLET DAILY NA Active 5MG Milligram Tete [facility] Plavix TAKE 1 TABLET ONCE DAILY . LAST REFILL. MUST SEE DOCTOR. NA Active 75MG [facility]ibio [facility] Diltiazem HCl CD 1 capsule Orally Active 360 MG Orally twice a day (bid) [facility]ibio [facility] MetFORMIN HCl ER TAKE 2 TABLETS ONCE DAILY NA Active 500MG GP [facility]ibio [facility] Lisinopril TAKE 1 TABLET ONCE DAILY NA Active 5MG Toribio [facility] Farxiga 1 tablet Orally Active 10 MG Orally Once a day (MUST SEE DOCTOR BEFORE NEXT REFILL) Toribio [facility] Eliquis 1 tablet Orally Active 2.5 MG Orally daily [facility]ibio [facility] Metoprolol Tartrate TAKE 2 TABLETS ONCE DAILY NA Active TAR 50MG [facility]ibio [facility] Klor-Con M10 1 tablet Orally Active 10 MEQ Orally daily [facility]ibio [facility] Amiodarone HCl 1/2 half tablet Orally Active 200 MG Orally Once a day Toribio [facility] Sotalol HCl 1 tablet Orally Active 80 MG Orally twice a day (bid) Toribio [facility] Glimepiride 1 capsule Orally Active 4 MG Orally Once a day Toribio [facility] Atorvastatin Calcium 1 tablet Orally Active 20 MG Orally daily Toribio [facility] Janumet XR 2 tablet Orally Active 50-1000 MG Orally once a day [facility]ibio [facility] Allergies, Adverse Reactions, Alerts Substance Category Reaction Severity Reaction type Status Date Reported Comments Source N.K.D.A. Adverse Reaction Info Not Available Adverse Reaction Active 06/18/2017 [facility] Immunizations No Data [...] Value Date Comments Source Weight 251 06/18/2017 [facility] Height 72 06/18/2017 [facility] Heart Rate 70 06/18/2017 [facility] Diastolic (mm Hg) 60 06/18/2017 [facility] Systolic (mm Hg) [...] [facility] Height 72 07/06/2014 [facility] Heart Rate 66 07/06/2014 [facility] Diastolic (mm Hg) 74 07/06/2014 [facility] Systolic (mm Hg) 120 07/06/2014 [facility] Encounters Location Location Details Encounter Type Encounter Number Reason For Visit Attending Provider ADM Date DC Date Status Source [facility] refill [id number] 05/18/2014 05/18/2014 [facility] refill [id number] 05/18/2014 05/18/2014 [facility] refill [id number] 05/18/2014 05/18/2014 [facility] refill [id number] 05/18/2014 05/18/2014 [facility] refill [id number] 05/18/2014 05/18/2014 [facility] refill [id number] 05/18/2014 05/18/2014 [facility] refill [id number] 05/18/2014 05/18/2014 [facility] refill [id number] 05/18/2014 05/18/2014 [facility] refill [id number] 05/18/2014 05/18/2014 [facility] refill [id number] 05/18/2014 05/18/2014 [facility] refill [id number] 05/18/2014 05/18/2014 [facility] refill [id number] 05/18/2014 05/18/2014 [facility] refill [id number] 05/18/2014 05/18/2014 [facility] refill [id number] 05/18/2014 05/18/2014 [facility] refill [id number] 05/18/2014 05/18/2014 [facility] refill [id number] 05/18/2014 05/18/2014 [facility] refill [id number] 05/18/2014 05/18/2014 [facility] refill [id number] 05/18/2014 05/18/2014 [facility] possible boil [id number] 07/06/2014 07/06/2014 [facility] possible boil [id number] 07/06/2014 07/06/2014 [facility] possible boil [id number] 07/06/2014 07/06/2014 [facility] possible boil [id number] 07/06/2014 07/06/2014 [facility] possible boil [id number] 07/06/2014 07/06/2014 [facility] possible boil [id number] 07/06/2014 07/06/2014 [facility] possible boil [id number] 07/06/2014 07/06/2014 [facility] possible boil [id number] 07/06/2014 07/06/2014 [facility] possible boil [id number] 07/06/2014 07/06/2014 [facility] possible boil [id number] 07/06/2014 07/06/2014 [facility] possible boil [id number] 07/06/2014 07/06/2014 [facility] possible boil [id number] 07/06/2014 07/06/2014 [facility] possible boil [id number] 07/06/2014 07/06/2014 [facility] possible boil [id number] 07/06/2014 07/06/2014 [facility] possible boil [id number] 07/06/2014 07/06/2014 [facility] possible boil [id number] 07/06/2014 07/06/2014 [facility] possible boil [id number] 07/06/2014 07/06/2014 [facility] Unknown [id number] 08/28/2014 08/28/2014 [facility] Unknown [id number] 08/28/2014 08/28/2014 [facility] Unknown [id number] 08/28/2014 08/28/2014 [facility] Unknown [id number] 08/28/2014 08/28/2014 [facility] Unknown [id number] 08/28/2014 08/28/2014 [facility] Unknown [id number] 08/28/2014 08/28/2014 [facility] Unknown [id number] 08/28/2014 08/28/2014 [facility] Unknown [id number] 08/28/2014 08/28/2014 [facility] Unknown [id number] 08/28/2014 08/28/2014 [facility] Unknown [id number] 08/28/2014 08/28/2014 [facility] Unknown [id number] 08/28/2014 08/28/2014 [facility] Unknown [id number] 08/28/2014 08/28/2014 [facility] Unknown [id number] 08/28/2014 08/28/2014 [facility] Unknown [id number] 08/28/2014 08/28/2014 [facility] Unknown [id number] 08/28/2014 08/28/2014 [facility] [id number] 08/28/2014 08/28/2014 [facility] MED REFILL [id number] 03/31/2015 03/31/2015 [facility] MED REFILL [id number] 03/31/2015 03/31/2015 [facility] MED REFILL [id number] 03/31/2015 03/31/2015 [facility] MED REFILL [id number] 03/31/2015 03/31/2015 [facility] MED REFILL [id number] 03/31/2015 03/31/2015 [facility] MED REFILL [id number] 03/31/2015 03/31/2015 [facility] MED REFILL [id number] 03/31/2015 03/31/2015 [facility] MED REFILL [id number] 03/31/2015 03/31/2015 [facility] MED REFILL [id number] 03/31/2015 03/31/2015 [facility] MED REFILL [id number] 03/31/2015 03/31/2015 [facility] MED REFILL [id number] 03/31/2015 03/31/2015 [facility] MED REFILL [id number] 03/31/2015 03/31/2015 [facility] MED REFILL [id number] 03/31/2015 03/31/2015 [facility] MED REFILL [id number] 03/31/2015 03/31/2015 [facility] MED REFILL [id number] 03/31/2015 03/31/2015 [facility] [place] CXR (please have someone look at xray before pt leaves) [id number] 04/04/2015 04/04/2015 [facility] [place]-repeat CXR (please have someone look at xray before pt leaves) [id number] 04/04/2015 04/04/2015 [facility] [place]-repeat CXR (please have someone look at xray before pt leaves) [id number] 04/04/2015 04/04/2015 [facility] [place] (please have someone look at xray before pt leaves) [id number] 04/04/2015 04/04/2015 [facility] [place]-repeat CXR (please have someone look at xray before pt leaves) [id number] 04/04/2015 04/04/2015 [facility] [place]-repeat CXR (please have someone look at xray before pt leaves) [id number] 04/04/2015 04/04/2015 [facility] [place]-repeat CXR (please have someone look at xray before pt leaves) [id number] 04/04/2015 04/04/2015 [facility] [place]-repeat CXR (please have someone look at xray before pt leaves) [id number] 04/04/2015 04/04/2015 [facility] [place]-repeat CXR (please have someone look at xray before pt leaves) [id number] 04/04/2015 04/04/2015 [facility] [place]-repeat CXR (please have someone look at xray before pt leaves) [id number] 04/04/2015 04/04/2015 [facility] [place]-repeat CXR (please have someone look at xray before pt leaves) [id number] 04/04/2015 04/04/2015 [facility] [place]-repeat CXR (please have someone look at xray before pt leaves) [id number] 04/04/2015 04/04/2015 [facility] [place]-repeat CXR (please have someone look at xray before pt leaves) [id number] 04/04/2015 04/04/2015 [facility] [place]-repeat CXR (please have someone look at xray before pt leaves) [id number] 04/04/2015 04/04/2015 [facility] [place]-repeat CXR (please have someone look at xray before pt leaves) [id number] 04/04/2015 04/04/2015 [facility] ANANT [id number] 04/11/2015 04/11/2015 [facility] ANANT [id number] 04/11/2015 04/11/2015 [facility] ANANT [id number] 04/11/2015 04/11/2015 [facility] ANANT [id number] 04/11/2015 04/11/2015 [facility] ANANT [id number] 04/11/2015 04/11/2015 [facility] results [id number] 04/11/2015 04/11/2015 [facility] results [id number] 04/11/2015 04/11/2015 [facility] results [id number] 04/11/2015 04/11/2015 [facility] results [id number] 04/11/2015 04/11/2015 [facility] results [id number] 04/11/2015 04/11/2015 [facility] PEREZ-JOHANNA [id number] 04/11/2015 04/11/2015 [facility] PEREZ-JOHANNA [id number] 04/11/2015 04/11/2015 [facility] PEREZ-JOHANNA [id number] 04/11/2015 04/11/2015 [facility] PEREZ-JOHANNA [id number] 04/11/2015 04/11/2015 [facility] PEREZ-JOHANNA [id number] 04/11/2015 04/11/2015 [facility] PEREZ-JOHANNA [id number] 04/11/2015 04/11/2015 [facility] ANANT [id number] 04/11/2015 04/11/2015 [facility] ANANT [id number] 04/11/2015 04/11/2015 [facility] ANANT [id number] 04/11/2015 04/11/2015 [facility] results [id number] 04/11/2015 04/11/2015 [facility] results [id number] 04/11/2015 04/11/2015 [facility] results [id number] 04/11/2015 04/11/2015 [facility] results [id number] 04/11/2015 04/11/2015 [facility] results [id number] 04/11/2015 04/11/2015 [facility] results [id number] 04/11/2015 04/11/2015 [facility] results [id number] 04/11/2015 04/11/2015 [facility] results [id number] 04/11/2015 04/11/2015 [facility] results [id number] 04/11/2015 04/11/2015 [facility] Cardiolyte Stress Test [id number] 04/19/2015 04/19/2015 [facility] Cardiolyte Stress Test [id number] 04/19/2015 04/19/2015 [facility] Cardiolyte Stress Test [id number] 04/19/2015 04/19/2015 [facility] Cardiolyte Stress Test [id number] 04/19/2015 04/19/2015 [facility] Cardiolyte Stress Test [id number] 04/19/2015 04/19/2015 [facility] Cardiolyte Stress Test [id number] 04/19/2015 04/19/2015 [facility] Cardiolyte Stress Test [id number] 04/19/2015 04/19/2015 [facility] Cardiolyte Stress Test [id number] 04/19/2015 04/19/2015 [facility] Cardiolyte Stress Test [id number] 04/19/2015 04/19/2015 [facility] Cardiolyte Stress Test [id number] 04/19/2015 04/19/2015 [facility] Cardiolyte Stress Test [id number] 04/19/2015 04/19/2015 [facility] Cardiolyte Stress Test [id number] 04/19/2015 04/19/2015 [facility] RESULTS [id number] 05/29/2015 05/29/2015 [facility] RESULTS [id number] 05/29/2015 05/29/2015 [facility] RESULTS [id number] 05/29/2015 05/29/2015 [facility] RESULTS [id number] 05/29/2015 05/29/2015 [facility] RESULTS [id number] 05/29/2015 05/29/2015 [facility] RESULTS [id number] 05/29/2015 05/29/2015 [facility] RESULTS [id number] 05/29/2015 05/29/2015 [facility] RESULTS [id number] 05/29/2015 05/29/2015 [facility] RESULTS [id number] 05/29/2015 05/29/2015 [facility] RESULTS [id number] 05/29/2015 05/29/2015 [facility] RESULTS [id number] 05/29/2015 05/29/2015 [facility] Unknown [id number] 11/10/2015 11/10/2015 [facility] Unknown [id number] 11/10/2015 11/10/2015 [facility] Unknown [id number] 11/10/2015 11/10/2015 [facility] Unknown [id number] 11/10/2015 11/10/2015 [facility] Unknown [id number] 11/10/2015 11/10/2015 [facility] Unknown [id number] 11/10/2015 11/10/2015 [facility] Unknown [id number] 11/10/2015 11/10/2015 [facility] Unknown [id number] 11/10/2015 11/10/2015 [facility] Unknown [id number] 11/10/2015 11/10/2015 [facility] Unknown [id number] 11/10/2015 11/10/2015 [facility] Unknown [id number] 11/10/2015 11/10/2015 [facility] BP check [id number] 11/20/2015 11/20/2015 [facility] BP check [id number] 11/20/2015 11/20/2015 [facility] BP check [id number] 11/20/2015 11/20/2015 [facility] BP check [id number] 11/20/2015 11/20/2015 [facility] BP check [id number] 11/20/2015 11/20/2015 [facility] BP check [id number] 11/20/2015 11/20/2015 [facility] BP check [id number] 11/20/2015 11/20/2015 [facility] BP check [id number] 11/20/2015 11/20/2015 [facility] BP check [id number] 11/20/2015 11/20/2015 [facility] BP check [id number] 11/20/2015 11/20/2015 [facility] lab results [id number] 11/21/2015 11/21/2015 [facility] lab results [id number] 11/21/2015 11/21/2015 [facility] lab results [id number] 11/21/2015 11/21/2015 [facility] lab results [id number] 11/21/2015 11/21/2015 [facility] lab results [id number] 11/21/2015 11/21/2015 [facility] lab results [id number] 11/21/2015 11/21/2015 [facility] lab results [id number] 11/21/2015 11/21/2015 [facility] lab results [id number] 11/21/2015 11/21/2015 [facility] lab results [id number] 11/21/2015 11/21/2015 [facility] blood sugar high [id number] 12/07/2015 12/07/2015 [facility] blood sugar high [id number] 12/07/2015 12/07/2015 [facility] blood sugar high [id number] 12/07/2015 12/07/2015 [facility] blood sugar high [id number] 12/07/2015 12/07/2015 [facility] blood sugar high [id number] 12/07/2015 12/07/2015 [facility] blood sugar high [id number] 12/07/2015 12/07/2015 [facility] blood sugar high [id number] 12/07/2015 12/07/2015 [facility] blood sugar high [id number] 12/07/2015 12/07/2015 [facility] Unknown [id number] 12/19/2015 12/19/2015 [facility] Unknown [id number] 12/19/2015 12/19/2015 [facility] Unknown [id number] 12/19/2015 12/19/2015 [facility] Unknown [id number] 12/19/2015 12/19/2015 [facility] Unknown [id number] 12/19/2015 12/19/2015 [facility] Unknown [id number] 12/19/2015 12/19/2015 [facility] Unknown [id number] 12/19/2015 12/19/2015 [facility] Unknown [id number] 01/23/2016 01/23/2016 [facility] Unknown [id number] 01/23/2016 01/23/2016 [facility] Unknown [id number] 01/23/2016 01/23/2016 [facility] Unknown [id number] 01/23/2016 01/23/2016 [facility] Unknown [id number] 01/23/2016 01/23/2016 [facility] Unknown [id number] 01/23/2016 01/23/2016 [facility] Meds [id number] 03/12/2016 03/12/2016 [facility] Meds [id number] 03/12/2016 03/12/2016 [facility] Meds [id number] 03/12/2016 03/12/2016 [facility] Meds [id number] 03/12/2016 03/12/2016 [facility] Meds [id number] 03/12/2016 03/12/2016 [facility] Unknown [id number] 09/27/2016 09/27/2016 [facility] Unknown [id number] 09/27/2016 09/27/2016 [facility] Unknown [id number] 09/27/2016 09/27/2016 [facility] Unknown [id number] 09/27/2016 09/27/2016 [facility] DIZZINESS [id number] 11/06/2016 11/06/2016 [facility] DIZZINESS [id number] 11/06/2016 11/06/2016 [facility] DIZZINESS [id number] 11/06/2016 11/06/2016 [facility] Unknown [id number] 01/13/2017 01/13/2017 [facility] Unknown [id number] 01/13/2017 01/13/2017 [facility] Unknown [id number] 01/16/2017 01/16/2017 [facility] No Data [...] 06, 2016 Ethnicity . Status , Is khmer your primary language? Yes Nov 06, 2016 [...]
[2019-07-09] MEDS: ALBUTEROL/IPRATROPIUM 3 ML NEB NEB SCH ×3 (15:30→23:00)
--- NOTE | 2019-07-09 16:17 | NUR ---
Insulin not given as no one to co-sign for the insulin at this time. It is not critical and pt has not eaten and is NPO at this time until he gets to the hospital and his brings him food.
[2019-07-09] MEDS ORDERED: INSULIN REGULAR, HUMAN 100 UNIT/1 ML 3ML VIAL SQ SCH (16:30)
--- NOTE | 2019-07-09 17:29 | NUR ---
Called [facility] to transport pt to Room 191
--- NOTE | 2019-07-09 17:37 | NUR ---
Report to WILEY Baugh
[2019-07-09] MEDS ORDERED: METHYLPREDNISOLONE SOD SUCC 125 MG/2ML VIAL IV SCH (18:00)
--- NOTE | 2019-07-09 18:35 | NUR ---
Patient arrived to bed 191 from freestanding ER. Patient placed on the monitor. Patient desaturates to 84% upon exertion despite being on oxygen. Respiratory notified. Dr. Madden notified of patients arrival to the unit.
--- NOTE | 2019-07-09 19:45 | NUR ---
Pt wants to resume his Eliquis and Lipitor tonight. Dr Lisa notified. Meds resumed and administered to pt.
[2019-07-09 20:43] LABS: CREATINE KINASE 71 IU/L (30-200)
[2019-07-09] MEDS ORDERED: ONDANSETRON HCL INJ 2MG/ML 2ML 2 MG/ML VIAL IV PRN (21:00)
[2019-07-09] MEDS ORDERED: ACETAMINOPHEN 325 MG TAB PO PRN (21:00)
[2019-07-09] MEDS ORDERED: ACETAMINOPHEN/CODEINE 300MG - 30MG TAB PO PRN (21:00)
[2019-07-09] MEDS: ATORVASTATIN 20 MG TAB PO SCH (21:20)
[2019-07-09] MEDS: APIXABAN 5 MG TABLET PO SCH (21:20)
[2019-07-09] MEDS: INSULIN LISPRO 100 UNIT/1 ML 3ML VIAL SQ SCH (21:21)
[2019-07-10] VITALS (24 sets, daily range): BP systolic 113–165; BP diastolic 45–96
[2019-07-10] MEDS: ALBUTEROL/IPRATROPIUM 3 ML NEB NEB SCH ×4 (03:30→19:15)
[2019-07-10 05:09] LABS: BASOPHILS % 0.1 % (0.0-1.0); HEMATOCRIT 33.8 % (38.2-49.6); HEMOGLOBIN 10.3 g/dL (14.0-18.0); LYMPHOCYTES # (AUTO) 0.4 (1.0-3.2); LYMPHOCYTES % 3.5 % (18.0-39.1); MEAN CORPUSCULAR HEMOGLOBIN 27.8 pg (28-32); MEAN CORPUSCULAR HGB CONC 30.5 g/dL (31-35); MEAN CORPUSCULAR VOLUME 91.4 fL (81-99); MONOCYTES # (AUTO) 0.3 (0.2-0.8); MONOCYTES % 2.9 % (4.4-11.3); NEUTROPHILS # (AUTO) 9.4 (2.1-6.9); PLATELET COUNT 250 x10e3/uL (140-360)
[2019-07-10 05:33] LABS: CHOL/HDL RATIO 2.7 (3.9-4.7); MAGNESIUM 2.1 MG/DL (1.3-2.1)
[2019-07-10 05:52] LABS: THYROID STIMULATING HORMONE 0.581 uIU/mL (0.350-4.940)
[2019-07-10 05:59] LABS: ANION GAP 17.2 mmol/L (8-16); CREATININE, SERUM 1.46 mg/dL (0.72-1.25); POTASSIUM 5.2 mmol/L (3.5-5.1)
--- NOTE | 2019-07-10 06:11 | NUR ---
Lab results called to Dr. Lisa, new orders received
[2019-07-10] MEDS ORDERED: INSULIN GLARGINE 100 UNITS/ML VIAL SQ ONE (06:15)
--- NOTE | 2019-07-10 06:21 | Diagnostic Imaging Report ---
EXAMINATION: CHEST SINGLE (PORTABLE) INDICATION: Shortness of breath. COMPARISON: 07/09/2019. FINDINGS: TUBES and LINES: None. LUNGS: Suboptimal inspiration. Bilateral pulmonary edema. Bibasilar subsegmental atelectasis PLEURA: Bilateral small pleural effusions, left greater than right. No Pneumothorax. HEART AND MEDIASTINUM: Cardiac size is mildly enlarged. BONES AND SOFT TISSUES: No acute osseous lesion. Soft tissues are unremarkable. UPPER ABDOMEN: No free air under the diaphragm. IMPRESSION: 1. Bilateral pulmonary edema. 2. Bilateral small pleural effusions, left larger than right, associated with atelectasis. Signed by: Dr. Blake Curtis M.D. on 07/10/2019 6:18 AM
[2019-07-10] MEDS: INSULIN LISPRO 100 UNIT/1 ML 3ML VIAL SQ SCH ×4 (07:52→20:50)
[2019-07-10] MEDS: APIXABAN 5 MG TABLET PO SCH ×2 (08:00→20:50)
[2019-07-10] MEDS: AMIODARONE HCL 200 MG TAB PO SCH (08:00)
[2019-07-10] MEDS: NICOTINE 14 MG/EA PATCH TOP SCH (08:00)
[2019-07-10] MEDS ORDERED: FUROSEMIDE INJ 10 MG/ML 4 ML VIAL IV NR (11:00)
[2019-07-10] MEDS ORDERED: SOD POLYSTYRENE SULFONATE SUSP 15 GM/60 ML BTL PO NR (11:00)
[2019-07-10] MEDS: BUPROPION HCL 75 MG TAB PO SCH ×2 (11:15→16:26)
[2019-07-10] MEDS: FAMOTIDINE 20 MG TAB PO SCH (11:15)
[2019-07-10] MEDS ORDERED: CEFTRIAXONE SOD 1 GM/NS 50 ML 50 ML IV SCH (11:45)
--- NOTE | 2019-07-10 13:44 | NUR ---
Nutrition Screen Note RD Recommendation for Physician: Continue diet as ordered Plan of Care: RD following, monitoring for tolerance and adequacy Nutrition reason for involvement: Diagnosis of CHF Primary Diagnose(s):CHF exacerbation, COPD exacerbation PMH: T2DM, hypercholesterolemia, HTN, CKD stage3, Ht:72 in Wt:250lb BMI:33.9 kg/m2 IBW:178lb +/-10% RD Assessment: (06/09/2019) Chart reviewed. Labs and meds reviewed. Initial encounter with patient. 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 Pt denies any wt changes. Pt non compliant with diet at home and refused any diet education. Pt denies any N,V,D, nor has any difficulty chewing or swallowing Current Diet: Cardiac diet Malnutrition Evaluation (07/10/2019) The patient does not meet criteria for a specified degree of malnutrition at this time. Will re-evaluate at follow-up as appropriate. Diet Education Needs Assessment: Diet education offered, but Pt refused. Nutrition Care Level: Low Signed: Tyrone Randall RD, LD, [facility]
[2019-07-10] MEDS ORDERED: INSULIN REGULAR, HUMAN 100 UNIT/1 ML 3ML VIAL IV NR (16:15)
[2019-07-10] MEDS: INSULIN GLARGINE 100 UNITS/ML VIAL SQ NR ×2 (16:27→16:45)
--- NOTE | 2019-07-10 16:53 | NUR ---
0730- Dr. Lisa notified that patients blood sugar is 498. Will continue to monitor. 1600- Patient's family brought in peanut m&ms, chips, and [employer] popcorn from outside. Patient educated on the effects of poor eating habits on his health and educated on alternative snacks. 1620- Dr. Lisa notified that patient's blood sugar is 500. Additional IV insulin dose ordered x1 dose, as well as additional Lantus x1 dose. Family removed snacks from rooms after education about hyperglycemia. Will continue to monitor blood sugars.
[2019-07-10] MEDS ORDERED: METHYLPREDNISOLONE SOD SUCC 40 MG/ML VIAL 1ML IV SCH (18:00)
[2019-07-10] MEDS ORDERED: METHYLPREDNISOLONE SOD SUCC 125 MG/2ML VIAL IV SCH ×2 (18:00)
[2019-07-10] MEDS: ATORVASTATIN 20 MG TAB PO SCH (20:50)
--- NOTE | 2019-07-10 22:50 | NUR ---
pt received from ICU to room 204, AAOx3, no c/o pain/discomfort, on O2 at 6L, call light in reach
--- NOTE | 2019-07-10 22:58 | NUR ---
Report given to WILEY Carballo. Patient transferred to med-surg 204 @6057 by wheelchair with stable condition.
[2019-07-11 06:46] LABS: ANION GAP 14.4 mmol/L (8-16); BLOOD UREA NITROGEN 33 mg/dL (7-26); BUN/CREATININE RATIO 28 (6-25); CALCIUM 9.1 mg/dL (8.4-10.2); CARBON DIOXIDE 30 mmol/L (22-29); CHLORIDE 100 mmol/L (98-107); CREATININE, SERUM 1.18 mg/dL (0.72-1.25); EST GLOMERULAR FILTRATION RATE > 60 ML/MIN (60-); GLUCOSE 172 mg/dL (74-118); POTASSIUM 4.4 mmol/L (3.5-5.1); SODIUM 140 mmol/L (136-145)
[2019-07-11] MEDS: ALBUTEROL/IPRATROPIUM 3 ML NEB NEB SCH ×2 (07:24→20:00)
[2019-07-11] MEDS: INSULIN LISPRO 100 UNIT/1 ML 3ML VIAL SQ SCH ×4 (07:45→20:46)
--- NOTE | 2019-07-11 07:52 | Diagnostic Imaging Report ---
EXAMINATION: CHEST SINGLE (PORTABLE) INDICATION: CHF. COMPARISON: 07/10/2019. FINDINGS: TUBES and LINES: None. LUNGS: Suboptimal inspiration. Bilateral pulmonary edema. Bibasilar subsegmental atelectasis PLEURA: Bilateral small pleural effusions, left greater than right. No Pneumothorax. HEART AND MEDIASTINUM: Cardiac size is mildly enlarged. BONES AND SOFT TISSUES: No acute osseous lesion. UPPER ABDOMEN: No free air under the diaphragm. IMPRESSION: No significant interval change: 1. Bilateral pulmonary edema. 2. Bilateral small pleural effusions, left larger than right, associated with atelectasis. Signed by: Dr. Blake Curtis M.D. on 07/11/2019 7:49 AM
[2019-07-11 08:11] VITALS: BP 137/62
[2019-07-11] MEDS ORDERED: FUROSEMIDE INJ 10 MG/ML 4 ML VIAL IV NR (08:15)
[2019-07-11] MEDS ORDERED: FUROSEMIDE INJ 10 MG/ML 4 ML VIAL ONE (08:24)
[2019-07-11] MEDS: NICOTINE 14 MG/EA PATCH TOP SCH (08:30)
[2019-07-11] MEDS: FAMOTIDINE 20 MG TAB PO SCH (08:30)
[2019-07-11] MEDS: APIXABAN 5 MG TABLET PO SCH ×2 (08:30→20:46)
[2019-07-11] MEDS: BUPROPION HCL 75 MG TAB PO SCH ×2 (08:30→17:32)
[2019-07-11] MEDS: AMIODARONE HCL 200 MG TAB PO SCH (08:30)
[2019-07-11 09:00] VITALS: BP 137/62
[2019-07-11 12:00] VITALS: BP 147/70
[2019-07-11] MEDS: INSULIN GLARGINE 100 UNITS/ML VIAL SQ SCH (12:30)
[2019-07-11 16:00] VITALS: BP 121/89
[2019-07-11] MEDS: FUROSEMIDE INJ 10 MG/ML 4 ML VIAL IV SCH (17:32)
[2019-07-11 20:34] VITALS: BP 146/77
[2019-07-11] MEDS: ATORVASTATIN 20 MG TAB PO SCH (20:46)
[2019-07-11 20:50] VITALS: BP 146/77
[2019-07-12] VITALS (8 sets, daily range): BP systolic 89–167; BP diastolic 64–80
--- NOTE | 2019-07-12 02:20 | NUR ---
pt with heart rate 130-150s, Dr. Lisa called and informed, orders received
--- NOTE | 2019-07-12 02:20 | NUR ---
pt is sitting up on side of bed, no c/o pain/discomfort, no distress noted
[2019-07-12] MEDS ORDERED: METOPROLOL TARTRATE 25 MG TAB PO SCH (02:30)
[2019-07-12] MEDS ORDERED: METOPROLOL TARTRATE INJ 1 MG/ML VIAL IV ONE (02:30)
[2019-07-12 03:16] LABS: BASOPHILS % 0.4 % (0.0-1.0); EOSINOPHILS # (AUTO) 0.3 (0.0-0.4); EOSINOPHILS % 2.6 % (0.0-6.0); HEMATOCRIT 34.3 % (38.2-49.6); HEMOGLOBIN 10.6 g/dL (14.0-18.0); LYMPHOCYTES # (AUTO) 1.1 (1.0-3.2); LYMPHOCYTES % 10.7 % (18.0-39.1); MEAN CORPUSCULAR HEMOGLOBIN 27.7 pg (28-32); MEAN CORPUSCULAR HGB CONC 30.9 g/dL (31-35); MEAN CORPUSCULAR VOLUME 89.8 fL (81-99); MONOCYTES # (AUTO) 0.9 (0.2-0.8); MONOCYTES % 8.7 % (4.4-11.3); NEUTROPHILS # (AUTO) 7.9 (2.1-6.9); NEUTROPHILS % 76.5 % (38.7-80.0); PLATELET COUNT 251 x10e3/uL (140-360); RED BLOOD COUNT 3.82 x10e6/uL (4.3-5.7)
[2019-07-12 03:33] LABS: ANION GAP 12.3 mmol/L (8-16); CREATININE, SERUM 1.21 mg/dL (0.72-1.25); POTASSIUM 4.3 mmol/L (3.5-5.1)
--- NOTE | 2019-07-12 03:41 | NUR ---
pt heart rate 96-116, pt resting in bed, no distress noted, no c/o pain/discomfort
--- NOTE | 2019-07-12 06:27 | Diagnostic Imaging Report ---
EXAMINATION: CHEST SINGLE (PORTABLE) INDICATION: CHF. COMPARISON: 07/11/2019. FINDINGS: TUBES and LINES: None. LUNGS: Bilateral pulmonary edema. Bibasilar subsegmental atelectasis, left greater than right. Bilateral pulmonary venous congestion. PLEURA: Bilateral small pleural effusions, left greater than right. No Pneumothorax. HEART AND MEDIASTINUM: Cardiac size is mildly enlarged. BONES AND SOFT TISSUES: No acute osseous lesion. UPPER ABDOMEN: No free air under the diaphragm. IMPRESSION: Stable examination 1. Bilateral pulmonary edema. 2. Bilateral small pleural effusions, left larger than right, associated with atelectasis. Signed by: Dr. Blake Curtis M.D. on 07/12/2019 6:23 AM
[2019-07-12] MEDS: ALBUTEROL/IPRATROPIUM 3 ML NEB NEB SCH ×2 (07:25→19:45)
[2019-07-12] MEDS: AMIODARONE HCL 200 MG TAB PO SCH (08:25)
[2019-07-12] MEDS: FUROSEMIDE INJ 10 MG/ML 4 ML VIAL IV SCH ×2 (08:25→20:51)
[2019-07-12] MEDS: APIXABAN 5 MG TABLET PO SCH ×2 (08:25→20:51)
[2019-07-12] MEDS: INSULIN GLARGINE 100 UNITS/ML VIAL SQ SCH (08:25)
[2019-07-12] MEDS: BUPROPION HCL 75 MG TAB PO SCH ×2 (08:25→16:49)
[2019-07-12] MEDS: NICOTINE 14 MG/EA PATCH TOP SCH (08:27)
[2019-07-12] MEDS: FAMOTIDINE 20 MG TAB PO SCH (08:27)
[2019-07-12] MEDS: INSULIN LISPRO 100 UNIT/1 ML 3ML VIAL SQ SCH ×4 (08:28→20:57)
--- NOTE | 2019-07-12 12:14 | NUR ---
EDUCATED ABOUT IMM, SIGNED, FILED IN CHART, WITH COPY LEFT WITH FAMILY AT BEDSIDE.
[2019-07-12] MEDS ORDERED: METOLAZONE 5 MG TAB PO ONE (12:30)
[2019-07-12] MEDS ORDERED: FUROSEMIDE INJ 10 MG/ML 4 ML VIAL IV ONE (13:00)
[2019-07-12] MEDS: METOPROLOL TARTRATE 25 MG TAB PO SCH ×2 (13:06→21:00)
[2019-07-12] MEDS ORDERED: FUROSEMIDE INJ 10 MG/ML 4 ML VIAL IV SCH (14:00)
--- NOTE | 2019-07-12 19:20 | NUR ---
Report given to oncoming nurse of patient's status. Resting in bed. Denies pain. O2 high flow 9L NC. Side rails upx2, call light within reach.
--- NOTE | 2019-07-12 19:54 | Consultation ---
DATE OF CONSULTATION: 07/12/2019 Cardiology Consultation REASON FOR CONSULTATION: Shortness of breath. HISTORY OF PRESENT ILLNESS: Mr. Ramírez is a 69-year-old gentleman with past medical history of hypertension, type 2 diabetes, and hypercholesteremia, advanced COPD on 4 L nasal cannula, history of paroxysmal atrial fibrillation on rhythm and rate control along with anticoagulation therapy, prior history of left leg surgery, most recently in March 2019, and history of diastolic heart failure, comes into this institution with progressively worsening dyspnea, malaise, and early exertional fatigue. The patient was discharged home back in March 2019, after his orthopedic surgery to his left leg; however, is taking a while to get back to his usual state. He has been having severe exertional dyspnea with minimal activity and really over the past week his reports that his functional capacity declined. He reports good utilization of his oxygen therapy. Denies any fevers or chills. He denies any exposure to inhalants, dust, etc. He denies any chest pain or discomfort. He came into this institution with ovjju-ut-vhfbhex hypoxic respiratory failure and now is up to 9 L nasal cannula. Overnight, the patient popped into atrial fibrillation with rapid ventricular response and now it was controlled. I had a long discussion with the patient. Overall, he is a fairly difficult historian. PAST MEDICAL HISTORY: 1. Hypertension, essential. 2. Type 2 diabetes. 3. Hypercholesteremia. 4. Chronic obstructive pulmonary disease, on 4 L nasal cannula at home. 5. History of atrial fibrillation, on rate and rhythm control therapy. 6. Obstructive sleep apnea, on CPAP therapy. 7. Obesity. PAST SURGICAL HISTORY: 1. History of right abdominal cyst surgery. 2. History of left tibial fracture repair in March 2019. FAMILY HISTORY: Mother and father in their 80s. Denies any family history of coronary artery disease. SOCIAL HISTORY: He is a one pack per day former smoker, quit about 2 months ago. Denies any alcohol or illicit drug use. ALLERGIES: INCLUDES METFORMIN CAUSING HEADACHES. CURRENT MEDICATIONS: At home include; ProAir inhaler q.4 hours p.r.n., Fosamax 70 mg daily, amiodarone 200 mg daily, atorvastatin 20 mg at bedtime, Wellbutrin 75 mg b.i.d., vitamin D tablet daily, iron sulfate tablet daily, Lasix 20 mg daily, insulin 70/30, 15 units in the p.m., 20 units q.a.m.; lisinopril 2.5 mg daily, magnesium 240 mg daily, metformin 1000 mg b.i.d., Toprol-XL 25 mg b.i.d., Zantac 150 mg daily, senna tablet daily, Spiriva 18 mcg inhaled daily, and Eliquis 5 mg p.o. b.i.d. REVIEW OF SYSTEMS: GENERAL: Denies any fevers, chills, or weight changes. HEENT: No headaches, visual complaints, sore throat, or stuffy nose. RESPIRATORY: Positive for exertional dyspnea, that is exacerbated as above. Denies any productive cough. Does have frequent nonproductive coughing. No pleuritic chest pain. CARDIOVASCULAR: Denies any chest pain. Subjective palpitations with his atrial fibrillation. 2-3 pillow orthopnea. No PND. Positive weight gain and lower extremity edema. GI: Increased abdominal girth. Denies any early satiety, bright red blood per rectum, melena, or hematemesis. : Denies any dysuria. Does have urinary frequency. MUSCULOSKELETAL: Has chronic severe low back pain and bilateral knee pains chronically and swelling in his legs to his mid shins. ENDOCRINE: Denies any heat or cold intolerance. NEUROLOGIC: Denies any focal weakness, numbness, tingling, seizures, headache, TIA, or stroke. PSYCH: Denies any anxiety or depression. PHYSICAL EXAMINATION: VITAL SIGNS: Height of 72 inches, weight of 266 pounds, BMI is 36, temperature of 97.9, pulse of 88, respiratory rate 18, blood pressure of 109/76, and he is 93% on 9 L nasal cannula. GENERAL: Well-nourished, obese gentleman, who is currently in no apparent distress. HEENT: Normocephalic, atraumatic. Pupils are equal, round, and reactive to light. Extraocular movements are intact. Oropharynx is clear. NECK: Positive for JVD. CARDIOVASCULAR: Distant heart sounds. Irregularly irregular rate and rhythm. Normal S1, S2. 2/6 systolic murmur at the left lower sternal border. LUNGS: Show very poor air flow throughout lung edwards and diminished air entry and decreased breath sounds bibasilarly with some crackles. ABDOMEN: Soft, nontender, obese with normoactive bowel sounds. No hepatosplenomegaly. BACK: No costovertebral angle tenderness. EXTREMITIES: Warm with 1+ bilateral radial pulses, 1+ femoral pulses, absent knee pulses. There is 2+ edema to the mid shins bilaterally. NEUROLOGIC: Cranial nerves II through XII are intact. Strength 5/5. Grossly nonfocal. PSYCH: Normal fluent speech. Appropriate affect. No anxiety or delusions. LABORATORY DATA: White count of 10.3, hemoglobin 10.6, hematocrit 34.3, and platelets of 251. Sodium 134, potassium 4.3, chloride 96, bicarb 30, BUN 35, creatinine 1.2, glucose of 201, calcium of 9.0, magnesium of 2.0. TSH is 0.581. BNP was 680 on admission. Chest x-ray reveals pulmonary edema type pattern and small pleural effusions, left greater than right. Admission EKG reveals sinus bradycardia, no ST-T wave changes. Lower extremity venous duplex done, showing no DVT. DIAGNOSES: 1. Zlaqq-dt-vhhvvfk hypoxic respiratory failure: With underlying advanced chronic obstructive pulmonary disease on 4 L nasal cannula at baseline with evidence of sfvtq-qu-gdjhtvr decompensated diastolic heart failure with perhaps superimposed chronic obstructive pulmonary disease exacerbation. 2. Rlnjf-qu-tojpsok decompensated diastolic heart failure. 3. Atrial fibrillation, paroxysmal. 4. Hypertension, essential. 5. Hypercholesterolemia. 6. Obesity. 7. Bilateral lower extremity edema. 8. History of recent left leg operation. PLAN/RECOMMENDATIONS: 1. From a cardiovascular standpoint, we will continue his rate and rhythm control therapy with metoprolol and amiodarone. 2. We will increase his diuretics to Lasix 80 mg t.i.d. and give a one time dose of metolazone to dry him up as much as possible. We need to be aggressive as his oxygen requirements is up because he is currently on 9 L nasal cannula to maintain his oxygenation. 3. We will continue his anticoagulant therapy with Eliquis. 4. Strict I's and O's, daily weights. 5. Check a.m. labs. 6. We will continue to follow this patient. Thank you for this referral. MD JOAN Perez/VIKTOR /[id number]
--- NOTE | 2019-07-12 20:00 | NUR ---
RECEIVED PT SITTING ON THE SIDE OF THE BED AOX3 .DENIES PAIN RESPIRATIONS ARE EVEN AND UNLABORED .CALL LIGHT WITH IN REACH .CONTINUE TO MONITOR
[2019-07-12] MEDS: ATORVASTATIN 20 MG TAB PO SCH (20:51)
[2019-07-13] VITALS (7 sets, daily range): BP systolic 101–143; BP diastolic 50–86
[2019-07-13] MEDS: FUROSEMIDE INJ 10 MG/ML 4 ML VIAL IV SCH ×3 (04:00→22:24)
[2019-07-13 05:03] LABS: BASOPHILS % 0.3 % (0.0-1.0); EOSINOPHILS # (AUTO) 0.4 (0.0-0.4); EOSINOPHILS % 4.2 % (0.0-6.0); HEMATOCRIT 33.2 % (38.2-49.6); HEMOGLOBIN 10.1 g/dL (14.0-18.0); LYMPHOCYTES # (AUTO) 0.8 (1.0-3.2); LYMPHOCYTES % 8.4 % (18.0-39.1); MEAN CORPUSCULAR HEMOGLOBIN 27.7 pg (28-32); MEAN CORPUSCULAR HGB CONC 30.4 g/dL (31-35); MONOCYTES # (AUTO) 0.8 (0.2-0.8); MONOCYTES % 8.6 % (4.4-11.3); NEUTROPHILS # (AUTO) 7.2 (2.1-6.9); NEUTROPHILS % 77.8 % (38.7-80.0); PLATELET COUNT 240 x10e3/uL (140-360); RED BLOOD COUNT 3.65 x10e6/uL (4.3-5.7); RED CELL DISTRIBUTION WIDTH 15.7 % (11.7-14.4)
--- NOTE | 2019-07-13 05:24 | NUR ---
PT RESTING .DENIES PAIN .CALL LIGHT WITH IN REACH .CONTINUE TO MONITOR
[2019-07-13 05:31] LABS: ANION GAP 14.3 mmol/L (8-16); CALCIUM 9.4 mg/dL (8.4-10.2); CREATININE, SERUM 1.42 mg/dL (0.72-1.25); POTASSIUM 4.3 mmol/L (3.5-5.1)
--- NOTE | 2019-07-13 07:05 | NUR ---
Report received. Resting in bed with eyes closed. Arousable to verbal stimuli. Respirations even and unlabored. O2 8L high flow NC. Side rails upx2, call light within reach. Will continue to monitor.
[2019-07-13] MEDS: ALBUTEROL/IPRATROPIUM 3 ML NEB NEB SCH ×2 (07:10→19:05)
--- NOTE | 2019-07-13 07:21 | NUR ---
BEDSIDE REPORT GIVEN TO THE ONCOMING NURSE
[2019-07-13] MEDS: APIXABAN 5 MG TABLET PO SCH ×2 (07:53→22:19)
[2019-07-13] MEDS: FAMOTIDINE 20 MG TAB PO SCH (07:53)
[2019-07-13] MEDS: AMIODARONE HCL 200 MG TAB PO SCH (07:53)
[2019-07-13] MEDS: METOPROLOL TARTRATE 25 MG TAB PO SCH ×2 (07:54→22:19)
[2019-07-13] MEDS: BUPROPION HCL 75 MG TAB PO SCH ×2 (07:55→16:29)
[2019-07-13] MEDS: INSULIN LISPRO 100 UNIT/1 ML 3ML VIAL SQ SCH ×4 (07:55→22:18)
[2019-07-13] MEDS: NICOTINE 14 MG/EA PATCH TOP SCH (07:55)
[2019-07-13] MEDS: INSULIN GLARGINE 100 UNITS/ML VIAL SQ SCH (07:55)
--- NOTE | 2019-07-13 10:34 | Diagnostic Imaging Report ---
EXAMINATION: CHEST SINGLE (PORTABLE) INDICATION: Shortness of breath COMPARISON: Multiple prior chest radiograph, most recently 11/19/2019 FINDINGS: LINES/TUBES:EKG leads overlie the chest. LUNGS:The lung volumes are low. There is perihilar fullness and indistinctness of the pulmonary vasculature. Bibasilar subsegmental atelectasis. PLEURA:Trace left pleural effusion. No pneumothorax. MEDIASTINUM:Cardiomediastinal silhouette is stably enlarged. BONES/SOFT TISSUES:No acute osseous injury. ABDOMEN:No free air under the diaphragm. IMPRESSION: Unchanged pulmonary edema and cardiomegaly. Signed by: Jamison Rendon MD on 07/13/2019 10:30 AM
--- NOTE | 2019-07-13 12:00 | NUR ---
aware of cxray results
[2019-07-13] MEDS: DRONEDARONE 400 MG TAB PO SCH (16:29)
--- NOTE | 2019-07-13 19:00 | NUR ---
Bedside shift report received from previous nurse. Call light within reach. at bedside. patient in bed.
--- NOTE | 2019-07-13 19:23 | NUR ---
Report given to oncoming nurse of patient's status. Resting in bed. No s/s of acute distress noted. Respirations even and unlabored. O2 6L NC. Side rails upx2, call light within reach, at bedside
[2019-07-13] MEDS: ATORVASTATIN 20 MG TAB PO SCH (22:19)
[2019-07-14] VITALS (9 sets, daily range): BP systolic 92–129; BP diastolic 50–62
[2019-07-14 05:22] LABS: BASOPHILS # (AUTO) 0.1 (0.0-0.1); BASOPHILS % 0.5 % (0.0-1.0); EOSINOPHILS # (AUTO) 0.4 (0.0-0.4); EOSINOPHILS % 4.3 % (0.0-6.0); HEMATOCRIT 33.7 % (38.2-49.6); HEMOGLOBIN 10.5 g/dL (14.0-18.0); LYMPHOCYTES % 9.9 % (18.0-39.1); MEAN CORPUSCULAR HEMOGLOBIN 27.6 pg (28-32); MEAN CORPUSCULAR HGB CONC 31.2 g/dL (31-35); MEAN CORPUSCULAR VOLUME 88.5 fL (81-99); MONOCYTES # (AUTO) 0.8 (0.2-0.8); MONOCYTES % 8.6 % (4.4-11.3); NEUTROPHILS # (AUTO) 7.4 (2.1-6.9); NEUTROPHILS % 75.5 % (38.7-80.0); PLATELET COUNT 263 x10e3/uL (140-360); RED BLOOD COUNT 3.81 x10e6/uL (4.3-5.7); RED CELL DISTRIBUTION WIDTH 15.4 % (11.7-14.4)
[2019-07-14 05:41] LABS: ALBUMIN 3.2 g/dL (3.5-5.0); ALBUMIN/GLOBULIN RATIO 0.8 (0.8-2.0); ANION GAP 12.9 mmol/L (8-16); CALCIUM 9.6 mg/dL (8.4-10.2); CREATININE, SERUM 1.31 mg/dL (0.72-1.25); POTASSIUM 3.9 mmol/L (3.5-5.1)
[2019-07-14] MEDS: ALBUTEROL/IPRATROPIUM 3 ML NEB NEB SCH ×2 (07:05→19:10)
--- NOTE | 2019-07-14 07:27 | NUR ---
GAVE BEDSHIFT REPORT TO ONCOMING NURSE. PATIENT SITTING AT CORNER OF BED. CALL LIGHT WITHIN REACH.
[2019-07-14] MEDS: INSULIN LISPRO 100 UNIT/1 ML 3ML VIAL SQ SCH ×4 (07:30→21:45)
[2019-07-14] MEDS: INSULIN GLARGINE 100 UNITS/ML VIAL SQ SCH (09:00)
[2019-07-14] MEDS: FUROSEMIDE INJ 10 MG/ML 4 ML VIAL IV SCH ×2 (09:00→21:45)
[2019-07-14] MEDS: DRONEDARONE 400 MG TAB PO SCH ×2 (09:22→18:01)
[2019-07-14] MEDS: NICOTINE 14 MG/EA PATCH TOP SCH (09:22)
[2019-07-14] MEDS: METOPROLOL TARTRATE 25 MG TAB PO SCH ×2 (09:22→21:45)
[2019-07-14] MEDS: APIXABAN 5 MG TABLET PO SCH ×2 (09:22→21:45)
[2019-07-14] MEDS: FAMOTIDINE 20 MG TAB PO SCH (09:22)
[2019-07-14] MEDS: BUPROPION HCL 75 MG TAB PO SCH ×2 (09:22→18:01)
--- NOTE | 2019-07-14 11:06 | NUR ---
EDUCATED ABOUT IMM, SIGNED, FILED IN CHART, WITH COPY LEFT WITH FAMILY AT BEDSIDE.
[2019-07-14] MEDS ORDERED: ONDANSETRON HCL 4 MG ORAL DISINTEGRATING TAB PO PRN (16:00)
[2019-07-14] MEDS: ATORVASTATIN 20 MG TAB PO SCH (21:45)
--- NOTE | 2019-07-14 21:50 | NUR ---
PATIENT IS AOX4, NO DISTRESS NOTED. PATIENT RECEIVING RESPIRATORY TREATMENT AND NIGHT MEDICATIONS ARE GIVEN ORDERED. NASAL CANNULA IS INTACT AND FLOWING, BED LOCKED IN LOWEST POSITION, CALL LIGHT WITHIN EASY REACH, WILL CONTINUE TO MONITOR.
[2019-07-15] VITALS: BP 123/58
[2019-07-15 04:00] VITALS: BP 120/56
[2019-07-15 05:33] LABS: ANION GAP 15.6 mmol/L (8-16); CALCIUM 9.8 mg/dL (8.4-10.2); CREATININE, SERUM 1.34 mg/dL (0.72-1.25); POTASSIUM 3.6 mmol/L (3.5-5.1)
--- NOTE | 2019-07-15 06:14 | Diagnostic Imaging Report ---
A single frontal view of the chest. HISTORY: Shortness of breath, CHF exacerbation COMPARISON: Chest radiograph July 13, 2019 DISCUSSION: Portable technique, limits sensitivity of the exam. Soft tissue attenuation partially limits sensitivity of the exam. Overlying monitoring leads. Tubes/Lines: None Lungs and pleura: Prominent diffusely increased interstitial markings and patchy airspace opacities. Mild left basilar atelectasis.. Probable small left pleural effusion. Heart and mediastinum: The cardiac silhouette and central pulmonary vasculature appear(s) enlarged. Bones and soft tissues: Appear unremarkable, given this limited exam. IMPRESSION: 1. Findings compatible with moderate to severe pulmonary edema. 2. Small left pleural effusion with adjacent atelectasis. Signed by: Dr. Remington Ruiz D.O., M.M.M. on 07/15/2019 6:10 AM
[2019-07-15] MEDS: ALBUTEROL/IPRATROPIUM 3 ML NEB NEB SCH (07:16)
[2019-07-15 08:30] VITALS: BP 109/53
[2019-07-15 09:00] VITALS: BP 109/53
[2019-07-15] MEDS: METOPROLOL TARTRATE 25 MG TAB PO SCH (09:00)
[2019-07-15] MEDS: DRONEDARONE 400 MG TAB PO SCH ×2 (09:12→17:09)
[2019-07-15] MEDS: FUROSEMIDE INJ 10 MG/ML 4 ML VIAL IV SCH (09:12)
[2019-07-15] MEDS: INSULIN LISPRO 100 UNIT/1 ML 3ML VIAL SQ SCH ×3 (09:12→17:09)
[2019-07-15] MEDS: APIXABAN 5 MG TABLET PO SCH (09:12)
[2019-07-15] MEDS: BUPROPION HCL 75 MG TAB PO SCH ×2 (09:12→17:09)
[2019-07-15] MEDS: FAMOTIDINE 20 MG TAB PO SCH (09:12)
[2019-07-15] MEDS: INSULIN GLARGINE 100 UNITS/ML VIAL SQ SCH (09:13)
[2019-07-15] MEDS: NICOTINE 14 MG/EA PATCH TOP SCH (09:13)
[2019-07-15 12:03] VITALS: BP 116/68
[2019-07-15 16:42] VITALS: BP 114/56
[2019-07-15] MEDS ORDERED: LASIX40 MG PO (17:49)
--- NOTE | 2019-07-15 20:14 | Discharge Summary ---
PRIMARY CARE DOCTOR: Praomd Santamaria MD FINAL DIAGNOSIS: Acute pulmonary edema. SECONDARY DIAGNOSES: 1. Chronic respiratory failure on home oxygen due to chronic obstructive pulmonary disease. 2. Diabetes. 3. Paroxysmal atrial fibrillation with rapid ventricular response, resolved. 4. Coronary artery disease. 5. Diastolic congestive heart failure. 6. Hypertension. 7. Stage 3 chronic kidney disease due to diabetes. CONSULTANTS: Dr. Romeo, Cardiology. PROCEDURES/STUDIES PERFORMED: 1. Bilateral lower extremity venous Doppler which was negative. 2. Echocardiogram preliminary shows normal EF. HISTORY: Per dictated H and P. HOSPITAL COURSE: The patient was admitted with acute respiratory distress due to acute pulmonary edema. The patient has baseline chronic respiratory failure. Normally he is on 4 L of oxygen at home. At the time of admission, the patient was on 6 L of oxygen. Initially despite IV diuresis with IV Lasix, his oxygen requirement went up to 9 L/minute. The patient was evaluated by Cardiology. His IV Lasix was increased. Fortunately, his creatinine was able to tolerate the increase in IV Lasix and the patient diuresed well. He had a net negative of 7 L during this hospitalization. At this time, the patient is back down to 4 L of oxygen requirement, therefore he is going home today. We will increase his p.o. Lasix at home to 40 mg twice a day and also given his COPD, the memorial adviser switched his amiodarone to Multaq. The patient is on Eliquis for atrial fibrillation, stroke prophylaxis and he received Eliquis for chemical DVT prophylaxis during this hospitalization. The patient will follow up with his primary care doctor. I have also updated his primary care doctor about this hospitalization. The patient was seen and examined today. It took 33 minutes total to discharge this patient. CONDITION ON DISCHARGE: Improved. DISCHARGE MEDICATIONS: Please see medication reconciliation form. MD GLORIA Perea/VIKTOR /[id number] cc: [facility]
== END 2019-07-15 18:04 | disposition home or self-care (01) | DRG 189 ==
LOC: FSED 09:46 → ERHOLD 11:48 → ICU 18:40 → MED/SURG2 07-10 22:47
PROVIDERS: ADMIT Internal Medicine; ATTEND Internal Medicine
DX: J81.0 Acute pulmonary edema (principal); J44.1 Chronic obstructive pulmonary disease with (acute) exacerbation; J96.10 Chronic respiratory failure, unspecified whether with hypoxia or hypercapnia; I13.0 Hypertensive heart and chronic kidney disease with heart failure and stage 1 through stage 4 chronic kidney disease, or unspecified chronic kidney disease; N17.9 Acute kidney failure, unspecified; I50.32 Chronic diastolic (congestive) heart failure; E11.9 Type 2 diabetes mellitus without complications; I48.0 Paroxysmal atrial fibrillation; Z79.01 Long term (current) use of anticoagulants; N18.3 Chronic kidney disease, stage 3 (moderate); E11.22 Type 2 diabetes mellitus with diabetic chronic kidney disease; Z79.4 Long term (current) use of insulin; I25.10 Atherosclerotic heart disease of native coronary artery without angina pectoris; E11.65 Type 2 diabetes mellitus with hyperglycemia
CPT/HCPCS: 36415; 71045; 71046; 80048; 80053; 80061; 80076; 82550; 82553; 82948; 83036; 83735; 83880; 84443; 84484; 85025; 85379; 87040; 93005; 93306; 93970; 94640; 96372; 96374; 96375; 99284; J0696; J1815; J1817; J1940; J2930

== ENCOUNTER 2019-11-03 10:06 | Inpatient (IN) | payer MEDICARE ==
[~2019-11-03] VITALS: Ht 182.9 cm; Wt 122.9 kg
[~2019-11-03 10:06] MED LIST changes: +LASIX40 MG PO
[2019-11-03] MEDS ORDERED: FAMOTIDINE 20 MG/2 ML VIAL IV STA (10:14)
[2019-11-03] MEDS ORDERED: ALBUTEROL SULF 0.083% NEB SOLN 3 ML NEB NEB STA (10:14)
[2019-11-03] MEDS ORDERED: IPRATROPIUM BROMIDE 0.02% 2.5 ML NEB NEB STA (10:14)
[2019-11-03] MEDS ORDERED: PIPER-TAZ 3.375 GM 50 ML IV STA (10:14)
[2019-11-03] MEDS ORDERED: DEXTROSE 50% SYRINGE 50 ML IV PRN (10:30)
[2019-11-03 10:50] LABS: BASOPHILS % 0.4 % (0.0-1.0); EOSINOPHILS # (AUTO) 0.2 (0.0-0.4); HEMATOCRIT 34.7 % (38.2-49.6); HEMOGLOBIN 10.9 g/dL (14.0-18.0); LYMPHOCYTES # (AUTO) 0.9 (1.0-3.2); LYMPHOCYTES % 9.7 % (18.0-39.1); MEAN CORPUSCULAR HEMOGLOBIN 27.7 pg (28-32); MEAN CORPUSCULAR HGB CONC 31.4 g/dL (31-35); MEAN CORPUSCULAR VOLUME 88.1 fL (81-99); MONOCYTES # (AUTO) 0.6 (0.2-0.8); MONOCYTES % 6.2 % (4.4-11.3); NEUTROPHILS # (AUTO) 7.6 (2.1-6.9); NEUTROPHILS % 80.4 % (38.7-80.0); PLATELET COUNT 332 x10e3/uL (140-360); RED BLOOD COUNT 3.94 x10e6/uL (4.3-5.7); RED CELL DISTRIBUTION WIDTH 14.8 % (11.7-14.4)
[2019-11-03] MEDS ORDERED: METHYLPREDNISOLONE SOD SUCC 125 MG/2ML VIAL IV STA (10:59)
[2019-11-03] MEDS ORDERED: PIPER-TAZ 3.375 GM 50 ML IV SCH (11:00)
[2019-11-03 11:06] LABS: INR 1.01; PROTHROMBIN TIME 13.8 seconds (11.9-14.5)
[2019-11-03] MEDS ORDERED: FUROSEMIDE INJ 10 MG/ML 2 ML VIAL IV ONE (11:10)
--- NOTE | 2019-11-03 11:15 | Diagnostic Imaging Report ---
Chest, 1 view, 11/03/2019. History: Shortness of breath. Comparison: 07/15/2019. Findings: The cardiomediastinal silhouette and pulmonary vasculature are prominent with hazy bilateral perihilar and bibasilar opacities which partially obscure the hemidiaphragms. There are no acute osseous or soft tissue abnormalities. Impression: CHF, slightly increased compared to prior exam. Signed by: Fadi Rose on 11/03/2019 11:12 AM
[2019-11-03 11:24] LABS: ABG PCO2 56 mmHg (41-51); ABG PH 7.38 (7.31-7.41); ABG PO2 50 mmHg (80-105)
[2019-11-03 11:25] LABS: ABG HCO3 33 mmol/L (23-28)
[2019-11-03] MEDS ORDERED: FUROSEMIDE INJ 10 MG/ML 4 ML VIAL IV ONE (11:30)
[2019-11-03 11:31] LABS: ALBUMIN 3.3 g/dL (3.5-5.0); ALBUMIN/GLOBULIN RATIO 0.7 (0.8-2.0); ANION GAP 16.7 mmol/L (8-16); CALCIUM 10.1 mg/dL (8.4-10.2); CREATININE, SERUM 2.1 mg/dL (0.72-1.25); POTASSIUM 4.7 mmol/L (3.5-5.1)
[2019-11-03] MEDS: INSULIN REGULAR, HUMAN 100 UNIT/1 ML 3ML VIAL SQ SCH ×3 (11:47→20:27)
[2019-11-03 11:57] LABS: CREATINE KINASE MB 4.3 ng/mL (0-5.0); THYROID STIMULATING HORMONE 2.561 uIU/mL (0.350-4.940)
[2019-11-03 11:59] LABS: BILIRUBIN,URINE NEGATIVE (NEGATIVE); CLARITY,URINE CLEAR (CLEAR); COLOR,URINE YELLOW (YELLOW); KETONES,URINE NEGATIVE (NEGATIVE); LEUKOCYTE ESTERASE ,URINE TRACE (NEGATIVE); NITRITE,URINE NEGATIVE (NEGATIVE); PROTEIN,URINE DIPSTICK NEGATIVE (NEGATIVE); URINE UROBILINOGEN 0.2 mg/dL (0.2 - 1)
[2019-11-03 12:10] LABS: BACTERIA,URINE MODERATE /HPF; EPITHELIAL CELLS,URINE MODERATE /LPF; RBC,URINE 0-5 /HPF (0-5); WBC,URINE (MAN) >50 /HPF (0-5)
[2019-11-03] MEDS ORDERED: ALBUTEROL SULFATE HFA 8GM INHALATION AEROSOL INH PRN (14:45)
[2019-11-03] MEDS ORDERED: ACETAMINOPHEN/CODEINE 300MG - 30MG TAB PO PRN (14:45)
[2019-11-03] MEDS ORDERED: NON-FORMULARY MEDICATION (Insuln Asp Prt/Insulin Aspart (Novolog Mix 70-30 Flexpen Syrn) 1 SQ SCH (16:30)
[2019-11-03] MEDS ORDERED: METFORMIN HCL 500 MG TAB PO SCH (17:00)
[2019-11-03] MEDS ORDERED: NON-FORMULARY MEDICATION (Bupropion Hcl 75 MG) PO SCH (17:00)
--- NOTE | 2019-11-03 17:43 | Diagnostic Imaging Report ---
Renal ultrasound, 11/03/2019. History: Renal insufficiency. Discussion: Transverse and longitudinal images of the kidneys were obtained demonstrating normal renal sizes and echogenicities. There is no evidence of hydronephrosis, mass, or renal calculus. The right kidney measures 11 cm and the left kidney measures 11.3 cm in length. Renal cortex measures 1.8 and 2.6 cm respectively. The urinary bladder is unremarkable. Bladder volume measures 255 mL. There is no evidence of free fluid. IMPRESSION: Normal renal ultrasound. Signed by: Fadi Rose on 11/03/2019 5:40 PM
[2019-11-03] MEDS: INSULIN ASPART 70/30 100 UNITS/ML VIAL SC SCH (17:45)
[2019-11-03] MEDS: BUPROPION HCL 75 MG TAB PO SCH (17:46)
[2019-11-03] MEDS: METOPROLOL SUCCINATE 25 MG TAB XL PO SCH (17:46)
[2019-11-03] MEDS: METFORMIN HCL 500 MG TAB PO SCH (17:46)
[2019-11-03] MEDS: APIXABAN 5 MG TABLET PO SCH (17:46)
[2019-11-03] MEDS: FAMOTIDINE 20 MG/2 ML VIAL IV SCH (17:46)
[2019-11-03] MEDS: METHYLPREDNISOLONE SOD SUCC 125 MG/2ML VIAL IV SCH (17:47)
[2019-11-03 19:30] LABS: ANION GAP 14.7 mmol/L (8-16); CALCIUM 9.6 mg/dL (8.4-10.2); CREATININE, SERUM 2.16 mg/dL (0.72-1.25); POTASSIUM 4.7 mmol/L (3.5-5.1)
[2019-11-03 19:51] LABS: CREATINE KINASE MB 4.6 ng/mL (0-5.0)
[2019-11-03] MEDS: PIPER-TAZ 3.375 GM 50 ML IV SCH (20:39)
[2019-11-03] MEDS: ATORVASTATIN 20 MG TAB PO SCH (20:39)
[2019-11-03] MEDS ORDERED: INSULIN GLARGINE 100 UNITS/ML VIAL SQ ONE (21:00)
--- NOTE | 2019-11-03 22:37 | History and Physical ---
PRIMARY CARE PHYSICIAN: Dr. Santamaria with [facility]. CHIEF COMPLAINT: Shortness of breath and edema in the lower extremities. HISTORY OF PRESENT ILLNESS: This is a 69-year-old male with past medical history of hypertension, high cholesterol, atrial fibrillation, CAD, diabetes, CHF, CKD, and COPD, presented to the ER with complaints of shortness of breath and hypoxia. He reports having shortness of breath for the past week. He denies any cough, fever, chills, chest pain. He reports increasing his O2 to 5 L with no improvement. PAST MEDICAL HISTORY: 1. Hypertension. 2. High cholesterol. 3. Atrial fibrillation. 4. Diastolic CHF. 5. COPD. 6. Diabetes. 7. CAD. 8. CKD III. SURGICAL HISTORY: Left tibial surgery about a few months ago. FAMILY MEDICAL HISTORY: Unknown. SOCIAL HISTORY: He quit smoking one month ago. Also alcohol use stopped about a week ago. He denies any illicit drug use. He lives with . ALLERGIES: NO KNOWN ALLERGIES. REVIEW OF SYSTEMS: GENERAL: Fatigue. NECK: Supple. LUNGS: No shortness of breath. CARDIOVASCULAR: No chest pains or palpitations. GI : No nausea, vomiting. NEUROLOGIC: Alert, oriented. MUSCULOSKELETAL: Lower extremity edema. PHYSICAL EXAMINATION: VITAL SIGNS: Temperature 98.7, pulse 51, respirations 18, blood pressure is 140/62, pulse ox is 97% on BiPAP. LABORATORY DATA AND IMAGING: WBC 9.46, hemoglobin is 10.9, hematocrit is 34.7, and platelet is 332. Blood gases pH is 7.38, CO2 56, PO2 is 50, bicarb 33, saturation 83% on room air. Chemistry sodium is 138, potassium is 4.7, creatinine is 2.1, BUN is 41, glucose 194. BNP is 469. Lipase is 38. TSH is 2.561. PT is 13.8, APTT is 37.0. Urine is clear with glucose and trace leukocyte esterase, WBC and bacteria. Influenza A and B are negative. Cultures, blood culture and urine cultures are pending. IMAGING: Chest x-ray showed CHF, slightly increased compared to prior exam. IMPRESSION AND PLAN: 1. Acute respiratory distress due to CHF versus COPD exacerbation. He was started on BiPAP, steroids, and Lasix was given in the ER. We will do echo cardiogram. Last echo was within normal limits with diastolic congestive heart failure. 2. Hypertension. We will resume metoprolol. 3. Atrial fibrillation, currently bradycardic. We will continue Eliquis for CVA prophylaxis and amiodarone drip. 4. History of chronic obstructive pulmonary disease. We will resume duonebs and BiPAP. 5. Diabetes sliding scale insulin coverage. 6. CKD III creatinine is 2.1. Last creatinine here in July was 1.34. Renal ultrasound ordered. 7. HLD, continue statin. 8. Pyuria. Urine culture pending. Continue Zosyn. 9. Smoker. Nicotine patch as needed. 10. Deep vein thrombosis prophylaxis. The patient is on Eliquis. The plan is to continue with Lasix IV, Cardiology consulted. Dictated by GARY Barbosa Alicia Lisa MD MY/MODL /[id number] Seen and examined on 11/03/19. Agree with the findings and plan as documented by GARY Bills. MTDD
[2019-11-03 23:00] VITALS: BP 123/52
[2019-11-03 23:08] VITALS: BP 123/52
[2019-11-04] VITALS (14 sets, daily range): BP systolic 99–136; BP diastolic 43–81
[2019-11-04] MEDS: METHYLPREDNISOLONE SOD SUCC 125 MG/2ML VIAL IV SCH ×3 (00:32→11:14)
[2019-11-04 05:36] LABS: BASOPHILS % 0.1 % (0.0-1.0); HEMATOCRIT 30.5 % (38.2-49.6); HEMOGLOBIN 9.7 g/dL (14.0-18.0); LYMPHOCYTES # (AUTO) 0.4 (1.0-3.2); LYMPHOCYTES % 3.7 % (18.0-39.1); MEAN CORPUSCULAR HEMOGLOBIN 27.3 pg (28-32); MEAN CORPUSCULAR HGB CONC 31.8 g/dL (31-35); MEAN CORPUSCULAR VOLUME 85.9 fL (81-99); MONOCYTES # (AUTO) 0.2 (0.2-0.8); MONOCYTES % 1.4 % (4.4-11.3); NEUTROPHILS # (AUTO) 10.5 (2.1-6.9); NEUTROPHILS % 93.7 % (38.7-80.0); PLATELET COUNT 261 x10e3/uL (140-360); RED BLOOD COUNT 3.55 x10e6/uL (4.3-5.7); RED CELL DISTRIBUTION WIDTH 14.6 % (11.7-14.4)
[2019-11-04 06:01] LABS: ALBUMIN 2.8 g/dL (3.5-5.0); ALBUMIN/GLOBULIN RATIO 0.7 (0.8-2.0); ANION GAP 12.4 mmol/L (8-16); CALCIUM 9.3 mg/dL (8.4-10.2); CREATININE, SERUM 2.01 mg/dL (0.72-1.25); MAGNESIUM 2.1 MG/DL (1.3-2.1); PHOSPHORUS 3.9 MG/DL (2.3-4.7); POTASSIUM 4.4 mmol/L (3.5-5.1)
[2019-11-04] MEDS ORDERED: FAMOTIDINE 20 MG TAB PO SCH (07:30)
[2019-11-04] MEDS: METFORMIN HCL 500 MG TAB PO SCH (08:07)
[2019-11-04] MEDS: FUROSEMIDE INJ 10 MG/ML 4 ML VIAL IV SCH ×2 (08:08→21:01)
[2019-11-04] MEDS: PIPER-TAZ 3.375 GM 50 ML IV SCH ×2 (08:10→21:00)
[2019-11-04] MEDS: FERROUS SULFATE 325 MG TAB PO SCH (08:10)
[2019-11-04] MEDS: APIXABAN 5 MG TABLET PO SCH ×2 (08:10→16:19)
[2019-11-04] MEDS: FAMOTIDINE 20 MG/2 ML VIAL IV SCH (08:10)
[2019-11-04] MEDS: MAGNESIUM OXIDE 400 MG TAB PO SCH (08:10)
[2019-11-04] MEDS: BUPROPION HCL 75 MG TAB PO SCH ×2 (08:11→16:20)
[2019-11-04] MEDS: METOPROLOL SUCCINATE 25 MG TAB XL PO SCH ×2 (08:11→16:20)
[2019-11-04] MEDS: NICOTINE 21 MG/EA PATCH TOP SCH (08:11)
[2019-11-04] MEDS: CHOLECALCIFEROL 1,000 UNIT TAB PO SCH (08:11)
[2019-11-04] MEDS: INSULIN REGULAR, HUMAN 100 UNIT/1 ML 3ML VIAL SQ SCH ×4 (08:13→21:00)
[2019-11-04] MEDS ORDERED: NON-FORMULARY MEDICATION (Ranitidine Hcl 150 MG) PO SCH (09:00)
[2019-11-04] MEDS ORDERED: AMIODARONE HCL 200 MG TAB PO SCH (09:00)
[2019-11-04] MEDS ORDERED: INSULIN GLARGINE 100 UNITS/ML VIAL SQ SCH (11:30)
[2019-11-04] MEDS: TIOTROPIUM 18 MCG INH POWDER INH SCH (14:33)
[2019-11-04] MEDS: INSULIN ASPART 70/30 100 UNITS/ML VIAL SC SCH (16:39)
--- NOTE | 2019-11-04 18:00 | Progress Note ---
DATE: 11/04/2019 CONSULT: Dr. Romeo with Cardiology. CHIEF COMPLAINT: Shortness of breath and edema in the lower extremities. SUBJECTIVE: He is resting in bed with no acute distress. Looks much more awake and alert with less respiratory distress. Currently on nasal cannula, weaned off BiPAP. He denies any chest pain, cough, nausea, vomiting, fever, chills, or palpitations. OBJECTIVE: VITAL SIGNS: Temperature is 97.7, pulse is 61, respirations 18, blood pressure 102/72, pulse ox 100% on 5 L nasal cannula. GENERAL: No acute distress. HEENT: Normocephalic, atraumatic. NECK: Supple. CARDIOVASCULAR: Regular rate and rhythm. LUNGS: Wheezing with some crackles in the lower bases. ABDOMEN: Soft and nontender. Obese. NEUROLOGIC: Alert, awake, and oriented x3. MUSCULOSKELETAL: Moves all extremities with 2+ edema in the lower extremities. SKIN: Dry and intact. LABORATORY DATA: WBC 11.15, hemoglobin 9.7, hematocrit 30 and platelets 261. Chemistry; sodium 136, potassium 4.4, CO2 of 32, BUN 46, creatinine is 2.01, estimated GFR is 33. Lipase 38. TSH 2.56. Microbiology negative so far of urine and blood cultures. ASSESSMENT AND PLAN: 1. Acute respiratory distress due to chronic obstructive pulmonary disease exacerbation. He was started on BiPAP, steroids, Lasix was given in the ER. He is weaned off the BiPAP, saturating well on nasal cannula. Improving dyspnea. 2. History of diastolic congestive heart failure. Echo is pending, Cardiology has been consulted. 3. Hypertension. We will continue home medications. 4. Atrial fibrillation. Continue beta-blockers and Eliquis for cerebrovascular accident prophylaxis. Amiodarone 100 mg daily. 5. Diabetes. We will continue with sliding scale insulin coverage. 6. Chronic kidney disease 3. Creatinine is 2.1. Renal ultrasound was unremarkable, we will continue to monitor. 7. Anemia of chronic disease. We will monitor closely. We will check iron studies. 8. High cholesterol. Continue statin. 9. Pyuria. Urine culture negative so far. Continue Zosyn. 10. Deep vein thrombosis prophylaxis. Continue Eliquis. 11. Disposition: Home possibly tomorrow if continues to improve. Dictated by GARY Barbosa Yiching Douglas Lisa MD MY/MODL /[id number] Seen and examined, Lantus for DM with hyperglycemia. Agree with the findings and plan as documented by GARY Bills. DENNYSD
[2019-11-04] MEDS: INSULIN GLARGINE 100 UNITS/ML VIAL SQ SCH (20:59)
[2019-11-04] MEDS ORDERED: METHYLPREDNISOLONE SOD SUCC 125 MG/2ML VIAL IV SCH (21:00)
[2019-11-04] MEDS: ATORVASTATIN 20 MG TAB PO SCH (21:00)
[2019-11-04] MEDS: METHYLPREDNISOLONE SOD SUCC 40 MG/ML VIAL 1ML IV SCH (21:01)
[2019-11-05] VITALS (7 sets, daily range): BP systolic 100–133; BP diastolic 35–63
--- NOTE | 2019-11-05 01:22 | Consultation ---
DATE OF CONSULTATION: 11/04/2019 Cardiac Consultation. REASON FOR CONSULTATION: Respiratory distress, congestive heart failure, advanced COPD, diastolic CHF. HISTORY OF PRESENT ILLNESS: A 69-year-old gentleman who is known with hypertension, diabetes mellitus, hypercholesteremia, very very severe advanced COPD with CO2 retention on chronic 4 L nasal cannula of oxygen at home. Furthermore, the patient is known to have paroxysmal atrial fibrillation, on Eliquis in addition to left leg surgery. The patient had several admissions with worsening COPD and possible volume overload with diastolic dysfunction. The patient takes his medication as described. He came to the emergency room because of worsening shortness of breath and severe hypoxemia. Despite being on 5 L nasal cannula. Despite all of that, he continued to have severe shortness of breath and he cannot breathe. He came to the emergency room, maintained on BiPAP, given treatment, nebulizers and steroids as well as diuretics and now he is back on his oxygen. The patient denied having any angina. PAST MEDICAL HISTORY: 1. Hypertension. 2. Diabetes mellitus. 3. Hypercholesterolemia. 4. Chronic obstructive pulmonary disease with chronic hypoxemia on chronic 4 L nasal cannula at baseline. 5. History of atrial fibrillation. 6. Obstructive sleep apnea. 7. Obesity. 8. Right abdominal cyst surgery. 9. Left tibial fracture repair in March 2019. 10. Chronic kidney disease, class 3. FAMILY HISTORY: Mother and father in their 80s. SOCIAL HISTORY: He is a smoker just stopped earlier this year. He is non-alcohol drinker. ALLERGIES: METFORMIN CAUSING HIM TO HAVE HEADACHES. CURRENT MEDICATIONS: Include metoprolol succinate 25 mg twice a day, apixaban 5 mg twice a day, amiodarone 200 mg a day, atorvastatin 20 mg a day, Lasix 40 mg IV every 12 hours. The patient back on his metformin at 1000 mg twice a day, 75 mg twice a day, iron sulfate. The patient following admission is on antibiotics, methylprednisone, and aggressive nebulizer treatment and he is also on insulin. PHYSICAL EXAMINATION: VITAL SIGNS: Height of 6 feet. Weight of 271 pounds. Blood pressure 120/50, heart rate of 80, respiratory rate of 18. HEENT: Pupils are reactive. NECK: No elevation of jugular venous pulsation. CHEST: Decreased lung expansion with increased expiratory phase. HEART: PMI 5th left intercostal space. Increased intensity of 2nd heart sound. Normal rate. ABDOMEN: Soft. No organomegaly. No abdominal bruits. EXTREMITIES: Minimal edema. Decreased radial pulses and femoral pulses. Absent below knee pulses. Other finding, pacemaker is in place. LABORATORY DATA: Sodium of 136, potassium 4.4, BUN of 46, creatinine of 2, and BNP of 470. ABGs on 4 L nasal cannula, pH of 7.38, pCO2 of 56, PO2 of 58. Chest x-ray showing hyperinflated lungs. The cardiac enzymes are normal. IMPRESSION AND PLAN: 1. Exacerbation of COPD with acute respiratory distress with hypoxemia, treated successfully with steroids and nebulizer and covered with antibiotics. 2. History of left ventricular diastolic dysfunction. 3. Hypertension. 4. Paroxysmal atrial fibrillation. 5. Diabetes mellitus. 6. Chronic kidney disease. 7. Hyperlipidemia. 8. A smoker, although he said he has stopped, but probably it seems he going to back smoking. Cardiac thapa, my recommendation is aggressive pulmonary care as done. Diuretics will be helpful. Continuation of the small dose of beta yemi, decreasing amiodarone to 100 mg per day because of fear of pulmonary toxicity. Continuation of apixaban 5 mg twice a day and statin. I will follow the patient's progression with you. MD GENNY Tejeda/VIKTOR /[id number]
[2019-11-05] MEDS: TIOTROPIUM 18 MCG INH POWDER INH SCH (05:16)
[2019-11-05 05:30] LABS: ANION GAP 12.6 mmol/L (8-16); CALCIUM 9.1 mg/dL (8.4-10.2); CREATININE, SERUM 2.03 mg/dL (0.72-1.25); POTASSIUM 4.6 mmol/L (3.5-5.1)
[2019-11-05] MEDS: METHYLPREDNISOLONE SOD SUCC 40 MG/ML VIAL 1ML IV SCH (08:06)
[2019-11-05] MEDS: NICOTINE 21 MG/EA PATCH TOP SCH (08:06)
[2019-11-05] MEDS: CHOLECALCIFEROL 1,000 UNIT TAB PO SCH (08:06)
[2019-11-05] MEDS: PIPER-TAZ 3.375 GM 50 ML IV SCH (08:06)
[2019-11-05] MEDS: BUPROPION HCL 75 MG TAB PO SCH ×2 (08:06→16:48)
[2019-11-05] MEDS: FUROSEMIDE INJ 10 MG/ML 4 ML VIAL IV SCH (08:06)
[2019-11-05] MEDS: AMIODARONE HCL 200 MG TAB PO SCH (08:06)
[2019-11-05] MEDS: APIXABAN 5 MG TABLET PO SCH ×2 (08:06→16:48)
[2019-11-05] MEDS: MAGNESIUM OXIDE 400 MG TAB PO SCH (08:06)
[2019-11-05] MEDS: FERROUS SULFATE 325 MG TAB PO SCH (08:06)
[2019-11-05] MEDS: INSULIN REGULAR, HUMAN 100 UNIT/1 ML 3ML VIAL SQ SCH (08:16)
[2019-11-05] MEDS: INSULIN GLARGINE 100 UNITS/ML VIAL SQ SCH ×2 (08:33→21:45)
[2019-11-05] MEDS: METOPROLOL SUCCINATE 25 MG TAB XL PO SCH ×2 (09:00→16:48)
[2019-11-05] MEDS: INSULIN LISPRO 100 UNIT/1 ML 3ML VIAL SQ SCH ×3 (12:00→21:45)
--- NOTE | 2019-11-05 13:29 | Diagnostic Imaging Report ---
Chest, portable AP view History: Shortness of breath Comparison: 11/13/2019 IMPRESSION: The cardiac silhouette is stably enlarged. There is pulmonary vascular congestion and interstitial edema. Retrocardiac opacity may be a combination of effusion and atelectasis however consolidation is not excluded. A small pleural effusion is present. There is no pneumothorax. Signed by: Joselo Evans MD on 11/05/2019 1:25 PM
[2019-11-05] MEDS: FUROSEMIDE 40 MG TAB PO SCH (16:48)
[2019-11-05] MEDS: ATORVASTATIN 20 MG TAB PO SCH (21:45)
[2019-11-06] VITALS (10 sets, daily range): BP systolic 109–141; BP diastolic 53–92
[2019-11-06 05:17] LABS: BASOPHILS % 0.1 % (0.0-1.0); EOSINOPHILS % 0.1 % (0.0-6.0); HEMOGLOBIN 10.4 g/dL (14.0-18.0); LYMPHOCYTES # (AUTO) 1.2 (1.0-3.2); LYMPHOCYTES % 7.3 % (18.0-39.1); MEAN CORPUSCULAR HGB CONC 30.6 g/dL (31-35); MEAN CORPUSCULAR VOLUME 88.3 fL (81-99); MONOCYTES # (AUTO) 1.2 (0.2-0.8); MONOCYTES % 7.3 % (4.4-11.3); NEUTROPHILS # (AUTO) 13.6 (2.1-6.9); NEUTROPHILS % 84.3 % (38.7-80.0); PLATELET COUNT 299 x10e3/uL (140-360); RED BLOOD COUNT 3.85 x10e6/uL (4.3-5.7)
[2019-11-06 05:50] LABS: ANION GAP 13.3 mmol/L (8-16); CALCIUM 9.2 mg/dL (8.4-10.2); CREATININE, SERUM 1.81 mg/dL (0.72-1.25); MAGNESIUM 2.4 MG/DL (1.3-2.1); POTASSIUM 4.3 mmol/L (3.5-5.1)
[2019-11-06] MEDS: MAGNESIUM OXIDE 400 MG TAB PO SCH (07:19)
[2019-11-06] MEDS: INSULIN LISPRO 100 UNIT/1 ML 3ML VIAL SQ SCH ×4 (07:30→20:00)
[2019-11-06] MEDS: INSULIN GLARGINE 100 UNITS/ML VIAL SQ SCH ×2 (08:31→20:00)
[2019-11-06] MEDS: FERROUS SULFATE 325 MG TAB PO SCH (08:47)
[2019-11-06] MEDS: APIXABAN 5 MG TABLET PO SCH ×2 (08:47→16:47)
[2019-11-06] MEDS: CHOLECALCIFEROL 1,000 UNIT TAB PO SCH (08:49)
[2019-11-06] MEDS: BUPROPION HCL 75 MG TAB PO SCH ×2 (08:49→16:51)
[2019-11-06] MEDS: PREDNISONE 20 MG TAB PO SCH (08:49)
[2019-11-06] MEDS: NICOTINE 21 MG/EA PATCH TOP SCH (08:50)
[2019-11-06] MEDS: METOPROLOL SUCCINATE 25 MG TAB XL PO SCH ×2 (08:56→16:49)
[2019-11-06] MEDS: FUROSEMIDE 40 MG TAB PO SCH ×2 (08:57→16:47)
[2019-11-06] MEDS: AMIODARONE HCL 200 MG TAB PO SCH (09:06)
--- NOTE | 2019-11-06 09:07 | NUR ---
HR 47-50, BP 122/58. Spoke with Dr Romeo. Advised to give the amiodarone and hold the metoprolol with parameters.
[2019-11-06] MEDS: TIOTROPIUM 18 MCG INH POWDER INH SCH (10:43)
[2019-11-06] MEDS: ALBUTEROL/IPRATROPIUM 3 ML NEB NEB SCH ×3 (11:00→19:45)
[2019-11-06] MEDS ORDERED: PREDNISONE 20 MG TAB PO ONE (11:30)
--- NOTE | 2019-11-06 11:54 | NUR ---
Report called and patient transferred to room 203 with tele and no complications noted. The second dose of prednisone given per Dr Lisa's clarified orders.
--- NOTE | 2019-11-06 13:27 | Diagnostic Imaging Report ---
EXAM: CT Chest without contrast INDICATION: Emphysema, query pneumonia. COMPARISON: CT chest 07/28/2018 and chest radiograph 11/05/2019. TECHNIQUE: Chest was scanned utilizing a multidetector helical scanner from the lung apex through the level of the adrenal glands without administration of IV contrast. Coronal and sagittal reformations were obtained. Routine protocol was performed. IV CONTRAST: None. RADIATION DOSE: Total DLP: 616 mGy*cm Estimated effective dose: (DLP x 0.014 x size factor) mSv COMPLICATIONS: None FINDINGS: LINES/ TUBES: None. LUNGS AND AIRWAYS: There are moderate centrilobular emphysematous changes of the lungs. Diffuse mild groundglass opacities with upper lobe predominant smooth intralobular septal thickening. There are dependent consolidative opacities within the left greater than right lower lobes and lingula. Multiple left lower lobe calcified granulomas. PLEURA: Small left pleural effusion. No pneumothorax. HEART AND MEDIASTINUM: The thyroid gland is normal. Prominent mediastinal lymph nodes, including a 1.4 cm right peritracheal lymph node on series 2, image 19, a 1.3 cm AP window/prevascular lymph node on image 20, and 2.0 cm subcarinal lymph node on image 34, likely reactive. Moderate cardiomegaly. Mitral annular calcifications. Coronary atherosclerosis. No pericardial effusion. Dilated main pulmonary artery, measuring up to 4.1 cm, suggestive of pulmonary arterial hypertension. UPPER ABDOMEN: Limited non-contrast views of the upper abdomen. Again noted are bilateral adrenal adenomas. BONES: No acute osseous abnormality. No suspicious lytic or blastic lesions. SOFT TISSUES: Unremarkable. IMPRESSION: Moderate emphysematous changes of the lungs with dependent consolidative opacities, suggestive of pneumonia or aspiration. Small left pleural effusion. Moderate cardiomegaly with likely pulmonary edema. Mediastinal lymphadenopathy, likely reactive. Suggest follow chest CT in 3 months to assess for resolution. Findings suggestive of pulmonary arterial hypertension. Signed by: Dr. Marilee Mendez MD on 11/06/2019 1:24 PM
[2019-11-06] MEDS: ATORVASTATIN 20 MG TAB PO SCH (20:20)
--- NOTE | 2019-11-06 21:05 | NUR ---
NOTIFIED DR HORTON ABOUT ELEVATED BS 434, NEW ORDER FOR LATUS 45 UNIT AM, AND 35 UNIT PM
[2019-11-07 05:23] LABS: BASOPHILS % 0.1 % (0.0-1.0); EOSINOPHILS # (AUTO) 0.1 (0.0-0.4); EOSINOPHILS % 0.4 % (0.0-6.0); HEMATOCRIT 33.6 % (38.2-49.6); HEMOGLOBIN 10.4 g/dL (14.0-18.0); LYMPHOCYTES # (AUTO) 1.3 (1.0-3.2); LYMPHOCYTES % 11.2 % (18.0-39.1); MEAN CORPUSCULAR VOLUME 87.3 fL (81-99); MONOCYTES % 8.2 % (4.4-11.3); NEUTROPHILS # (AUTO) 9.1 (2.1-6.9); NEUTROPHILS % 78.6 % (38.7-80.0); PLATELET COUNT 271 x10e3/uL (140-360); RED BLOOD COUNT 3.85 x10e6/uL (4.3-5.7); RED CELL DISTRIBUTION WIDTH 14.8 % (11.7-14.4)
[2019-11-07 05:25] VITALS: BP 113/53
[2019-11-07 05:53] LABS: ANION GAP 14.6 mmol/L (8-16); CALCIUM 9.1 mg/dL (8.4-10.2); CREATININE, SERUM 1.51 mg/dL (0.72-1.25); POTASSIUM 3.6 mmol/L (3.5-5.1)
[2019-11-07] MEDS: ALBUTEROL/IPRATROPIUM 3 ML NEB NEB SCH ×2 (06:20→10:35)
[2019-11-07] MEDS: TIOTROPIUM 18 MCG INH POWDER INH SCH (06:37)
--- NOTE | 2019-11-07 07:00 | NUR ---
received am report and rounds done. pt is alert resting in bed, no s/s of distress. call light within reach and instructed pt to call rn for help
[2019-11-07] MEDS: INSULIN LISPRO 100 UNIT/1 ML 3ML VIAL SQ SCH (07:30)
[2019-11-07 07:43] VITALS: BP 114/55
[2019-11-07] MEDS: APIXABAN 5 MG TABLET PO SCH (08:59)
[2019-11-07] MEDS: AMIODARONE HCL 200 MG TAB PO SCH (08:59)
[2019-11-07] MEDS: MAGNESIUM OXIDE 400 MG TAB PO SCH (09:00)
[2019-11-07] MEDS: FUROSEMIDE 40 MG TAB PO SCH (09:00)
[2019-11-07] MEDS: FERROUS SULFATE 325 MG TAB PO SCH (09:00)
[2019-11-07] MEDS: METOPROLOL SUCCINATE 25 MG TAB XL PO SCH (09:00)
[2019-11-07] MEDS: PREDNISONE 20 MG TAB PO SCH (09:00)
[2019-11-07] MEDS ORDERED: INSULIN GLARGINE 100 UNITS/ML VIAL SQ SCH ×2 (09:00→21:00)
[2019-11-07] MEDS: NICOTINE 21 MG/EA PATCH TOP SCH (09:01)
[2019-11-07] MEDS: BUPROPION HCL 75 MG TAB PO SCH (09:01)
[2019-11-07] MEDS: CHOLECALCIFEROL 1,000 UNIT TAB PO SCH (09:01)
[2019-11-07 10:01] VITALS: BP 114/55
[2019-11-07 12:05] VITALS: BP 128/59
[2019-11-07] MEDS ORDERED: DOXYCYCLINE HYCLATE TABLET 100 MG TAB PO ONE (12:30)
--- NOTE | 2019-11-08 09:08 | Discharge Summary ---
PRIMARY CARE PHYSICIAN: Pramod Santamaria M.D. FINAL DIAGNOSES: Acute respiratory failure, resolved due to combination of [id number] diastolic congestive heart failure, chronic obstructive pulmonary disease exacerbation, and community-acquired pneumonia. SECONDARY DIAGNOSES: 1. Diabetes. 2. AKA, resolved. 3. Stage 3 chronic kidney disease due to diabetes, stable. 4. Chronic respiratory failure, on home oxygen. 5. Atrial fibrillation, on Eliquis. MAP MOUNTER: Dr. Romeo, Cardiology. PROCEDURES/STUDIES PERFORMED: 1. BiPAP. 2. Chest CT. 3. Renal ultrasound. HISTORY: Per [facility]. HOSPITAL COURSE: The patient initially had to be put on BiPAP. He did well. The patient was diuresed with IV Lasix, which actually helped his creatinine. The patient was put on steroids for his COPD exacerbation along with nebulizer treatment. Given some leukocytosis, a chest CT was done, which shows some consolidation. The patient was on Zosyn both for pneumonia and also for asymptomatic Pseudomonas bacteriuria. The patient will go home on doxycycline for 5 more days and also a Medrol Dosepak. The patient will follow up with his primary care doctor next week. The patient was on Eliquis for both atrial fibrillation, stroke prophylaxis, and DVT prophylaxis. The patient was seen and examined today. It took 32 minutes total to discharge this patient. I have updated his primary care doctor about this hospitalization and I have also updated his at the bedside on the day of discharge. CONDITION ON DISCHARGE: Improved. DISCHARGE MEDICATIONS: Please see medication reconciliation form. MD GLORIA Perea/VIKTOR /[id number] cc: [facility]
== END 2019-11-07 12:31 | disposition home or self-care (01) | DRG 291 ==
LOC: ER 10:06 → ERHOLD 10:42 → ICU 22:50 → MED/SURG2 11-06 12:04
PROVIDERS: ADMIT Internal Medicine; ATTEND Internal Medicine
DX: I13.0 Hypertensive heart and chronic kidney disease with heart failure and stage 1 through stage 4 chronic kidney disease, or unspecified chronic kidney disease (principal); J96.21 Acute and chronic respiratory failure with hypoxia; J18.9 Pneumonia, unspecified organism; I50.33 Acute on chronic diastolic (congestive) heart failure; J44.1 Chronic obstructive pulmonary disease with (acute) exacerbation; J44.0 Chronic obstructive pulmonary disease with (acute) lower respiratory infection; N18.3 Chronic kidney disease, stage 3 (moderate); I12.9 Hypertensive chronic kidney disease with stage 1 through stage 4 chronic kidney disease, or unspecified chronic kidney disease; E11.22 Type 2 diabetes mellitus with diabetic chronic kidney disease; Z79.4 Long term (current) use of insulin; Z79.01 Long term (current) use of anticoagulants; R82.71 Bacteriuria; E78.00 Pure hypercholesterolemia, unspecified; Z99.81 Dependence on supplemental oxygen; G47.33 Obstructive sleep apnea (adult) (pediatric); I48.0 Paroxysmal atrial fibrillation; F17.200 Nicotine dependence, unspecified, uncomplicated; D63.8 Anemia in other chronic diseases classified elsewhere; I27.20 Pulmonary hypertension, unspecified; I25.10 Atherosclerotic heart disease of native coronary artery without angina pectoris
CPT/HCPCS: 36415; 36600; 71045; 71250; 76770; 80048; 80053; 81001; 82550; 82553; 82805; 82948; 83690; 83735; 83880; 84100; 84443; 84484; 85025; 85610; 85730; 87040; 87086; 87186; 87400; 93005; 93306; 94660; 94664; 96372; 99284; J1815; J1817; J1940; J2543; J2920; J2930; J7512

== ENCOUNTER 2022-05-16 13:51 | Observation (INO) | payer MEDICARE ==
[~2022-05-16] VITALS: Ht 182.9 cm; Wt 122.9 kg
[2022-05-16 16:00] VITALS: BP 92/47
[2022-05-16 16:04] VITALS: BP 92/47
[2022-05-16 16:34] VITALS: BP 92/47
[2022-05-16] MEDS ORDERED: [UNRECOGNIZED DRUG - OTHER] PO (16:47)
[2022-05-16] MEDS ORDERED: CALCIUM PO (16:47)
[2022-05-16] MEDS ORDERED: CALC (16:47)
[2022-05-16] MEDS ORDERED: TORSEMIDE20 MG PO (16:50)
[2022-05-16] MEDS ORDERED: DALIRESP500 MCG (16:50)
[2022-05-16] MEDS ORDERED: FOSAMAX70 MG (16:50)
[2022-05-16] MEDS ORDERED: POTASSIUM CHLO10 ME1 PO (16:53)
[2022-05-16] MEDS ORDERED: LISINOPRIL2.5 MG PO (16:54)
[2022-05-16] MEDS ORDERED: ACETAMINOPHEN 325 MG TAB PO PRN (18:00)
[2022-05-16] MEDS ORDERED: ONDANSETRON HCL INJ 2MG/ML 2ML 2 MG/ML VIAL IV PRN (18:00)
[2022-05-16] MEDS ORDERED: ALBUTEROL/IPRATROPIUM 3 ML NEB NEB PRN (18:00)
[2022-05-16] MEDS ORDERED: SODIUM CHLORIDE 0.9% 1000ML 1,000 ML IV SCH (18:15)
[2022-05-16] MEDS: APIXABAN 5 MG TABLET PO SCH (18:32)
[2022-05-16 20:00] VITALS: BP 91/53
[2022-05-16] MEDS ORDERED: ATORVASTATIN 20 MG TAB PO SCH (21:00)
[2022-05-16] MEDS: BUPROPION HCL 75 MG TAB PO SCH (21:02)
[2022-05-16] MEDS: INSULIN LISPRO 100 UNIT/1 ML 3ML VIAL SQ SCH (21:05)
[2022-05-17] VITALS: BP 87/44
[2022-05-17 04:00] VITALS: BP 96/67
[2022-05-17 06:46] LABS: BASOPHILS % 0.6 % (0.0-1.0); EOSINOPHILS # (AUTO) 0.2 (0.0-0.4); EOSINOPHILS % 2.3 % (0.0-6.0); HEMATOCRIT 31.8 % (38.2-49.6); HEMOGLOBIN 9.9 g/dL (14.0-18.0); LYMPHOCYTES # (AUTO) 0.8 (1.0-3.2); LYMPHOCYTES % 11.4 % (18.0-39.1); MEAN CORPUSCULAR HEMOGLOBIN 26.8 pg (28-32); MEAN CORPUSCULAR HGB CONC 31.1 g/dL (31-35); MEAN CORPUSCULAR VOLUME 86.2 fL (81-99); MONOCYTES # (AUTO) 0.7 (0.2-0.8); MONOCYTES % 9.8 % (4.4-11.3); NEUTROPHILS # (AUTO) 5.3 (2.1-6.9); NEUTROPHILS % 75.3 % (38.7-80.0); PLATELET COUNT 250 x10e3/uL (140-360); RED BLOOD COUNT 3.69 x10e6/uL (4.3-5.7); RED CELL DISTRIBUTION WIDTH 14.3 % (11.7-14.4)
[2022-05-17 07:24] LABS: ANION GAP 15.4 mmol/L (8-16); BILIRUBIN,DIRECT 0.2 mg/dL (0.0-0.5); CALCIUM 10.5 mg/dL (8.4-10.2); CREATININE, SERUM 2.47 mg/dL (0.72-1.25); MAGNESIUM 2.4 MG/DL (1.3-2.1); POTASSIUM 3.4 mmol/L (3.5-5.1)
[2022-05-17] MEDS: INSULIN LISPRO 100 UNIT/1 ML 3ML VIAL SQ SCH ×3 (07:30→16:30)
[2022-05-17 07:49] LABS: THYROID STIMULATING HORMONE 1.444 uIU/mL (0.350-4.940)
[2022-05-17 08:05] VITALS: BP 102/57
[2022-05-17 08:49] VITALS: BP 102/57
[2022-05-17] MEDS: BUPROPION HCL 75 MG TAB PO SCH ×2 (09:13→17:00)
[2022-05-17] MEDS: APIXABAN 5 MG TABLET PO SCH ×2 (09:13→17:00)
[2022-05-17 10:04] LABS: ALBUMIN 3.1 g/dL (3.5-5.0)
[2022-05-17] MEDS ORDERED: POTASSIUM CHLORIDE 20 MEQ TAB CR PO ONE ×2 (11:00→12:00)
[2022-05-17 11:18] VITALS: BP 98/63
[2022-05-17] MEDS ORDERED: IRON SUCROSE 100 MG in SODIUM CHLORIDE 0.9% 100 ML 100 ML IV SCH ×2 (12:00→14:00)
[2022-05-17] MEDS ORDERED: ONDANSETRON HCL 4 MG ORAL DISINTEGRATING TAB PO PRN (13:30)
[2022-05-17 16:58] VITALS: BP 116/82
== END 2022-05-17 17:58 | disposition home or self-care (01) ==
LOC: MED/SURG 15:31 → INTOOBSV 15:31
PROVIDERS: ADMIT Internal Medicine; ATTEND Internal Medicine
DX: N17.9 Acute kidney failure, unspecified (principal); E11.22 Type 2 diabetes mellitus with diabetic chronic kidney disease; I12.9 Hypertensive chronic kidney disease with stage 1 through stage 4 chronic kidney disease, or unspecified chronic kidney disease; N18.30 Chronic kidney disease, stage 3 unspecified; I48.91 Unspecified atrial fibrillation; Z79.01 Long term (current) use of anticoagulants; J96.10 Chronic respiratory failure, unspecified whether with hypoxia or hypercapnia; Z99.81 Dependence on supplemental oxygen; I13.0 Hypertensive heart and chronic kidney disease with heart failure and stage 1 through stage 4 chronic kidney disease, or unspecified chronic kidney disease; I50.32 Chronic diastolic (congestive) heart failure; Z79.899 Other long term (current) drug therapy; W19.XXXA Unspecified fall, initial encounter
CPT/HCPCS: 36415 ×2; 71045; 80048; 80076; 82948 ×2; 83036; 83540; 83735; 84443; 84466; 85025; 93306; 97110; 97116; 97161; 97530; G0378 ×2; J1756; J7030